=== PATIENT | male | born 1955 | race Caucasian/White ===

== ENCOUNTER → 2018-06-26 14:18 | Outpatient (CLI) | payer SELFPAY ==
--- NOTE | 2018-06-26 14:21 | CT_ITS ---
CT soft tissue neck wo con INDICATION: ITS.REASON: LT SUBMANDIBULAR MASS ORDERING PHYSICIAN: Lindsey Stevenson PATIENT AGE: 62 years COMPARISON: None TECHNIQUE: Axial images are obtained without contrast. Sagittal and coronal reformatted images are reviewed as well. A BB is placed over the palpable abnormality All CT scans at the facility use one or more dose reduction, viz: automated exposure control, ma/kV adjustment per patient size (including targeted exams where dose is matched to indication, i.e. head), or iterative reconstruction technique. FINDINGS: There is a 3.2 x 2.8 x 3.6 cm soft tissue mass left submandibular region. This is along the posterior and superior aspect of the submandibular gland between the submandibular gland and sternocleidomastoid muscle and lateral to the jugular and carotid vessels consistent with an enlarged lymph node. No calcification or necrosis apparent. This is a level 2 lymph node. Other scattered smaller nodes are present in the neck but no other dominant nodes are apparent. No acute finding in the lung apices. There are degenerative changes in the cervical spine and nonspecific nuchal ligament calcification. IMPRESSION: Left neck soft tissue mass as described above consistent with an enlarged lymph node.
== END ==
PROVIDERS: Family Provider Nurse Practitioner; PCP Nurse Practitioner; Visit Provider Nurse Practitioner
DX: R22.1 Localized swelling, mass and lump, neck (principal)
CPT/HCPCS: 70490

== ENCOUNTER → 2019-01-04 12:04 | Outpatient (CLI) | payer OTHER, SELFPAY ==
--- NOTE | 2019-01-04 12:15 | CT_ITS ---
CT soft tissue neck wo con INDICATION: ITS.REASON: LT SIDE OF NECK MASS ORDERING PHYSICIAN: Lindsey Stevenson PATIENT AGE: 63 years COMPARISON: 06/26/2018 TECHNIQUE: Axial images are obtained without contrast. Sagittal and coronal reformatted images are reviewed as well. All CT scans at the facility use one or more dose reduction, viz: automated exposure control, ma/kV adjustment per patient size (including targeted exams where dose is matched to indication, i.e. head), or iterative reconstruction technique. FINDINGS: Study is somewhat limited performed without contrast. There remains a soft tissue mass in the left submandibular area. This is increased in size measuring 4.2 x 3.5 x 3.6 cm previously 3.5 x 2.8 x 3.1 cm consistent with an enlarged lymph node. The submandibular gland has an unremarkable appearance. No other enlarged nodes are evident. There are scattered small lymph nodes present in the neck on both sides. There is mild mucosal thickening of the ethmoid sinuses. The nasopharynx has an unremarkable appearance. The tonsils are somewhat prominent more so on the left compared to the right. Cannot exclude a mass in the left peritonsillar region. The laryngeal region and epiglottis has an unremarkable appearance. IMPRESSION: 1. Enlarged left subarticular lymph node which has increased in size compared to 06/26/2018. Fine-needle aspiration with ultrasound guidance could be performed if clinically desired. 2. Mildly enlarged tonsils. There is increased soft tissue density in the left peritonsillar region. A mass at this area cannot be excluded. Follow-up CT neck with IV contrast suggested for further evaluation.
== END ==
PROVIDERS: PCP Nurse Practitioner; Visit Provider Nurse Practitioner
DX: R22.1 Localized swelling, mass and lump, neck (principal)
CPT/HCPCS: 70490

== ENCOUNTER 2019-01-08 10:17 | Inpatient (IN) ==
--- NOTE | 2019-01-08 10:43 | Emergency Department Note ---
ED Disposition Clinical Impression: Partial bowel obstruction Disposition: Admitted as Observation Condition on Discharge: Good Referrals: Lindsey Stevenson APRN [Primary Care Provider] - Time of Disposition: 13:06 - Critical Care Critical Care Time: No Attestation: On 01/08/19, the high probability of a clinically significant, sudden or life threatening deterioration of the following system(s) required my full and direct attention, intervention and personal management. The time I documented below is in addition to time spent performing reported procedures but includes the following listed in this critical care notation. Medical Decision Making - Medical Records Medical records reviewed: Yes: I reviewed the patient's medical records. - Harvey Inquiry Pt receiving controlled substance: No Harvey was queried for this patient: No Vital Signs: 01/08/19 10:29 01/08/19 10:40 01/08/19 11:09 Temperature 97.9 F 98.1 F Temperature Source Oral Oral Pulse Rate [Right Brachial] 61 53 L 57 L Respiratory Rate 18 17 Blood Pressure [Right Arm] 145/78 H 159/81 H 135/70 Blood Pressure Mean [Right Arm] 100 107 91 Blood Pressure Source [Right Arm] Automatic Cuff Automatic Cuff Automatic Cuff Blood Pressure Position [Right Arm] Sitting Sitting Sitting 02 Sat by Pulse Oximetry 97 100 93 L Oxygen Delivery Method Room Air Room Air Room Air 01/08/19 12:00 Temperature Temperature Source Pulse Rate [Right Brachial] 56 L Respiratory Rate 18 Blood Pressure [Right Arm] 101/58 L Blood Pressure Mean [Right Arm] 72 Blood Pressure Source [Right Arm] Automatic Cuff Blood Pressure Position [Right Arm] Sitting 02 Sat by Pulse Oximetry 95 Oxygen Delivery Method Room Air - Lab Data Lab results reviewed: Yes: I reviewed the patient's lab results. Lab Results 01/08/19 10:43: WBC 14.0 H, RBC 4.21 L, Hgb 13.0 L, Hct 36.5 L, MCV 86.7, MCH 30.8, MCHC 35.5 H, RDW 12.5, Plt Count 296, MPV 7.2 L, Neut % (Auto) 84.6 H, Lymph % (Auto) 11.5, [place] % (Auto) 3.1, Eos % (Auto) 0.7, Baso % (Auto) 0.1, Neut # (Auto) 11.8 H, Lymph # (Auto) 1.6, [place] # (Auto) 0.4, Eos # (Auto) 0.1, Baso # (Auto) 0.0 01/08/19 10:43: Sodium 138, Potassium 4.0, Chloride 102, Carbon Dioxide 24, Anion Gap 16.0 H, BUN 19 H, Creatinine 1.50 H, Estimated Creat Clear 73, Estimated GFR 48 L, Est GFR ( Amer) 58 L, Glucose 133 H, Calcium 9.1, Total Bilirubin 0.5, AST 15, ALT 19, Alkaline Phosphatase 98, Total Protein 8.7 H, Albumin 4.2, Globulin 4.5 H, Albumin/Globulin Ratio 0.9 L 01/08/19 10:43: Lipase 81 01/08/19 11:07: Urine Color Yellow, Urine Appearance Clear, Urine pH 6.0, Ur Specific [place] 1.020, Urine Protein Negative, Urine Glucose (UA) Negative, Urine Ketones Negative, Urine Blood Negative, Urine Nitrate Negative, Urine Bilirubin Negative, Urine Urobilinogen 0.2, Ur Leukocyte Esterase Negative, Urine WBC Occasional, Ur Squamous Epith Cells Occasional, Urine Bacteria Trace Result diagrams: 01/08/19 10:43 01/08/19 10:43 Orders (Tests/Meds): ED MEDICATIONS Discontinued Medications Generic Name Dose Route Start Last Admin Trade Name Freq PRN Reason Stop Dose Admin Ioversol 75 ml 01/08/19 11:42 01/08/19 11:44 Rad-Optiray 350 100ml Vial IV 01/08/19 11:43 75 ml ONCE ONE Administration Protocol Ketorolac Tromethamine 30 mg 01/08/19 10:49 01/08/19 11:04 Toradol 30mg/Ml Vial IV 01/08/19 10:50 30 mg ONCE ONE Administration Ondansetron HCl 4 mg 01/08/19 10:49 01/08/19 11:04 Zofran 4mg/2ml Vial IV 01/08/19 10:50 4 mg ONCE ONE Administration Sodium Chloride 10 ml 01/08/19 11:42 01/08/19 11:44 Rad-Saline Flush 10ml Syringe IV 01/08/19 11:43 10 ml ONCE ONE Administration - Physician Consults Physician Consulted: argenis corea Reason -: Pt condition Comment/Response: admit, inhouse prep, colonoscopy. I then learned that the patient had undergone previous colonoscopy by Dr. Ramirez Additional Consult: md latia Reason -: Pt condition Additional Consult: Dr. Maria Time: 13:06 Reason -: Admission General Adult HPI - General Stated complaint: stomach pain Time Seen by Provider: 01/08/19 10:40 Mode of Arrival: Family Vehicle Source of Information: Patient Limitations: No Limitations Description of Symptoms (Recalled from ER Triage Doc. by RN): c/o severe intermittent abdominal pain since approx 2 am. When it occurs is 10 on scale 1/10. States its starts in RLQ and radiates upward to epigastric/rib area - Related Data Home Medications Medication Instructions Recorded Confirmed Carvedilol [Carvedilol 12.5mg Tab] 12.5 mg PO BID 01/08/19 01/08/19 Gemfibrozil 600 mg PO BID 01/08/19 01/08/19 Lisinopril/Hydrochlorothiazide 1 tab PO DAILY 01/08/19 01/08/19 [Lisinopril-Hctz 20-12.5 mg Tab] Allergies Allergy/AdvReac Type Severity Reaction Status Date / Time No Known Allergies Allergy Verified 01/08/19 10:37 [facility] History - Hepatitis A Screen Drug use history?: No High risk sexual behaviors?: No History of sexually transmitted infection?: No Currently employed?: No Childcare worker?: No Do you have indoor plumbing?: Yes Do you have electricity?: Yes Attestation statement:: This patient has been screened for Hepatitis A risk factors. I have reviewed the patient's past medical history: Yes - Social History Smoking Status: Unknown if ever smoked Tobacco Type: smokeless tobacco # Packs/Day (cigarettes): 0 #Yrs smoked (if former smoker): 0 Alcohol Intake: never Occupational Status: other - Psychiatric History Expresses thoughts of harming self/others: None Suicide Plan Description: No Plan ROS Obtained: Yes All systems reviewed & no additional complaints - Constitutional Constitutional: Denies fever(s) - Cardiovascular Cardiovascular: Denies chest pain - Respiratory Respiratory: No chest congestion, No cough - Gastrointestinal Gastrointestingal: Reports: abdominal pain, nausea - Genitourinary Male Genitourinary: Reports flank pain, Denies hematuria - Musculoskeletal Musculoskeletal: Denies joint stiffness, Denies joint swelling - Integumentary/Breasts Skin/Breast: Denies rash - Neurologic Neurologic: Denies headache(s), Denies weakness Physical Exam - General General appearance: alert, in no apparent distress - Head Head exam: atraumatic, normocephalic, normal inspection - Eye Eye exam: Present: normal appearance, PERRL, EOMI - ENT ENT exam: Present: normal exam, normal oropharynx, mucous membranes moist, TM's normal bilaterally, normal external ear exam - Neck Neck exam: Present: normal inspection, full ROM, trachea midline. Absent: meningismus, lymphadenopathy - Respiratory Respiratory exam: Present: normal lung sounds bilaterally - Cardiovascular Cardiovascular exam: Present: regular rate, normal rhythm - Abdominal Exam Abdominal exam: Present: soft, distention. Absent: tenderness, guarding, mass - Extremities Exam Extremities exam: Present: normal inspection, full ROM, normal capillary refill. Absent: calf tenderness - Back Exam Back exam: Present: normal inspection. Absent: tenderness - Neurological Exam Neurological exam: Present: alert, oriented X3 - Psychiatric Psychiatric exam: Present: normal affect, normal mood - Skin Skin exam: Present: warm, dry, intact, normal color
[2019-01-08 11:00] LABS: Basophils % 0.1 % (0.1-2.0); Eosinophils # 0.1 K/mm3 (0.0-0.4); Eosinophils % 0.7 % (0.1-12.0); Hematocrit 36.5 % (42.0-52.0); Lymphocytes # 1.6 K/mm3 (0.7-4.5); Lymphocytes % 11.5 % (10-50); Mean Corpuscular HGB Conc 35.5 g/dL (31.8-35.4); Mean Corpuscular Hemoglobin 30.8 pg (27.0-31.2); Mean Corpuscular Volume 86.7 fl (80-94); Mean Platelet Volume 7.2 fl (7.4-10.4); Monocytes # 0.4 K/mm3 (0.1-1.0); Monocytes % 3.1 % (1.7-9.3); Neutrophils # 11.8 K/mm3 (1.8-7.8); Neutrophils % 84.6 % (37.0-80.0); Platelet Count 296 K/mm3 (142-424); Red Blood Count 4.21 M/mm3 (4.60-6.20); Red Cell Distribution Width 12.5 % (11.5-17.5)
[2019-01-08 11:09] LABS: Microscopic, Urine URINE MICROSCOPIC (MICROSCOPIC)
[2019-01-08 11:12] LABS: Appearance,Urine CLEAR (Clear); Bilirubin,Urine Negative (Negative); Blood, Urine Negative (Negative); Color,Urine YELLOW (Yellow); Glucose,Urine (UA) Negative (Negative); Ketones,Urine Negative (Negative); Leukocyte Esterase,Urine Negative (Negative); Protein,Urine Negative (Negative); Urobilinogen,Urine 0.2 EU/dl (0.2)
[2019-01-08 11:15] LABS: Albumin Level 4.2 gm/dL (3.4-5.0); Albumin/Globulin Ratio 0.9 (1.1-1.8); Bilirubin,Total 0.5 mg/dL (0.2-1.0); Calcium 9.1 mg/dL (8.5-10.1); Globulin 4.5 gm/dl (1.3-3.2); Total Protein,Serum 8.7 gm/dL (6.4-8.2)
[2019-01-08 11:18] LABS: Bacteria,Urine Trace /lpf; Squamous Epithelial Cell,Urine Occasional #/hpf (0-5); WBC,Urine Occasional #/hpf (0-3)
--- NOTE | 2019-01-08 13:50 | Pharmacy Consult Notes ---
[facility] Pharmacy VTE Monitoring - Patient Demographics Admission date: 01/08/19 Report Date: 01/08/19 Time: 13:50 Allergies/Adverse Reactions: Patient Allergies No Known Allergies Allergy (Verified 01/08/19 10:37) Height: 1.73 m Weight: 100.244 kg Patient Problems: Current Active Problems Partial bowel obstruction (Acute) - VTE Risk Labs: VTE Related Lab Results Hgb 13.0 g/dL (14.1-18.0) L 01/08/19 10:43 Hct 36.5 % (42.0-52.0) L 01/08/19 10:43 Plt Count 296 K/mm3 (142-424) 01/08/19 10:43 BUN 19 mg/dL (7-18) H 01/08/19 10:43 Creatinine 1.50 mg/dL (0.70-1.30) H 01/08/19 10:43 Estimated Creat Clear 73 mL/min (50-200) 01/08/19 10:43 - Prophylaxis VTE Prophylaxis Ordered?: Yes Types of VTE Prophylaxis: TEDS Knee High Location of Applied Device: Bilateral Lower Extremeties - VTE Diagnosis Confirmed Treatment or plan recommended: Continue Current Treatment
--- NOTE | 2019-01-08 16:46 | History & Physical Report ---
*Admission Date: 01/08/19 *Chief complaint: abd pain, bowel obstruction *History of present illness: 63 year old male presents to [facility] ER with acute onset of abdominal pain which began this morning. Located right lower quadrant radiating mid epigastric area. Denies N/V/D. Usually has a daily BM but was noted to be constipated this morning. Has had three very small bowel movements today. Denies fever, chills. PMH significant for appendectomy. Colonoscopy performed by Dr Ramirez September of 2014, additional colonoscopy by Dr Birch. FH includes mother with colon cancer and colon resection. CT abd/pelvis in ER showed stenosis in the colon with suspicious apple core lesion/neoplasm and diverticulosis. Dr Ramirez consulted with this admission, has already examined the patient with plan of gastrograffin enema for further evaluation, potentially needs additional colonoscopy. [facility] History Medical History: Reports:: Hyperlipidemia, Hypertension Denies:: Diabetes Mellitus Type 1, Diabetes Mellitus Type 2 *Have you ever received a pneumonia vaccine?: No *Have you received a flu vaccine this season?: No Other Surgeries: Yes: Appendectomy Comment: partial right foot amputation - *Social History Educational Level: Completed High School Smoking Status: Former smoker Tobacco Type: smokeless tobacco # Packs/Day (cigarettes): 0 #Yrs smoked (if former smoker): 0 Alcohol Intake: never *Occupational Status:: other Housing: house Household Members: family *Travel in the last 8 weeks: None - Psychiatric History Expresses thoughts of harming self/others: None Suicide Plan Description: No Plan Family Hx:: Cancer, Diabetes, Hyperlipidemia, Hypertension, Kidney Disease, Other Review of Systems - Constitutional Denies chills, Denies fever(s), Denies lack of energy, Denies weight loss - *Cardiovascular Denies shortness of breath - *Gastrointestinal Reports abdominal pain, Reports change in stools, Reports constipation, Denies nausea, Denies vomiting - *Neurologic Denies headache(s), Denies weakness Meds Home Medications Medication Instructions Recorded Confirmed Type Carvedilol [Carvedilol 12.5mg Tab] 12.5 mg PO BID 01/08/19 01/08/19 History Gemfibrozil 600 mg PO BID 01/08/19 01/08/19 History Lisinopril/Hydrochlorothiazide 1 tab PO BID 01/08/19 01/08/19 History [Lisinopril-Hctz 20-12.5 mg Tab] Allergies Allergy/AdvReac Type Severity Reaction Status Date / Time No Known Allergies Allergy Verified 01/08/19 10:37 Exam Vital signs and Labs for Last 24 Hours: Temp Pulse Resp BP Pulse Ox 97.7 F 50 L 18 138/68 94 L 01/08/19 14:11 01/08/19 14:11 01/08/19 14:11 01/08/19 14:11 01/08/19 14:11 Laboratory Results - last 24 hr 01/08/19 10:43: WBC 14.0 H, RBC 4.21 L, Hgb 13.0 L, Hct 36.5 L, MCV 86.7, MCH 30.8, MCHC 35.5 H, RDW 12.5, Plt Count 296, MPV 7.2 L, Neut % (Auto) 84.6 H, Lymph % (Auto) 11.5, [place] % (Auto) 3.1, Eos % (Auto) 0.7, Baso % (Auto) 0.1, Neut # (Auto) 11.8 H, Lymph # (Auto) 1.6, [place] # (Auto) 0.4, Eos # (Auto) 0.1, Baso # (Auto) 0.0 01/08/19 10:43: Sodium 138, Potassium 4.0, Chloride 102, Carbon Dioxide 24, Anion Gap 16.0 H, BUN 19 H, Creatinine 1.50 H, Estimated Creat Clear 73, Estimated GFR 48 L, Est GFR ( Amer) 58 L, Glucose 133 H, Calcium 9.1, Total Bilirubin 0.5, AST 15, ALT 19, Alkaline Phosphatase 98, Total Protein 8.7 H, Albumin 4.2, Globulin 4.5 H, Albumin/Globulin Ratio 0.9 L 01/08/19 10:43: Lipase 81 01/08/19 11:07: Urine Color Yellow, Urine Appearance Clear, Urine pH 6.0, Ur Specific [place] 1.020, Urine Protein Negative, Urine Glucose (UA) Negative, Urine Ketones Negative, Urine Blood Negative, Urine Nitrate Negative, Urine Bilirubin Negative, Urine Urobilinogen 0.2, Ur Leukocyte Esterase Negative, Urine WBC Occasional, Ur Squamous Epith Cells Occasional, Urine Bacteria Trace I & O for Last 24 hours: Intake & Output 01/05/19 01/06/19 01/07/19 01/08/19 23:59 23:59 23:59 23:59 Intake Total 234 / 234 Balance 234 / 234 Weight 217 lb 8 oz - Constitutional no acute distress, obese - *Routine HEENT Exam Head: Present: normocephalic ENT: Present: mucous membranes moist, mucous membranes dry - *Routine Respiratory Exam Present: CTA bilaterally. Absent: accessory muscle use - *Routine Cardiovascular Exam Present: RRR, Normal S1, Normal S2 - *Routine Abdominal Exam Present: soft Comments: diastasis recti noted, pain with palpation over right upper and lower quadrants - *Routine Extremities Exam Present: full ROM. Absent: cyanosis, edema - *Routine Skin Exam Present: intact. Absent: cyanosis, pallor - *Routine Neurological Exam Present: alert, oriented X3 - Routine Psychiatric Exam Present: normal affect
--- NOTE | 2019-01-08 16:46 | Consult Report ---
*Admission Date: 01/08/19 *Chief complaint: Abdominal pain, colon lesion *History of present illness: Patient is a 63-year-old white male. He had undergone previous initial screening colonoscopy in [address] Birch. This reportedly revealed only diverticulosis. I had performed his subsequent colonoscopy which was done in September 2014 at which time he had 6 polyps removed and had some sigmoid diverti culosis. I had recommended a 3-year follow-up colonoscopy at that time. He actually underwent a follow-up colonoscopy in September [address] Birch which reportedly revealed diverticulosis and a repeat colonoscopy in 5 or 6 years was recommended. Patient states that over the past couple of months he has had occasional audible bowel sounds but otherwise asymptomatic. He has had normal bowel movements and moves his bowels normally yesterday. However, this morning approximately 2 AM he had developed acute onset of sharp right lower quadrant pain radiating into the right upper quadrant and epigastrium. This was somewhat colicky and intermittent. He had presented to the emergency department where he was seen and evaluated and underwent noncontrast CT scan. This reveals findings of a stenotic area in the proximal to mid transverse colon with dilatation of the proximal colon. Distal colon is rather decompressed with some evidence of diverticulosis and minimal stranding. Of note, the patient's mother had been diagnosed with colon cancer approximately 2 years ago at the age of 78. No other family history of colon cancer. Review of Systems - Review of Systems Review of systems:: pertinent systems reviewed and negative unless documented below - Constitutional Denies anorexia - Eyes Denies change in vision - ENT Denies abnormal hearing - *Cardiovascular Denies chest pain - *Respiratory Denies shortness of breath - *Gastrointestinal Reports abdominal pain, Denies change in bowel habits - *Genitourinary Denies difficulty urinating - *Musculoskeletal Denies abnormal walking - *Neurologic Denies headache(s), Denies weakness [facility] History Medical History: Reports:: Hyperlipidemia, Hypertension Denies:: Diabetes Mellitus Type 1, Diabetes Mellitus Type 2 *Have you ever received a pneumonia vaccine?: No *Have you received a flu vaccine this season?: No Other Surgeries: Yes: Appendectomy - *Social History Educational Level: Completed High School Smoking Status: Former smoker Tobacco Type: smokeless tobacco # Packs/Day (cigarettes): 0 #Yrs smoked (if former smoker): 0 Alcohol Intake: never *Occupational Status:: other Housing: house Household Members: family *Travel in the last 8 weeks: None - Psychiatric History Expresses thoughts of harming self/others: None Suicide Plan Description: No Plan Family Hx:: Cancer, Diabetes, Hyperlipidemia, Hypertension, Kidney Disease, Other Meds Home Medications Medication Instructions Recorded Confirmed Type Carvedilol [Carvedilol 12.5mg Tab] 12.5 mg PO BID 01/08/19 01/08/19 History Gemfibrozil 600 mg PO BID 01/08/19 01/08/19 History Lisinopril/Hydrochlorothiazide 1 tab PO BID 01/08/19 01/08/19 History [Lisinopril-Hctz 20-12.5 mg Tab] Allergies Allergy/AdvReac Type Severity Reaction Status Date / Time No Known Allergies Allergy Verified 01/08/19 10:37 Exam Vital signs and Labs for Last 24 Hours: Temp Pulse Resp BP Pulse Ox 97.7 F 50 L 18 138/68 94 L 01/08/19 14:11 01/08/19 14:11 01/08/19 14:11 01/08/19 14:11 01/08/19 14:11 Laboratory Results - last 24 hr 01/08/19 10:43: WBC 14.0 H, RBC 4.21 L, Hgb 13.0 L, Hct 36.5 L, MCV 86.7, MCH 30.8, MCHC 35.5 H, RDW 12.5, Plt Count 296, MPV 7.2 L, Neut % (Auto) 84.6 H, L ymph % (Auto) 11.5, [place] % (Auto) 3.1, Eos % (Auto) 0.7, Baso % (Auto) 0.1, Neut # (Auto) 11.8 H, Lymph # (Auto) 1.6, [place] # (Auto) 0.4, Eos # (Auto) 0.1, Baso # (Auto) 0.0 01/08/19 10:43: Sodium 138, Potassium 4.0, Chloride 102, Carbon Dioxide 24, Anion Gap 16.0 H, BUN 19 H, Creatinine 1.50 H, Estimated Creat Clear 73, Estimated GFR 48 L, Est GFR ( Amer) 58 L, Glucose 133 H, Calcium 9.1, T otal Bilirubin 0.5, AST 15, ALT 19, Alkaline Phosphatase 98, Total Protein 8.7 H , Albumin 4.2, Globulin 4.5 H, Albumin/Globulin Ratio 0.9 L 01/08/19 10:43: Lipase 81 01/08/19 11:07: Urine Color Yellow, Urine Appearance Clear, Urine pH 6.0, Ur Specific [place] 1.020, Urine Protein Negative, Urine Glucose (UA) Negative, Urine Ketones Negative, Urine Blood Negative, Urine Nitrate Negative, Urine Bili garcia Negative, Urine Urobilinogen 0.2, Ur Leukocyte Esterase Negative, Urine WBC Occasional, Ur Squamous Epith Cells Occasional, Urine Bacteria Trace I & O for Last 24 hours: Intake & Output 01/06/19 01/07/19 01/08/19 01/09/19 11:59 11:59 11:59 11:59 Intake Total 234 / 234 Balance 234 / 234 Weight 221 lb 217 lb 8 oz - *Routine HEENT Exam Head: Present: normocephalic Eye: Present: EOMI, PERRL ENT: Present: mucous membranes moist - *Routine Neck Exam Present: supple. Absent: lymphadenopathy - *Routine Respiratory Exam Present: CTA bilaterally - *Routine Cardiovascular Exam Present: RRR - *Routine Abdominal Exam Present: soft, normoactive bowel sounds, tenderness Comments: He has very minimal tenderness without guarding or rebound in the right lower quadrant. - *Routine Extremities Exam Absent: cyanosis, clubbing, edema - *Routine Skin Exam Present: warm. Absent: rash - *Routine Neurological Exam Present: alert, oriented X3 - Detailed Eye Exam Eyelids: Left normal inspection Results - Labs 01/08/19 10:43 01/08/19 10:43 Laboratory Results - last 24 hr 01/08/19 10:43: WBC 14.0 H, RBC 4.21 L, Hgb 13.0 L, Hct 36.5 L, MCV 86.7, MCH 30.8, MCHC 35.5 H, RDW 12.5, Plt Count 296, MPV 7.2 L, Neut % (Auto) 84.6 H, Lymph % (Auto) 11.5, [place] % (Auto) 3.1, Eos % (Auto) 0.7, Baso % (Auto) 0.1, Neut # (Auto) 11.8 H, Lymph # (Auto) 1.6, [place] # (Auto) 0.4, Eos # (Auto) 0.1, Baso # (Auto) 0.0 01/08/19 10:43: Sodium 138, Potassium 4.0, Chloride 102, Carbon Dioxide 24, Anion Gap 16.0 H, BUN 19 H, Creatinine 1.50 H, Estimated Creat Clear 73, Estimated GFR 48 L, Est GFR ( Amer) 58 L, Glucose 133 H, Calcium 9.1, Total Bilirubin 0.5, AST 15, ALT 19, Alkaline Phosphatase 98, Total Protein 8.7 H, Albumin 4.2, Globulin 4.5 H, Albumin/Globulin Ratio 0.9 L 01/08/19 10:43: Lipase 81 01/08/19 11:07: Urine Color Yellow, Urine Appearance Clear, Urine pH 6.0, Ur Specific [place] 1.020, Urine Protein Negative, Urine Glucose (UA) Negative, Urine Ketones Negative, Urine Blood Negative, Urine Nitrate Negative, Urine Bilirubin Negative, Urine Urobilinogen 0.2, Ur Leukocyte Esterase Negative, Urine WBC Occasional, Ur Squamous Epith Cells Occasional, Urine Bacteria Trace Assessment and Plan - Assessment and plan all Dx Assessment and Plan for all problems:: Patient has evidence of a stenosis with partial large bowel obstruction in the proximal transverse colon. Etiology is unclear. This could be ne oplasm/malignancy versus inflammatory stricture. Plan for bowel rest at this time and water-soluble contrast enema tomorrow for diagnostic and potentially therapeutic purposes. Pending that could require colonoscopy.
[2019-01-09 06:38] LABS: Basophils % 0.3 % (0.1-2.0); Eosinophils # 0.1 K/mm3 (0.0-0.4); Eosinophils % 1.7 % (0.1-12.0); Hematocrit 30.6 % (42.0-52.0); Lymphocytes # 1.6 K/mm3 (0.7-4.5); Lymphocytes % 20.4 % (10-50); Mean Corpuscular HGB Conc 34.6 g/dL (31.8-35.4); Mean Corpuscular Hemoglobin 30.3 pg (27.0-31.2); Mean Corpuscular Volume 87.6 fl (80-94); Mean Platelet Volume 7.3 fl (7.4-10.4); Monocytes # 0.4 K/mm3 (0.1-1.0); Monocytes % 4.6 % (1.7-9.3); Neutrophils # 5.6 K/mm3 (1.8-7.8); Neutrophils % 72.9 % (37.0-80.0); Platelet Count 224 K/mm3 (142-424); Red Blood Count 3.49 M/mm3 (4.60-6.20); Red Cell Distribution Width 12.7 % (11.5-17.5); White Blood Count 7.6 K/mm3 (4.8-10.8)
[2019-01-09 06:45] LABS: Anion Gap 13.4 mEq/L (5-15); Calcium 8.5 mg/dL (8.5-10.1); Potassium 4.4 mmoL/L (3.5-5.1)
--- NOTE | 2019-01-09 06:55 | Progress Note ---
Subjective Narrative: Feels well. Some "soreness" in right lower quadrant. No nausea. No additional colicky pain. Passing some gas. Exam Vital signs and Labs for Last 24 Hours: Temp Pulse Resp BP Pulse Ox 98.2 F 60 15 121/63 96 01/09/19 04:00 01/09/19 04:00 01/09/19 04:00 01/09/19 04:00 01/09/19 04:00 Laboratory Results - last 24 hr 01/08/19 10:43: WBC 14.0 H, RBC 4.21 L, Hgb 13.0 L, Hct 36.5 L, MCV 86.7, MCH 30.8, MCHC 35.5 H, RDW 12.5, Plt Count 296, MPV 7.2 L, Neut % (Auto) 84.6 H, Lymph % (Auto) 11.5, [place] % (Auto) 3.1, Eos % (Auto) 0.7, Baso % (Auto) 0.1, Neut # (Auto) 11.8 H, Lymph # (Auto) 1.6, [place] # (Auto) 0.4, Eos # (Auto) 0.1, Baso # (Auto) 0.0 01/08/19 10:43: Sodium 138, Potassium 4.0, Chloride 102, Carbon Dioxide 24, Anion Gap 16.0 H, BUN 19 H, Creatinine 1.50 H, Estimated Creat Clear 73, Estimated GFR 48 L, Est GFR ( Amer) 58 L, Glucose 133 H, Calcium 9.1, Total Bilirubin 0.5, AST 15, ALT 19, Alkaline Phosphatase 98, Total Protein 8.7 H, Albumin 4.2, Globulin 4.5 H, Albumin/Globulin Ratio 0.9 L 01/08/19 10:43: Lipase 81 01/08/19 11:07: Urine Color Yellow, Urine Appearance Clear, Urine pH 6.0, Ur Specific [place] 1.020, Urine Protein Negative, Urine Glucose (UA) Negative, Urine Ketones Negative, Urine Blood Negative, Urine Nitrate Negative, Urine Bilirubin Negative, Urine Urobilinogen 0.2, Ur Leukocyte Esterase Negative, Urine WBC Occasional, Ur Squamous Epith Cells Occasional, Urine Bacteria Trace 01/09/19 05:53: WBC 7.6 D, RBC 3.49 L, Hct 30.6 L, MCV 87.6, MCH 30.3, MCHC 34. 6, RDW 12.7, Plt Count 224, MPV 7.3 L, Neut % (Auto) 72.9, Lymph % (Auto) 20.4, [place] % (Auto) 4.6, Eos % (Auto) 1.7, Baso % (Auto) 0.3, Neut # (Auto) 5.6, Lymph # (Auto) 1.6, [place] # (Auto) 0.4, Eos # (Auto) 0.1, Baso # (Auto) 0.0 01/09/19 05:53: Sodium 142, Potassium 4.4, Chloride 107, Carbon Dioxide 26, Anion Gap 13.4, BUN 22 H, Creatinine 1.52 H, Estimated Creat Clear 71, Estimated GFR 47 L, Est GFR ( Amer) 57 L, Glucose 104 D, Calcium 8.5 I & O for Last 24 hours: Intake & Output 01/06/19 01/07/19 01/08/19 01/09/19 11:59 11:59 11:59 11:59 Intake Total 1134 / 1134 Balance 1134 / 1134 Weight 221 lb 217 lb 8 oz - *Routine Abdominal Exam Present: soft. Absent: tenderness Progress Note: A&P Assessment and Plan for All Diagnoses:: Contrast enema today.
--- NOTE | 2019-01-09 07:06 | Progress Note ---
Internal Medicine - PN: Subj *Date: 01/09/19 *Time: 07:04 Interval history: Patient has no complaints this morning he does admit to some soreness in the right lower quadrant. He has not had any bowel movements overnight. He tolerated clear liquids yesterday evening. He is scheduled for Gastrografin enema today Exam Vital signs and Labs for Last 24 Hours: Temp Pulse Resp BP Pulse Ox 98.2 F 60 15 121/63 96 01/09/19 04:00 01/09/19 04:00 01/09/19 04:00 01/09/19 04:00 01/09/19 04:00 Laboratory Results - last 24 hr 01/08/19 10:43: WBC 14.0 H, RBC 4.21 L, Hgb 13.0 L, Hct 36.5 L, MCV 86.7, MCH 30.8, MCHC 35.5 H, RDW 12.5, Plt Count 296, MPV 7.2 L, Neut % (Auto) 84.6 H, Lymph % (Auto) 11.5, [place] % (Auto) 3.1, Eos % (Auto) 0.7, Baso % (Auto) 0.1, Neut # (Auto) 11.8 H, Lymph # (Auto) 1.6, [place] # (Auto) 0.4, Eos # (Auto) 0.1, Baso # (Auto) 0.0 01/08/19 10:43: Sodium 138, Potassium 4.0, Chloride 102, Carbon Dioxide 24, Anion Gap 16.0 H, BUN 19 H, Creatinine 1.50 H, Estimated Creat Clear 73, Estimated GFR 48 L, Est GFR ( Amer) 58 L, Glucose 133 H, Calcium 9.1, Total Bilirubin 0.5, AST 15, ALT 19, Alkaline Phosphatase 98, Total Protein 8.7 H, Albumin 4.2, Globulin 4.5 H, Albumin/Globulin Ratio 0.9 L 01/08/19 10:43: Lipase 81 01/08/19 11:07: Urine Color Yellow, Urine Appearance Clear, Urine pH 6.0, Ur Specific [place] 1.020, Urine Protein Negative, Urine Glucose (UA) Negative, Urine Ketones Negative, Urine Blood Negative, Urine Nitrate Negative, Urine Bilirubin Negative, Urine Urobilinogen 0.2, Ur Leukocyte Esterase Negative, Urin e WBC Occasional, Ur Squamous Epith Cells Occasional, Urine Bacteria Trace 01/09/19 05:53: WBC 7.6 D, RBC 3.49 L, Hgb 11.0 L D, Hct 30.6 L, MCV 87.6, MCH 30.3, MCHC 34.6, RDW 12.7, Plt Count 224, MPV 7.3 L, Neut % (Auto) 72.9, Lymph % (Auto) 20.4, [place] % (Auto) 4.6, Eos % (Auto) 1.7, Baso % (Auto) 0.3, Neut # (Auto) 5.6, Lymph # (Auto) 1.6, [place] # (Auto) 0.4, Eos # (Auto) 0.1, Baso # (Auto) 0.0 01/09/19 05:53: Sodium 142, Potassium 4.4, Chloride 107, Carbon Dioxide 26, Anion Gap 13.4, BUN 22 H, Creatinine 1.52 H, Estimated Creat Clear 71, Estimated GFR 47 L, Est GFR ( Amer) 57 L, Glucose 104 D, Calcium 8.5 I & O for Last 24 hours: Intake & Output 01/06/19 01/07/19 01/08/19 01/09/19 11:59 11:59 11:59 11:59 Intake Total 2270 Balance 2270 / 2270 Weight 221 lb 217 lb 8 oz Narrative: Patient is awake and alert. Lungs remain clear. Heart has a regular rate and rhythm. Abdomen is soft with mild right lower quadrant tenderness. Bowel sounds are present Assessment and Plan (1) Partial bowel obstruction Current visit: Yes Status: Acute Category: Medical Code(s): K56.600 - Partial intestinal obstruction, unspecified as to cause (2) Diverticulitis Current visit: Yes Status: Suspected Category: Medical Code(s): K57.92 - Diverticulitis of intestine, part unspecified, without perforation or abscess without bleeding (3) Colonic mass Current visit: Yes Status: Suspected Category: Medical Code(s): K63.9 - Disease of intestine, unspecified - Assessment and plan all Dx Assessment and Plan for all problems:: Gastrografin enema today with further decision making when resulted
--- NOTE | 2019-01-09 09:21 | History & Physical Report ---
*Admission Date: 01/08/19 *Chief complaint: Left neck mass *History of present illness: 63 year old male presents to [facility] ER with acute onset of abdominal pain which began this morning. He is currently being treated for a bowel obstruction. He was scheduled to see me today for a left neck mass as an outpatient but I was asked to evaluation him due to him inpatient status. Reports that since the fall he has had a left sided neck mass. This has not been tender but he reports he does think it has gotten larger. He has a scan in 2017 showing a left sided 3.5 x 2.8 x3.1 cm neck mass in level 2 of the neck. A repeat scan done on 01/04/19 is now concerning for increasing size of 4.2 x 3.5 x 3.6 with concern also for a left tonsil mass. Patient does report some mild left sided tonsil pain intermittently as well as some left sided ear pain intermittently. Denies any signficant weight loss or trismus. [facility] History Medical History: Reports:: Hyperlipidemia, Hypertension Denies:: Diabetes Mellitus Type 1, Diabetes Mellitus Type 2 *Have you ever received a pneumonia vaccine?: No *Have you received a flu vaccine this season?: No Other Surgeries: Yes: Appendectomy - *Social History Educational Level: Completed High School Smoking Status: Former smoker Tobacco Type: smokeless tobacco # Packs/Day (cigarettes): 0 #Yrs smoked (if former smoker): 0 Alcohol Intake: never *Occupational Status:: other Housing: house Household Members: family *Travel in the last 8 weeks: None - Psychiatric History Expresses thoughts of harming self/others: None Suicide Plan Description: No Plan Family Hx:: Cancer, Diabetes, Hyperlipidemia, Hypertension, Kidney Disease, Other Review of Systems - Review of Systems Review of systems:: unable to obtain, other, pertinent systems reviewed and negative unless documented below - ENT Reports neck lump - *Gastrointestinal Reports abdominal pain - *Neurologic Denies abnormal walking, Denies abnormal hearing, Denies headache(s), Denies weakness Meds Home Medications Medication Instructions Recorded Confirmed Type Carvedilol [Carvedilol 12.5mg Tab] 12.5 mg PO BID 01/08/19 01/08/19 History Gemfibrozil 600 mg PO BID 01/08/19 01/08/19 History Lisinopril/Hydrochlorothiazide 1 tab PO BID 01/08/19 01/08/19 History [Lisinopril-Hctz 20-12.5 mg Tab] Allergies Allergy/AdvReac Type Severity Reaction Status Date / Time No Known Allergies Allergy Verified 01/08/19 10:37 Exam Vital signs and Labs for Last 24 Hours: Temp Pulse Resp BP Pulse Ox 98.4 F 51 L 16 127/69 93 L 01/09/19 07:51 01/09/19 07:51 01/09/19 07:51 01/09/19 07:51 01/09/19 07:51 Laboratory Results - last 24 hr 01/08/19 10:43: WBC 14.0 H, RBC 4.21 L, Hgb 13.0 L, Hct 36.5 L, MCV 86.7, MCH 30.8, MCHC 35.5 H, RDW 12.5, Plt Count 296, MPV 7.2 L, Neut % (Auto) 84.6 H, Lymph % (Auto) 11.5, [place] % (Auto) 3.1, Eos % (Auto) 0.7, Baso % (Auto) 0.1, Neut # (Auto) 11.8 H, Lymph # (Auto) 1.6, [place] # (Auto) 0.4, Eos # (Auto) 0.1, Baso # (Auto) 0.0 01/08/19 10:43: Sodium 138, Potassium 4.0, Chloride 102, Carbon Dioxide 24, Anion Gap 16.0 H, BUN 19 H, Creatinine 1.50 H, Estimated Creat Clear 73, Estimated GFR 48 L, Est GFR ( Amer) 58 L, Glucose 133 H, Calcium 9.1, Total Bilirubin 0.5, AST 15, ALT 19, Alkaline Phosphatase 98, Total Protein 8.7 H, Albumin 4.2, Globulin 4.5 H, Albumin/Globulin Ratio 0.9 L 01/08/19 10:43: Lipase 81 01/08/19 11:07: Urine Color Yellow, Urine Appearance Clear, Urine pH 6.0, Ur Specific [place] 1.020, Urine Protein Negative, Urine Glucose (UA) Negative, Urine Ketones Negative, Urine Blood Negative, Urine Nitrate Negative, Urine Bilirubin Negative, Urine Urobilinogen 0.2, Ur Leukocyte Esterase Negative, Urine WBC Occasional, Ur Squamous Epith Cells Occasional, Urine Bacteria Trace 01/09/19 05:53: WBC 7.6 D, RBC 3.49 L, Hgb 11.0 L D, Hct 30.6 L, MCV 87.6, MCH 30.3, MCHC 34.6, RDW 12.7, Plt Count 224, MPV 7.3 L, Neut % (Auto) 72.9, Lymph % (Auto) 20.4, [place] % (Auto) 4.6, Eos % (Auto) 1.7, Baso % (Auto) 0.3, Neut # (Auto) 5.6, Lymph # (Auto) 1.6, [place] # (Auto) 0.4, Eos # (Auto) 0.1, Baso # (Auto) 0.0 01/09/19 05:53: Sodium 142, Potassium 4.4, Chloride 107, Carbon Dioxide 26, Anion Gap 13.4, BUN 22 H, Creatinine 1.52 H, Estimated Creat Clear 71, Estimated GFR 47 L, Est GFR ( Amer) 57 L, Glucose 104 D, Calcium 8.5 I & O for Last 24 hours: Intake & Output 01/06/19 01/07/19 01/08/19 01/09/19 23:59 23:59 23:59 23:59 Intake Total 1134 / 1134 1137 / 1137 Balance 1134 / 1134 1137 / 1137 Weight 217 lb 8 oz 217 lb 8 oz - Constitutional no acute distress - *Routine HEENT Exam Head: Present: normocephalic Eye: Present: EOMI Comments: Concern for left sided tonsils induration, no trismus - *Routine Neck Exam Comments: 4cm left side level 2 neck mass, mobile and non tender H&P: Result - Imaging and Cardiology CT neck reviewed Status: image reviewed by me Assessment and Plan (1) Mass in neck Current visit: Yes Status: Acute Category: Medical Code(s): R22.1 - Localized swelling, mass and lump, neck Will get set up for FNA left neck mass while he is an inpatient. 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 (2) Tonsillar mass Current visit: Yes Status: Acute Category: Medical Code(s): R22.0 - Localized swelling, mass and lump, head Suspect left tonsil is the primary. May need tonsillectomy once bowel problems is sorted out.
--- NOTE | 2019-01-09 10:27 | Progress Note ---
Subjective Patient reports: no new complaints Exam Vital signs and Labs for Last 24 Hours: Temp Pulse Resp BP Pulse Ox 98.4 F 51 L 16 127/69 98 01/09/19 07:51 01/09/19 07:51 01/09/19 07:51 01/09/19 07:51 01/09/19 08:00 Laboratory Results - last 24 hr 01/08/19 10:43: WBC 14.0 H, RBC 4.21 L, Hgb 13.0 L, Hct 36.5 L, MCV 86.7, MCH 30.8, MCHC 35.5 H, RDW 12.5, Plt Count 296, MPV 7.2 L, Neut % (Auto) 84.6 H, Lymph % (Auto) 11.5, [place] % (Auto) 3.1, Eos % (Auto) 0.7, Baso % (Auto) 0.1, Neut # (Auto) 11.8 H, Lymph # (Auto) 1.6, [place] # (Auto) 0.4, Eos # (Auto) 0.1, Baso # (Auto) 0.0 01/08/19 10:43: Sodium 138, Potassium 4.0, Chloride 102, Carbon Dioxide 24, Anion Gap 16.0 H, BUN 19 H, Creatinine 1.50 H, Estimated Creat Clear 73, Estimated GFR 48 L, Est GFR ( Amer) 58 L, Glucose 133 H, Calcium 9.1, Total Bilirubin 0.5, AST 15, ALT 19, Alkaline Phosphatase 98, Total Protein 8.7 H, Albumin 4.2, Globulin 4.5 H, Albumin/Globulin Ratio 0.9 L 01/08/19 10:43: Lipase 81 01/08/19 11:07: Urine Color Yellow, Urine Appearance Clear, Urine pH 6.0, Ur Specific [place] 1.020, Urine Protein Negative, Urine Glucose (UA) Negative, Urine Ketones Negative, Urine Blood Negative, Urine Nitrate Negative, Urine B ilirubin Negative, Urine Urobilinogen 0.2, Ur Leukocyte Esterase Negative, Urine WBC Occasional, Ur Squamous Epith Cells Occasional, Urine Bacteria Trace 01/09/19 05:53: WBC 7.6 D, RBC 3.49 L, Hgb 11.0 L D, Hct 30.6 L, MCV 87.6, MCH 30.3, MCHC 34.6, RDW 12.7, Plt Count 224, MPV 7.3 L, Neut % (Auto) 72.9, Lymph % (Auto) 20.4, [place] % (Auto) 4.6, Eos % (Auto) 1.7, Baso % (Auto) 0.3, Neut # (Auto) 5.6, Lymph # (Auto) 1.6, [place] # (Auto) 0.4, Eos # (Auto) 0.1, Baso # (Auto) 0.0 01/09/19 05:53: Sodium 142, Potassium 4.4, Chloride 107, Carbon Dioxide 26, Anion Gap 13.4, BUN 22 H, Creatinine 1.52 H, Estimated Creat Clear 71, Estimated GFR 47 L, Est GFR ( Amer) 57 L, Glucose 104 D, Calcium 8.5 I & O for Last 24 hours: Intake & Output 01/06/19 01/07/19 01/08/19 01/09/19 11:59 11:59 11:59 11:59 Intake Total 1 / 2271 Balance 2270 / 2271 Weight 221 lb 217 lb 8 oz - *Routine Abdominal Exam Present: soft. Absent: tenderness Progress Note: A&P (1) Mass in neck Status: Acute Current Visit: Yes (2) Tonsillar mass Status: Acute Current Visit: Yes Assessment and Plan for All Diagnoses:: Discussed case with radiologist, Dr. Reno. He feels that there is somewhat of a risk with immediate contrast enema given the mild stranding at sigmoid colon area. Plan will be for clear liquids today with water soluble contrast enema tomorrow morning. Pending these findings may follow up with colonoscopy.
--- NOTE | 2019-01-10 07:04 | Progress Note ---
Internal Medicine - PN: Subj *Date: 01/10/19 *Time: 07:03 Interval history: Patient has no complaints today. Gastrografin enema was postponed yesterday until today. He denies abdominal pain this morning. His neck is sore where he had a fine-needle aspiration of the left neck mass Exam Vital signs and Labs for Last 24 Hours: Temp Pulse Resp BP Pulse Ox 98.3 F 58 L 16 116/58 L 96 01/10/19 04:00 01/10/19 04:00 01/10/19 04:00 01/10/19 04:00 01/10/19 04:00 Laboratory Results - last 24 hr 01/09/19 16:48: Stl Aeromonas (PCR) Not detected, Stl C. cayetanensis PCR Not detected, Stool Rotavirus (PCR) Not detected, Stl Adenov F 40/41 PCR Not detected, Stool Astrovirus (PCR) Not detected, Stool Campylobacter PCR Not detected, Stl C.difficile Tox PCR Not detected, Stool Cryptosporidium PCR Not detected, Stl E.coli Shiga Tox PCR Not detected, Stool E coli O157 PCR Not detected, Stl Enterotoxigenic E PCR Not detected, Stool EPEC (PCR) Not detected, Stool EAEC (PCR) Not detected, Stl E. histolytica PCR Not detected, Stool Giardia Lamblia PCR Not detected, Stool Salmonella PCR Not detected, Stool Sapovirus (PCR) Not detected, Stl P. shigelloides PCR Not detected, Stl Shigella/EIEC PCR Not detected, St Y.enterocolitica PCR Not detected, Stool Vibrio (PCR) Not detected, Stl Vibrio cholerae PCR Not detected, Stl Norovirus GI/GII PCR Not detected I & O for Last 24 hours: Intake & Output 01/07/19 01/08/19 01/09/19 01/10/19 11:59 11:59 11:59 11:59 Intake Total 2521 / 2521 3859 / 3859 Output Total 200 / 200 700 / 700 Balance 2321 / 2321 3159 / 3159 Weight 221 lb 217 lb 8 oz 215 lb 5 oz Narrative: Lungs are clear to auscultation. Heart has a regular rate and rhythm. Abdomen is soft, nontender, nondistended Assessment and Plan (1) Colonic mass Current visit: Yes Status: Suspected Category: Medical Code(s): K63.9 - Disease of intestine, unspecified (2) Mass in neck Current visit: Yes Status: Acute Category: Medical Code(s): R22.1 - Localized swelling, mass and lump, neck (3) Tonsillar mass Current visit: Yes Status: Acute Category: Medical Code(s): R22.0 - Localized swelling, mass and lump, head (4) Partial bowel obstruction Current visit: Yes Status: Acute Category: Medical Code(s): K56.600 - Partial intestinal obstruction, unspecified as to cause (5) Diverticulitis Current visit: Yes Status: Suspected Category: Medical Code(s): K57.92 - Diverticulitis of intestine, part unspecified, without perforation or abscess without bleeding - Assessment and plan all Dx Assessment and Plan for all problems:: Gastrografin enema today with subsequent decision making by Dr. Ramirez
--- NOTE | 2019-01-10 07:10 | Progress Note ---
Subjective Narrative: Main complaint is neck soreness after biopsy. Some diarrhea. Exam Vital signs and Labs for Last 24 Hours: Temp Pulse Resp BP Pulse Ox 98.3 F 58 L 16 116/58 L 96 01/10/19 04:00 01/10/19 04:00 01/10/19 04:00 01/10/19 04:00 01/10/19 04:00 Laboratory Results - last 24 hr 01/09/19 16:48: Stl Aeromonas (PCR) Not detected, Stl C. cayetanensis PCR Not detected, Stool Rotavirus (PCR) Not detected, Stl Adenov F 40/41 PCR Not detected, Stool Astrovirus (PCR) Not detected, Stool Campylobacter PCR Not detected, Stl C.difficile Tox PCR Not detected, Stool Cryptosporidium PCR Not detected, Stl E.coli Shiga Tox PCR Not detected, Stool E coli O157 PCR Not detected, Stl Enterotoxigenic E PCR Not detected, Stool EPEC (PCR) Not detected, Stool EAEC (PCR) Not detected, Stl E. histolytica PCR Not detected, Stool Giardia Lamblia PCR Not detected, Stool Salmonella PCR Not detected, Stool Sapovirus (PCR) Not detected, Stl P. shigelloides PCR Not detected, Stl Shigella/EIEC PCR Not detected, St Y.enterocolitica PCR Not detected, Stool Vibrio (PCR) Not detected, Stl Vibrio cholerae PCR Not detected, Stl Norovirus GI/GII PCR Not detected I & O for Last 24 hours: Intake & Output 01/07/19 01/08/19 01/09/19 01/10/19 11:59 11:59 11:59 11:59 Intake Total 2521 / 2521 3859 / 3859 Output Total 200 / 200 700 / 700 Balance 2321 / 2321 3159 / 3159 Weight 221 lb 217 lb 8 oz 215 lb 5 oz - *Routine Abdominal Exam Present: soft. Absent: tenderness Progress Note: A&P (1) Colonic mass Status: Suspected Current Visit: Yes (2) Mass in neck Status: Acute Current Visit: Yes (3) Tonsillar mass Status: Acute Current Visit: Yes (4) Partial bowel obstruction Status: Acute Current Visit: Yes (5) Diverticulitis Status: Suspected Current Visit: Yes Assessment and Plan for All Diagnoses:: Gastrograffin enema today.
--- NOTE | 2019-01-10 14:09 | Progress Note ---
[facility] Anesthesia Checklist - Patient Identification Patient Identification: Arm Band - Structural Data Admitted From: Inpatient Planned Operative Procedure/s: colonoscopy Consent for Planned Operative Procedure(s) Verified: Yes Verified Documents: Surgical Consent, History and Physical - NPO Status Verified Time NPO: 00:00 - Additional verifications Anesthesia Reactions: No - Airway Assessment C-Spine Mobility Assessed: Yes (mp2) TMJ Mobility Assessed: Yes Dentition: Good Dentition - Neurological Assessment Level of Consciousness: Awake, Alert - Anesthesia Plan Anesthesia Risk discussed: Yes Anesthesia Plan: Verified ASA Class: II Anesthesia Type: MAC [facility] History I have reviewed the patient's past medical history: Yes Medical History: Reports:: Hyperlipidemia, Hypertension Denies:: Diabetes Mellitus Type 1, Diabetes Mellitus Type 2 *Have you ever received a pneumonia vaccine?: No *Have you received a flu vaccine this season?: No Other Surgeries: Yes: Appendectomy - *Social History Educational Level: Completed High School Smoking Status: Former smoker Tobacco Type: smokeless tobacco # Packs/Day (cigarettes): 0 #Yrs smoked (if former smoker): 0 Alcohol Intake: never *Occupational Status:: other Housing: house Household Members: family *Travel in the last 8 weeks: None - Psychiatric History Expresses thoughts of harming self/others: None Suicide Plan Description: No Plan Family Hx:: Cancer, Diabetes, Hyperlipidemia, Hypertension, Kidney Disease, Other
--- NOTE | 2019-01-10 14:22 | Procedure Note ---
- Procedure: Date: 01/10/19 Procedure Performed:: Colonoscopy with biopsies of colon mass and attempted dilatation Indications:: Patient is a 63-year-old white male. He had undergone previous initial screening colonoscopy in [address] Birch. This reportedly revealed only diverticulosis. I had performed his subsequent colonoscopy which was done in September 2014 at which time he had 6 polyps removed and had some sigmoid diverticulosis. I had recommended a 3-year follow-up colonoscopy at that time which would have been 2018. He actually underwent a follow-up colonoscopy in September [address] Birch which reportedly revealed only diverticulosis and a repeat colonoscopy in "5 or 6 years" was recommended. Patient states that over the past couple of months he has had occasional audible bowel sounds but otherwise asymptomatic. He has had normal bowel movements and moves his bowels normally up until admission. However, on 01/08/19 at approximately 2 AM he had developed acute onset of sharp right lower quadrant pain radiating into the right upper quadrant and epigastrium. This was somewhat colicky and intermittent. He had presented to the emergency department where he was seen and evaluated and underwent noncontrast CT scan. This reveals findings of a stenotic area in the proximal to mid transverse colon with dilatation of the proximal colon. Distal colon is rather decompressed with some evidence of diverticulosis and minimal stranding. Of note, the patient's mother had been diagnosed with colon cancer approximately 2 years ago at the age of 78. No other family history of colon cancer. Patient was started on intravenous antibiotics for the stranding in the sigmoid colon. He actually convalesced quite well and had essentially no symptoms for the next couple of days. He had several loose bowel movements. He underwent water-soluble contrast enema in the morning of 01/10/19 revealing findings of high-grade partial obstruction in the proximal transverse colon. Of note, the patient did have a left-sided neck mass and had been scheduled to see ENT as an outpatient. However ENT saw the patient as an inpatient and FNA was performed which reportedly reveals squamous cell carcinoma. Given the findings on the CT scan and water-soluble contrast enema plan was made for colonoscopy with biopsies and possible dilatation for the lesion in the proximal transverse colon. Performing Provider:: Jesus Ramirez MD Referring Provider:: Buck Maria MD Sedation:: Propofol Procedure:: Consent was obtained and patient was taken to the same-day surgery endoscopy procedure room. He was positioned in a lateral decubitus position. Adequate intravenous sedation was achieved with anesthesia titration of propofol. Variable stiffness Olympus colonoscope was inserted via the anus. It was advanced through the left colon and transverse colon without difficulty. Colonic preparation was actually rather good after water-soluble contrast enema. In the proximal to mid transverse colon he was noted to have an essentially obstructing mass which appeared to be consistent with carcinoma of the colon. Prolonged colonoscopic surveillance was carried out in an attempt to identify the lumen. Ultimately what appeared to be the lumen was identified and guidewire was inserted easily through this. This was dilated sequentially to 15 mm, 16.5 mm, and 18 mm. However, at the completion of the dilatation no clearly defined lumen was able to be easily identified and the colonoscope could not be advanced beyond this. Multiple biopsies were obtained. There was a small adenomatous polyp distal to this lesion. The colonoscope was withdrawn as the colon was suctioned and decompressed. He did have a few scattered sigmoid diverticuli. Patient tolerated the procedure well with no immediate complications. Findings:: Essentially obstructing colon mass in the proximal transverse colon which was rather friable and bled easily. Specimens:: Biopsies obtained Recommendations:: I will put a stat jamison status on the biopsies. He likely will need extended right hemicolectomy rather expeditiously. Complications:: None immediately apparent Estimated blood obtained (mL): 5
--- NOTE | 2019-01-11 07:00 | Progress Note ---
Subjective Patient reports: no new complaints Exam Vital signs and Labs for Last 24 Hours: Temp Pulse Resp BP Pulse Ox 98.3 F 67 16 105/78 L 96 01/11/19 04:00 01/11/19 04:00 01/11/19 04:00 01/11/19 04:00 01/11/19 04:00 I & O for Last 24 hours: Intake & Output 01/08/19 01/09/19 01/10/19 01/11/19 11:59 11:59 11:59 11:59 Intake Total 2521 / 2521 4109 / 4109 2509 / 2509 Output Total 200 / 200 700 / 700 800 / 800 Balance 2321 / 2321 3409 / 3409 1709 / 1709 Weight 221 lb 217 lb 8 oz 215 lb 5 oz 216 lb 9 oz - Constitutional no acute distress - *Routine Respiratory Exam Absent: respiratory distress - *Routine Abdominal Exam Present: soft Comments: minimal "soreness" with palpation Progress Note: A&P (1) Colonic mass Status: Suspected Assessment and plan: Await pending pathology results from yesterday's biopsies Likely surgical resection in near future Current Visit: Yes (2) Mass in neck Status: Acute Current Visit: Yes (3) Tonsillar mass Status: Acute Current Visit: Yes (4) Partial bowel obstruction Status: Acute Current Visit: Yes (5) Diverticulitis Status: Suspected Current Visit: Yes
--- NOTE | 2019-01-11 07:22 | Progress Note ---
Internal Medicine - PN: Subj *Date: 01/11/19 *Time: 07:19 Interval history: Patient has no complaints this morning and denies abdominal pain. He underwent colonoscopy yesterday with findings of mass that is seemingly causing colon obstruction. Official pathology report is waiting Exam Vital signs and Labs for Last 24 Hours: Temp Pulse Resp BP Pulse Ox 98.3 F 67 16 105/78 L 96 01/11/19 04:00 01/11/19 04:00 01/11/19 04:00 01/11/19 04:00 01/11/19 04:00 I & O for Last 24 hours: Intake & Output 01/08/19 01/09/19 01/10/19 01/11/19 11:59 11:59 11:59 11:59 Intake Total 2521 / 2521 4109 / 4109 2509 / 2509 Output Total 200 / 200 700 / 700 800 / 800 Balance 2321 / 2321 3409 / 3409 1709 / 1709 Weight 221 lb 217 lb 8 oz 215 lb 5 oz 216 lb 9 oz - Constitutional no acute distress - *Routine Respiratory Exam Present: CTA bilaterally - *Routine Cardiovascular Exam Present: RRR - *Routine Abdominal Exam Present: soft. Absent: tenderness, firm, rigid Assessment and Plan (1) Colonic mass Current visit: Yes Status: Suspected Category: Medical Code(s): K63.9 - Disease of intestine, unspecified (2) Mass in neck Current visit: Yes Status: Acute Category: Medical Code(s): R22.1 - Localized swelling, mass and lump, neck (3) Tonsillar mass Current visit: Yes Status: Acute Category: Medical Code(s): R22.0 - Localized swelling, mass and lump, head (4) Partial bowel obstruction Current visit: Yes Status: Acute Category: Medical Code(s): K56.600 - Partial intestinal obstruction, unspecified as to cause (5) Diverticulitis Current visit: Yes Status: Suspected Category: Medical Code(s): K57.92 - Diverticulitis of intestine, part unspecified, without perforation or abscess without bleeding - Assessment and plan all Dx Assessment and Plan for all problems:: Await official pathology report. Further decision making to occur once pathology is known
--- NOTE | 2019-01-11 08:46 | Progress Note ---
Internal Medicine - PN: Subj *Date: 01/11/19 *Time: 08:46 Exam Vital signs and Labs for Last 24 Hours: Temp Pulse Resp BP Pulse Ox 98.3 F 54 L 18 122/53 L 95 01/11/19 08:00 01/11/19 08:00 01/11/19 08:00 01/11/19 08:00 01/11/19 08:00 I & O for Last 24 hours: Intake & Output 01/08/19 01/09/19 01/10/19 01/11/19 23:59 23:59 23:59 23:59 Intake Total 1284 / 1284 3107 / 3107 3169 / 3169 1939 / 1939 Output Total 300 / 300 600 / 600 800 / 800 Balance 1284 / 1284 2807 / 2807 2569 / 2569 1139 / 1139 Weight 98.656 kg 98.656 kg 97.664 kg 98.231 kg Assessment and Plan (1) Colonic mass Current visit: Yes Status: Suspected Category: Medical Code(s): K63.9 - Disease of intestine, unspecified (2) Mass in neck Current visit: Yes Status: Acute Category: Medical Code(s): R22.1 - Localized swelling, mass and lump, neck (3) Tonsillar mass Current visit: Yes Status: Acute Category: Medical Code(s): R22.0 - Localized swelling, mass and lump, head (4) Partial bowel obstruction Current visit: Yes Status: Acute Category: Medical Code(s): K56.600 - Partial intestinal obstruction, unspecified as to cause (5) Diverticulitis Current visit: Yes Status: Suspected Category: Medical Code(s): K57.92 - Diverticulitis of intestine, part unspecified, without perforation or abscess without bleeding The patient's infection will respond to the chosen ABx?: Yes Is the patient receiving the right drug, dose, and route?: Yes Could a more targeted ABx be ordered?: No
--- NOTE | 2019-01-12 07:06 | Progress Note ---
Internal Medicine - PN: Subj *Date: 01/12/19 *Time: 07:05 Interval history: Patient has no complaints. He denies abdominal pain. He had a small bowel movement overnight. He is scheduled for surgery at noon today. Patient has no questions for me this morning Exam Vital signs and Labs for Last 24 Hours: Temp Pulse Resp BP Pulse Ox 98.2 F 61 16 147/80 H 95 01/12/19 03:40 01/12/19 03:40 01/12/19 03:40 01/12/19 03:40 01/12/19 03:40 I & O for Last 24 hours: Intake & Output 01/09/19 01/10/19 01/11/19 01/12/19 11:59 11:59 11:59 11:59 Intake Total 2521 / 2521 4109 / 4109 3019 / 3019 4624 / 4624 Output Total 200 / 200 700 / 700 800 / 800 Balance 2321 / 2321 3409 / 3409 2219 / 2219 4624 / 4624 Weight 217 lb 8 oz 215 lb 5 oz 216 lb 9 oz 218 lb 9 oz Narrative: He is awake and alert. Lungs remain clear. Heart has a regular rate and rhythm. Abdomen is soft and nontender this morning Assessment and Plan (1) Colonic mass Current visit: Yes Status: Suspected Category: Medical Code(s): K63.9 - Disease of intestine, unspecified (2) Mass in neck Current visit: Yes Status: Acute Category: Medical Code(s): R22.1 - Localized swelling, mass and lump, neck (3) Tonsillar mass Current visit: Yes Status: Acute Category: Medical Code(s): R22.0 - Localized swelling, mass and lump, head (4) Partial bowel obstruction Current visit: Yes Status: Acute Category: Medical Code(s): K56.600 - Partial intestinal obstruction, unspecified as to cause (5) Diverticulitis Current visit: Yes Status: Suspected Category: Medical Code(s): K57.92 - Diverticulitis of intestine, part unspecified, without perforation or abscess without bleeding - Assessment and plan all Dx Assessment and Plan for all problems:: Surgery today
--- NOTE | 2019-01-12 07:34 | Progress Note ---
Subjective Patient reports: no new complaints Exam Vital signs and Labs for Last 24 Hours: Temp Pulse Resp BP Pulse Ox 98.2 F 61 16 147/80 H 95 01/12/19 03:40 01/12/19 03:40 01/12/19 03:40 01/12/19 03:40 01/12/19 03:40 I & O for Last 24 hours: Intake & Output 01/09/19 01/10/19 01/11/19 01/12/19 11:59 11:59 11:59 11:59 Intake Total 2521 / 2521 4109 / 4109 3019 / 3019 4624 / 4624 Output Total 200 / 200 700 / 700 800 / 800 Balance 2321 / 2321 3409 / 3409 2219 / 2219 4624 / 4624 Weight 217 lb 8 oz 215 lb 5 oz 216 lb 9 oz 218 lb 9 oz - *Routine Abdominal Exam Present: soft. Absent: tenderness, distended Progress Note: A&P (1) Colonic mass Status: Suspected Current Visit: Yes (2) Mass in neck Status: Acute Current Visit: Yes (3) Tonsillar mass Status: Acute Current Visit: Yes (4) Partial bowel obstruction Status: Acute Current Visit: Yes (5) Diverticulitis Status: Suspected Current Visit: Yes Assessment and Plan for All Diagnoses:: Pathology on colon lesion revealed adenocarcinoma. 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 Plan for extended right hemicolectomy today.
[2019-01-12 09:51] LABS: Eosinophils # 0.1 K/mm3 (0.0-0.4); Hematocrit 32.2 % (42.0-52.0); Hemoglobin 11.7 g/dL (14.1-18.0); Mean Corpuscular HGB Conc 36.4 g/dL (31.8-35.4); Mean Corpuscular Hemoglobin 30.8 pg (27.0-31.2); Mean Corpuscular Volume 84.6 fl (80-94); Mean Platelet Volume 7.8 fl (7.4-10.4); Monocytes # 0.4 K/mm3 (0.1-1.0); Monocytes % 5.4 % (1.7-9.3); Neutrophils # 5.5 K/mm3 (1.8-7.8); Neutrophils % 78.6 % (37.0-80.0); Platelet Count 246 K/mm3 (142-424); Red Cell Distribution Width 12.5 % (11.5-17.5)
[2019-01-12 09:53] LABS: Anion Gap 14.8 mEq/L (5-15); Calcium 8.3 mg/dL (8.5-10.1); Potassium 3.8 mmoL/L (3.5-5.1)
--- NOTE | 2019-01-12 18:37 | Operative Note ---
Date of procedure: 01/12/19 Pre-op Diagnosis:: Nearly obstructing colon cancer Post-op Diagnosis:: Same Procedure performed:: Extended right hemicolectomy with ileocolic anastomosis Surgeon:: Jesus Ramirez MD Police Surgeon(s):: Roxana Enciso MD TOP LIFT COMPRESSER:: Buck Rodriguezty Anesthesia: GETA Estimated blood loss (mL): 150 Clinical Note:: Patient is a 63-year-old white male. He had presented to the emergency department earlier this week with acute onset of severe colicky right-sided abdominal pain. Workup in the emergency department included CT scan with IV contrast revealed findings consistent with partial obstruction of the colon with lesion consistent with neoplasm. Patient symptoms improved. He underwent Gastrografin enema which revealed evidence of high-grade obstruction at the site in question in the proximal transverse colon. This was followed by colonoscopy with attempt at balloon dilatation of high-grade obstructing lesion grossly consistent with adenocarcinoma. Colonoscopy was performed on 01/10/19. Pathology returned yesterday as moderately differentiated adenocarcinoma. Patient was given oral antibiotic preparation. Plan was made for resection. Operative findings:: He had a palpable mass in the proximal transverse colon near the hepatic flexure. There was no obvious metastases. He had a large amount of visceral fat. Operative note:: Patient was taken to the operating room. He was given preoperative intravenous antibiotics. In the operating room he was placed in a supine position. General anesthesia was induced via endotracheal tube. Miner catheter was placed. Abdomen was prepped and draped in the standard surgical fashion. Midline incision was made and dissection was carried down through subcutaneous tissues and fascia. Peritoneal cavity was entered. He had a very large amount of visceral fat. Exposure was ultimately achieved. He had a relatively large palpable mass near the hepatic flexure in the proximal transverse colon. There was no evidence of any obvious metastatic disease. Right colon was mobilized by incising the peritoneum along the white line of Toldt. Right colon was elevated. The lesser omentum was divided with the Enseal. Ultimately with rather prolonged dissection the entire right and transverse colon was able to be mobilized. The greater omentum down to the mid transverse colon was divided with the Enseal device. Mid transverse colon was divided with the endoscopic DAVID linear cutting stapling device. The terminal ileum was divided just proximal to the ileocecal valve. Mesentery was partially divided with the Enseal device with larger vessels clamped and divided and ligated with ties. Right colic branch was multiply ligated with 0 Surgilon ties and divided. Right and proximal transverse colon were sent off as a specimen. The transverse colon was cleaned free of extraneous fatty tissues. A [id number], functional end-to-end, anastomosis was created with a DAVID linear cutting stapling device. Anastomosis appeared adequate and intact and hemostatic. The enterotomy was closed with a TX 60 B stapling device. Several 3-0 Surgilon sutures were placed at the staple line angle and at the confluence of the staple lines. Mesenteric defect tissue was difficult to discern but ultimately the defect was closed with running 3-0 Vicryl sutures. This was done with a pedicle of omentum as well. The abdomen was irrigated with saline. When the abdomen was filled with saline there appeared to be some air bubbles and this was observed for some time. Nasogastric tube was inflated with air to check for any leak. It was felt that this was a trapped air pocket. The duodenum was also inspected and found to be without any evidence of any trauma. There was good hemostasis. Nasogastric tube was palpated to be in a good position. Midline fascia was closed with running #2 Novafil x2. Subcutaneous tissues were irrigated. Skin was closed with odette. Clean dry sterile dressing was applied. Condition: stable Disposition: PACU Specimens:: Right colon Complications:: None immediately apparent
--- NOTE | 2019-01-12 18:51 | Progress Note ---
[facility] Anesthesia Record Part I Intake, IV Amount: 1,250 Estimated blood loss (mL): 100 Urine output (mL): 200 Blood Products used (#): none Blood Pressure: 153/75 SaO2: 93 Pulse Rate: 67 Respiratory Rate: 18 Temperature: 98.7 F Patient is:: Awake, Drowsy, Nasal O2, Stable Stable to PACU at:: 18:45
--- NOTE | 2019-01-12 18:52 | Progress Note ---
[facility] Anesthesia Record Part II Discharge Time: 19:15 Destination: Medical Surgical Department PACU nurse assessment reviewed?: Yes Patient Condition:: Good Anesthesia Complications:: None Swallowing reflex intact?: Yes Cyanosis?: No
[2019-01-13 06:37] LABS: Mean Platelet Volume 7.1 fl (7.4-10.4)
[2019-01-13 06:42] LABS: Basophils % 0.1 % (0.1-2.0); Eosinophils % 0.1 % (0.1-12.0); Hematocrit 29.9 % (42.0-52.0); Lymphocytes # 0.9 K/mm3 (0.7-4.5); Lymphocytes % 6.6 % (10-50); Mean Corpuscular HGB Conc 35.5 g/dL (31.8-35.4); Mean Corpuscular Hemoglobin 30.6 pg (27.0-31.2); Mean Corpuscular Volume 86.3 fl (80-94); Monocytes # 0.6 K/mm3 (0.1-1.0); Monocytes % 4.5 % (1.7-9.3); Neutrophils # 12.6 K/mm3 (1.8-7.8); Neutrophils % 88.8 % (37.0-80.0); Platelet Count 292 K/mm3 (142-424); Red Blood Count 3.46 M/mm3 (4.60-6.20); Red Cell Distribution Width 13.1 % (11.5-17.5); White Blood Count 14.2 K/mm3 (4.8-10.8)
[2019-01-13 06:44] LABS: Hemoglobin 10.6 g/dL (14.1-18.0)
[2019-01-13 06:50] LABS: Anion Gap 19.6 mEq/L (5-15); Calcium 7.9 mg/dL (8.5-10.1); Potassium 4.6 mmoL/L (3.5-5.1)
[2019-01-13 07:28] LABS: Lymphocytes % 6 % (10-50); Monocytes % 3 % (2-9); Neutrophils % 89 % (42-76); RBC Morphology Normal; Total Cells Counted 100
--- NOTE | 2019-01-13 07:55 | Progress Note ---
Internal Medicine - PN: Subj *Date: 01/13/19 *Time: 07:51 Interval history: Patient complains of abdominal soreness. Nursing staff reports difficulty keeping patient's blood pressure is elevated believed due to frequent use of the POOLING OPERATOR pump. Overnight it was temporarily disconnected as patient's systolic blood pressures dropped into the 70s and 80s. Patient remains on lactated Ringer's at 125 mL's per hour Exam Vital signs and Labs for Last 24 Hours: Temp Pulse Resp BP Pulse Ox 98.0 F 87 16 96/58 L 95 01/13/19 02:15 01/13/19 06:23 01/13/19 02:15 01/13/19 06:23 01/13/19 06:23 Laboratory Results - last 24 hr 01/12/19 08:00: WBC 7.0, RBC 3.80 L, Hgb 11.7 L, Hct 32.2 L, MCV 84.6, MCH 30.8, MCHC 36.4 H, RDW 12.5, Plt Count 246, MPV 7.8, Neut % (Auto) 78.6, Lymph % (Auto) 15.0, [place] % (Auto) 5.4, Eos % (Auto) 1.0, Baso % (Auto) 0.0 L, Neut # (Auto) 5.5, Lymph # (Auto) 1.0, [place] # (Auto) 0.4, Eos # (Auto) 0.1, Baso # (Auto) 0.0 01/12/19 08:00: Sodium 141, Potassium 3.8, Chloride 108 H, Carbon Dioxide 22, Anion Gap 14.8, BUN 12, Creatinine 1.28, Estimated Creat Clear 85, Estimated GFR 57 L, Est GFR ( Amer) 69, Glucose 93, Calcium 8.3 L 01/12/19 08:00: Blood Type A Positive, Antibody Screen Negative 01/12/19 15:40: Urine Color Yellow, Urine Appearance Clear, Urine pH 6.0, Ur Specific [place] 1.025, Urine Protein Negative, Urine Glucose (UA) Negative, Urine Ketones 2+, Urine Blood Negative, Urine Nitrate Negative, Urine Bilirubin Negative, Urine Urobilinogen 0.2, Ur Leukocyte Esterase Negative, Urine WBC Occasional 01/13/19 06:00: WBC 14.2 H D, RBC 3.46 L, Hgb 10.6 L, Hct 29.9 L, MCV 86.3, MCH 30.6, MCHC 35.5 H, RDW 13.1, Plt Count 292, MPV 7.1 L, Neut % (Auto) 88.8 H, Lymph % (Auto) 6.6 L, [place] % (Auto) 4.5, Eos % (Auto) 0.1, Baso % (Auto) 0.1, Neut # (Auto) 12.6 H, Lymph # (Auto) 0.9, [place] # (Auto) 0.6, Eos # (Auto) 0.0, Baso # (Auto) 0.0, Total Counted 100, Neutrophils % (Manual) 89 H, Band Neutrophils % 2.0, Lymphocytes % (Manual) 6 L, Monocytes % (Manual) 3, Platelet Estimate Normal, RBC Morphology Normal 01/13/19 06:00: Sodium 141, Potassium 4.6 D, Chloride 107, Carbon Dioxide 19 L, Anion Gap 19.6 H, BUN 21 H D, Creatinine 2.31 H D, Estimated Creat Clear 47, Estimated GFR 29 L, Est GFR ( Amer) 35 L D, Glucose 106, Calcium 7.9 L I & O for Last 24 hours: Intake & Output 01/10/19 01/11/19 01/12/19 01/13/19 11:59 11:59 11:59 11:59 Intake Total 4109 / 4109 3019 / 3019 4774 / 4774 2761 / 2761 Output Total 700 / 700 800 / 800 55 / 55 Balance 3409 / 3409 2219 / 2219 4774 / 4774 2706 / 2706 Weight 215 lb 5 oz 216 lb 9 oz 218 lb 9 oz 218 lb Narrative: Patient is awake and alert in no distress. Anterior lung rodriguez are clear. Heart has a regular rate and rhythm. Abdomen is soft with mild right-sided tenderness. Bowel sounds are absent. Assessment and Plan (1) Adenocarcinoma of colon Current visit: Yes Status: Acute Category: Medical Code(s): C18.9 - Malignant neoplasm of colon, unspecified I will give the patient 1 L fluid bolus this morning due to his hypotension and postoperative changes in renal function likely due to ATN (2) Mass in neck Current visit: Yes Status: Acute Category: Medical Code(s): R22.1 - Localized swelling, mass and lump, neck (3) Tonsillar mass Current visit: Yes Status: Acute Category: Medical Code(s): R22.0 - Localized swelling, mass and lump, head (4) Partial bowel obstruction Current visit: Yes Status: Acute Category: Medical Code(s): K56.600 - Partial intestinal obstruction, unspecified as to cause (5) Diverticulitis Current visit: Yes Status: Suspected Category: Medical Code(s): K57.92 - Diverticulitis of intestine, part unspecified, without perforation or abscess without bleeding (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
--- NOTE | 2019-01-13 08:59 | Progress Note ---
Subjective Narrative: Patient only complains of some soreness. No nausea. Only scant NG output. Some decrease in BP with morphine use. Exam Vital signs and Labs for Last 24 Hours: Temp Pulse Resp BP Pulse Ox 98.9 F 86 16 111/61 95 01/13/19 08:00 01/13/19 08:21 01/13/19 08:21 01/13/19 08:00 01/13/19 08:21 Laboratory Results - last 24 hr 01/12/19 08:00: WBC 7.0, RBC 3.80 L, Hgb 11.7 L, Hct 32.2 L, MCV 84.6, MCH 30.8, MCHC 36.4 H, RDW 12.5, Plt Count 246, MPV 7.8, Neut % (Auto) 78.6, Lymph % (Auto) 15.0, [place] % (Auto) 5.4, Eos % (Auto) 1.0, Baso % (Auto) 0.0 L, Neut # (Auto) 5.5, Lymph # (Auto) 1.0, [place] # (Auto) 0.4, Eos # (Auto) 0.1, Baso # (Auto) 0.0 01/12/19 08:00: Sodium 141, Potassium 3.8, Chloride 108 H, Carbon Dioxide 22, Anion Gap 14.8, BUN 12, Creatinine 1.28, Estimated Creat Clear 85, Estimated GFR 57 L, Est GFR ( Amer) 69, Glucose 93, Calcium 8.3 L 01/12/19 08:00: Blood Type A Positive, Antibody Screen Negative 01/12/19 15:40: Urine Color Yellow, Urine Appearance Clear, Urine pH 6.0, Ur Specific [place] 1.025, Urine Protein Negative, Urine Glucose (UA) Negative, Urine Ketones 2+, Urine Blood Negative, Urine Nitrate Negative, Urine Bilirubin Negative, Urine Urobilinogen 0.2, Ur Leukocyte Esterase Negative, Urine WBC Occasional 01/13/19 06:00: WBC 14.2 H D, RBC 3.46 L, Hgb 10.6 L, Hct 29.9 L, MCV 86.3, MCH 30.6, MCHC 35.5 H, RDW 13.1, Plt Count 292, MPV 7.1 L, Neut % (Auto) 88.8 H, Lymph % (Auto) 6.6 L, [place] % (Auto) 4.5, Eos % (Auto) 0.1, Baso % (Auto) 0.1, Neut # (Auto) 12.6 H, Lymph # (Auto) 0.9, [place] # (Auto) 0.6, Eos # (Auto) 0.0, Baso # (Auto) 0.0, Total Counted 100, Neutrophils % (Manual) 89 H, Band Neutrophils % 2.0, Lymphocytes % (Manual) 6 L, Monocytes % (Manual) 3, Platelet Estimate Normal, RBC Morphology Normal 01/13/19 06:00: Sodium 141, Potassium 4.6 D, Chloride 107, Carbon Dioxide 19 L, Anion Gap 19.6 H, BUN 21 H D, Creatinine 2.31 H D, Estimated Creat Clear 47, Estimated GFR 29 L, Est GFR ( Amer) 35 L D, Glucose 106, Calcium 7.9 L I & O for Last 24 hours: Intake & Output 01/10/19 01/11/19 01/12/19 01/13/19 11:59 11:59 11:59 11:59 Intake Total 4109 / 4109 3019 / 3019 4774 / 4774 2761 / 2761 Output Total 700 / 700 800 / 800 55 / 55 Balance 3409 / 3409 2219 / 2219 4774 / 4774 2706 / 2706 Weight 215 lb 5 oz 216 lb 9 oz 218 lb 9 oz 218 lb - *Routine Abdominal Exam Present: soft Comments: Dressing in place. Hypoactive bowel sounds. 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 DC morphine DISABILITY COORDINATOR and continue with supplemental morphine. DC antibiotics.
[2019-01-14 06:01] LABS: Eosinophils # 0.1 K/mm3 (0.0-0.4); Lymphocytes # 1.1 K/mm3 (0.7-4.5); Monocytes # 0.5 K/mm3 (0.1-1.0)
--- NOTE | 2019-01-14 06:01 | Progress Note ---
Internal Medicine - PN: Subj *Date: 01/14/19 *Time: 05:58 Interval history: Patient only complains of abdominal soreness this morning. Apparently yesterday his pain got a little out of control and he required several doses of morphine during the day. Overnight he only required 2 doses of morphine and some Toradol. He denies flatus but nursing staff is documented presence of bowel sounds. Exam Vital signs and Labs for Last 24 Hours: Temp Pulse Resp BP Pulse Ox 100 F H 67 10 L 113/64 96 01/14/19 04:00 01/14/19 04:00 01/14/19 04:00 01/14/19 04:00 01/14/19 04:44 Laboratory Results - last 24 hr 01/12/19 08:00: Carcinoembryonic Ag 4.2 01/13/19 06:00: WBC 14.2 H D, RBC 3.46 L, Hgb 10.6 L, Hct 29.9 L, MCV 86.3, MCH 30.6, MCHC 35.5 H, RDW 13.1, Plt Count 292, MPV 7.1 L, Neut % (Auto) 88.8 H, Lymph % (Auto) 6.6 L, [place] % (Auto) 4.5, Eos % (Auto) 0.1, Baso % (Auto) 0.1, Neut # (Auto) 12.6 H, Lymph # (Auto) 0.9, [place] # (Auto) 0.6, Eos # (Auto) 0.0, Baso # (Auto) 0.0, Total Counted 100, Neutrophils % (Manual) 89 H, Band Neutrophils % 2.0, Lymphocytes % (Manual) 6 L, Monocytes % (Manual) 3, Platelet Estimate Normal, RBC Morphology Normal 01/13/19 06:00: Sodium 141, Potassium 4.6 D, Chloride 107, Carbon Dioxide 19 L, Anion Gap 19.6 H, BUN 21 H D, Creatinine 2.31 H D, Estimated Creat Clear 47, Estimated GFR 29 L, Est GFR ( Amer) 35 L D, Glucose 106, Calcium 7.9 L I & O for Last 24 hours: Intake & Output 01/11/19 01/12/19 01/13/19 01/14/19 11:59 11:59 11:59 11:59 Intake Total 3019 / 3019 4774 / 4774 2761 / 2761 3804 / 3804 Output Total 800 / 800 655 / 655 925 / 925 Balance 2219 / 2219 4774 / 4774 2106 / 2106 2879 / 2879 Weight 216 lb 9 oz 218 lb 9 oz 218 lb 217 lb 2 oz Narrative: Vital signs reviewed, blood pressures have improved. NG tube has been removed. Lungs are clear to auscultation. Heart has a regular rate and rhythm. Abdomen is soft with mild right-sided tenderness. Hypoactive bowel sounds are present Assessment and Plan (1) Adenocarcinoma of colon Current visit: Yes Status: Acute Category: Medical Code(s): C18.9 - Malignant neoplasm of colon, unspecified (2) Mass in neck Current visit: Yes Status: Acute Category: Medical Code(s): R22.1 - Localized swelling, mass and lump, neck (3) Tonsillar mass Current visit: Yes Status: Acute Category: Medical Code(s): R22.0 - Localized swelling, mass and lump, head (4) Partial bowel obstruction Current visit: Yes Status: Acute Category: Medical Code(s): K56.600 - Partial intestinal obstruction, unspecified as to cause (5) Diverticulitis Current visit: Yes Status: Suspected Category: Medical Code(s): K57.92 - Diverticulitis of intestine, part unspecified, without perforation or abscess without bleeding (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 Encourage incentive spirometer. Ambulate today. Continue to hold blood pressure medication at this time
[2019-01-14 06:10] LABS: Eosinophils % 0.7 % (0.1-12.0); Lymphocytes % 10.3 % (10-50); Mean Corpuscular HGB Conc 36.4 g/dL (31.8-35.4); Mean Corpuscular Hemoglobin 31.3 pg (27.0-31.2); Mean Platelet Volume 7.1 fl (7.4-10.4); Neutrophils # 8.9 K/mm3 (1.8-7.8); Platelet Count 227 K/mm3 (142-424); Red Blood Count 2.94 M/mm3 (4.60-6.20); Red Cell Distribution Width 13.2 % (11.5-17.5); White Blood Count 10.6 K/mm3 (4.8-10.8)
[2019-01-14 06:16] LABS: Hemoglobin 9.2 g/dL (14.1-18.0)
[2019-01-14 06:17] LABS: Hematocrit 25.3 % (42.0-52.0)
[2019-01-14 06:25] LABS: Albumin Level 2.6 gm/dL (3.4-5.0); Albumin/Globulin Ratio 0.8 (1.1-1.8); Anion Gap 14.8 mEq/L (5-15); Bilirubin,Total 0.3 mg/dL (0.2-1.0); Calcium 8.1 mg/dL (8.5-10.1); Globulin 3.3 gm/dl (1.3-3.2); Potassium 3.8 mmoL/L (3.5-5.1); Total Protein,Serum 5.9 gm/dL (6.4-8.2)
--- NOTE | 2019-01-14 08:03 | Progress Note ---
Subjective Narrative: Patient states that he feels better. 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 This has improved. He has not been passing flatus. No nausea since nasogastric tube discontinued. Exam Vital signs and Labs for Last 24 Hours: Temp Pulse Resp BP Pulse Ox 100 F H 64 13 114/61 96 01/14/19 04:00 01/14/19 05:58 01/14/19 05:58 01/14/19 05:58 01/14/19 05:58 Laboratory Results - last 24 hr 01/12/19 08:00: Carcinoembryonic Ag 4.2 01/14/19 05:45: WBC 10.6 D, RBC 2.94 L, Hgb 9.2 L D, Hct 25.3 L, MCV 86.0, MCH 31.3 H, MCHC 36.4 H, RDW 13.2, Plt Count 227, MPV 7.1 L, Neut % (Auto) 84.0 H, Lymph % (Auto) 10.3, [place] % (Auto) 5.0, Eos % (Auto) 0.7, Baso % (Auto) 0.0 L, Neut # (Auto) 8.9 H, Lymph # (Auto) 1.1, [place] # (Auto) 0.5, Eos # (Auto) 0.1, Baso # (Auto) 0.0 01/14/19 05:45: Sodium 140, Potassium 3.8, Chloride 107, Carbon Dioxide 22, Anion Gap 14.8, BUN 22 H, Creatinine 1.68 H D, Estimated Creat Clear 64, Estimated GFR 42 L, Est GFR ( Amer) 51 L D, Glucose 94, Calcium 8.1 L, Total Bilirubin 0.3, AST 27, ALT 21, Alkaline Phosphatase 56, Total Protein 5.9 L D, Albumin 2.6 L, Globulin 3.3 H, Albumin/Globulin Ratio 0.8 L I & O for Last 24 hours: Intake & Output 01/11/19 01/12/19 01/13/19 01/14/19 11:59 11:59 11:59 11:59 Intake Total 3019 / 3019 4774 / 4774 2761 / 2761 3804 / 3804 Output Total 800 / 800 655 / 655 925 / 925 Balance 221 / 221 4774 / 4774 210 / 2102878 / 287 Weight 216 lb 9 oz 218 lb 9 oz 218 lb 217 lb 1.991 oz - *Routine Abdominal Exam Present: soft, normoactive bowel sounds Progress Note: A&P (1) Adenocarcinoma of colon Status: Acute Current Visit: Yes (2) Mass in neck Status: Acute Current Visit: Yes (3) Tonsillar mass Status: Acute Current Visit: Yes (4) Partial bowel obstruction Status: Acute Current Visit: Yes (5) Diverticulitis Status: Suspected Current Visit: Yes (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 Increase activity. Monitor hemoglobin/hematocrit. Transfer out of step-down.
[2019-01-15 05:23] LABS: Basophils % 0.1 % (0.1-2.0); Eosinophils # 0.1 K/mm3 (0.0-0.4); Eosinophils % 1.3 % (0.1-12.0); Hematocrit 25.8 % (42.0-52.0); Hemoglobin 9.1 g/dL (14.1-18.0); Lymphocytes % 10.2 % (10-50); Mean Corpuscular HGB Conc 35.4 g/dL (31.8-35.4); Mean Corpuscular Hemoglobin 30.4 pg (27.0-31.2); Mean Corpuscular Volume 85.8 fl (80-94); Monocytes # 0.5 K/mm3 (0.1-1.0); Monocytes % 4.6 % (1.7-9.3); Neutrophils # 8.3 K/mm3 (1.8-7.8); Neutrophils % 83.7 % (37.0-80.0); Platelet Count 199 K/mm3 (142-424); Red Blood Count 3.01 M/mm3 (4.60-6.20); Red Cell Distribution Width 13.2 % (11.5-17.5); White Blood Count 9.9 K/mm3 (4.8-10.8)
[2019-01-15 05:30] LABS: Anion Gap 17.8 mEq/L (5-15); Calcium 8.3 mg/dL (8.5-10.1); Potassium 3.8 mmoL/L (3.5-5.1)
--- NOTE | 2019-01-15 07:04 | Progress Note ---
Internal Medicine - PN: Subj *Date: 01/15/19 *Time: 07:02 Interval history: Patient ambulated some in the hallway yesterday with assistance. He was out of bed into the chair for at least 4 hours during the day. He is tolerating ice chips without nausea. He admits to belching but no flatus. He denies any significant abdominal pain at rest or with ambulation. Patient does report mild shortness of breath this morning Exam Vital signs and Labs for Last 24 Hours: Temp Pulse Resp BP Pulse Ox 98.5 F 50 L 18 142/62 H 96 01/15/19 04:00 01/15/19 04:00 01/15/19 04:00 01/15/19 04:00 01/15/19 04:00 Laboratory Results - last 24 hr 01/15/19 05:09: WBC 9.9, RBC 3.01 L, Hgb 9.1 L, Hct 25.8 L, MCV 85.8, MCH 30.4, MCHC 35.4, RDW 13.2, Plt Count 199, MPV 9.0, Neut % (Auto) 83.7 H, Lymph % (Auto) 10.2, [place] % (Auto) 4.6, Eos % (Auto) 1.3, Baso % (Auto) 0.1, Neut # (Auto) 8.3 H, Lymph # (Auto) 1.0, [place] # (Auto) 0.5, Eos # (Auto) 0.1, Baso # (Auto) 0.0 01/15/19 05:09: Sodium 142, Potassium 3.8, Chloride 106, Carbon Dioxide 22, Anion Gap 17.8 H, BUN 22 H, Creatinine 1.51 H, Estimated Creat Clear 72, Estimated GFR 47 L, Est GFR ( Amer) 57 L, Glucose 98, Calcium 8.3 L I & O for Last 24 hours: Intake & Output 01/12/19 01/13/19 01/14/19 01/15/19 11:59 11:59 11:59 11:59 Intake Total 4774 / 4774 2761 / 2761 3804 / 3804 2830 / 2830 Output Total 655 / 655 1075 / 1075 200 / 200 Balance 4774 / 4774 2106 / 2106 2729 / 2729 2630 / 2630 Weight 218 lb 9 oz 218 lb 217 lb 1.991 oz 217 lb 1.991 oz Narrative: Patient appears comfortable and shows no signs of any respiratory distress. Nasal cannula is in place. Heart has a regular rate and rhythm. Lungs overall are clear. Abdomen is soft with bowel sounds present Assessment and Plan (1) Adenocarcinoma of colon Current visit: Yes Status: Acute Category: Medical Code(s): C18.9 - Malignant neoplasm of colon, unspecified (2) Mass in neck Current visit: Yes Status: Acute Category: Medical Code(s): R22.1 - Localized swelling, mass and lump, neck (3) Tonsillar mass Current visit: Yes Status: Acute Category: Medical Code(s): R22.0 - Localized swelling, mass and lump, head (4) Partial bowel obstruction Current visit: Yes Status: Acute Category: Medical Code(s): K56.600 - Partial intestinal obstruction, unspecified as to cause (5) Diverticulitis Current visit: Yes Status: Suspected Category: Medical Code(s): K57.92 - Diverticulitis of intestine, part unspecified, without perforation or abscess without bleeding (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 Patient has been on IV fluids now for a solid week and is likely getting fluid overloaded. Chest x-ray has been ordered and patient will be given a single dose of IV Lasix this morning. 2. Continue to monitor blood pressure. Blood pressures are rising. They may decrease with use of Lasix. Consider restarting home antihypertensives later this afternoon if blood pressures remain elevated
--- NOTE | 2019-01-15 07:18 | Progress Note ---
Subjective Narrative: Patient denies significant abdominal pain. He has been belching. No flatus. He has been ambulating. He complains of some shortness of breath this morning. Exam Vital signs and Labs for Last 24 Hours: Temp Pulse Resp BP Pulse Ox 98.5 F 50 L 18 142/62 H 96 01/15/19 04:00 01/15/19 04:00 01/15/19 04:00 01/15/19 04:00 01/15/19 04:00 Laboratory Results - last 24 hr 01/15/19 05:09: WBC 9.9, RBC 3.01 L, Hgb 9.1 L, Hct 25.8 L, MCV 85.8, MCH 30.4, MCHC 35.4, RDW 13.2, Plt Count 199, MPV 9.0, Neut % (Auto) 83.7 H, Lymph % (Auto) 10.2, [place] % (Auto) 4.6, Eos % (Auto) 1.3, Baso % (Auto) 0.1, Neut # (Auto) 8.3 H, Lymph # (Auto) 1.0, [place] # (Auto) 0.5, Eos # (Auto) 0.1, Baso # (Auto) 0.0 01/15/19 05:09: Sodium 142, Potassium 3.8, Chloride 106, Carbon Dioxide 22, Anion Gap 17.8 H, BUN 22 H, Creatinine 1.51 H, Estimated Creat Clear 72, Estimated GFR 47 L, Est GFR ( Amer) 57 L, Glucose 98, Calcium 8.3 L I & O for Last 24 hours: Intake & Output 01/12/19 01/13/19 01/14/19 01/15/19 11:59 11:59 11:59 11:59 Intake Total 4774 / 4774 2761 / 2761 3804 / 3804 2830 / 2830 Output Total 655 / 655 1075 / 1075 200 / 200 Balance 4774 / 4774 2106 / 2106 2729 / 2729 2630 / 2630 Weight 218 lb 9 oz 218 lb 217 lb 1.991 oz 217 lb 1.991 oz - *Routine Abdominal Exam Present: soft, normoactive bowel sounds Progress Note: A&P (1) Adenocarcinoma of colon Status: Acute Current Visit: Yes (2) Mass in neck Status: Acute Current Visit: Yes (3) Tonsillar mass Status: Acute Current Visit: Yes (4) Partial bowel obstruction Status: Acute Current Visit: Yes (5) Diverticulitis Status: Suspected Current Visit: Yes (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 Awaiting return of bowel function. CXR this morning.
[2019-01-16 06:30] LABS: Basophils % 0.2 % (0.1-2.0); Eosinophils # 0.2 K/mm3 (0.0-0.4); Eosinophils % 2.1 % (0.1-12.0); Hematocrit 25.1 % (42.0-52.0); Hemoglobin 8.9 g/dL (14.1-18.0); Lymphocytes # 1.1 K/mm3 (0.7-4.5); Lymphocytes % 12.8 % (10-50); Mean Corpuscular HGB Conc 35.7 g/dL (31.8-35.4); Mean Corpuscular Hemoglobin 30.7 pg (27.0-31.2); Mean Platelet Volume 7.3 fl (7.4-10.4); Monocytes # 0.4 K/mm3 (0.1-1.0); Monocytes % 4.1 % (1.7-9.3); Neutrophils # 6.8 K/mm3 (1.8-7.8); Neutrophils % 80.8 % (37.0-80.0); Platelet Count 249 K/mm3 (142-424); Red Blood Count 2.91 M/mm3 (4.60-6.20); Red Cell Distribution Width 13.1 % (11.5-17.5); White Blood Count 8.4 K/mm3 (4.8-10.8)
[2019-01-16 06:50] LABS: Anion Gap 17.1 mEq/L (5-15); Calcium 8.5 mg/dL (8.5-10.1); Potassium 3.1 mmoL/L (3.5-5.1)
--- NOTE | 2019-01-16 06:56 | Progress Note ---
Subjective Narrative: Patient's breathing much better. Passing flatus and had two liquid bowel movements. Exam Vital signs and Labs for Last 24 Hours: Temp Pulse Resp BP Pulse Ox 98.2 F 51 L 18 153/54 H 96 01/16/19 04:00 01/16/19 04:00 01/16/19 04:00 01/16/19 04:00 01/16/19 04:00 Laboratory Results - last 24 hr 01/16/19 05:40: WBC 8.4, RBC 2.91 L, Hgb 8.9 L, Hct 25.1 L, MCV 86.0, MCH 30.7, MCHC 35.7 H, RDW 13.1, Plt Count 249 D, MPV 7.3 L, Neut % (Auto) 80.8 H, Lymph % (Auto) 12.8, [place] % (Auto) 4.1, Eos % (Auto) 2.1, Baso % (Auto) 0.2, Neut # (Auto) 6.8, Lymph # (Auto) 1.1, [place] # (Auto) 0.4, Eos # (Auto) 0.2, Baso # (Auto) 0.0 01/16/19 05:40: Sodium 143, Potassium 3.1 L, Chloride 105, Carbon Dioxide 24, Anion Gap 17.1 H, BUN 21 H, Creatinine 1.47 H, Estimated Creat Clear 74, Estimated GFR 49 L, Est GFR ( Amer) 59, Glucose 110 H, Calcium 8.5 I & O for Last 24 hours: Intake & Output 01/13/19 01/14/19 01/15/19 01/16/19 11:59 11:59 11:59 11:59 Intake Total 2761 / 2761 3804 / 3804 2830 / 2830 0 / 0 Output Total 655 / 655 1075 / 1075 2150 / 2150 500 / 500 Balance 2106 / 2106 2729 / 2729 680 / 680 -500 / -500 Weight 218 lb 217 lb 1.991 oz 217 lb 1.991 oz 217 lb 4 oz - *Routine Abdominal Exam Present: soft, normoactive bowel sounds Progress Note: A&P (1) Adenocarcinoma of colon Status: Acute Current Visit: Yes (2) Mass in neck Status: Acute Current Visit: Yes (3) Tonsillar mass Status: Acute Current Visit: Yes (4) Partial bowel obstruction Status: Acute Current Visit: Yes (5) Diverticulitis Status: Suspected Current Visit: Yes (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
--- NOTE | 2019-01-16 07:01 | Progress Note ---
Internal Medicine - PN: Subj *Date: 01/16/19 *Time: 06:59 Interval history: Patient without complaints this morning. He reports some improvement in shortness of breath but symptoms still persist mildly. He has been ambulating frequently. He has had 2 small bowel movements. He denies nausea or abdominal pain Exam Vital signs and Labs for Last 24 Hours: Temp Pulse Resp BP Pulse Ox 98.2 F 51 L 18 153/54 H 96 01/16/19 04:00 01/16/19 04:00 01/16/19 04:00 01/16/19 04:00 01/16/19 04:00 Laboratory Results - last 24 hr 01/16/19 05:40: WBC 8.4, RBC 2.91 L, Hgb 8.9 L, Hct 25.1 L, MCV 86.0, MCH 30.7, MCHC 35.7 H, RDW 13.1, Plt Count 249 D, MPV 7.3 L, Neut % (Auto) 80.8 H, Lymph % (Auto) 12.8, [place] % (Auto) 4.1, Eos % (Auto) 2.1, Baso % (Auto) 0.2, Neut # (Auto) 6.8, Lymph # (Auto) 1.1, [place] # (Auto) 0.4, Eos # (Auto) 0.2, Baso # (Auto) 0.0 01/16/19 05:40: Sodium 143, Potassium 3.1 L, Chloride 105, Carbon Dioxide 24, Anion Gap 17.1 H, BUN 21 H, Creatinine 1.47 H, Estimated Creat Clear 74, Estimated GFR 49 L, Est GFR ( Amer) 59, Glucose 110 H, Calcium 8.5 I & O for Last 24 hours: Intake & Output 01/13/19 01/14/19 01/15/19 01/16/19 11:59 11:59 11:59 11:59 Intake Total 2761 / 2761 3804 / 3804 2830 / 2830 0 / 0 Output Total 655 / 655 1075 / 1075 2150 / 2150 500 / 500 Balance 2106 / 2106 2729 / 2729 680 / 680 -500 / -500 Weight 218 lb 217 lb 1.991 oz 217 lb 1.991 oz 217 lb 4 oz Narrative: He is in no distress. Ambulates in the room with walker. Lungs are diminished at the right base but otherwise clear. Heart has a regular rate and rhythm. Abdomen is soft with active bowel sounds Assessment and Plan (1) Adenocarcinoma of colon Current visit: Yes Status: Acute Category: Medical Code(s): C18.9 - Malignant neoplasm of colon, unspecified (2) Mass in neck Current visit: Yes Status: Acute Category: Medical Code(s): R22.1 - Localized swelling, mass and lump, neck (3) Tonsillar mass Current visit: Yes Status: Acute Category: Medical Code(s): R22.0 - Localized swelling, mass and lump, head (4) Partial bowel obstruction Current visit: Yes Status: Acute Category: Medical Code(s): K56.600 - Partial intestinal obstruction, unspecified as to cause (5) Diverticulitis Current visit: Yes Status: Suspected Category: Medical Code(s): K57.92 - Diverticulitis of intestine, part unspecified, without perforation or abscess without bleeding (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 I have spoke with Dr. Ramirez who plans to advance diet 2. Patient will be given additional Lasix today for pleural effusions identified on chest x-ray 3. Patient will be started on HCTZ 25 mg daily for his rising blood pressure. May consider restarting lisinopril as well later today 4. Continue frequent ambulation and use of incentive spirometer
[2019-01-17 05:56] LABS: Basophils % 0.2 % (0.1-2.0); Eosinophils # 0.2 K/mm3 (0.0-0.4); Eosinophils % 1.8 % (0.1-12.0); Hematocrit 27.6 % (42.0-52.0); Lymphocytes # 1.5 K/mm3 (0.7-4.5); Lymphocytes % 16.8 % (10-50); Mean Corpuscular HGB Conc 35.6 g/dL (31.8-35.4); Mean Corpuscular Volume 84.4 fl (80-94); Mean Platelet Volume 7.5 fl (7.4-10.4); Monocytes # 0.4 K/mm3 (0.1-1.0); Monocytes % 5.1 % (1.7-9.3); Neutrophils # 6.5 K/mm3 (1.8-7.8); Neutrophils % 76.1 % (37.0-80.0); Platelet Count 294 K/mm3 (142-424); Red Blood Count 3.27 M/mm3 (4.60-6.20); Red Cell Distribution Width 12.7 % (11.5-17.5); White Blood Count 8.6 K/mm3 (4.8-10.8)
[2019-01-17 06:01] LABS: Anion Gap 9.9 mEq/L (5-15); Calcium 8.5 mg/dL (8.5-10.1)
[2019-01-17 06:03] LABS: Hemoglobin 9.8 g/dL (14.1-18.0)
[2019-01-17 06:04] LABS: Potassium 2.9 mmoL/L (3.5-5.1)
--- NOTE | 2019-01-17 06:44 | Progress Note ---
Subjective Patient reports: no new complaints Narrative: Passing gas and some bowel movement. Tolerating some clear liquids. Exam Vital signs and Labs for Last 24 Hours: Temp Pulse Resp BP Pulse Ox 99.2 F 55 L 16 170/73 H 94 L 01/16/19 20:00 01/16/19 20:00 01/16/19 20:00 01/16/19 20:00 01/16/19 20:00 Laboratory Results - last 24 hr 01/16/19 05:40: Sodium 143, Potassium 3.1 L, Chloride 105, Carbon Dioxide 24, Anion Gap 17.1 H, BUN 21 H, Creatinine 1.47 H, Estimated Creat Clear 74, Estimated GFR 49 L, Est GFR ( Amer) 59, Glucose 110 H, Calcium 8.5 01/17/19 05:36: WBC 8.6, RBC 3.27 L, Hgb 9.8 L D, Hct 27.6 L, MCV 84.4, MCH 30.0, MCHC 35.6 H, RDW 12.7, Plt Count 294, MPV 7.5, Neut % (Auto) 76.1, Lymph % (Auto) 16.8, [place] % (Auto) 5.1, Eos % (Auto) 1.8, Baso % (Auto) 0.2, Neut # (Auto) 6.5, Lymph # (Auto) 1.5, [place] # (Auto) 0.4, Eos # (Auto) 0.2, Baso # (Auto) 0.0 01/17/19 05:36: Sodium 141, Potassium 2.9 L*, Chloride 103, Carbon Dioxide 31 D , Anion Gap 9.9, BUN 16, Creatinine 1.37 H, Estimated Creat Clear 79, Estimated GFR 53 L, Est GFR ( Amer) 64, Glucose 119 H, Calcium 8.5 I & O for Last 24 hours: Intake & Output 01/14/19 01/15/19 01/16/19 01/17/19 11:59 11:59 11:59 11:59 Intake Total 3804 / 3804 2830 / 2830 170 / 170 1080 / 1080 Output Total 1075 / 1075 2150 / 2150 500 / 500 Balance 2729 / 2729 680 / 680 -330 / -330 1080 / 1080 Weight 217 lb 1.991 oz 217 lb 1.991 oz 217 lb 4 oz - *Routine Abdominal Exam Present: soft, normoactive bowel sounds Progress Note: A&P (1) Adenocarcinoma of colon Status: Acute Current Visit: Yes (2) Mass in neck Status: Acute Current Visit: Yes (3) Tonsillar mass Status: Acute Current Visit: Yes (4) Partial bowel obstruction Status: Acute Current Visit: Yes (5) Diverticulitis Status: Suspected Current Visit: Yes (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 May need potassium replacement.
--- NOTE | 2019-01-17 07:17 | Progress Note ---
Internal Medicine - PN: Subj *Date: 01/17/19 *Time: 07:15 Interval history: Patient has no complaints this morning. Shortness of breath is improved after 2 days of diuretics. He has tolerated clear liquids without nausea or increase in abdominal pain. He had a small bowel movement yesterday Exam Vital signs and Labs for Last 24 Hours: Temp Pulse Resp BP Pulse Ox 98.7 F 54 L 18 169/79 H 98 01/17/19 04:00 01/17/19 04:00 01/17/19 04:00 01/17/19 04:00 01/17/19 04:00 Laboratory Results - last 24 hr 01/17/19 05:36: WBC 8.6, RBC 3.27 L, Hgb 9.8 L D, Hct 27.6 L, MCV 84.4, MCH 30.0, MCHC 35.6 H, RDW 12.7, Plt Count 294, MPV 7.5, Neut % (Auto) 76.1, Lymph % (Auto) 16.8, [place] % (Auto) 5.1, Eos % (Auto) 1.8, Baso % (Auto) 0.2, Neut # (Auto) 6.5, Lymph # (Auto) 1.5, [place] # (Auto) 0.4, Eos # (Auto) 0.2, Baso # (Auto) 0.0 01/17/19 05:36: Sodium 141, Potassium 2.9 L*, Chloride 103, Carbon Dioxide 31 D , Anion Gap 9.9, BUN 16, Creatinine 1.37 H, Estimated Creat Clear 79, Estimated GFR 53 L, Est GFR ( Amer) 64, Glucose 119 H, Calcium 8.5 I & O for Last 24 hours: Intake & Output 01/14/19 01/15/19 01/16/19 01/17/19 11:59 11:59 11:59 11:59 Intake Total 3804 / 3804 2830 / 2830 170 / 170 1230 / 1230 Output Total 1075 / 1075 2150 / 2150 500 / 500 Balance 2729 / 2729 680 / 680 -330 / -330 1230 / 1230 Weight 217 lb 1.991 oz 217 lb 1.991 oz 217 lb 4 oz 217 lb 4 oz Narrative: He is in no distress. Lungs are overall clear but slightly diminished at the right base. Heart has a regular rate and rhythm. Abdomen is soft with active bowel sounds Assessment and Plan (1) Adenocarcinoma of colon Current visit: Yes Status: Acute Category: Medical Code(s): C18.9 - Malignant neoplasm of colon, unspecified (2) Mass in neck Current visit: Yes Status: Acute Category: Medical Code(s): R22.1 - Lo calized swelling, mass and lump, neck (3) Tonsillar mass Current visit: Yes Status: Acute Category: Medical Code(s): R22.0 - Localized swelling, mass and lump, head (4) Partial bowel obstruction Current visit: Yes Status: Acute Category: Medical Code(s): K56.600 - Partial intestinal obstruction, unspecified as to cause (5) Diverticulitis Current visit: Yes Status: Suspected Category: Medical Code(s): K57.92 - Diverticulitis of intestine, part unspecified, without perforation or abscess without bleeding (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 Replace potassium today as 2 days of diuretics have left him mildly hypokalemic 2. Restart his lisinopril and HCTZ at his regular dose. Continue to hold carvedilol
--- NOTE | 2019-01-18 06:48 | Progress Note ---
Subjective Patient reports: feels better, flatus, bowel movement Exam Vital signs and Labs for Last 24 Hours: Temp Pulse Resp BP Pulse Ox 98.3 F 60 16 123/55 L 95 01/18/19 04:00 01/18/19 04:00 01/18/19 04:00 01/18/19 04:00 01/18/19 04:00 I & O for Last 24 hours: Intake & Output 01/15/19 01/16/19 01/17/19 01/18/19 11:59 11:59 11:59 11:59 Intake Total 2830 / 2830 170 / 170 2049 Output Total 2150 / 2150 500 / 500 0 / 0 Balance 680 / 680 -330 / -330 2049 Weight 217 lb 1.991 oz 217 lb 4 oz 217 lb 4 oz 218 lb 1 oz - Constitutional no acute distress - *Routine Respiratory Exam Absent: respiratory distress - *Routine Abdominal Exam Present: soft Comments: Incision clean, dry, and intact. No erythema. Progress Note: A&P (1) Adenocarcinoma of colon Status: Acute Assessment and plan: Overall, doing well status post surgical resection. Postoperative ileus resolved. Follow-up a.m. 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
[2019-01-18 07:03] LABS: Basophils % 0.2 % (0.1-2.0); Eosinophils # 0.1 K/mm3 (0.0-0.4); Eosinophils % 1.7 % (0.1-12.0); Hematocrit 27.1 % (42.0-52.0); Hemoglobin 9.4 g/dL (14.1-18.0); Lymphocytes # 1.2 K/mm3 (0.7-4.5); Lymphocytes % 15.2 % (10-50); Mean Corpuscular HGB Conc 34.6 g/dL (31.8-35.4); Mean Corpuscular Hemoglobin 29.9 pg (27.0-31.2); Mean Corpuscular Volume 86.4 fl (80-94); Mean Platelet Volume 7.3 fl (7.4-10.4); Monocytes # 0.4 K/mm3 (0.1-1.0); Monocytes % 5.7 % (1.7-9.3); Neutrophils % 77.2 % (37.0-80.0); Platelet Count 289 K/mm3 (142-424); Red Blood Count 3.14 M/mm3 (4.60-6.20); Red Cell Distribution Width 12.7 % (11.5-17.5); White Blood Count 7.7 K/mm3 (4.8-10.8)
--- NOTE | 2019-01-18 07:13 | Discharge Summary ---
General - General Admission date:: 01/08/19 Discharge date: 01/18/19 HPI HPI: 63-year-old male presented to the emergency department with onset of abdominal pain. Patient work-up discovered some haziness around the sigmoid colon consistent with early diverticulitis and what appeared to be a mass in the right colon. Patient was admitted and started on IV antibiotics with a surgical consultation. Hospital Course Hospital Course: Patient was admitted. Dr. Ramirez was consulted as he had history with the patient. He recommended Gastrografin enema. Gastrografin enema was obtained on the which confirmed the presence of a mass. Follow-up colonoscopy performed the same day revealed an obstructive lesion in the right colon. Biopsies were obtained in the mass was diagnosed as adenocarcinoma of the colon. On the the patient underwent extended right hemicolectomy with ileocolic anastomosis. Postoperative course was uneventful except for complaint of shortness of breath and patient was discovered to have pleural effusions which responded to diuresis with intravenous Lasix.. Once his postoperative ileus resolved diet was advanced to clear liquids and then full liquids. Patient tolerated well. On January 18 patient was discharged home and will follow up with Dr. Ramirez on Tuesday, January 22. Patient also had a previously identified left neck mass for which she had been referred to Dr. Vega. She was consulted while the patient was in-house. A fine-needle aspiration was performed of the lesion and pathology returned a squamous cell carcinoma which is believed to be tonsillar in origin. Patient is aware of results of testing and has been told by Dr. Vega he will be contacted as an outpatient by her office for follow-up. Patient developed hypokalemia from use of diuretics and his potassium was replaced with both IV and oral potassium. Patient had hypertension. Due to bradycardia his carvedilol was held during hospitalization. Postoperatively antihypertensives were held due to some mild hypotension. As his postoperative course progressed his blood pressure returned to normal and was even slightly elevated. He was restarted on his home medicine of lisinopril with HCTZ. Objective Vital signs: Temp Pulse Resp BP Pulse Ox 98.3 F 60 16 123/55 L 95 01/18/19 04:00 01/18/19 04:00 01/18/19 04:00 01/18/19 04:00 01/18/19 04:00 Results Labs on day of discharge: Labs from last 24 hours 01/18/19 06:23 WBC 7.7 RBC 3.14 L Hgb 9.4 L Hct 27.1 L MCV 86.4 MCH 29.9 MCHC 34.6 RDW 12.7 Plt Count 289 MPV 7.3 L Neut % (Auto) 77.2 Lymph % (Auto) 15.2 [place] % (Auto) 5.7 Eos % (Auto) 1.7 Baso % (Auto) 0.2 Neut # (Auto) 6.0 Lymph # (Auto) 1.2 [place] # (Auto) 0.4 Eos # (Auto) 0.1 Baso # (Auto) 0.0 DS: Diagnosis - Discharge Diagnosis (1) Adenocarcinoma of colon Status: Acute (2) Mass in neck Status: Acute (3) Tonsillar mass Status: Acute (4) Partial bowel obstruction Status: Acute (5) Diverticulitis Status: Suspected (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 Status: Acute (7) Shortness of breath Status: Acute (8) Pleural effusion Status: Acute (9) Hypokalemia Status: Acute Discharge Plan - Patient Discharge Instructions ACTIVITY: Continue current activity DIET: continue same diet Patient Instructions: How to Use an Incentive Spirometer, [place] Diet, DI for Small Bowel Obstruction, DI for Acute Abdomen, DI for Surgical Site Infection - Follow up Plan Follow up with: Jesus Ramirez MD [Staff Physician] - 01/22/19 Buck Maria MD [Staff Physician] - 01/25/19 2:00 pm Disposition: Home, Self-Custodial Medications: Home Medications Medication Instructions Recorded Confirmed Type Carvedilol [Carvedilol 12.5mg Tab] 12.5 mg PO BID 01/08/19 01/08/19 History Gemfibrozil 600 mg PO BID 01/08/19 01/08/19 History Lisinopril/Hydrochlorothiazide 1 tab PO BID 01/08/19 01/08/19 History [Lisinopril-Hctz 20-12.5 mg Tab] Prescriptions/Medication Reconciliation: Continued Gemfibrozil 600 mg PO BID Lisinopril/Hydrochlorothiazide [Lisinopril-Hctz 20-12.5 mg Tab] 1 tab PO BID Discontinued Carvedilol [Carvedilol 12.5mg Tab] 12.5 mg PO BID
[2019-01-18 07:15] LABS: Anion Gap 12.6 mEq/L (5-15); Calcium 8.6 mg/dL (8.5-10.1); Potassium 3.6 mmoL/L (3.5-5.1)
== END 2019-01-18 09:28 | disposition home or self-care (01) | DRG 330 ==
LOC: UTC 10:17 → 2ND 13:20
PROVIDERS: ADMIT Family Medicine; ATTEND Family Medicine
CPT/HCPCS: 10005; 21550; 36415; 71020; 71046; 74021; 74022; 74177; 74270; 76536; 80048; 80053; 81001; 82378; 83690; 85007; 85025; 86850; 87506; 88305; 94761; 96374; 96375; 99284; C1726; J1956; J2405; J2710; Q9967

== ENCOUNTER → 2019-03-19 14:29 | Outpatient (CLI) | payer OTHER, SELFPAY ==
--- NOTE | 2019-03-19 14:33 | US_ITS ---
US Kidney ORDERING PHYSICIAN : Stacy Daly MD PATIENT AGE: 63 years GENDER: Male HISTORY:ITS.REASON: ELEVATED CREATINE ,H/O HEAD NECK AND COLON CA COMPARISON: TECHNIQUE: FINDINGS: Right kidney is 10.8 x 4.7 x 6.3 cm. Left kidney is 11.0 x 5.0 x 5.2 cm. Cortical areas bilaterally appear normal. There is no shadowing echogenic foci or hydronephrosis. IMPRESSION: Normal ultrasound of both kidneys.
== END ==
PROVIDERS: PCP Family Medicine; Visit Provider Internal Medicine
DX: R94.4 Abnormal results of kidney function studies (principal); C18.9 Malignant neoplasm of colon, unspecified; C09.9 Malignant neoplasm of tonsil, unspecified
CPT/HCPCS: 76770

== ENCOUNTER → 2020-05-19 07:55 | Outpatient (CLI) | payer MEDICARE, SELFPAY ==
[2020-05-19 10:42] LABS: Coronavirus 19 IgG Antibody Negative (Negative); Coronavirus 19 IgM Antibody Negative (Negative)
== END ==
PROVIDERS: Visit Provider Surgery
DX: Z01.818 Encounter for other preprocedural examination (principal); Z12.11 Encounter for screening for malignant neoplasm of colon
CPT/HCPCS: 36415; 86328

== ENCOUNTER 2020-05-20 07:17 | Day surgery (SDC) | payer MEDICARE, SELFPAY ==
[2020-05-16 14:14] VITALS: BMI 27.9
[2020-05-20] VITALS (7 sets, daily range): BP systolic 92–129; BP diastolic 54–73; PULSE 53–59; RESP 12–18; TEMP 36.2–36.3; O2SAT 95–97
--- NOTE | 2020-05-20 08:15 | HMH.GSHP ---
HPI HPI: Patient presents for follow-up colonoscopy. He is a 64-year-old male who underwent right hemicolectomy on 01/12/2019 as an inpatient. He had a 4 cm invasive moderately differentiated adenocarcinoma. He had 0 out of 19 lymph nodes positive. This was a T3N0 stage. He also had a large left neck mass in the ENT became involved. 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 He underwent chemotherapy and radiation for the head and neck carcinoma and had a PEG tube placed. I had performed a follow-up colonoscopy on him in September of this year. Surprisingly this revealed four tubular adenomas. Plan was for follow-up colonoscopy in 6 months given the early development of polyps. [facility] History I have reviewed the patient's past medical history: Yes Medical History: Reports:: Cancer (colon, skin ca), Hyperlipidemia, Hypertension, Seizures Denies:: Diabetes Mellitus Type 1, Diabetes Mellitus Type 2, Internal Pacemaker, MRSA *Have you ever received a pneumonia vaccine?: No *Have you received a flu vaccine this season?: No Other Surgeries: Yes: Appendectomy, Cancer Surgery, Colonoscopy, Colon Resection, EGD, Other. No: Pacemaker Amputation: Yes (right foot amputation) Fractures: No - *Social History Last grade of school completed: High school graduate Smoking Status: Never smoker Tobacco Type: smokeless tobacco # Packs/Day (cigarettes): 0 #Yrs smoked (if former smoker): 0 Alcohol Intake: never Substance Use Type: denies use *Occupational Status:: unemployed Housing: house Household Members: family *Travel in the last 8 weeks: None Family Hx:: Cancer, Diabetes, Hyperlipidemia, Hypertension, Kidney Disease, Other Review of Systems - Review of Systems Review of systems:: pertinent systems reviewed and negative unless documented below Meds Home Medications Medication Instructions Recorded Confirmed Type gemfibroziL [Gemfibrozil] 600 mg PO BID 01/08/19 05/20/20 History Amlodipine Besylate [Amlodipine 10 mg PO DAILY 05/16/20 05/20/20 History 10mg Tab] Sodium, Potassium,Mag Sulfates See Rx Instructions PO .COMPLEX 05/16/20 05/20/20 History [Suprep Bowel Prep Kit] Allergies Allergy/AdvReac Type Severity Reaction Status Date / Time No Known Allergies Allergy Verified 05/20/20 07:33 Exam Vital signs and Labs for Last 24 Hours: Temp Pulse Resp BP Pulse Ox 97.4 F L 55 L 18 129/73 97 05/20/20 07:34 05/20/20 07:34 05/20/20 07:34 05/20/20 07:34 05/20/20 07:34 I & O for Last 24 hours: Intake & Output 05/17/20 05/18/20 05/19/20 05/20/20 11:59 11:59 11:59 11:59 Weight 184 lb - *Routine Respiratory Exam Present: CTA bilaterally - *Routine Cardiovascular Exam Present: RRR - *Routine Abdominal Exam Present: soft Assessment and Plan - Assessment and plan all Dx Assessment and Plan for all problems:: Colonoscopy
--- NOTE | 2020-05-20 08:28 | HMH.ANESCL ---
[facility] Anesthesia Checklist - Patient Identification Patient Identification: Arm Band, Verbal (Name & ) - Structural Data Admitted From: Home Planned Operative Procedure/s: Colonoscopy Consent for Planned Operative Procedure(s) Verified: Yes Verified Documents: Surgical Consent, History and Physical - NPO Status Verified Time NPO: 00:00 - Chart Verification Results Verified: None - Additional verifications Anesthesia Reactions: No - Airway Assessment C-Spine Mobility Assessed: Yes TMJ Mobility Assessed: Yes Dentition: Poor Dentition (Missing teeth) - Neurological Assessment Level of Consciousness: Awake, Alert, Appropriate, Follows Commands Hx Seizures: No Numbness or tingling in extremities: No - Anesthesia Plan Anesthesia Risk discussed: Yes Anesthesia Plan: Verified ASA Class: III Anesthesia Type: MAC [facility] History I have reviewed the patient's past medical history: Yes Medical History: Reports:: Cancer (Metastatic head/neck CA), Hyperlipidemia, Hypertension Denies:: Diabetes Mellitus Type 1, Diabetes Mellitus Type 2, Internal Pacemaker, MRSA *Have you ever received a pneumonia vaccine?: No *Have you received a flu vaccine this season?: No Anesthesia experience/problems:: None Other Surgeries: Yes: Appendectomy, Cancer Surgery, Colonoscopy, Colon Resection, EGD, Other. No: Pacemaker Amputation: Yes (right foot amputation) Fractures: No - *Social History Last grade of school completed: High school graduate Smoking Status: Never smoker Tobacco Type: smokeless tobacco # Packs/Day (cigarettes): 0 #Yrs smoked (if former smoker): 0 Alcohol Intake: never Substance Use Type: denies use *Occupational Status:: unemployed Housing: house Household Members: family *Travel in the last 8 weeks: None Family Hx:: Cancer, Diabetes, Hyperlipidemia, Hypertension, Kidney Disease, Other
--- NOTE | 2020-05-20 09:03 | P.PCN_ITS ---
- Procedure: Date: 05/20/20 Procedure Performed:: Full colonoscopy to ileocolic anastomosis with biopsies Indications:: Patient presents for follow-up colonoscopy. He is a 64-year-old male who underwent right hemicolectomy on 01/12/2019 as an inpatient. He had a 4 cm invasive moderately differentiated adenocarcinoma. He had 0 out of 19 lymph nodes positive. This was a T3N0 stage. He also had a large left neck mass in the ENT became involved. 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 He underwent chemotherapy and radiation for the head and neck carcinoma and had a PEG tube placed. I had performed a follow-up colonoscopy on him in September of this year. Surprisingly this revealed four tubular adenomas. Plan was for follow-up colonoscopy in 6 months given the early development of polyps. Performing Provider:: Jesus Ramirez MD Referring Provider:: Lindsey Licea Sedation:: Propofol Procedure:: Consent was obtained patient was taken to endoscopy procedure room. He was positioned in a lateral decubitus position. Adequate intravenous sedation was achieved with anesthesia titration of propofol. Digital examination was performed which revealed normal sphincter tone and normal prostate. Variable stiffness Olympus colonoscope was inserted via the anus. Was advanced to the ileocolic anastomosis without difficulty. Colonic preparation was excellent. A couple biopsies were obtained of the anastomosis. Colonoscope was withdrawn through the colon with careful surveillance. In the transverse colon there was a minor mucosal irregularity which was biopsied with cold biopsy forceps. He had appreciable left-sided diverticulosis. Retroflexion within the rectum revealed no evidence of any pathologic internal hemorrhoids. Colonoscope was withdrawn. Findings:: No obvious polyps Diverticulosis Recommendations:: Likely repeat colonoscopy 1 year given the previous history of interval development of colon cancer and early development of adenomatous polyps Complications:: None immediately apparent Estimated blood obtained (mL): 1
--- NOTE | 2020-05-20 09:18 | PC.NURSE ---
Oral airway present upon arrival to postop
--- NOTE | 2020-05-20 09:25 | PC.NURSE ---
oral airway removed at 0919, pt tolerated well. Airway remains patent
== END 2020-05-20 09:47 | disposition home or self-care (01) ==
PROVIDERS: PCP Nurse Practitioner; Visit Provider Surgery
PROC: 0DJD8ZZ Inspection of Lower Intestinal Tract, Via Natural or Artificial Opening Endoscopic (ICD-10-PCS; CPT 45380; principal; 2020-05-20 08:30)
DX: Z12.11 Encounter for screening for malignant neoplasm of colon (principal); K57.30 Diverticulosis of large intestine without perforation or abscess without bleeding; Z85.038 Personal history of other malignant neoplasm of large intestine; Z90.49 Acquired absence of other specified parts of digestive tract; E78.5 Hyperlipidemia, unspecified; I10 Essential (primary) hypertension; Z89.431 Acquired absence of right foot; Z80.9 Family history of malignant neoplasm, unspecified; Z83.3 Family history of diabetes mellitus; Z83.438 Family history of other disorder of lipoprotein metabolism and other lipidemia; Z82.49 Family history of ischemic heart disease and other diseases of the circulatory system; Z84.1 Family history of disorders of kidney and ureter; Z84.89 Family history of other specified conditions
CPT/HCPCS: 45380; 88305

== ENCOUNTER → 2020-08-22 14:01 | Outpatient (POV) | payer MEDICARE, SELFPAY | PROVIDERS: Visit Provider Internal Medicine Nephrology | DX: Z00.00 Encounter for general adult medical examination without abnormal findings (principal) ==

== ENCOUNTER → 2020-12-08 10:32 | Outpatient (CLI) | payer MEDICARE, SELFPAY ==
[2020-12-08 11:39] LABS: Coronavirus 19 IgG Antibody Negative (Negative); Coronavirus 19 IgM Antibody Negative (Negative)
== END ==
PROVIDERS: Visit Provider Surgery
DX: Z01.818 Encounter for other preprocedural examination (principal); Z11.52 Encounter for screening for COVID-19; Z12.11 Encounter for screening for malignant neoplasm of colon; Z85.038 Personal history of other malignant neoplasm of large intestine
CPT/HCPCS: 36415; 86328

== ENCOUNTER 2020-12-10 09:41 | Day surgery (SDC) | payer MEDICARE, SELFPAY ==
[2020-12-08 15:10] VITALS: BMI 27.0
[2020-12-10 10:12] VITALS: BP 145/96; PULSE 67; RESP 18; TEMP 36.3; O2SAT 98
[2020-12-10 11:00] VITALS: O2SAT 97
--- NOTE | 2020-12-10 11:13 | HMH.ANESCL ---
[facility] Anesthesia Checklist - Structural Data Admitted From: Home Planned Operative Procedure/s: colonoscopy Consent for Planned Operative Procedure(s) Verified: Yes - Additional verifications Anesthesia Reactions: No - Airway Assessment C-Spine Mobility Assessed: Yes TMJ Mobility Assessed: Yes Dentition: Poor Dentition - Neurological Assessment Level of Consciousness: Awake, Alert, Appropriate - Anesthesia Plan Anesthesia Risk discussed: Yes Anesthesia Plan: Verified ASA Class: III Anesthesia Type: MAC [facility] History I have reviewed the patient's past medical history: Yes Medical History: Reports:: Cancer (colon, throat), Hyperlipidemia, Hypertension Denies:: Diabetes Mellitus Type 1, Diabetes Mellitus Type 2, Internal Pacemaker, MRSA, Seizures *Have you ever received a pneumonia vaccine?: No *Have you received a flu vaccine this season?: No Anesthesia experience/problems:: none Other Surgeries: Yes: Appendectomy, Cancer Surgery, Colonoscopy, Colon Resection, EGD, Other. No: Pacemaker Amputation: Yes (right foot amputation) Fractures: No - *Social History Smoking Status: Never smoker Tobacco Type: smokeless tobacco # Packs/Day (cigarettes): 0 #Yrs smoked (if former smoker): 0 Alcohol Intake: never Substance Use Type: denies use *Occupational Status:: retired Housing: house Household Members: family *Travel in the last 8 weeks: None Family Hx:: Cancer, Diabetes, Hyperlipidemia, Hypertension, Kidney Disease, Other
--- NOTE | 2020-12-10 11:42 | HMH.SCOPE ---
- Procedure: Date: 12/10/20 Patient Date of :: 1955 Procedure Performed:: Total colonoscopy to ileal colonic anastomosis with polypectomy using snare and biopsy forceps Indications:: Patient presents for follow-up colonoscopy. He is a 65-year-old male who underwent right hemicolectomy on 01/12/2019 as an inpatient. He had a 4 cm invasive moderately differentiated adenocarcinoma. He had 0 out of 19 lymph nodes positive. This was a T3N0 stage. He also had a large left neck mass in the ENT became involved. 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 He underwent chemotherapy and radiation for the head and neck carcinoma and had a PEG tube placed which has subsequently been removed. He had a colonoscopy in September 2019 and had 4 tubular adenomas removed. He underwent colonoscopy on 05/20/2020 which was relatively unremarkable appearing however, there was a very subtle mucosal irregularity which was in the transverse colon and removed with cold biopsy forceps and this revealed tubular adenoma. Given the subtle tubular adenoma, prior history of early development of adenomatous polyps and history of interval development of colon cancer I advocated a follow up colonoscopy in December of this year. He is currently having issues with the prior radiation to his jaw and is unable to open his mouth. He has lost weight. He is scheduled for extensive bone grafting surgery on 01/15/2021 at . Performing Provider:: Jesus Ramirez MD Referring Provider:: Gosia Licea Sedation:: MAC sedation Procedure:: Patient was taken to endoscopy procedure room. He was positioned in lateral decubitus position. Adequate intravenous sedation was achieved. Variable stiffness Olympus colonoscope was inserted via the anus and advanced to the ileocolonic anastomosis. This appeared to be widely patent and intact with no evidence of any local recurrence. A couple of biopsies were obtained of the apparent prominent staple line region. In the transverse colon there was a small polyp removed with cold biopsy forceps. Also additionally in the transverse colon there was a small diminutive polyp removed with cold cutting snare. In the descending colon there was a subtle irregularity which was removed with cold cutting snare and sent as possible polyp in the descending colon. He had significant sigmoid diverticulosis. Retroflexion within the rectum revealed no evidence of any pathologic internal hemorrhoids. Colonoscope was withdrawn. Findings:: Polyps Diverticulosis Recommendations:: Given his interval development of colon cancer and early recurrent polyps likely repeat colonoscopy in about a year pending the pathology. Complications:: None immediately apparent Estimated blood obtained (mL): 2
[2020-12-10 11:45] VITALS: BP 116/70; PULSE 62; RESP 18; O2SAT 94
[2020-12-10 11:55] VITALS: BP 109/61; PULSE 57; RESP 18; O2SAT 98
[2020-12-10 11:57] VITALS: BP 106/54; PULSE 64; RESP 18; TEMP 36.3; O2SAT 93
[2020-12-10 12:05] VITALS: BP 115/70; PULSE 57; RESP 18; O2SAT 98
== END 2020-12-10 12:05 | disposition home or self-care (01) ==
LOC: OUTP 09:43
PROVIDERS: PCP Nurse Practitioner; Visit Provider Surgery
PROC: 0DJD8ZZ Inspection of Lower Intestinal Tract, Via Natural or Artificial Opening Endoscopic (ICD-10-PCS; CPT 45380; principal; 2020-12-10 11:00)
DX: Z12.11 Encounter for screening for malignant neoplasm of colon (principal); Z85.038 Personal history of other malignant neoplasm of large intestine; Z86.010 Personal history of colon polyps; K63.5 Polyp of colon; K57.30 Diverticulosis of large intestine without perforation or abscess without bleeding; Z85.819 Personal history of malignant neoplasm of unspecified site of lip, oral cavity, and pharynx; I10 Essential (primary) hypertension; Z90.49 Acquired absence of other specified parts of digestive tract; Z72.0 Tobacco use; Z80.9 Family history of malignant neoplasm, unspecified; Z83.3 Family history of diabetes mellitus; Z84.1 Family history of disorders of kidney and ureter; Z82.49 Family history of ischemic heart disease and other diseases of the circulatory system
CPT/HCPCS: 45380; 45385; 88305

== ENCOUNTER → 2021-01-19 12:18 | Outpatient (CLI) | payer MEDICARE, SELFPAY ==
--- NOTE | 2021-01-19 12:51 | FL_ITS ---
PROCEDURE: FL BARIUM SWALLOW MODIFIED CLINICAL INDICATION: DYSPHAGIA COMPARISON: No exams were available for comparison TECHNIQUE: Patient administered varying consistencies of barium contrast, while viewed in lateral position under real-time fluoroscopy with cine recording. FLUOROSCOPY TIME:2 minutes and 37 seconds The study was performed in conjunction with speech pathologist. Please see that report & recommendations. FINDINGS: Patient was given varying consistencies of barium. Numerous surgical clips are present in the neck with a bone plate over the mandible. There is a nasogastric tube present. There is moderate residual in the vallecula. No obvious aspiration or penetration. There was difficulty with bolus formation with mechanical soft IMPRESSION: No aspiration or penetration. Moderate residual with all consistencies. Delayed bolus formation Please see speech pathologist report and recommendations. Dictated by: Jamey Reno MD 01/20/2021 09:02 Jamey Reno MD in [place] 01/20/2021 09:02
--- NOTE | 2021-01-19 13:47 | HMH.SLMBS2 ---
Speech & Language Evaluation Speech/Language Mod Barium Swallow Start: 01/19/21 13:34 Freq: once Status: Complete Protocol: Document 01/19/21 13:34 LORNA (Rec: 01/19/21 13:46 LORNA [id number]) General Information General Current Food Consistancy NPO Dentition Good Dentition Oxygen Status Room Air Facial Symmetry Asymmetrical Patient Orientation Person,Place,Time Ability to Follow Directions Excellent Communication Ability Mild Impairment MBS Recommendations Diet Dietary Recommendations Pureed,Thin Liquids Treatment/Strategies Strategy/Precaution Recommend Sitting Upright (90 deg),Chin Tuck,No Straw,Small Bites and Sips,Alternate Liquids/Solids Mod Barium Swallow Impressions Summary and Impressions Oral Phase Impression No Impairment (WFL) Oral Phase Summary Mr. Sunshine was given the following consistencies: honey via open cup, nectar via open cup, thins via open cup, pudding, pureed, and mechanical soft. No impairments noted in the oral phase of swallowing. Pharyngeal Phase Impression Mild Impairment Pharyngeal Phase Summary Mr. Sunshine experienced multiple swallows per bolus with all consistencies. He reported food is stuck with pudding, pureed (with pudding barium) and mechanical soft due to vallecular residue. When given thin wash, residue was cleared. At this time, it is recommended he be placed on pureed diet with thin liquids . Speech therapy is warranted for dysphagia. Speech/Language MBS Assessment/Goals/Plan Assessment Date of Evaluation: 01/19/21 Evaluation Type Initial Certification Assessment/Problems Dysphagia- Determine Least Restrictive Diet Does Patient Qualify for Service Yes Qualify/Failure Comment Based on these results, it is recommended that Mr. Sunshine be seen by speech therapy either in outpatient setting or home health. Recommendations PHYSICIAN CERTIFICATION: The specified therapy services are required, authorized, and reviewed every 30 days. SL Swallow Guidelines Alt bite w/
== END ==
PROVIDERS: PCP Nurse Practitioner; Visit Provider Otolaryngology
DX: C09.1 Malignant neoplasm of tonsillar pillar (anterior) (posterior) (principal)
CPT/HCPCS: 70371; 92611

== ENCOUNTER → 2021-02-09 11:29 | Outpatient (CLI) | payer MEDICARE, SELFPAY ==
[2021-02-09 11:34] LABS: Microscopic, Urine URINE MICROSCOPIC (MICROSCOPIC)
[2021-02-09 12:17] LABS: Appearance,Urine CLEAR (Clear); Bilirubin,Urine Negative (Negative); Blood, Urine Negative (Negative); Color,Urine YELLOW (Yellow); Glucose,Urine (UA) Negative (Negative); Ketones,Urine Negative (Negative); Leukocyte Esterase,Urine Negative (Negative); Nitrate,Urine Negative (Negative); Protein,Urine Negative (Negative); Specific Gravity, Urine 1.025 (1.005-1.030); Urobilinogen,Urine 0.2 EU/dl (0.2)
[2021-02-09 12:48] LABS: Chloride 102 mmol/L (98-107); Potassium 4.2 mmoL/L (3.5-5.1); Sodium 140 mmol/L (136-145)
[2021-02-09 12:50] LABS: Blood Urea Nitrogen 19 mg/dl (9-20); Estimated Glomerular Filt Rate 114 ml/min (>60); GFR (African American) 138 ML/MIN (>60)
[2021-02-09 12:51] LABS: Anion Gap 17.2 mEq/L (5-15); Calcium 9.9 mg/dl (8.4-10.2); Carbon Dioxide 25 mmol/L (22.0-30.0); Glucose 115 mg/dl (74-100); Phosphorous 4.2 mg/dl (2.5-4.5)
[2021-02-09 12:51] LABS: Chol/HDL Ratio 4.4 (1-3.5); Cholesterol 176 mg/dl (140-200); HDL Cholesterol 40 mg/dl (40-60); Triglycerides 111 mg/dl (30-150); VLDL Cholesterol 22 mg/dL (0-40)
[2021-02-09 13:01] LABS: Direct LDL Cholesterol 96.61 mg/dL (100-129)
[2021-02-09 13:09] LABS: 25-OH Vitamin D, Total 35.4 ng/mL (30-100)
[2021-02-13 13:41] LABS: Miscellaneous Test SEE COMMENTS
== END ==
PROVIDERS: Visit Provider Internal Medicine Nephrology
DX: N17.9 Acute kidney failure, unspecified (principal); N18.2 Chronic kidney disease, stage 2 (mild); I10 Essential (primary) hypertension; E55.9 Vitamin D deficiency, unspecified
CPT/HCPCS: 36415; 80061; 80069; 81001; 82306

== ENCOUNTER → 2021-02-20 13:49 | Outpatient (POV) | payer MEDICARE, SELFPAY | PROVIDERS: Visit Provider Internal Medicine Nephrology | DX: Z00.00 Encounter for general adult medical examination without abnormal findings (principal) ==

== ENCOUNTER → 2021-04-06 11:57 | Outpatient (CLI) | payer MEDICARE, SELFPAY ==
--- NOTE | 2021-04-06 11:59 | FL_ITS ---
PROCEDURE: FL BARIUM SWALLOW MODIFIED CLINICAL INDICATION: DYSPHAGIA,UNSPECIFIED TYPE COMPARISON: No exams were available for comparison TECHNIQUE: Patient administered varying consistencies of barium contrast, while viewed in lateral position under real-time fluoroscopy with cine recording. FLUOROSCOPY TIME:1 minutes and 14 seconds The study was performed in conjunction with speech pathologist. Please see that report & recommendations. FINDINGS: Patient was given varying consistencies of barium. There are postsurgical changes of the mandible with a bone plate present. Numerous clips are present overlying the mandible, pharynx and hypo pharyngeal and laryngeal region.. There is no evidence of a stiff the penetration or tracheal aspiration. There was some mild residual which cleared with liquids and dry swallow. IMPRESSION: Mild residual. No aspiration or penetration. Please see speech pathologist report and recommendations. Dictated by: Jamey Reno MD 04/08/2021 13:49 Jamey Reno MD in [place] 04/08/2021 13:49
--- NOTE | 2021-04-06 13:35 | HMH.SLMBS2 ---
Speech & Language Evaluation Speech/Language Mod Barium Swallow Start: 04/06/21 13:21 Freq: once Status: Complete Protocol: Document 04/06/21 13:21 LORNA (Rec: 04/06/21 13:35 LORNA [id number]) General Information General Current Food Consistancy Regular,Thin Liquids Dentition Good Dentition Comment: missing back teeth Oxygen Status Room Air Facial Symmetry Asymmetrical Patient Orientation Person,Place,Time,Situation Ability to Follow Directions Excellent Communication Ability No Impairment MBS Recommendations Diet Dietary Recommendations Regular,Thin Liquids Treatment/Strategies Treatment Recommendation Oral Motor Exercises Strategy/Precaution Recommend Sitting Upright (90 deg),Small Bites and Sips,Alternate Liquids/Solids Mod Barium Swallow Impressions Summary and Impressions Oral Phase Impression No Impairment (WFL) Oral Phase Summary Mr. Sunshine was given the following consistencies: thins via open cup and straw, pudding, regular, mixed, and pill with thin wash. No oral phase impairments noted. Pharyngeal Phase Impression Mild Impairment Pharyngeal Phase Summary Mild pharyngeal residue noted in the valleculae with all consistencies but cleared with a dry swallow. Mr. Sunshine was advised to utilize dry swallow after each bolus to clear valleculae. Speech/Language MBS Assessment/Goals/Plan Assessment Date of Evaluation: 04/06/21 Evaluation Type Initial Certification Assessment/Problems Dysphagia Does Patient Qualify for Service No Qualify/Failure Comment Mr. Sunshine is already in speech therapy for dysphagia Plan Pt/Guardian verbally ack understanding Yes of dx/prognosis/goals G -code Required No Mod Barium Swallow Setup Exam Setup Radiologist Jamey Reno Level of Consciousness Awake,Alert,Appropriate, Follows Commands Position (degrees) 90 Mod Barium Swallow-Lat View Textures Lateral View Food Presentation Thin Liquid via Cup,Thin Liquid via Straw,Barium Tablet ,Regular Food,Pudding,Mixed Oral Phase Labial Closure No Impairment (WFL) Bolus Formation Pooling L/R No Impairment (WFL) Bolus Formation under Tongue No Impairment (WFL)
== END ==
PROVIDERS: PCP Nurse Practitioner; Visit Provider Otolaryngology
DX: R13.10 Dysphagia, unspecified (principal)
CPT/HCPCS: 70371; 92611

== ENCOUNTER 2021-04-09 13:00 | Outpatient (RCR) | payer MEDICARE, SELFPAY ==
--- NOTE | 2021-02-03 09:59 | HMH.SLDYSPHA ---
Speech & Language Evaluation Speech/Language Dysphagia Evaluation Start: 02/03/21 09:48 Freq: ONCE Status: Active Protocol: Document 02/03/21 09:48 LORNA (Rec: 02/03/21 09:59 LORNA [id number]) Dysphagia Assess/Goals/Plan Assessment Date of Evaluation: 02/03/21 Evaluation Type Initial Certification Assessment/Problems Dysphagia Does Patient Qualify for Service Yes Qualify/Failure Comment Mr. Sunshine does qualify for speech therapy to address overall weakness. Recommendations PHYSICIAN CERTIFICATION: The specified therapy services are required, authorized, and reviewed every 30 days. Pt will be seen # times/week 2 for # weeks 4 Diet Recommendations Mechanical Soft Liquid Type Recommendations Normal/Thin SL Swallow Guidelines Standard Aspiration Prec. Dysphagia Swallow Precautions/Strategies Sitting Upright (90 deg),Chin Tuck,Small Bites and Sips, Alternate Liquids/Solids Plan Anticipate reaching STG in # weeks 2 Anticipate reaching LTG in # weeks 4 Pt/Guardian verbally ack understanding Yes of dx/prognosis/goals G -code Required No STG-Other Comment/Non-Specific -Patient will complete a variety of lingual exercises to increase range of motion in tongue 10 times. -Patient will complete jaw exercises to increase range of motion in jaw 10 times -Patient will complete labial exercises to increase range of motion in lips 10 times. -Patient will improve swallowing by completing various exercises 10 times. Insights Manager Goals Diet Regular with Liquids Thin Liquids Education Pt/Caregiver able to recall information Able to recall/restate Reinforcement needed No Speech & Language HPI History Present Illness Description of Patient Problem History of head and neck cancer. Pt/Caregiver Concerns Difficulty swallowing General Information General Current Food Consistancy Dysphagia Mechanical Soft,Thin Liquids Dentition Good Dentition Oxygen Status Room Air Facial Symmetry Asymmetrical Patient Orientation Person,Place,Time,Situation Ability to Follow Directions Excellent Communication Ability No Impairment Dysphagia:Food Presentation E
== END 2021-04-09 13:05 | disposition home or self-care (01) ==
LOC: ST 13:00
PROVIDERS: PCP Nurse Practitioner; Visit Provider Otolaryngology
DX: R13.10 Dysphagia, unspecified (principal); R47.89 Other speech disturbances; R22.1 Localized swelling, mass and lump, neck
CPT/HCPCS: 92507; 92526; 92610

== ENCOUNTER 2021-05-01 10:00 | Outpatient (RCR) | payer MEDICARE, SELFPAY | END 2021-05-01 11:00 | disposition home or self-care (01) | LOC: PT 10:00 | PROVIDERS: PCP Nurse Practitioner; Visit Provider Otolaryngology | DX: R22.1 Localized swelling, mass and lump, neck (principal); I89.0 Lymphedema, not elsewhere classified | CPT/HCPCS: 97110; 97140; 97162; 97164; 97760 ==

== ENCOUNTER → 2021-11-25 11:11 | Outpatient (CLI) | payer MEDICARE, SELFPAY | PROVIDERS: Visit Provider Surgery | DX: Z01.812 Encounter for preprocedural laboratory examination (principal); Z11.52 Encounter for screening for COVID-19; Z12.11 Encounter for screening for malignant neoplasm of colon; Z86.010 Personal history of colon polyps | CPT/HCPCS: C9803; U0003; U0005 ==

== ENCOUNTER 2021-11-27 07:47 | Day surgery (SDC) | payer MEDICARE, SELFPAY ==
[2021-11-25 10:59] VITALS: BMI 27.6
--- NOTE | 2021-11-27 07:21 | HMH.GSHP ---
HPI HPI: Patient is a 66-year-old male who underwent right hemicolectomy on 01/12/2019 as an inpatient. He had a 4 cm invasive moderately differentiated adenocarcinoma. He had 0 out of 19 lymph nodes positive. This was a T3N0 stage. He also had a large left neck mass which was proven to have metastatic head neck carcinoma. He underwent chemotherapy and radiation for the head and neck carcinoma and had a PEG tube placed which has subsequently been removed. He had bone grafting surgery to his jaw. He had a colonoscopy in September 2019 and had 4 tubular adenomas removed. He underwent colonoscopy on 05/20/2020 which revealed a tubular adenoma and a subtle irregularity which was biopsied. Colonoscopy on 12/10/2020 revealed 3 tubular adenomas. He is doing well. He has been followed up with [facility] History I have reviewed the patient's past medical history: Yes Medical History: Reports:: Cancer (colon, throat), Hyperlipidemia, Hypertension Denies:: Diabetes Mellitus Type 1, Diabetes Mellitus Type 2, Internal Pacemaker, MRSA, Seizures *Have you ever received a pneumonia vaccine?: No *Have you received a flu vaccine this season?: No Other Surgeries: Yes: Appendectomy, Cancer Surgery, Colonoscopy, Colon Resection, EGD, Other. No: Pacemaker Amputation: Yes (right foot amputation) Fractures: No - *Social History Last grade of school completed: High school graduate Smoking Status: Never smoker Tobacco Type: smokeless tobacco # Packs/Day (cigarettes): 0 #Yrs smoked (if former smoker): 0 Alcohol Intake: never Substance Use Type: denies use *Occupational Status:: retired Housing: house Household Members: family *Travel in the last 8 weeks: None Family Hx:: Cancer, Diabetes Review of Systems - Review of Systems Review of systems:: pertinent systems reviewed and negative unless documented below Meds Home Medications Medication Instructions Recorded Confirmed Type gemfibroziL [Gemfibrozil] 600 mg PO BID 01/08/19 08/03/21 History Amlodipine Besylate [Amlodipine 10 mg PO DAILY 05/16/20 08/03/21 History 10mg Tab] aspirin 81 mg tablet,delayed 81 mg PO DAILY tab 12/05/20 08/03/21 History release sodium,potassium,mag sulfates 17.5 See Rx Instructions PO .COMPLEX 11/18/21 Rx gram-3.13 gram-1.6 gram oral soln #354 ml Vitamin E 200 unit PO DAILY 11/25/21 11/25/21 History Allergies Allergy/AdvReac Type Severity Reaction Status Date / Time No Known Allergies Allergy Verified 08/03/21 09:04 Exam I & O for Last 24 hours: Intake & Output 11/24/21 11/25/21 11/26/21 11/27/21 11:59 11:59 11:59 11:59 Weight 182 lb - Constitutional no acute distress - *Routine HEENT Exam Head: Present: normocephalic Eye: Present: EOMI, PERRL ENT: Present: mucous membranes moist - *Routine Respiratory Exam Present: CTA bilaterally - *Routine Cardiovascular Exam Present: RRR - *Routine Abdominal Exam Present: soft, normoactive bowel sounds. Absent: tenderness - *Routine Rectal Exam Rectal:: deferred - *Routine Genitalia Exam Genitalia:: deferred - *Routine Extremities Exam Absent: cyanosis, clubbing, edema - *Routine Skin Exam Present: warm. Absent: rash - *Routine Neurological Exam Present: alert, oriented X3 Assessment and Plan - Assessment and plan all Dx Assessment and Plan for all problems:: Plan for colonoscopy due to his history of interval development of colon cancer and early development of adenomatous polyps
[2021-11-27 08:06] VITALS: BP 121/75; PULSE 77; RESP 18; TEMP 36.8; O2SAT 98
--- NOTE | 2021-11-27 08:43 | HMH.ANESCL ---
[facility] Anesthesia Checklist - Patient Identification Patient Identification: Arm Band, Verbal (Name & ) - Structural Data Admitted From: Home Planned Operative Procedure/s: cOLONOSCOPY Consent for Planned Operative Procedure(s) Verified: Yes Verified Documents: Surgical Consent - NPO Status Verified Time NPO: 03:30 - Additional verifications Anesthesia Reactions: No - Airway Assessment C-Spine Mobility Assessed: Yes TMJ Mobility Assessed: Yes Dentition: Poor Dentition - Neurological Assessment Level of Consciousness: Awake, Alert, Appropriate - Anesthesia Plan Anesthesia Risk discussed: Yes ASA Class: III Anesthesia Type: MAC [facility] History I have reviewed the patient's past medical history: Yes Medical History: Reports:: Cancer (colon, throat), Hyperlipidemia, Hypertension Denies:: Diabetes Mellitus Type 1, Diabetes Mellitus Type 2, Internal Pacemaker, MRSA, Seizures *Have you ever received a pneumonia vaccine?: No *Have you received a flu vaccine this season?: No Anesthesia experience/problems:: NONE Other Surgeries: Yes: Appendectomy, Cancer Surgery, Colonoscopy, Colon Resection, EGD, Other. No: Pacemaker Amputation: Yes (right foot amputation) Fractures: No - *Social History Last grade of school completed: High school graduate Smoking Status: Never smoker Tobacco Type: smokeless tobacco # Packs/Day (cigarettes): 0 #Yrs smoked (if former smoker): 0 Alcohol Intake: never Substance Use Type: denies use *Occupational Status:: retired Housing: house Household Members: family *Travel in the last 8 weeks: None Family Hx:: Cancer, Diabetes
[2021-11-27 09:11] VITALS: O2SAT 98
--- NOTE | 2021-11-27 09:40 | P.PCN_ITS ---
- Procedure: Date: 11/27/21 Patient Date of :: 1955 Procedure Performed:: Total colonoscopy to ileocolic anastomosis with polypectomy using biopsy forceps Indications:: Patient is a 66-year-old male who underwent right hemicolectomy on 01/12/2019 as an inpatient. He had a 4 cm invasive moderately differentiated adenocarcinoma. He had 0 out of 19 lymph nodes positive. This was a T3N0 stage. He also had a large left neck mass which was proven to have metastatic head neck carcinoma. He underwent chemotherapy and radiation for the head and neck carcinoma and had a PEG tube placed which has subsequently been removed. He had bone grafting surgery to his jaw. He had a colonoscopy in September 2019 and had 4 tubular adenomas removed. He underwent colonoscopy on 05/20/2020 which revealed a tubular adenoma and a subtle irregularity which was biopsied. Colonoscopy on 12/10/2020 revealed 3 tubular adenomas. He is doing well. He has been followed up with [facility] Performing Provider:: Jesus Ramirez MD Referring Provider:: Gosia Marrero Sedation:: MAC sedation Procedure:: Patient was taken to endoscopy procedure room. He was positioned in lateral decubitus position. Adequate intravenous sedation was achieved with anesthesia titration of propofol. Digital examination was performed which revealed uniformly enlarged prostate. Variable stiffness Olympus colonoscope was inserted via the anus. It was advanced to the ileocolic anastomosis without difficulty. Colonic preparation was good and visualization was good. [place] noscope was slowly withdrawn through the colon with careful surveillance. In the descending colon there was a tiny diminutive polyp removed with cold biopsy forceps. At the proximal sigmoid colon there were several small diminutive polyps removed with cold biopsy forceps. He had significant sigmoid diverticulosis. Retroflexion within the rectum revealed no evidence of any pathologic internal hemorrhoids. Colonoscope was withdrawn. Findings:: Significant sigmoid diverticulosis Nonpathologic internal hemorrhoids Diminutive polyp x4 in the descending and proximal sigmoid colon Recommendations:: Pending the pathology, if adenomatous, repeat colonoscopy 1 year given his history of interval development of colon cancer and early development of polyps Complications:: None immediately apparent Estimated blood obtained (mL): 2
[2021-11-27 09:42] VITALS: BP 88/55; PULSE 76; RESP 16; TEMP 36.3; O2SAT 93
[2021-11-27 09:52] VITALS: BP 100/63; PULSE 70; RESP 16; TEMP 36.4; O2SAT 94
[2021-11-27 10:02] VITALS: BP 115/69; PULSE 71; RESP 16; TEMP 36.3; O2SAT 97
[2021-11-27 10:12] VITALS: BP 123/72; PULSE 63; RESP 16; TEMP 36.3; O2SAT 97
== END 2021-11-27 10:26 | disposition home or self-care (01) ==
LOC: OUTP 07:48
PROVIDERS: PCP Nurse Practitioner; Visit Provider Surgery
PROC: 0DJD8ZZ Inspection of Lower Intestinal Tract, Via Natural or Artificial Opening Endoscopic (ICD-10-PCS; principal; 2021-11-27 09:00)
DX: Z12.11 Encounter for screening for malignant neoplasm of colon (principal); K57.32 Diverticulitis of large intestine without perforation or abscess without bleeding; K64.9 Unspecified hemorrhoids; K63.5 Polyp of colon; Z85.030 Personal history of malignant carcinoid tumor of large intestine; Z90.49 Acquired absence of other specified parts of digestive tract; Z85.29 Personal history of malignant neoplasm of other respiratory and intrathoracic organs; Z80.9 Family history of malignant neoplasm, unspecified; Z83.3 Family history of diabetes mellitus
CPT/HCPCS: 45380; 88305

== ENCOUNTER 2022-08-31 07:14 | Emergency (ER) | payer MEDICARE, SELFPAY ==
[2022-08-31 07:25] VITALS: BP 119/66; PULSE 83; RESP 20; TEMP 37.1; O2SAT 96; BMI 25.8
--- NOTE | 2022-08-31 07:28 | XR_ITS ---
FINAL REPORT CLINICAL HISTORY: pain. no accident/injury FINDINGS: CERVICAL SPINE 3 views were obtained. There is no acute fracture. There is no malalignment. There are moderate degenerative changes with multilevel osteophytes. There are posterior soft tissue calcifications. There are postoperative changes in the neck bilaterally. IMPRESSION: Moderate degenerative changes with multilevel osteophyte formation. No acute bony abnormality. Reviewed, Interpreted and Dictated by Jesus Villegas III, MD Transcribed by Vandana Tran Authenticated and [facility]
[2022-08-31 08:00] VITALS: BP 134/60; PULSE 89; RESP 20; O2SAT 97
--- NOTE | 2022-08-31 08:08 | PC.NURSE ---
pt to rad
--- NOTE | 2022-08-31 08:13 | PC.NURSE ---
pt back from rad
[2022-08-31 08:31] VITALS: BP 125/52; PULSE 85; RESP 20; O2SAT 95
--- NOTE | 2022-08-31 08:57 | HMH.EDNECK ---
Discharge Plan Disposition Patient Disposition: Home, Self-Care Condition: Good Prescriptions Prescriptions: New ketorolac 10 mg tablet 10 mg PO Q8H PRN (Reason: pain) Qty: 10 0RF lidocaine 5 % adhesive patch,medicated 1 patch topical DAILY Qty: 15 0RF Rx Instructions: leave on most painful area for up to 12 hrs No Action aspirin 81 mg tablet,delayed release (DR/EC) 81 mg PO DAILY Label Comments: TAKE 1 TABLET BY MOUTH EVERY DAY amlodipine 10 MG tablet 10 mg PO DAILY gemfibrozil 600 tablet 600 mg PO BID vitamin E 200 UNIT capsule 200 unit PO DAILY levothyroxine 25 MCG tablet 25 mcg PO DAILY Referrals Follow up/Referrals: Jeny Marrero APRN [Primary Care Provider] - See instructions Activity Restrictions/Add. Instructions Additional Instructions/Restrictions: Please follow up with your primary care physician in 2-3 days for further management. If symtoms persist you may require further imaging including possible CT or MRI vs physical therapy. Please discuss with your primary care team. If numbness, weakness in arms or legs or worsening pain please return to ED. use the pain meds as prescribed. Clinical Impressions Clinical Impression: Neck pain Instructions Patient Instructions: DI for Neck Pain Print Language Print Language: Georgian Discharge ED Provider: Cinthia Martin Neck Pain/Injury HPI General Chief Complaint: Neck Pain/Injury Stated Complaint: pain in neck Time Seen by Provider: 08/31/22 08:00 Source of Information: Patient Limitations: No Limitations Description of Symptoms (Recalled from ER Triage Doc. by RN): pt to ed c/o neck pain that radiates into his jaw. pt reports the pain came on gradual on tuesday and has increasingly gotten worse. pt denies any accident or injury. History of Present Illness HPI Narrative: Mr. 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 Patient reports neck pain that radiates into his jaw symptom onset Tuesday, which has progressively worsened. He denies any inciting trauma. No fevers, cough or other infectious symptoms. Denies any numbness, weakness, headache or any other concerns. MD complaint: neck pain Onset (ago): day(s) Place: home Radiation: right lateral Severity: moderate Duration: constant Relieving factors: immobilization Exacerbating factors: none Associated symptoms: none Related Data Home Medications Medication Instructions Recorded Confirmed gemfibrozil 600 mg tablet 600 mg PO BID Cholesterol 01/08/19 08/31/22 amlodipine 10 mg tablet 10 mg PO DAILY High blood pressure 05/16/20 08/31/22 aspirin 81 mg tablet,delayed 81 mg PO DAILY heart 12/05/20 08/31/22 release vitamin E 200 unit capsule 200 unit PO DAILY Supplement 11/25/21 08/31/22 levothyroxine 25 mcg tablet 25 mcg PO DAILY hypothyroid 11/27/21 08/31/22 Previous Rx's Medication Instructions Recorded ketorolac 10 mg tablet 10 mg PO Q8H PRN pain #10 tabs 08/31/22 lidocaine 5 % topical patch 1 patch topical DAILY #15 ea 08/31/22 Allergies Allergy/AdvReac Type Severity Reaction Status Date / Time No Known Allergies Allergy Verified 08/31/22 07:32 [facility] Disclaimer: The information contained in this section may have been updated after the patient was seen, as this information can be updated by other users. Medical History (Updated 08/31/22 @ 09:41 by Cinthia Martin MD) Colonic mass Hyperlipemia Hypertension Hypothyroid Mass in neck Partial bowel obstruction Squamous cell carcinoma of left tonsil Tonsillar mass Surgical History History of colonoscopy Social History Smoking Status: Never smoker alcohol intake: never substance use type: denies use current occupational s
--- NOTE | 2022-08-31 09:32 | PC.NURSE ---
radiology sending down preliminary forms
[2022-08-31 10:16] VITALS: BP 121/62; PULSE 82; RESP 20; TEMP 37; O2SAT 97
== END 2022-08-31 10:18 | disposition home or self-care (01) ==
PROVIDERS: Emergency Provider Student in an Organized Health Care Education/Training Program; PCP Nurse Practitioner Family
DX: M54.2 Cervicalgia (principal); R68.84 Jaw pain; I10 Essential (primary) hypertension; E78.5 Hyperlipidemia, unspecified; E03.9 Hypothyroidism, unspecified; Z79.82 Long term (current) use of aspirin; Z79.899 Other long term (current) drug therapy; Z85.818 Personal history of malignant neoplasm of other sites of lip, oral cavity, and pharynx
CPT/HCPCS: 72040; 99283

== ENCOUNTER 2022-09-04 11:54 | Emergency (ER) | payer MEDICARE, SELFPAY ==
[2022-09-04] VITALS (8 sets, daily range): BP systolic 110–136; BP diastolic 49–75; PULSE 66–82; RESP 12–18; TEMP 36.9; O2SAT 94–98; BMI 26.6
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
[2022-09-04 12:41] LABS: Coronavirus 19, PCR Not Detected (NotDetected); Influenza B, PCR Not Detected (NotDetected)
[2022-09-04 12:44] LABS: Chloride 95 mmol/L (98-107); Potassium 3.4 mmoL/L (3.5-5.1); Sodium 130 mmol/L (136-145)
[2022-09-04 12:46] LABS: Basophils % 0.2 % (0.1-2.0); Eosinophils % 0.1 % (0.1-12.0); Hematocrit 33.3 % (42.0-52.0); Hemoglobin 11.3 g/dL (14.1-18.0); Lymphocytes # 0.8 K/mm3 (0.7-4.5); Lymphocytes % 2.9 % (10-50); Mean Corpuscular HGB Conc 33.9 g/dL (31.8-35.4); Mean Corpuscular Volume 88.5 fl (80-94); Mean Platelet Volume 8.6 fl (7.4-10.4); Monocytes # 1.1 K/mm3 (0.1-1.0); Monocytes % 4.1 % (1.7-9.3); Neutrophils # 23.7 K/mm3 (1.8-7.8); Neutrophils % 92.7 % (37.0-80.0); Platelet Count 201 K/mm3 (142-424); Red Blood Count 3.76 M/mm3 (4.60-6.20); Red Cell Distribution Width 12.3 % (11.5-17.5); White Blood Count 25.6 K/mm3 (4.8-10.8)
[2022-09-04 12:47] LABS: Alanine Aminotransferase 86 U/L (12-78); Albumin Level 3.8 g/dl (3.5-5.0); Albumin/Globulin Ratio 1.2 (1.1-1.8); Alkaline Phosphatase 122 U/L (38-126); Anion Gap 12.4 mEq/L (5-15); Aspartate Amino Transferase 99 U/L (17-59); Bilirubin,Total 0.8 mg/dl (0.2-1.3); Blood Urea Nitrogen 27 mg/dl (9-20); Carbon Dioxide 26 mmol/L (22.0-30.0); Creatinine Clearance Estimated 69 mL/min (50-200); Estimated Glomerular Filt Rate 61 ml/min (>60); GFR (African American) 74 ML/MIN (>60); Globulin 3.3 g/dL (1.3-3.2); Total Protein,Serum 7.1 g/dl (6.3-8.2)
[2022-09-04 12:48] LABS: Calcium 9.2 mg/dl (8.4-10.2); Glucose 134 mg/dl (74-100)
[2022-09-04 12:51] LABS: MANUAL DIFFERENTIAL MANUAL DIFFERENTIAL (MANUAL DIFF)
--- NOTE | 2022-09-04 12:52 | CT_ITS ---
PROCEDURE INFORMATION: Exam: CT Cervical Spine With Contrast Exam date and time: 09/04/2022 1:11 PM Age: 67 years old Clinical indication: Neck pain; Additional info: Neck pain, elev wbc TECHNIQUE: Imaging protocol: Computed tomography of the cervical spine with contrast. Radiation optimization: All CT scans at this facility use at least one of these dose optimization techniques: automated exposure control; mA and/or kV adjustment per patient size (includes targeted exams where dose is matched to clinical indication); or iterative reconstruction. Contrast material: ISOVUE; Contrast volume: 70 ml; Contrast route: IV; COMPARISON: CR XR CERVICAL SPINE 2V 08/31/2022 7:57 AM FINDINGS: Bones/joints: There is preservation of vertebral alignment and vertebral body heights. Odontoid process is intact. Atlantoaxial interval is maintained. No evidence of endplate destructive changes to suggest discitis osteomyelitis. No acute fracture. Uncovertebral and facet arthropathy produce varying degrees of neural foramina narrowing at multiple levels. Spinal epidural space: Prominent of the anterior epidural space at C2-C3 level. Lungs: Lung apices are normal. Lymph nodes: There are extensive postsurgical changes presumably related to lymph node dissection and related to ORIF left mandibular fracture. Soft tissues: There is suggestion of ill-defined collection centered in the longus colli muscles at C2-C4 levels. IMPRESSION: 1. Possible phlegmon/ill-defined collection centered in the longus coli muscles at C2-C4 levels. Further evaluation with cervical spine MRI is recommended. 2. Prominence of the anterior epidural space at C2-C3 level which may represent pannus versus epidural collection. 3. No endplate destructive changes to suggest discitis osteomyelitis.
[2022-09-04 13:02] LABS: Lymphocytes % 3 % (10-50); Monocytes % 1 % (2-9); Neutrophils % 95 % (42-76); Platelet Estimate Normal; RBC Morphology Normal; Total Cells Counted 100
--- NOTE | 2022-09-04 13:07 | CT_ITS ---
PROCEDURE INFORMATION: Exam: CT Thoracic Spine With Contrast Exam date and time: 09/04/2022 1:18 PM Age: 67 years old Clinical indication: Pain in thoracic spine; Without myelpathy or radiculopathy; Additional info: Possible spinal epidural abscess TECHNIQUE: Imaging protocol: Computed tomography of the thoracic spine with contrast. Radiation optimization: All CT scans at this facility use at least one of these dose optimization techniques: automated exposure control; mA and/or kV adjustment per patient size (includes targeted exams where dose is matched to clinical indication); or iterative reconstruction. Contrast material: ISOVUE; Contrast volume: 60 ml; Contrast route: IV; COMPARISON: CT CERVICAL SPINE W CON 09/04/2022 1:11 PM FINDINGS: Bones/joints: There is preservation of vertebral alignment and vertebral body heights. Facet joints are aligned. No acute fracture. There is no significant osseous encroachment of the spinal canal or neural foraminal narrowing at any level. No endplate destructive changes or widening of the intervertebral space to suggest discitis osteomyelitis. Spinal epidural space: No definitive epidural abscess within the limits of the technique. Soft tissues: Unremarkable. Lymph nodes: There are calcified mediastinal and hilar lymph nodes likely sequela of prior granulomatous process. Lungs: Right upper lobe granuloma noted. IMPRESSION: 1. No endplate destructive changes or widening of the intervertebral space to suggest discitis osteomyelitis. 2. No definitive epidural abscess within the limits of the technique.
[2022-09-04 13:08] LABS: C-Reactive Protein 286.3 mg/L (0-4)
--- NOTE | 2022-09-04 13:08 | CT_ITS ---
PROCEDURE INFORMATION: Exam: CT Lumbar Spine With Contrast Exam date and time: 09/04/2022 1:18 PM Age: 67 years old Clinical indication: Low back pain; Additional info: Possible spinal epidural abscess TECHNIQUE: Imaging protocol: Computed tomography of the lumbar spine with contrast. Radiation optimization: All CT scans at this facility use at least one of these dose optimization techniques: automated exposure control; mA and/or kV adjustment per patient size (includes targeted exams where dose is matched to clinical indication); or iterative reconstruction. Contrast material: ISOVUE; Contrast volume: 60 ml; Contrast route: IV; COMPARISON: [id number] CT abdomen pelvis w con 01/08/2019 11:34 AM FINDINGS: Bones/joints: For findings in the thoracic spine, please refer to the separately dictated thoracic spine CT report under a separate accession number. There is preservation of vertebral alignment and vertebral body heights. No acute fracture. There is mild to moderate bilateral neural foramina narrowing at L4-L5 and L5-S1 level attributed to a combination of disc bulge and facet arthropathy. No osseous destructive changes along the endplates or intervertebral disc space widening to suggest discitis osteomyelitis. Spinal epidural space: No evidence of epidural collection within the limits of the technique. Lungs: Lung bases are unremarkable. Soft tissues: Unremarkable. Psoas muscles are unremarkable without discrete abscess IMPRESSION: 1. No osseous destructive changes along the endplates or intervertebral disc space widening to suggest discitis osteomyelitis. 2. No definitive epidural collection within the limits of the technique.
[2022-09-04 13:17] LABS: Influenza A, PCR Detected (NotDetected)
[2022-09-04 13:20] LABS: Erythrocyte Sedimentation Rate 109 mm/hr (0-20)
--- NOTE | 2022-09-04 14:37 | PC.NURSE ---
Dr Ortega speaking with ad
--- NOTE | 2022-09-04 14:45 | EXP.PHA.CONS ---
Pharmacy Consult Date: 09/04/22 Time: 14:45 Referring provider: DR. WALKER Reason for Consult:: VANCOMYCIN DOSING Allergies Allergy/AdvReac Type Severity Reaction Status Date / Time No Known Allergies Allergy Verified 08/31/22 07:32 Home Medications Medication Instructions Recorded Confirmed Type gemfibrozil 600 mg tablet 600 mg PO BID Cholesterol 01/08/19 08/31/22 History amlodipine 10 mg tablet 10 mg PO DAILY High blood pressure 05/16/20 08/31/22 History aspirin 81 mg tablet,delayed 81 mg PO DAILY heart 12/05/20 08/31/22 History release vitamin E 200 unit capsule 200 unit PO DAILY Supplement 11/25/21 08/31/22 History levothyroxine 25 mcg tablet 25 mcg PO DAILY hypothyroid 11/27/21 08/31/22 History ketorolac 10 mg tablet 10 mg PO Q8H PRN pain #10 tabs 08/31/22 Rx lidocaine 5 % topical patch 1 patch topical DAILY #15 ea 08/31/22 Rx New Prescriptions to Start Prescriptions: Height: 1.73 m Weight: 79.379 kg Laboratory Results:: Laboratory Results - last 24 hr 09/04/22 12:20: WBC 25.6 H*, RBC 3.76 L, Hgb 11.3 L, Hct 33.3 L, MCV 88.5, MCH 30.0, MCHC 33.9, RDW 12.3, Plt Count 201, MPV 8.6, Neut % (Auto) 92.7 H, Lymph % (Auto) 2.9 L, [place] % (Auto) 4.1, Eos % (Auto) 0.1, Baso % (Auto) 0.2, Neut # (Auto) 23.7 H, Lymph # (Auto) 0.8, [place] # (Auto) 1.1 H, Eos # (Auto) 0.0, Baso # (Auto) 0.0, Total Counted 100, Neutrophils % (Manual) 95 H, Band Neutrophils % 1.0, Lymphocytes % (Manual) 3 L, Monocytes % (Manual) 1 L, Platelet Estimate Normal, RBC Morphology Normal 09/04/22 12:20: Sodium 130 L, Potassium 3.4 L, Chloride 95 L, Carbon Dioxide 26, Anion Gap 12.4, BUN 27 H, Creatinine 1.20, Estimated Creat Clear 69, Estimated GFR 61, Est GFR ( Amer) 74, Glucose 134 H, Calcium 9.2, Total Bilirubin 0.8, AST 99 H, ALT 86 H, Alkaline Phosphatase 122, Total Protein 7.1, Albumin 3.8, Globulin 3.3 H, Albumin/Globulin Ratio 1.2 09/04/22 12:20: Lactate 1.0 09/04/22 12:20: SARS-CoV-2 (PCR) Not detected, Influenza A Untype (PCR) Detected A, Influenza Type B (PCR) Not detected 09/04/22 12:20: ESR 109 H 09/04/22 12:20: C-Reactive Protein 286.3 H Medical History: Medical History (Updated 08/31/22 @ 09:41 by Cinthia Martin MD) Colonic mass Hyperlipemia Hypertension Hypothyroid Mass in neck Partial bowel obstruction Squamous cell carcinoma of left tonsil Tonsillar mass Assessment and Plan Assessment and plan all Dx Assessment and Plan for all problems:: Pharmacokinetic dosing service Age: 67 yo Serum creatinine: 1.2 mg/dL Height: 68.1 Inches Weight (kg): 80 Assessment: IBW (kg): 68.63 Dosing wt(kg): 80 Estimated Creatinine clearance (ml/min): 59.6 CRCL method: Cockcroft and Gault using ibw(default). Drug selected: Vancomycin Loading dose (mg): 0 Vd (liters): 64.0 (factor used: 0.8 L/kg) Juanito (hr-1): 0.054 Half life (hrs): 12.84 Recommended dose: 1500 mg Interval: 18 hrs Infusion time (hrs): 2.0 Predicted peak (mcg/mL): 35.7 Predicted trough (mcg/mL): 15.05 Total body weight is being used for vancomycin dosing. Recommendations: Give Vancomycin 1500 mg q 18 hrs with an expected Cpeak of 35.7 mcg/ml and an expected Ctrough of 15.05 mcg/ml ----Vanco only - ignore for aminoglycosides----- CLvanco= 3.46 L/hr AUC 0-24 /MADELINE Data: MADELINE 0.5 mcg/mL: AUC/MADELINE: 1156.1 MADELINE 1.0 mcg/mL: AUC/MADELINE: 578.0 --------- MADELINE 1.5 mcg/mL: AUC/MADELINE: 385.4 MADELINE 2.0 mcg/mL: AUC/MADELINE: 289.0
--- NOTE | 2022-09-04 14:45 | PC.NURSE ---
placed call to [facility], they requesting images sent before they decide due to their limited capacity at this time
--- NOTE | 2022-09-04 15:12 | PC.NURSE ---
Pt asking for pain medicine, aware
--- NOTE | 2022-09-04 15:19 | PC.NURSE ---
Dr Ortega speaking with [facility]
--- NOTE | 2022-09-04 15:29 | PC.NURSE ---
pt accepted to [facility]
--- NOTE | 2022-09-04 15:41 | PC.NURSE ---
report called to Ingrid FOLEY at [facility]
== END 2022-09-04 16:08 | disposition short-term general hospital (02) ==
PROVIDERS: Emergency Provider Emergency Medicine; PCP Family Medicine
DX: M54.2 Cervicalgia (principal)
CPT/HCPCS: 72126; 72129; 72132; 80053; 83605; 85007; 85025; 85651; 86140; 87040; 87077; 87186; 96365; 96366; 96367; 96375; 96376; 99285; C9803; J2405; Q9967; U0003; U0005

== ENCOUNTER 2022-09-21 09:44 | Outpatient (CLI) | payer MEDICARE, SELFPAY ==
[2022-09-21 09:50] VITALS: BMI 27.8
[2022-09-21 10:07] LABS: Basophils % 0.1 % (0.1-2.0); Eosinophils # 0.1 K/mm3 (0.0-0.4); Eosinophils % 0.9 % (0.1-12.0); Hematocrit 30.2 % (42.0-52.0); Lymphocytes # 0.8 K/mm3 (0.7-4.5); Lymphocytes % 6.9 % (10-50); Mean Corpuscular HGB Conc 33.3 g/dL (31.8-35.4); Mean Corpuscular Hemoglobin 29.6 pg (27.0-31.2); Mean Corpuscular Volume 88.8 fl (80-94); Mean Platelet Volume 8.4 fl (7.4-10.4); Monocytes # 0.3 K/mm3 (0.1-1.0); Monocytes % 2.9 % (1.7-9.3); Neutrophils # 9.8 K/mm3 (1.8-7.8); Neutrophils % 89.2 % (37.0-80.0); Platelet Count 470 K/mm3 (142-424); Red Cell Distribution Width 13.5 % (11.5-17.5)
[2022-09-21 10:10] LABS: MANUAL DIFFERENTIAL MANUAL DIFFERENTIAL (MANUAL DIFF)
[2022-09-21 10:13] LABS: Alanine Aminotransferase 42 U/L (12-78); Alkaline Phosphatase 87 U/L (38-126); Aspartate Amino Transferase 29 U/L (17-59); Bilirubin,Direct 0.3 mg/dl (0.0-0.4); Bilirubin,Indirect 0.1 mg/dL (0.0-0.9); Bilirubin,Total 0.4 mg/dl (0.2-1.3); Bilirubin,Unconjugated 0.1 mg/dL (0.0-1.1); Blood Urea Nitrogen 20 mg/dl (9-20); Creatinine Clearance Estimated 84 mL/min (50-200); Estimated Glomerular Filt Rate 75 ml/min (>60); GFR (African American) 91 ML/MIN (>60); Total Protein,Serum 7.9 g/dl (6.3-8.2)
[2022-09-21 10:19] LABS: C-Reactive Protein 32.2 mg/L (0-4)
[2022-09-21 10:27] LABS: Lymphocytes % 11 % (10-50); Monocytes % 1 % (2-9); Neutrophils % 88 % (42-76); Platelet Estimate Slight Increase; RBC Morphology Normal; Total Cells Counted 100
== END 2022-09-21 10:20 | disposition home or self-care (01) ==
LOC: INF 09:45
PROVIDERS: PCP Nurse Practitioner Family; Visit Provider Plastic Surgery
DX: G06.2 Extradural and subdural abscess, unspecified (principal)
CPT/HCPCS: 36592; 80076; 82565; 84520; 85007; 85025; 86140

== ENCOUNTER 2022-09-28 09:45 | Outpatient (CLI) | payer MEDICARE, SELFPAY ==
[2022-09-28 09:45] VITALS: BMI 25.3
[2022-09-28 10:00] VITALS: BP 128/74; PULSE 68; RESP 20; TEMP 36.4; O2SAT 95
[2022-09-28 10:10] LABS: Basophils % 0.1 % (0.1-2.0); Eosinophils # 0.2 K/mm3 (0.0-0.4); Eosinophils % 1.3 % (0.1-12.0); Hematocrit 30.8 % (42.0-52.0); Hemoglobin 10.4 g/dL (14.1-18.0); Lymphocytes # 0.7 K/mm3 (0.7-4.5); Lymphocytes % 5.6 % (10-50); Mean Corpuscular HGB Conc 33.7 g/dL (31.8-35.4); Mean Corpuscular Hemoglobin 29.8 pg (27.0-31.2); Mean Corpuscular Volume 88.6 fl (80-94); Mean Platelet Volume 8.9 fl (7.4-10.4); Monocytes # 0.3 K/mm3 (0.1-1.0); Monocytes % 2.2 % (1.7-9.3); Neutrophils % 90.7 % (37.0-80.0); Platelet Count 358 K/mm3 (142-424); Red Blood Count 3.48 M/mm3 (4.60-6.20); Red Cell Distribution Width 14.4 % (11.5-17.5); White Blood Count 12.2 K/mm3 (4.8-10.8)
[2022-09-28 10:14] LABS: MANUAL DIFFERENTIAL MANUAL DIFFERENTIAL (MANUAL DIFF)
[2022-09-28 10:19] LABS: C-Reactive Protein 20.5 mg/L (0-4)
[2022-09-28 10:40] LABS: Lymphocytes % 13 % (10-50); Monocytes % 7 % (2-9); Neutrophils % 80 % (42-76); Total Cells Counted 100
[2022-09-28 10:41] LABS: Platelet Estimate Normal; RBC Morphology Normal
[2022-09-28 10:56] LABS: Alanine Aminotransferase 33 U/L (12-78); Albumin Level 4.1 g/dl (3.5-5.0); Alkaline Phosphatase 89 U/L (38-126); Aspartate Amino Transferase 27 U/L (17-59); Bilirubin,Direct 0.3 mg/dl (0.0-0.4); Bilirubin,Indirect 0.1 mg/dL (0.0-0.9); Bilirubin,Total 0.4 mg/dl (0.2-1.3); Bilirubin,Unconjugated 0.1 mg/dL (0.0-1.1); Blood Urea Nitrogen 22 mg/dl (9-20); Creatinine Clearance Estimated 77 mL/min (50-200); Estimated Glomerular Filt Rate 85 ml/min (>60); GFR (African American) 102 ML/MIN (>60); Total Protein,Serum 7.6 g/dl (6.3-8.2)
== END 2022-09-28 10:30 | disposition home or self-care (01) ==
LOC: INF 09:46
PROVIDERS: PCP Family Medicine; Visit Provider Internal Medicine
DX: G06.2 Extradural and subdural abscess, unspecified (principal); K63.9 Disease of intestine, unspecified; Z45.2 Encounter for adjustment and management of vascular access device
CPT/HCPCS: 36592; 80076; 82565; 84520; 85007; 85025; 86140

== ENCOUNTER 2022-10-05 09:39 | Outpatient (CLI) | payer MEDICARE, SELFPAY ==
[2022-10-05 09:43] VITALS: BMI 25.3
[2022-10-05 10:02] LABS: Basophils % 0.2 % (0.1-2.0); Eosinophils # 0.2 K/mm3 (0.0-0.4); Eosinophils % 1.2 % (0.1-12.0); Hematocrit 35.8 % (42.0-52.0); Hemoglobin 11.6 g/dL (14.1-18.0); Lymphocytes # 1.1 K/mm3 (0.7-4.5); Lymphocytes % 8.6 % (10-50); Mean Corpuscular HGB Conc 32.2 g/dL (31.8-35.4); Mean Corpuscular Hemoglobin 29.3 pg (27.0-31.2); Mean Corpuscular Volume 90.9 fl (80-94); Mean Platelet Volume 8.4 fl (7.4-10.4); Monocytes # 0.3 K/mm3 (0.1-1.0); Monocytes % 2.2 % (1.7-9.3); Neutrophils % 87.9 % (37.0-80.0); Platelet Count 422 K/mm3 (142-424); Red Blood Count 3.94 M/mm3 (4.60-6.20); Red Cell Distribution Width 14.5 % (11.5-17.5); White Blood Count 12.6 K/mm3 (4.8-10.8)
[2022-10-05 10:10] LABS: MANUAL DIFFERENTIAL MANUAL DIFFERENTIAL (MANUAL DIFF)
[2022-10-05 10:16] LABS: Bilirubin,Unconjugated 0.2 mg/dL (0.0-1.1); Blood Urea Nitrogen 21 mg/dl (9-20); Creatinine Clearance Estimated 77 mL/min (50-200); Estimated Glomerular Filt Rate 85 ml/min (>60); GFR (African American) 102 ML/MIN (>60)
[2022-10-05 10:17] LABS: Alanine Aminotransferase 28 U/L (12-78); Albumin Level 4.6 g/dl (3.5-5.0); Alkaline Phosphatase 102 U/L (38-126); Aspartate Amino Transferase 28 U/L (17-59); Bilirubin,Direct 0.3 mg/dl (0.0-0.4); Bilirubin,Indirect 0.2 mg/dL (0.0-0.9); Bilirubin,Total 0.5 mg/dl (0.2-1.3); Total Protein,Serum 8.7 g/dl (6.3-8.2)
[2022-10-05 10:23] LABS: C-Reactive Protein 13.8 mg/L (0-4)
[2022-10-05 10:42] LABS: Eosinophils % 1 % (0-3); Lymphocytes % 9 % (10-50); Monocytes % 1 % (2-9); Neutrophils % 89 % (42-76); Platelet Estimate Slight Increase; RBC Morphology Normal; Total Cells Counted 100
== END 2022-10-05 10:08 | disposition home or self-care (01) ==
LOC: INF 09:40
PROVIDERS: PCP Family Medicine; Visit Provider Internal Medicine
DX: G06.2 Extradural and subdural abscess, unspecified (principal); Z45.2 Encounter for adjustment and management of vascular access device; Z51.81 Encounter for therapeutic drug level monitoring
CPT/HCPCS: 36592; 80076; 82565; 84520; 85007; 85025; 86140

== ENCOUNTER 2022-10-12 09:31 | Outpatient (CLI) | payer MEDICARE, SELFPAY ==
[2022-10-12 09:43] VITALS: BMI 25.3
[2022-10-12 10:06] LABS: Alanine Aminotransferase 21 U/L (12-78); Albumin Level 4.4 g/dl (3.5-5.0); Alkaline Phosphatase 113 U/L (38-126); Aspartate Amino Transferase 25 U/L (17-59); Bilirubin,Direct 0.3 mg/dl (0.0-0.4); Bilirubin,Indirect 0.1 mg/dL (0.0-0.9); Bilirubin,Total 0.4 mg/dl (0.2-1.3); Bilirubin,Unconjugated 0.1 mg/dL (0.0-1.1); Blood Urea Nitrogen 19 mg/dl (9-20); Creatinine Clearance Estimated 77 mL/min (50-200); Estimated Glomerular Filt Rate 85 ml/min (>60); GFR (African American) 102 ML/MIN (>60); Total Protein,Serum 8.2 g/dl (6.3-8.2)
[2022-10-12 10:11] LABS: Basophils % 0.1 % (0.1-2.0); Eosinophils # 0.1 K/mm3 (0.0-0.4); Eosinophils % 1.3 % (0.1-12.0); Hematocrit 34.2 % (42.0-52.0); Hemoglobin 11.1 g/dL (14.1-18.0); Lymphocytes # 0.9 K/mm3 (0.7-4.5); Lymphocytes % 9.5 % (10-50); Mean Corpuscular HGB Conc 32.5 g/dL (31.8-35.4); Mean Corpuscular Hemoglobin 29.5 pg (27.0-31.2); Mean Corpuscular Volume 90.8 fl (80-94); Mean Platelet Volume 8.8 fl (7.4-10.4); Monocytes # 0.3 K/mm3 (0.1-1.0); Monocytes % 3.4 % (1.7-9.3); Neutrophils # 7.9 K/mm3 (1.8-7.8); Neutrophils % 85.8 % (37.0-80.0); Platelet Count 414 K/mm3 (142-424); Red Blood Count 3.77 M/mm3 (4.60-6.20); Red Cell Distribution Width 14.3 % (11.5-17.5); White Blood Count 9.2 K/mm3 (4.8-10.8)
[2022-10-12 10:12] LABS: C-Reactive Protein 10.4 mg/L (0-4)
[2022-10-12 10:28] LABS: MANUAL DIFFERENTIAL MANUAL DIFFERENTIAL (MANUAL DIFF)
[2022-10-12 11:02] LABS: Eosinophils % 1 % (0-3); Lymphocytes % 11 % (10-50); Monocytes % 3 % (2-9); Neutrophils % 85 % (42-76); Platelet Estimate Normal; RBC Morphology Normal; Total Cells Counted 100
== END 2022-10-12 10:00 | disposition home or self-care (01) ==
LOC: INF 09:32
PROVIDERS: PCP Family Medicine; Visit Provider Internal Medicine Infectious Disease
DX: G06.2 Extradural and subdural abscess, unspecified (principal); Z51.81 Encounter for therapeutic drug level monitoring; Z45.2 Encounter for adjustment and management of vascular access device
CPT/HCPCS: 36592; 80076; 82565; 84520; 85007; 85025; 86140

== ENCOUNTER 2022-10-26 09:40 | Outpatient (CLI) | payer MEDICARE, SELFPAY ==
[2022-10-26 09:44] VITALS: BMI 25.3
[2022-10-26 10:13] LABS: Basophils % 0.3 % (0.1-2.0); Eosinophils # 0.2 K/mm3 (0.0-0.4); Eosinophils % 2.2 % (0.1-12.0); Hemoglobin 12.1 g/dL (14.1-18.0); Lymphocytes # 1.1 K/mm3 (0.7-4.5); Mean Corpuscular HGB Conc 31.9 g/dL (31.8-35.4); Mean Corpuscular Hemoglobin 28.4 pg (27.0-31.2); Mean Corpuscular Volume 89.2 fl (80-94); Mean Platelet Volume 8.6 fl (7.4-10.4); Monocytes # 0.3 K/mm3 (0.1-1.0); Monocytes % 2.7 % (1.7-9.3); Neutrophils # 7.7 K/mm3 (1.8-7.8); Neutrophils % 82.9 % (37.0-80.0); Platelet Count 356 K/mm3 (142-424); Red Blood Count 4.27 M/mm3 (4.60-6.20); Red Cell Distribution Width 14.3 % (11.5-17.5); White Blood Count 9.3 K/mm3 (4.8-10.8)
[2022-10-26 10:27] LABS: Alanine Aminotransferase 19 U/L (12-78); Albumin Level 4.7 g/dl (3.5-5.0); Alkaline Phosphatase 110 U/L (38-126); Aspartate Amino Transferase 31 U/L (17-59); Bilirubin,Direct 0.2 mg/dl (0.0-0.4); Bilirubin,Indirect 0.1 mg/dL (0.0-0.9); Bilirubin,Total 0.3 mg/dl (0.2-1.3); Bilirubin,Unconjugated 0.1 mg/dL (0.0-1.1); Blood Urea Nitrogen 25 mg/dl (9-20); Total Protein,Serum 8.3 g/dl (6.3-8.2)
[2022-10-26 12:47] LABS: Creatinine Clearance Estimated 77 mL/min (50-200); Estimated Glomerular Filt Rate 97 ml/min (>60); GFR (African American) 117 ML/MIN (>60)
[2022-10-26 12:52] LABS: C-Reactive Protein 3.4 mg/L (0-4)
== END 2022-10-26 10:00 | disposition home or self-care (01) ==
LOC: INF 09:41
PROVIDERS: PCP Family Medicine; Visit Provider Nurse Practitioner
DX: G06.1 Intraspinal abscess and granuloma (principal)
CPT/HCPCS: 36592; 80076; 82565; 84520; 85025; 86140

== ENCOUNTER 2022-11-02 09:31 | Outpatient (CLI) | payer MEDICARE, SELFPAY ==
[2022-11-02 09:36] VITALS: BMI 25.3
[2022-11-02 09:52] LABS: Basophils % 0.2 % (0.1-2.0); Eosinophils # 0.2 K/mm3 (0.0-0.4); Eosinophils % 2.4 % (0.1-12.0); Hematocrit 37.5 % (42.0-52.0); Hemoglobin 12.3 g/dL (14.1-18.0); Lymphocytes % 11.2 % (10-50); Mean Corpuscular HGB Conc 32.7 g/dL (31.8-35.4); Mean Corpuscular Hemoglobin 29.6 pg (27.0-31.2); Mean Corpuscular Volume 90.4 fl (80-94); Mean Platelet Volume 9.2 fl (7.4-10.4); Monocytes # 0.2 K/mm3 (0.1-1.0); Monocytes % 2.6 % (1.7-9.3); Neutrophils # 7.5 K/mm3 (1.8-7.8); Neutrophils % 83.5 % (37.0-80.0); Platelet Count 302 K/mm3 (142-424); Red Blood Count 4.15 M/mm3 (4.60-6.20); Red Cell Distribution Width 14.3 % (11.5-17.5)
[2022-11-02 10:08] LABS: Alanine Aminotransferase 25 U/L (12-78); Alkaline Phosphatase 98 U/L (38-126); Aspartate Amino Transferase 36 U/L (17-59); Bilirubin,Direct 0.4 mg/dl (0.0-0.4); Bilirubin,Total 0.4 mg/dl (0.2-1.3); Blood Urea Nitrogen 28 mg/dl (9-20); Creatinine Clearance Estimated 77 mL/min (50-200); Estimated Glomerular Filt Rate 85 ml/min (>60); GFR (African American) 102 ML/MIN (>60)
[2022-11-02 10:09] LABS: Albumin Level 4.7 g/dl (3.5-5.0); Total Protein,Serum 8.3 g/dl (6.3-8.2)
[2022-11-02 10:13] LABS: C-Reactive Protein 2.4 mg/L (0-4)
== END 2022-11-02 09:54 | disposition home or self-care (01) ==
LOC: INF 09:32
PROVIDERS: PCP Family Medicine
DX: G06.2 Extradural and subdural abscess, unspecified (principal); Z45.2 Encounter for adjustment and management of vascular access device; Z51.81 Encounter for therapeutic drug level monitoring
CPT/HCPCS: 36592; 80076; 82565; 84520; 85025; 86140; G0463

== ENCOUNTER 2023-01-14 07:13 | Day surgery (SDC) | payer MEDICARE, SELFPAY ==
[2023-01-11 11:06] VITALS: BMI 27.6
[2023-01-14 07:33] VITALS: BP 134/82; PULSE 75; RESP 18; TEMP 36.3; O2SAT 94
[2023-01-14 08:10] VITALS: O2SAT 94
[2023-01-14 08:40] VITALS: BP 85/48; PULSE 75; RESP 14; TEMP 36.3; O2SAT 95
--- NOTE | 2023-01-14 08:40 | HMH.SCOPE ---
Procedure: Date: 01/14/23 Patient Date of :: 1955 Procedure Performed:: Total colonoscopy to ileocecal anastomosis with polypectomy using snare Indications:: Patient is a 67-year-old male who underwent right hemicolectomy on 01/12/2019 as an inpatient.? He had a 4 cm invasive moderately differentiated adenocarcinoma.? He had 0 out of 19 lymph nodes positive.? This was a T3N0 stage.? He also had a large left neck mass which was proven to have metastatic head neck carcinoma. He underwent chemotherapy and radiation for the head and neck carcinoma and had a PEG tube placed which has subsequently been removed. ? He had bone grafting surgery to his jaw.? He had a colonoscopy in September 2019 and had 4 tubular adenomas removed.? He underwent colonoscopy on 05/20/2020 which revealed a tubular adenoma and a subtle irregularity which was biopsied.? Colonoscopy on 12/10/2020 revealed 3 tubular adenomas.? Colonoscopy done 11/27/2021 revealed 3 tubular adenomas Performing Provider:: Jesus Ramirez MD Referring Provider:: Sade Roque MD Sedation:: MAC sedation Procedure:: Patient history was obtained and appropriate physical examination was performed. Patient's medications and allergies were reviewed. Informed consent was obtained after explaining the benefits, alternatives, and risks of the procedure including, but not limited to, bleeding, perforation, missed lesions, and adverse reaction to anesthesia medications. Patient was transported to endoscopy procedure room. Patient was connected to monitoring devices. Throughout the procedure the patient's blood pressure, pulse, and oxygen saturations were monitored continuously. Patient identification and planned procedure were verified by the staff. Patient was positioned in lateral decubitus position. Digital anorectal exam was performed. Variable stiffness Olympus colonoscope was inserted and advanced under direct visualization to the cecum. Adequacy of the colonic preparation was noted. The colonoscope was advanced to the ileocolic anastomosis. The colonoscope was then slowly withdrawn while carefully examining the color, texture, anatomy, and integrity of the mucosoa circumferentially. Within the rectum retroflexion was performed. Colonoscope was then withdrawn. There were several stool balls present in the colon. There was a small polyp just distal to the anastomosis in the proximal transverse colon removed with cold cutting snare. There was a small polyp in the descending colon overlying a submucosal vein which was removed with hot snare. There were appreciable sigmoid diverticuli. Findings:: Small polyp in transverse colon distal to ileocolic anastomosis removed with cold snare Small polyp in descending colon removed with hot snare Significant sigmoid diverticulosis Recommendations:: Given history and early development of polyps with interval development of a colon cancer likely repeat colonoscopy 1 year Complications:: None immediately apparent Estimated blood obtained (mL): 2
[2023-01-14 08:50] VITALS: BP 99/50; PULSE 70; RESP 15; TEMP 36.4; O2SAT 94
[2023-01-14 09:00] VITALS: BP 99/64; PULSE 71; RESP 15; TEMP 36.4; O2SAT 99
[2023-01-14 09:10] VITALS: BP 109/65; PULSE 78; RESP 17; TEMP 36.9; O2SAT 99
--- NOTE | 2023-01-14 09:24 | P.PN_ITS ---
[facility] Disclaimer: The information contained in this section may have been updated after the patient was seen, as this information can be updated by other users. Medical History Colon cancer Colonic mass Hyperlipemia Hypertension Hypothyroid Mass in neck Partial bowel obstruction Squamous cell carcinoma of left tonsil Tonsillar mass Surgical History History of appendectomy History of colonoscopy Hx of foot surgery Hx of neck surgery Family History Daughter Hx of breast lump removal Mother Breast cancer Lung cancer Social History Smoking Status: Never smoker alcohol intake: never substance use type: denies use current occupational status: retired Travel in the last 8 weeks: None household members: family housing: house current occupational exposures/hazards: No caffeine: Yes [facility] Anesthesia Checklist Patient Identification Patient Identification: Arm Band Structural Data Admitted From: Home Planned Operative Procedure/s: colonoscopy Consent for Planned Operative Procedure(s) Verified: Yes Verified Documents: Surgical Consent and History and Physical NPO Status Verified Time NPO: 00:00 Additional verifications Anesthesia Reactions: No Airway Assessment C-Spine Mobility Assessed: Yes TMJ Mobility Assessed: Yes Neurological Assessment Level of Consciousness: Awake and Alert Anesthesia Plan Anesthesia Risk discussed: Yes Anesthesia Plan: Verified ASA Class: III Anesthesia Type: MAC
== END 2023-01-14 09:10 | disposition home or self-care (01) ==
PROVIDERS: PCP Family Medicine; Visit Provider Surgery
PROC: 0DJD8ZZ Inspection of Lower Intestinal Tract, Via Natural or Artificial Opening Endoscopic (ICD-10-PCS; principal; 2023-01-14 08:30)
DX: Z12.11 Encounter for screening for malignant neoplasm of colon (principal); D12.3 Benign neoplasm of transverse colon; D12.4 Benign neoplasm of descending colon; K57.30 Diverticulosis of large intestine without perforation or abscess without bleeding
CPT/HCPCS: 45385; 88305

== ENCOUNTER → 2023-01-25 10:48 | Outpatient (CLI) | payer MEDICARE, SELFPAY ==
[2023-01-25 11:40] LABS: Blood Urea Nitrogen 15 mg/dl (9-20); Estimated Glomerular Filt Rate 85 ml/min (>60); GFR (African American) 102 ML/MIN (>60)
== END ==
PROVIDERS: PCP Family Medicine; Visit Provider Surgery
DX: Z01.812 Encounter for preprocedural laboratory examination (principal)
CPT/HCPCS: 36415; 82565; 84520

== ENCOUNTER → 2023-02-03 08:19 | Outpatient (CLI) | payer MEDICARE, SELFPAY ==
--- NOTE | 2023-02-03 08:23 | CT_ITS ---
FINAL REPORT TECHNIQUE: Oral and IV contrast enhanced exam CLINICAL HISTORY: abdominal pain hx of colon ca FINDINGS: Abdomen: No acute density is seen within the lung bases. The gallbladder is demonstrates gallstones in the gallbladder. A PEG tube is present. Solid abdominal organs are unremarkable. The patient is status post right hemicolectomy. No bowel obstruction is present. There is no free air. No fluid collection is seen. There is no adenopathy. Pelvis: The appendix is surgically absent. There is moderate diverticulosis of the left and sigmoid colon. There is no free fluid. No pelvic mass is seen. The prostate is mildly enlarged. IMPRESSION: No findings to account for the patient's symptoms. Incidental cholelithiasis. Reviewed, Interpreted and Dictated by Diana Piña MD Transcribed by Elena Magallanes Authenticated and [facility]
== END ==
PROVIDERS: PCP Family Medicine; Visit Provider Surgery
DX: R10.9 Unspecified abdominal pain (principal)
CPT/HCPCS: 74177; Q9967

== ENCOUNTER 2024-01-20 06:14 | Day surgery (SDC) | payer MEDICARE, SELFPAY ==
[2024-01-20 06:32] VITALS: BP 134/71; PULSE 63; RESP 18; TEMP 36.4; O2SAT 97; BMI 28.5
--- NOTE | 2024-01-20 06:50 | P.PCN_ITS ---
Procedure: Date: 01/20/24 Patient Date of :: 1955 Procedure Performed:: Total colonoscopy Indications:: . Patient is a 68-year-old male. He has a history of colon cancer and underwent right hemicolectomy on 01/12/2019 as an inpatient. Prior to that he had 3 colonoscopies the last 1 being in 2016 which reportedly only revealed diverticulosis. He also has a history of tonsillar carcinoma and has had s urgery. He previously had PEG tube. Subsequent colonoscopies have revealed early frequent development of precancerous adenomatous polyps. * Colonoscopy in September 2019 revealed 4 tubular adenomas.? * Colonoscopy on 05/20/2020 revealed a tubular adenoma and a subtle irregularity which was biopsied.? Colonoscopy on 12/10/2020 revealed 3 tubular adenomas.? * Colonoscopy done 11/27/2021 revealed 3 tubular adenomas. * Colonoscopy on 01/14/2023 revealed 2 tubular adenomas. . Performing Provider:: Jesus Ramirez MD Referring Provider:: Sade Roque MD Sedation:: MAC sedation Procedure:: . Patient history was obtained and appropriate physical examination was performed. Patient's medications and allergies were reviewed. Informed consent was obtained after explaining the benefits, alternatives, and risks of the procedure including, but not limited to, bleeding, perforation, missed lesions, and adverse reaction to anesthesia medications. Patient was transported to endoscopy procedure room. Patient was connected to monitoring devices. Throughout the procedure the patient's blood pressure, pulse, and oxygen saturations were monitored continuously. Patient identification and planned procedure were verified by the staff. Patient was positioned in lateral decubitus position. Digital anorectal exam was performed. Variable stiffness Olympus colonoscope was inserted and advanced under direct visualization to the anastomosis. Adequacy of the colonic preparation was noted. The colonoscope was advanced a short distance into the terminal ileum. The colonoscope was then slowly withdrawn while carefully examining the color, texture, anatomy, and integrity of the mucosoa circumferentially. Within the rectum retroflexion was performed. Colonoscope was then withdrawn. . Impression: Colonoscope was advanced to the ileocolonic anastomosis. Preparation was fair. High-volume irrigation and suctioning was performed. Colonoscope was slowly withdrawn through the colon. There was significant left- sided diverticulosis. No notable polyps or masses. . Findings:: Fair prep Sigmoid diverticulosis Recommendations:: Given prior history of interval development of colon cancer and early frequent development of precancerous polyps with fair prep recommend repeat colonoscopy 1 year Complications:: None immediately apparent Estimated blood obtained (mL): 0 Colonoscopy Component Colonoscopy Component Was a colonoscopy performed during today's procedure?: Yes Recommended follow up colonoscopy of at least 10 years?: No If no, follow up colonoscopy recommended in ___ years?: 1 Reason for not recommending >/= 10 yr follow-up interval?: See above
--- NOTE | 2024-01-20 07:16 | P.PNANES_ITS ---
[facility] Disclaimer: The information contained in this section may have been updated after the patient was seen, as this information can be updated by other users. Medical History Colon cancer Colonic mass Hyperlipemia Hypertension Hypothyroid Mass in neck Partial bowel obstruction Squamous cell carcinoma of left tonsil Tonsillar mass Surgical History History of appendectomy History of colonoscopy Hx of foot surgery RIGHT FOOT - TOES AMPUTATED Hx of neck surgery Family History Daughter Hx of breast lump removal Mother Breast cancer Lung cancer Social History (Updated 01/20/24 @ 06:30 by Srinivas Conklin RN) Smoking Status: Never smoker alcohol intake: never substance use type: denies use current occupational status: retired Travel in the last 8 weeks: None household members: family housing: house current occupational exposures/hazards: No caffeine: Yes [facility] Anesthesia Checklist Patient Identification Patient Identification: Arm Band and Verbal (Name & ) Structural Data Admitted From: Home Planned Operative Procedure/s: Colonoscopy Consent for Planned Operative Procedure(s) Verified: Yes Verified Documents: Surgical Consent and History and Physical NPO Status Verified Time NPO: 00:00 Chart Verification Results Verified: CBC Additional verifications Patient : No Anesthesia Reactions: No Cardiovascular Assessment Heart Sounds: S1 & S2 Pulse Rhythm: Irregular Airway Assessment Mallampati Score:: Class I C-Spine Mobility Assessed: Yes (Limited extension) TMJ Mobility Assessed: Yes Dentition: Poor Dentition (Nothing loose per pt.) Neurological Assessment Level of Consciousness: Awake, Alert, Appropriate and Follows Commands Hx Seizures: No Numbness or tingling in extremities: No Anesthesia Plan Anesthesia Risk discussed: Yes Anesthesia Plan: Verified ASA Class: III Anesthesia Type: MAC
[2024-01-20 07:17] VITALS: O2SAT 97
--- NOTE | 2024-01-20 07:54 | EXP.ANES.I ---
[facility] Anesthesia Record Part I Anesthesia Record I Intake, IV Amount: 600 Hydration: Adequate Estimated blood loss (mL): 0 Urine output (mL): 0 Blood Products used (#): none Blood Pressure: 126/71 SaO2: 97 Pulse Rate: 86 Airway Patency: Patent Respiratory Rate: 16 Temperature: 97.7 F Patient is:: Awake (Talking) and Stable Stable to PACU at:: 07:57
[2024-01-20 07:55] VITALS: BP 126/71; PULSE 86; RESP 16; TEMP 36.5; O2SAT 97
[2024-01-20 07:59] VITALS: BP 126/71; PULSE 82; RESP 18; O2SAT 97
[2024-01-20 08:01] VITALS: BP 113/64; PULSE 88; RESP 18; O2SAT 95
[2024-01-20 08:11] VITALS: BP 112/60; PULSE 86; RESP 18; O2SAT 96
== END 2024-01-20 08:11 | disposition home or self-care (01) ==
PROVIDERS: PCP Family Medicine; Visit Provider Surgery
PROC: 0DJD8ZZ Inspection of Lower Intestinal Tract, Via Natural or Artificial Opening Endoscopic (ICD-10-PCS; CPT G0105; principal; 2024-01-20 07:30)
DX: Z12.11 Encounter for screening for malignant neoplasm of colon (principal); K57.90 Diverticulosis of intestine, part unspecified, without perforation or abscess without bleeding
CPT/HCPCS: G0105

== ENCOUNTER 2024-02-17 08:15 | Emergency (ER) | payer MEDICARE, SELFPAY ==
[2024-02-17] VITALS (7 sets, daily range): BP systolic 97–703; BP diastolic 52–67; PULSE 63–88; RESP 13; TEMP 36.5–36.7; O2SAT 95; BMI 28.1
--- NOTE | 2024-02-17 08:32 | CT_ITS ---
FINAL REPORT TECHNIQUE: Thin section axial CT images with coronal and sagittal reformats were performed after the administration of IV contrast. This study was performed with techniques to keep radiation doses as low as reasonably achievable (ALARA). Individualized dose reduction techniques using automated exposure control or adjustment of mA and/or kV according to the patient's size were employed. CLINICAL HISTORY: history of spinal infection, new neck pain COMPARISON: 09/04/2022 FINDINGS: CT NECK SOFT TISSUE WITH CONTRAST: There is extensive soft tissue thickening involving the frontal, ethmoid, and right maxillary sinuses consistent with chronic sinusitis. Postoperative changes are present in the left mandible as noted on prior exams, with a sideplate and screws and multiple surgical clips in the submandibular region. The patient appears to have undergone a prior left radical neck dissection. No prevertebral fluid collections or significant soft tissue thickening is identified. No significant cervical adenopathy is identified. There are densely calcified right paratracheal nodes noted in the upper thorax. IMPRESSION: Extensive soft tissue thickening in the frontal, ethmoid, and right maxillary sinuses consistent with chronic sinusitis. Postoperative changes of internal fixation of a left mandibular fracture and a left radical neck dissection remain present. No evidence of a focal fluid collection or significant soft tissue thickening is identified in the prevertebral soft tissues. Reviewed, Interpreted and Dictated by Herb Rivas MD Transcribed by Karine Palmer Authenticated and [facility]
--- NOTE | 2024-02-17 08:32 | CT_ITS ---
FINAL REPORT TECHNIQUE: Axial images were obtained of the cervical spine by computed tomography after the administration of intravenous contrast. Coronal and sagittal reconstruction process performed. This study was performed with techniques to keep radiation doses as low as reasonably achievable (ALARA). Individualized dose reduction techniques using automated exposure control or adjustment of mA and/or kV according to the patient's size were employed. CLINICAL HISTORY: history of spinal infection, new neck pain COMPARISON: 09/04/2022 FINDINGS: CT CERVICAL SPINE WITH CONTRAST: There is marked irregularity and joint space narrowing of the articulation between C1 and the skull base, and C1 and C2, best seen on coronal reconstructed images 26 through 32. These findings are more prominent on the right side than the left. These findings were not present on the prior CT of August 2022. In a patient with a clinical history of previous prevertebral infection, these changes are worrisome for potential chronic osteomyelitis. There are advanced degenerative narrowing of the C4-5 and C5-6 disc space levels. There are postoperative changes of the left mandible, with a sideplate and multiple surgical screws, and multiple surgical clips that extend into the submandibular region on the left side. The patient appears to have undergone a prior left radical neck dissection. Axial images through the cervical spine were obtained. The bony contour of the odontoid on axial images is also irregular, when compared to the prior exam. There is also an area of lucency and irregularity at the C1-2 articulation on the right side best seen on axial image #30. At the C4-5 level, there is prominent endplate hypertrophy, and moderate to severe bilateral neural foraminal narrowing. At the C5-6 level, there are prominent midline and left paracentral osteophytes, with moderate canal stenosis best seen on images #56 through 58, and moderate bilateral neural foraminal narrowing. IMPRESSION: Marked irregularity of the articulation between C1 and the skull base and the C1-2 articulation, more prominent on the right side than the left, new since the prior CT of August 2022. In a patient with a clinical history of previous prevertebral infection, these changes are worrisome for potential chronic osteomyelitis. Correlation with MRI with and without contrast is suggested. Degenerative change of the cervical spine most prominent at the C4-5 and C5-6 levels as described above. These are not significantly changed since the prior exam of 2021. Postoperative changes in the left mandible, and multiple surgical clips in the submandibular region indicating a probable left-sided radical neck dissection. Reviewed, Interpreted and Dictated by Herb Rivas MD Transcribed by Karine Palmer Authenticated and [facility]
[2024-02-17] MEDS: METHOCARBAMOL 500MG TABLET 1500 MG PO (08:47)
[2024-02-17] MEDS: ACETAMINOPHEN 500MG TAB 1000 MG PO (08:50)
[2024-02-17] MEDS: KETOROLAC 30MG/ML VIAL 15 MG IV ×2 (08:50→13:47)
[2024-02-17 08:52] LABS: Basophils % 0.2 % (0.1-2.0); Eosinophils % 0.2 % (0.1-12.0); Hemoglobin 13.1 g/dL (14.1-18.0); Lymphocytes # 0.5 K/mm3 (0.7-4.5); Lymphocytes % 3.4 % (10-50); Mean Corpuscular HGB Conc 35.3 g/dL (31.8-35.4); Mean Corpuscular Hemoglobin 31.7 pg (27.0-31.2); Mean Corpuscular Volume 89.7 fl (80-94); Mean Platelet Volume 9.2 fl (7.4-10.4); Monocytes # 0.6 K/mm3 (0.1-1.0); Monocytes % 3.7 % (1.7-9.3); Neutrophils # 15.2 K/mm3 (1.8-7.8); Neutrophils % 92.6 % (37.0-80.0); Platelet Count 182 K/mm3 (142-424); Red Blood Count 4.12 M/mm3 (4.60-6.20); Red Cell Distribution Width 12.7 % (11.5-17.5); White Blood Count 16.4 K/mm3 (4.8-10.8)
[2024-02-17 09:03] LABS: Alanine Aminotransferase 44 U/L (12-78); Albumin Level 4.1 g/dl (3.5-5.0); Albumin/Globulin Ratio 1.2 (1.1-1.8); Alkaline Phosphatase 105 U/L (38-126); Anion Gap 15.8 mEq/L (5-15); Aspartate Amino Transferase 54 U/L (17-59); Bilirubin,Total 1.2 mg/dl (0.2-1.3); Blood Urea Nitrogen 16 mg/dl (9-20); Calcium 8.8 mg/dl (8.4-10.2); Carbon Dioxide 22 mmol/L (22.0-30.0); Chloride 100 mmol/L (98-107); Creatinine Clearance Estimated 84 mL/min (50-200); Estimated Glomerular Filt Rate 75 ml/min (>60); GFR (African American) 90 ML/MIN (>60); Globulin 3.3 g/dL (1.3-3.2); Glucose 131 mg/dl (74-100); Potassium 3.8 mmoL/L (3.5-5.1); Sodium 134 mmol/L (136-145); Total Protein,Serum 7.4 g/dl (6.3-8.2)
--- NOTE | 2024-02-17 09:04 | ED_ITS ---
Discharge Plan Disposition Patient Disposition: Xfer Short-Term Hosp Chief Complaint: PAIN Prescriptions Prescriptions: No Action aspirin 81 mg tablet,delayed release (DR/EC) 81 mg PO DAILY Patient Comments: TAKE 1 TABLET BY MOUTH EVERY DAY amlodipine 10 MG tablet 10 mg PO DAILY gemfibrozil 600 tablet 600 mg PO BID vitamin E 200 UNIT capsule 200 unit PO DAILY levothyroxine 25 MCG tablet 25 mcg PO DAILY Referrals Follow up/Referrals: Diamond Roque MD [Primary Care Provider] - See instructions Clinical Impressions Clinical Impression: Acute osteomyelitis of cervical spine Discharge ED Provider: Jose Webber General Adult HPI General Chief complaint: PAIN Stated complaint: severe neck and head pain Time Seen by Provider: 02/17/24 08:23 Mode of Arrival: Ambulatory Source of Information: Patient Limitations: No Limitations Description of Symptoms (Recalled from ER Triage Doc. by RN): pt presents to ED with c/o pain in back of head, radiating down into left shoulder to collerbone. pt states that he had similar episodes back in 2019. symptoms have progressed over the past 3 days. pt reports no known injury. History of Present Illness HPI narrative: Please note that above description of symptoms, in this electronic medical record under categorization of recalled from ER triage doctor by RN are reflective of an initial nursing assessment, however, is not reflective of my full history and physical exam that was personally taken and clarified. Consequentially, this preceding description of symptoms, which may include the patient's categorized chief complaint in the EMR, do not reflect my personal clinical impression, and the ultimate description of history of present illness and patient stated complaints should be deferred to this section of the note. Unless stated otherwise or congruent with this section of the note, additional signs, symptoms, or incongruence should be interpreted as inaccurate with my clinical impression. Related Data Home Medications Medication Instructions Recorded Confirmed gemfibrozil 600 mg tablet 600 mg PO BID Cholesterol 01/08/19 07/26/23 amlodipine 10 mg tablet 10 mg PO DAILY High blood pressure 05/16/20 07/26/23 aspirin 81 mg tablet,delayed 81 mg PO DAILY heart 12/05/20 07/26/23 release vitamin E 200 unit capsule 200 unit PO DAILY Supplement 11/25/21 07/26/23 levothyroxine 25 mcg tablet 25 mcg PO DAILY hypothyroid 11/27/21 07/26/23 Allergies Allergy/AdvReac Type Severity Reaction Status Date / Time No Known Allergies Allergy Verified 07/26/23 10:20 [facility] Disclaimer: The information contained in this section may have been updated after the patient was seen, as this information can be updated by other users. Medical History Colon cancer Colonic mass Hyperlipemia Hypertension Hypothyroid Mass in neck Partial bowel obstruction Squamous cell carcinoma of left tonsil Tonsillar mass Surgical History History of appendectomy History of colonoscopy Hx of foot surgery RIGHT FOOT - TOES AMPUTATED Hx of neck surgery Family History Daughter Hx of breast lump removal Mother Breast cancer Lung cancer Social History (Updated 01/20/24 @ 06:30 by Srinivas Conklin RN) Smoking Status: Never smoker alcohol intake: never substance use type: denies use current occupational status: retired Travel in the last 8 weeks: None household members: family housing: house current occupational exposures/hazards: No caffeine: Yes ROS Obtained: Yes All systems reviewed & no additional complaints except as documented Physical Exam General General appearance: alert and in no apparent distress Head Head exam: atraumatic and other (Postsurgical changes about head and neck) Eye Eye exam: Present normal appearance, PERRL and EOMI ENT ENT exam: Present mucous membranes dry Neck Neck exam: Present trachea midline and tenderness (Tenderness with decreased range of motion throughout entire neck including left and right sides laterally, paraspinal muscles and centrally along cervical spine); Absent normal inspection or full ROM Respiratory Respiratory exam: Absent respiratory distress, wheezes, stridor, accessory muscle use or prolonged expiratory phase Cardiovascular Cardiovascular exam: Present normal rhythm Abdominal Exam Abdominal exam: Present soft; Absent distention, tenderness, guarding, rebound or rigidity Extremities Exam Extremities exam: Absent edema Neurological Exam Neurological exam: Present alert, oriented X3, CN II-XII intact and normal gait; Absent motor sensory deficit Skin Skin exam: Present warm and dry; Absent diaphoresis or erythema Medical Decision Making Medical Records Medical records reviewed: Yes I reviewed the patient's medical records. Harvey Inquiry Pt receiving controlled substance: No Harvey was queried for this patient: No Vital Signs: 02/17/24 08:16 02/17/24 08:36 02/17/24 09:00 Temperature 97.7 F Temperature Source Oral Pulse Rate 84 79 Pulse Rate [Left Radial] 88 Respiratory Rate 13 Blood Pressure Blood Pressure [Right Arm] 103/67 L Blood Pressure Mean [Right Arm] 79 02 Sat by Pulse Oximetry 95 95 95 Oxygen Delivery Method Room Air 02/17/24 09:34 02/17/24 10:00 02/17/24 11:00 Temperature Temperature Source Pulse Rate 69 68 63 Pulse Rate [Left Radial] Respiratory Rate Blood Pressure 703/67 H Blood Pressure [Right Arm] Blood Pressure Mean [Right Arm] 02 Sat by Pulse Oximetry 95 95 95 Oxygen Delivery Method Lab Data Lab Results 02/17/24 08:44: WBC 16.4 H, RBC 4.12 L, Hgb 13.1 L, Hct 37.0 L, MCV 89.7, MCH 31.7 H, MCHC 35.3, RDW 12.7, Plt Count 182, MPV 9.2, Neut % (Auto) 92.6 H, Lymph % (Auto) 3.4 L, Dewitt % (Auto) 3.7, Eos % (Auto) 0.2, Baso % (Auto) 0.2, Neut # (Auto) 15.2 H, Lymph # (Auto) 0.5 L, Dewitt # (Auto) 0.6, Eos # (Auto) 0.0, Baso # (Auto) 0.0, Total Counted 100, Neutrophils % (Manual) 93 H, Lymphocytes % (Manual) 6 L, Monocytes % (Manual) 1 L, Platelet Estimate Normal, RBC Morphology Normal, ESR 74 H, Sodium 134 L, Potassium 3.8, Chloride 100, Carbon Dioxide 22, Anion Gap 15.8 H, BUN 16, Creatinine 1.00, Estimated Creat Clear 84, Estimated GFR 75, Est GFR ( Amer) 90, Glucose 131 H, Lactate 1.0, Calcium 8.8, Total Bilirubin 1.2, AST 54, ALT 44, Alkaline Phosphatase 105, C-Reactive Protein 207.7 H, Total Protein 7.4, Albumin 4.1, Globulin 3.3 H, Albumin/Globulin Ratio 1.2 02/17/24 08:44 02/17/24 08:44 Orders (Tests/Meds): ED MEDICATIONS Generic Name Dose Route Start Last Admin Trade Name Freq PRN Reason Stop Dose Admin Vancomycin/PEG/NADA/Lysine/Water 1.5 gm in 300 mls @ 150 mls/hr 02/17/24 13:45 Vancomycin 1.5gm/300ml (Peg) Premix IV 02/17/24 15:44 ONCE ONE Miscellaneous 1 each 02/17/24 13:45 02/17/24 13:40 Vancomycin Consult Request NOTAPPLIC 03/18/24 13:44 1 each CONSULT PHARMACY LOS Administration Discontinued Medications Generic Name Dose Route Start Last Admin Trade Name Jorden PRN Reason Stop Dose Admin Acetaminophen 1,000 mg 02/17/24 08:32 02/17/24 08:50 Acetaminophen 500mg Tab PO 02/17/24 08:33 1,000 mg ONCE ONE Administration Gadoteridol 16 ml 02/17/24 12:55 02/17/24 12:57 Gadoteridol Inj 20ml Syringe IV 02/17/24 12:56 16 ml ONCE ONE Administration Iopamidol 75 ml 02/17/24 09:28 02/17/24 09:29 Iopamidol-370 (76%);100ml Bottle IV 02/17/24 09:29 75 ml ONCE ONE Administration Ketorolac Tromethamine 15 mg 02/17/24 08:32 02/17/24 08:50 Ketorolac 30mg/Ml Vial IV 02/17/24 08:33 15 mg ONCE ONE Administration Ketorolac Tromethamine 15 mg 02/17/24 13:32 02/17/24 13:47 Ketorolac 30mg/Ml Vial IV 02/17/24 13:33 15 mg ONCE ONE Administration Methocarbamol 1,500 mg 02/17/24 08:32 02/17/24 08:47 Methocarbamol 500mg Tablet PO 02/17/24 08:33 1,500 mg ONCE ONE Administration Sodium Chloride 10 ml 02/17/24 09:28 02/17/24 09:29 Sodium Chloride 0.9% 10ml Syr (Rad Only) IV 02/17/24 09:29 10 ml ONCE ONE Administration ORDERS Category Date Time Status CT cervical spine w con Stat Cat Scan 02/17/24 08:[address] soft tissue neck w con Stat Cat Scan 02/17/24 08:32 Completed CBC w/Auto Diff [Complete Blood Count Auto Diff] Stat Lab 02/17/24 08:44 Completed CMP [Comprehensive Metabolic Panel] Stat Lab 02/17/24 08:44 Completed CRP [C-Reactive Protein] Stat Lab 02/17/24 08:44 Completed ESR [Erythrocyte Sedimentation Rate] Stat Lab 02/17/24 08:44 Completed Lactic Acid Stat Lab 02/17/24 08:44 Completed Blood Culture Stat Micro 02/17/24 08:46 Received Medical Decision Narrative: 68-year-old male history of head neck squamous cell carcinoma status post radical dissection, chemo, radiation, reconstruction of jaw, cervical epidural abscess, presenting with neck pain. Patient states has been getting worse over the past 3 to 4 days. No fevers or chills, nausea or vomiting, but patient does have decreased range of motion of neck. He states it feels exactly like his spine infection at the end of 2021. No voice changes, difficulty breathing or swallowing, extremity weakness, bowel or bladder dysfunction, ambulatory difficulties, saddle anesthesia, or any other concerns. History was obtained via conversation with patient and family. On arrival, patient hemodynamically stable, alert, oriented x4, appropriate, GCS 15, moving all extremities spontaneously, pupils equal and reactive to light. Full physical exam performed and significant for well-appearing male who is in no acute distress. Well- healed postsurgical changes about the head and neck leading to range of motion limitations of jaw, but patient is nontender without trismus from baseline. Also states she is having tenderness throughout the whole neck, bilateral musculature laterally, paraspinal laterally, midline cervical spinal tenderness. He is neurologically intact with no weakness or deficits. Rectal tone was deferred at this time. Differential includes disc herniation, abscess, epidural hematoma, myofascial strain, among others. Patient was given Toradol, acetaminophen, Robaxin for symptomatic management and correction of underlying abnormalities. Workup independently interpreted and significant for leukocytosis of 16,000 with neutrophilia. Patient's ESR elevated at 74, CRP elevated at 207, sodium 134. CT of the cervical spine with contrast concerning for bony erosions and changes throughout the cervical spine concerning for osteomyelitis. CT soft tissue neck without acute soft tissue abnormalities. See radiology read for full review of final results. MRI with and without contrast of the cervical, thoracic, lumbar spines were ordered patient has acute inflammatory change about dens with moth-eaten appearance on T2 weighted imaging without acute cord compression at that level concerning for osteomyelitis. No obvious spinal epidural abscess, but he does have moderate spinal cord stenosis at C5-C6 without loss of signal. Final reads pending at time of transfer. Patient remains neurologically intact. Neurosurgery at [facility] was contacted and case was discussed at length, Dr. Martinez stated no acute neurosurgical intervention given no compressive mass and recommended further follow-up with infectious disease and medicine admission. Infectious disease was contacted at [facility] and case was discussed at length with provider on-call, they recommended holding vancomycin at this time unless spinal cord pathology presents on imaging, or patient becomes cardiovascularly or neurologically unstable. This is not the case, vancomycin was ordered and started, but will be paused and held at this time. Ultimately, patient to be transferred and admitted to [facility] under Dr. Alba for further definitive management and consultation with infectious disease. Piling Setter disclaimer Much of this encounter note is an electronic ict business development manager spoken language to printed text. Electronic ict business development manager of the spoken language may permit errors. Although I have reviewed the note, some errors may still exist. Critical Care Critical Care Time Critical Care Time: Yes (ID) Attestation: On 02/17/24, the high probability of a clinically significant, sudden or life threatening deterioration of the following system(s) required my full and direct attention, intervention and personal management. The time I documented below is in addition to time spent performing reported procedures but includes the following listed in this critical care notation. Total Time Total Critical Care Time: 65
[2024-02-17 09:08] LABS: C-Reactive Protein 207.7 mg/L (0-4)
[2024-02-17 09:22] LABS: MANUAL DIFFERENTIAL MANUAL DIFFERENTIAL (MANUAL DIFF)
[2024-02-17] MEDS: IOPAMIDOL-370 (76%);100ML BOTTLE 75 ML IV (09:29)
[2024-02-17] MEDS: SODIUM CHLORIDE 0.9% 10ML SYR (RAD ONLY) 10 ML IV (09:29)
[2024-02-17 09:40] LABS: Erythrocyte Sedimentation Rate 74 mm/hr (0-20)
--- NOTE | 2024-02-17 09:42 | MR_ITS ---
FINAL REPORT CLINICAL HISTORY: history of epidural abscess, new cervical symptoms FINDINGS: Multiplanar MR imaging of the lumbar spine was performed without and with contrast. On the sagittal T2-weighted images, abnormal decreased signal is seen at L1-2, L3-4 and L4-5. The vertebral alignment is normal. There is no evidence of fracture. The conus is seen at approximately the L1 level and has an unremarkable appearance. L1-2: No significant canal stenosis or neuroforaminal narrowing is seen. L2-3: No significant canal stenosis or neuroforaminal narrowing is seen. L3-4: Mild diffuse disc bulge with mild bilateral neuroforaminal narrowing. L4-5: Mild diffuse disc bulge with mild bilateral neuroforaminal narrowing. L5-S1: No significant canal stenosis or neuroforaminal narrowing is seen. No abnormal contrast enhancement is identified. IMPRESSION: Multilevel mild degenerative disc disease and spondylosis with areas of neural foraminal narrowing as described. No abnormal contrast-enhancement. Reviewed, Interpreted and Dictated by Herb Rivas MD Transcribed by Kiesha Kerr Authenticated and [facility]
--- NOTE | 2024-02-17 09:42 | MR_ITS ---
FINAL REPORT TECHNIQUE: MRI images of the cervical spine were performed in multiple MR sequences after the intravenous administration of contrast. CLINICAL HISTORY: history of epidural abscess, new cervical symptoms COMPARISON: CT performed same day. FINDINGS: Limited images of the posterior fossa are unremarkable. Intervertebral disk signal is decreased throughout. There is loss of lordosis. There is no subluxation or evidence of fracture. There is abnormal soft tissue posterior to the odontoid with heterogeneous decreased signal on T1 imaging and apparent enhancement on postcontrast imaging. This is best seen on image 11 of series 7. There is questionable mild enhancement also seen at the anterior aspect of the right lateral mass of C1 on image 6 of series 7. C4-5: Moderate diffuse disc bulge with significant posterior osteophyte formation. High-grade bilateral neuroforaminal narrowing. C5-6: Focal midline disc protrusion with mild disc bulge and endplate hypertrophy. There is high-grade bilateral neuroforaminal narrowing. IMPRESSION: Abnormal enhancement posterior to the odontoid and anterior to the right lateral mass of C1. Findings could be infectious or inflammatory. Correlate with suspicion for osteomyelitis. Findings could also represent rheumatoid arthritis or gout. Reviewed, Interpreted and Dictated by Herb Rivas MD Transcribed by Kiesha Kerr Authenticated and [facility]
--- NOTE | 2024-02-17 09:42 | MR_ITS ---
FINAL REPORT TECHNIQUE: Multiplanar MR imaging of the thoracic spine was performed without and with contrast. CLINICAL HISTORY: history of epidural abscess, new cervical symptoms FINDINGS: On the sagittal T2-weighted images, disc degeneration is seen throughout. There is no evidence of fracture. The vertebral alignment is normal. No bony mass is identified. The thoracic spinal cord has an unremarkable appearance without evidence of mass, edema or syrinx. There is no evidence of significant canal stenosis. On the axial images, minimal midline disc protrusions are seen at T6-7 and T7-8. Multiple vertebral osteophytes are present. There is no evidence of disc protrusion. No significant canal stenosis is identified. On the postcontrast images, no abnormal contrast enhancement is identified. IMPRESSION: Multilevel degenerative disc disease as described. No abnormal contrast enhancement identified. Reviewed, Interpreted and Dictated by Herb Rivas MD Transcribed by Kiesha Kerr Authenticated and . [facility]
--- NOTE | 2024-02-17 09:42 | PC.NURSE ---
Dr. Webber would like pt to have a MRI, called MRI & care management to see if they can pre-auth this and work him into their schedule.
--- NOTE | 2024-02-17 09:43 | PC.NURSE ---
Called [facility] and had images shared to them on this pt
--- NOTE | 2024-02-17 09:45 | PC.NURSE ---
care management states it is okay to have MRI performed for pt.
--- NOTE | 2024-02-17 09:46 | PC.NURSE ---
Dr. Webber at bedside
[2024-02-17 10:06] LABS: Lymphocytes % 6 % (10-50); Monocytes % 1 % (2-9); Neutrophils % 93 % (42-76); Platelet Estimate Normal; RBC Morphology Normal; Total Cells Counted 100
--- NOTE | 2024-02-17 10:09 | PC.NURSE ---
patient in room, no needs voiced at this time.
--- NOTE | 2024-02-17 10:25 | PC.NURSE ---
pt going to MRI at 1200, aware
--- NOTE | 2024-02-17 11:16 | PC.NURSE ---
pt taken to MRI via wheelchair with MRI diagnostic radiologist
--- NOTE | 2024-02-17 11:28 | PC.NURSE ---
Called [facility] for Dr Webber about transferring this pt advised that they would call back
--- NOTE | 2024-02-17 11:36 | PC.NURSE ---
called back and is speaking with Dr Webber now
--- NOTE | 2024-02-17 12:19 | PC.NURSE ---
called back and Dr Webber is speaking with Dr Moises Martinez
[2024-02-17] MEDS: GADOTERIDOL INJ 20ML SYRINGE 16 ML IV (12:57)
[2024-02-17] MEDS: VANCOMYCIN CONSULT REQUEST 1 EACH NOTAPPLIC (13:40)
--- NOTE | 2024-02-17 13:44 | PC.NURSE ---
Called [facility] for Dr Webber to speak with about this pt. [facility] has us on hold while they contact ID
--- NOTE | 2024-02-17 13:46 | PC.NURSE ---
[facility] ying and Dr Webber is speaking with Dr Morgan
--- NOTE | 2024-02-17 14:03 | PC.NURSE ---
call made to [facility] to inform them of transfer to
--- NOTE | 2024-02-19 08:56 | PC.NURSE ---
faxed blood culture prelim to where pt was transferred [phone]
== END 2024-02-17 14:33 | disposition short-term general hospital (02) ==
PROVIDERS: Emergency Provider Emergency Medicine; PCP Family Medicine
DX: M46.22 Osteomyelitis of vertebra, cervical region (principal); M54.2 Cervicalgia; D72.829 Elevated white blood cell count, unspecified; D72.828 Other elevated white blood cell count; E03.9 Hypothyroidism, unspecified; I10 Essential (primary) hypertension; E78.5 Hyperlipidemia, unspecified; Z85.038 Personal history of other malignant neoplasm of large intestine; Z85.828 Personal history of other malignant neoplasm of skin
CPT/HCPCS: 70491; 72126; 72156; 72157; 72158; 80053; 83605; 85007; 85025; 85651; 86140; 87040; 87077; 87186; 96365; 96375; 96376; 99291; A9576; Q9967

== ENCOUNTER 2024-03-02 12:11 | Outpatient (CLI) | payer MEDICARE, SELFPAY ==
[2024-03-02 12:19] VITALS: BMI 28.5
[2024-03-02 12:39] LABS: Basophils % 0.2 % (0.1-2.0); Eosinophils # 0.1 K/mm3 (0.0-0.4); Eosinophils % 0.8 % (0.1-12.0); Hematocrit 38.2 % (42.0-52.0); Hemoglobin 12.3 g/dL (14.1-18.0); Lymphocytes # 1.1 K/mm3 (0.7-4.5); Lymphocytes % 9.6 % (10-50); Mean Corpuscular HGB Conc 32.1 g/dL (31.8-35.4); Mean Corpuscular Hemoglobin 30.5 pg (27.0-31.2); Mean Corpuscular Volume 95.1 fl (80-94); Monocytes # 0.4 K/mm3 (0.1-1.0); Monocytes % 3.5 % (1.7-9.3); Neutrophils # 9.5 K/mm3 (1.8-7.8); Neutrophils % 85.8 % (37.0-80.0); Platelet Count 276 K/mm3 (142-424); Red Blood Count 4.02 M/mm3 (4.60-6.20); Red Cell Distribution Width 13.5 % (11.5-17.5); White Blood Count 11.1 K/mm3 (4.8-10.8)
[2024-03-02 12:43] LABS: MANUAL DIFFERENTIAL MANUAL DIFFERENTIAL (MANUAL DIFF)
[2024-03-02 12:46] LABS: Alanine Aminotransferase 94 U/L (12-78); Aspartate Amino Transferase 94 U/L (17-59); Bilirubin,Unconjugated 0.4 mg/dL (0.0-1.1); Blood Urea Nitrogen 21 mg/dl (9-20); Creatinine Clearance Estimated 85 mL/min (50-200); Estimated Glomerular Filt Rate 84 ml/min (>60); GFR (African American) 102 ML/MIN (>60)
[2024-03-02 12:47] LABS: Albumin Level 3.9 g/dl (3.5-5.0); Alkaline Phosphatase 127 U/L (38-126); Bilirubin,Indirect 0.4 mg/dL (0.0-0.9); Bilirubin,Total 0.4 mg/dl (0.2-1.3); Total Protein,Serum 8.3 g/dl (6.3-8.2)
[2024-03-02 12:53] LABS: C-Reactive Protein 14.6 mg/L (0-4)
[2024-03-02 13:14] LABS: Eosinophils % 1 % (0-3); Lymphocytes % 8 % (10-50); Monocytes % 1 % (2-9); Neutrophils % 90 % (42-76); Platelet Estimate Normal; RBC Morphology Normal; Total Cells Counted 100
== END 2024-03-02 12:40 | disposition home or self-care (01) ==
LOC: INF 12:12
PROVIDERS: PCP Family Medicine; Visit Provider Psychiatry & Neurology Neurology with Special Qualifications in Child Neurology
DX: G06.2 Extradural and subdural abscess, unspecified (principal); M00-M99 Diseases of the musculoskeletal system and connective tissue; M86.08 Acute hematogenous osteomyelitis, other sites; R78.81 Bacteremia; B95.5 Unspecified streptococcus as the cause of diseases classified elsewhere
CPT/HCPCS: 36592; 80076; 82565; 84520; 85007; 85025; 85027; 86140

== ENCOUNTER 2024-03-09 12:26 | Outpatient (CLI) | payer MEDICARE, SELFPAY ==
[2024-03-09 12:33] VITALS: BMI 26.3
[2024-03-09 12:51] LABS: Basophils % 0.5 % (0.1-2.0); Eosinophils # 0.1 K/mm3 (0.0-0.4); Eosinophils % 1.3 % (0.1-12.0); Hematocrit 36.9 % (42.0-52.0); Hemoglobin 12.1 g/dL (14.1-18.0); Lymphocytes # 0.9 K/mm3 (0.7-4.5); Mean Corpuscular HGB Conc 32.8 g/dL (31.8-35.4); Mean Corpuscular Hemoglobin 30.8 pg (27.0-31.2); Mean Corpuscular Volume 93.8 fl (80-94); Mean Platelet Volume 8.5 fl (7.4-10.4); Monocytes # 0.4 K/mm3 (0.1-1.0); Monocytes % 4.9 % (1.7-9.3); Neutrophils # 5.7 K/mm3 (1.8-7.8); Neutrophils % 80.3 % (37.0-80.0); Platelet Count 265 K/mm3 (142-424); Red Blood Count 3.94 M/mm3 (4.60-6.20); Red Cell Distribution Width 13.9 % (11.5-17.5); White Blood Count 7.1 K/mm3 (4.8-10.8)
[2024-03-09 13:02] LABS: Blood Urea Nitrogen 28 mg/dl (9-20); Creatinine Clearance Estimated 78 mL/min (50-200); Estimated Glomerular Filt Rate 84 ml/min (>60); GFR (African American) 102 ML/MIN (>60)
[2024-03-09 13:03] LABS: Alanine Aminotransferase 67 U/L (12-78); Alkaline Phosphatase 104 U/L (38-126); Aspartate Amino Transferase 61 U/L (17-59); Bilirubin,Direct 0.1 mg/dl (0.0-0.4); Bilirubin,Indirect 0.3 mg/dL (0.0-0.9); Bilirubin,Total 0.4 mg/dl (0.2-1.3); Bilirubin,Unconjugated 0.3 mg/dL (0.0-1.1); Total Protein,Serum 7.9 g/dl (6.3-8.2)
[2024-03-09 13:09] LABS: C-Reactive Protein 4.6 mg/L (0-4)
== END 2024-03-09 13:01 | disposition home or self-care (01) ==
LOC: INF 12:27
PROVIDERS: PCP Family Medicine
DX: G06.2 Extradural and subdural abscess, unspecified (principal); M00-M99 Diseases of the musculoskeletal system and connective tissue; M86.08 Acute hematogenous osteomyelitis, other sites; R78.81 Bacteremia; B95.5 Unspecified streptococcus as the cause of diseases classified elsewhere
CPT/HCPCS: 36592; 80076; 82565; 84520; 85025; 86140

== ENCOUNTER 2024-03-16 11:57 | Outpatient (CLI) | payer MEDICARE, SELFPAY ==
[2024-03-16 12:04] VITALS: BMI 26.3
[2024-03-16 12:19] LABS: Basophils % 0.3 % (0.1-2.0); Eosinophils # 0.1 K/mm3 (0.0-0.4); Hematocrit 36.3 % (42.0-52.0); Lymphocytes # 1.1 K/mm3 (0.7-4.5); Lymphocytes % 15.9 % (10-50); Mean Corpuscular Hemoglobin 30.7 pg (27.0-31.2); Monocytes # 0.3 K/mm3 (0.1-1.0); Monocytes % 4.6 % (1.7-9.3); Neutrophils # 5.4 K/mm3 (1.8-7.8); Neutrophils % 77.2 % (37.0-80.0); Platelet Count 219 K/mm3 (142-424); Red Blood Count 3.91 M/mm3 (4.60-6.20); Red Cell Distribution Width 14.1 % (11.5-17.5); White Blood Count 6.9 K/mm3 (4.8-10.8)
[2024-03-16 12:27] LABS: Alanine Aminotransferase 54 U/L (12-78); Alkaline Phosphatase 103 U/L (38-126); Aspartate Amino Transferase 56 U/L (17-59); Bilirubin,Indirect 0.3 mg/dL (0.0-0.9); Bilirubin,Total 0.3 mg/dl (0.2-1.3); Bilirubin,Unconjugated 0.4 mg/dL (0.0-1.1); Blood Urea Nitrogen 22 mg/dl (9-20); Creatinine Clearance Estimated 78 mL/min (50-200); Estimated Glomerular Filt Rate 75 ml/min (>60); GFR (African American) 90 ML/MIN (>60); Total Protein,Serum 7.9 g/dl (6.3-8.2)
[2024-03-16 12:33] LABS: C-Reactive Protein 2.7 mg/L (0-4)
== END 2024-03-16 12:25 | disposition home or self-care (01) ==
LOC: INF 11:58
PROVIDERS: PCP Family Medicine
DX: G06.2 Extradural and subdural abscess, unspecified (principal); M00-M99 Diseases of the musculoskeletal system and connective tissue; M86.08 Acute hematogenous osteomyelitis, other sites; R78.81 Bacteremia; B95.5 Unspecified streptococcus as the cause of diseases classified elsewhere
CPT/HCPCS: 36592; 80076; 82565; 84520; 85025; 86140; 96523

== ENCOUNTER 2024-03-23 12:11 | Outpatient (CLI) | payer MEDICARE, SELFPAY ==
[2024-03-23 12:16] VITALS: BMI 26.3
[2024-03-23 12:45] LABS: Basophils % 0.1 % (0.1-2.0); Eosinophils # 0.1 K/mm3 (0.0-0.4); Eosinophils % 1.7 % (0.1-12.0); Hematocrit 36.8 % (42.0-52.0); Hemoglobin 12.6 g/dL (14.1-18.0); Lymphocytes # 1.4 K/mm3 (0.7-4.5); Lymphocytes % 16.1 % (10-50); Mean Corpuscular HGB Conc 34.2 g/dL (31.8-35.4); Mean Corpuscular Hemoglobin 31.5 pg (27.0-31.2); Mean Corpuscular Volume 92.2 fl (80-94); Mean Platelet Volume 7.9 fl (7.4-10.4); Monocytes # 0.3 K/mm3 (0.1-1.0); Monocytes % 3.8 % (1.7-9.3); Neutrophils # 6.7 K/mm3 (1.8-7.8); Neutrophils % 78.3 % (37.0-80.0); Platelet Count 186 K/mm3 (142-424); Red Blood Count 3.99 M/mm3 (4.60-6.20); Red Cell Distribution Width 13.8 % (11.5-17.5); White Blood Count 8.6 K/mm3 (4.8-10.8)
[2024-03-23 12:46] LABS: Alanine Aminotransferase 52 U/L (12-78); Albumin Level 4.2 g/dl (3.5-5.0); Alkaline Phosphatase 99 U/L (38-126); Aspartate Amino Transferase 59 U/L (17-59); Bilirubin,Indirect 0.5 mg/dL (0.0-0.9); Bilirubin,Total 0.5 mg/dl (0.2-1.3); Bilirubin,Unconjugated 0.4 mg/dL (0.0-1.1); Blood Urea Nitrogen 22 mg/dl (9-20); Creatinine Clearance Estimated 78 mL/min (50-200); Estimated Glomerular Filt Rate 84 ml/min (>60); GFR (African American) 102 ML/MIN (>60); Total Protein,Serum 8.1 g/dl (6.3-8.2)
[2024-03-23 12:51] LABS: C-Reactive Protein 1.6 mg/L (0-4)
== END 2024-03-23 12:25 | disposition home or self-care (01) ==
LOC: INF 12:11
PROVIDERS: PCP Family Medicine
DX: G06.2 Extradural and subdural abscess, unspecified (principal); M00-M99 Diseases of the musculoskeletal system and connective tissue; M86.08 Acute hematogenous osteomyelitis, other sites; R78.81 Bacteremia; B95.5 Unspecified streptococcus as the cause of diseases classified elsewhere
CPT/HCPCS: 36592; 80076; 82565; 84520; 85025; 86140

== ENCOUNTER 2024-03-28 13:35 | Outpatient (CLI) | payer MEDICARE, SELFPAY ==
[2024-03-28 13:43] VITALS: BMI 26.3
[2024-03-28 14:22] LABS: Alanine Aminotransferase 53 U/L (12-78); Albumin Level 4.3 g/dl (3.5-5.0); Alkaline Phosphatase 99 U/L (38-126); Aspartate Amino Transferase 58 U/L (17-59); Basophils % 0.1 % (0.1-2.0); Bilirubin,Indirect 0.4 mg/dL (0.0-0.9); Bilirubin,Total 0.4 mg/dl (0.2-1.3); Bilirubin,Unconjugated 0.4 mg/dL (0.0-1.1); Blood Urea Nitrogen 23 mg/dl (9-20); Creatinine Clearance Estimated 78 mL/min (50-200); Eosinophils # 0.2 K/mm3 (0.0-0.4); Eosinophils % 2.1 % (0.1-12.0); Estimated Glomerular Filt Rate 84 ml/min (>60); GFR (African American) 102 ML/MIN (>60); Hematocrit 36.6 % (42.0-52.0); Hemoglobin 12.2 g/dL (14.1-18.0); Lymphocytes # 1.1 K/mm3 (0.7-4.5); Lymphocytes % 15.6 % (10-50); Mean Corpuscular HGB Conc 33.3 g/dL (31.8-35.4); Mean Corpuscular Hemoglobin 31.4 pg (27.0-31.2); Mean Platelet Volume 9.4 fl (7.4-10.4); Monocytes # 0.3 K/mm3 (0.1-1.0); Monocytes % 3.9 % (1.7-9.3); Neutrophils # 5.4 K/mm3 (1.8-7.8); Neutrophils % 78.2 % (37.0-80.0); Platelet Count 200 K/mm3 (142-424); Red Cell Distribution Width 14.2 % (11.5-17.5); Total Protein,Serum 7.9 g/dl (6.3-8.2); White Blood Count 6.9 K/mm3 (4.8-10.8)
[2024-03-28 14:28] LABS: C-Reactive Protein 1.4 mg/L (0-4)
== END 2024-03-28 14:05 | disposition home or self-care (01) ==
LOC: INF 13:36
PROVIDERS: PCP Family Medicine
DX: G06.2 Extradural and subdural abscess, unspecified (principal); M00-M99 Diseases of the musculoskeletal system and connective tissue; M86.08 Acute hematogenous osteomyelitis, other sites; R78.81 Bacteremia; B95.5 Unspecified streptococcus as the cause of diseases classified elsewhere
CPT/HCPCS: 36592; 80076; 82565; 84520; 85025; 86140; 96523

== ENCOUNTER 2024-11-09 06:07 | Day surgery (SDC) | payer MEDICARE, SELFPAY ==
[2024-11-06 13:02] VITALS: BMI 29.2
[2024-11-09] MEDS: LACTATED RINGERS 1000ML 1,000 ML 50 ML IV (06:35)
[2024-11-09 06:49] VITALS: BP 126/73; PULSE 73; RESP 18; TEMP 36.4; O2SAT 98
--- NOTE | 2024-11-09 06:55 | P.PCN_ITS ---
Procedure: Date: 11/09/24 Patient Date of :: 1955 Procedure Performed:: Colonoscopy with biopsies Indications:: Patient presents for colonoscopy. Patient is a 69-year-old male. He was seen in the office on 11/06/24, earlier than scheduled. He has a history of colon cancer and underwent right hemicolectomy on 01/12/2019 as an inpatient. Prior to that he had 3 colonoscopies the last 1 being in 2016 which reportedly only revealed diverticulosis. He also has a history of tonsillar carcinoma and has had surgery. He previously had PEG tube. Subsequent colonoscopies have revealed early frequent development of precancerous adenomatous polyps. * Colonoscopy in September 2019 revealed 4 tubular adenomas.? * Colonoscopy on 05/20/2020 revealed a tubular adenoma and a subtle irregularity which was biopsied.? * Colonoscopy on 12/10/2020 revealed 3 tubular adenomas.? * Colonoscopy on 11/27/2021 revealed 3 tubular adenomas. * Colonoscopy on 01/14/2023 revealed 2 tubular adenomas. * Colonoscopy on 01/20/2024 revealed sigmoid diverticulosis with a fair prep but no polyps. Conservative recommendation after his last colonoscopy was for 1 year follow-up. However, the patient presented to the office due to concerns about rectal bleeding. He states that a few days ago after he had had a bowel movement he had noticed some relatively fresh blood in the toilet and on the toilet paper described as resembling tomato juice. He then had some dark stool with some blood in it when wiping. He denies rectal pain. Denies abdominal pain. Patient also states that he has a knot in the left groin area which is intermittent. He wonders if this is a contributing factor. Plan was to make ar rangements for expeditious outpatient colonoscopy. Patient was noted on physical examination to have a small, likely indirect, left inguinal hernia. Plan was merely for observation of this at this time. . Performing Provider:: Jesus Ramirez MD . Referring Provider:: Elaina Roque MD . Sedation:: MAC sedation Procedure:: Patient history was obtained and appropriate physical examination was performed. Patient's medications and allergies were reviewed. Informed consent was obtained after explaining the benefits, alternatives, and risks of the procedure including, but not limited to, bleeding, perforation, missed lesions, and adverse reaction to anesthesia medications. Patient was transported to endoscopy procedure room. Patient was connected to monitoring devices. Throughout the procedure the patient's blood pressure, pulse, and oxygen saturations were monitored continuously. Patient identification and planned procedure were verified by the staff. Patient was positioned in lateral decubitus position. Digital anorectal exam was performed. Variable stiffness Olympus colonoscope was inserted and advanced under direct visualization to the ileocolic anastomosis. Adequacy of the colonic preparation was noted. The colonoscope was advanced a short distance into the terminal ileum. The colonoscope was then slowly withdrawn while carefully examining the color, texture, anatomy, and integrity of the mucosoa circumferentially. Within the rectum retroflexion was performed. Colonoscope was then withdrawn. Impression: Colonic preparation was fair as there was some particulate opaque stool. However good visualization was achieved with irrigation and suctioning. The colonoscope was advanced to the ileocolic anastomosis. There appeared to be a couple of ulcerated lesions linearly along the anastomotic staple lines. However, at this time the colonic suction became occluded with stool. Repeated attempts at flushing and cleaning with endoscopic brush were unsuccessful. Therefore the colonoscope was withdrawn and second colonoscope was inserted and advanced to the ileocolic anastomosis. These appeared to be exudative ulcerated lesions. Exact character was difficult to determine. Possibly inflammatory, ischemic, or even neoplastic. Multiple cold biopsies were obtained of the ulcerated lesion near the ileocolic anastomosis and sent as specimen labeled pro ximal anastomotic lesion. The distal ulcerated lesion was biopsied with multiple cold biopsies and sent as specimen labeled distal anastomotic ulcer. Colonoscope was slowly withdrawn with additional irrigation and suctioning as needed. There was significant sigmoid diverticulosis. There was thought to be a possible tiny early diminutive 1 mm polyp. However this became unapparent with repeated observation and therefore was not removed. Retroflexion was performed and he had minimal internal hemorrhoids. . Findings:: Linear ulcerations along anastomotic staple lines of uncertain character. Multiple biopsies obtained of proximal and distal ulcerated lesion. Significant sigmoid diverticulosis Minimal internal hemorrhoids . Recommendations:: Additional management in future and colonoscopy pending pathology Complications:: None immediately apparent Estimated blood obtained (mL): 2 Colonoscopy Component Colonoscopy Component Was a colonoscopy performed during today's procedure?: Yes Recommended follow up colonoscopy of at least 10 years?: No If no, follow up colonoscopy recommended in ___ years?: See above Reason for not recommending >/= 10 yr follow-up interval?: See above
[2024-11-09 07:18] VITALS: O2SAT 98
--- NOTE | 2024-11-09 07:34 | P.PNANES_ITS ---
[facility] Disclaimer: The information contained in this section may have been updated after the patient was seen, as this information can be updated by other users. Medical History Colon cancer Hypothyroid Hyperlipemia Hypertension Squamous cell carcinoma of left tonsil Tonsillar mass Mass in neck Colonic mass Partial bowel obstruction Surgical History Hx of neck surgery Hx of foot surgery RIGHT FOOT - TOES AMPUTATED History of appendectomy History of colonoscopy Family History Daughter Hx of breast lump removal Mother Breast cancer Lung cancer Social History Smoking Status: Never smoker alcohol intake: never substance use type: denies use current occupational status: retired Travel in the last 8 weeks: None household members: family housing: house current occupational exposures/hazards: No caffeine: Yes Have you lived/traveled outside US in past 30 days?: No Contact w/someone who lives/traveled outside US past 30 days?: No Exposure to someone with infectious disease in past 14 days?: No Do you have a fever (greater than 100.4 F or 38 C)?: No Have you tested positive for COVID-19: No Exposed to someone with COVID-19 in past 14 days?: No Do you have a sore throat?: No Do you have a cough?: No Do you have any weakness?: No Do you have any diarrhea?: No Are you experiencing any unusual bleeding?: No Do you have any muscle aches/pain?: No Do you have any abdominal pain?: No Are you experiencing loss of taste or smell?: No [facility] Anesthesia Checklist Patient Identification Patient Identification: Arm Band Structural Data Admitted From: Home Planned Operative Procedure/s: Colonoscopy Consent for Planned Operative Procedure(s) Verified: Yes Verified Documents: Surgical Consent and History and Physical NPO Status Verified Time NPO: 00:00 Additional verifications Anesthesia Reactions: No Airway Assessment Mallampati Score:: Class II C-Spine Mobility Assessed: Yes TMJ Mobility Assessed: Yes Dentition: Good Dentition Neurological Assessment Level of Consciousness: Awake, Alert and Appropriate Anesthesia Plan Anesthesia Risk discussed: Yes Anesthesia Plan: Verified ASA Class: II Anesthesia Type: MAC
[2024-11-09 08:13] VITALS: BP 90/48; PULSE 71; RESP 16; TEMP 36.1; O2SAT 93
[2024-11-09 08:23] VITALS: BP 93/57; PULSE 64; RESP 18; O2SAT 100
[2024-11-09 08:33] VITALS: BP 98/57; PULSE 66; RESP 18; O2SAT 100
[2024-11-09 08:43] VITALS: BP 105/61; PULSE 65; RESP 18; O2SAT 99
== END 2024-11-09 08:43 | disposition home or self-care (01) ==
PROVIDERS: PCP Family Medicine; Visit Provider Surgery
PROC: 0DJD8ZZ Inspection of Lower Intestinal Tract, Via Natural or Artificial Opening Endoscopic (ICD-10-PCS; CPT 45380; principal; 2024-11-09 07:30)
DX: K62.5 Hemorrhage of anus and rectum (principal); K63.3 Ulcer of intestine; K57.30 Diverticulosis of large intestine without perforation or abscess without bleeding; K64.8 Other hemorrhoids; Z85.038 Personal history of other malignant neoplasm of large intestine; Z86.0100 Personal history of colon polyps, unspecified
CPT/HCPCS: 45380; J2704; J7120

== ENCOUNTER 2025-06-20 11:25 | Outpatient (CLI) | payer MEDICARE, SELFPAY ==
--- OUTSIDE RECORDS SUMMARY | 2025-05-14 13:15 | XMS_ITS | Encounter Summary ---
Author Organization Healthcare Address [address] [place] [address] Care Team Providers Care Transaction Manager Name Role Phone Alex Roque MD Primary Care Provider [phone] Reason for Referral * Consultation (Urgent) - Closed Specialty Diagnoses / Procedures Referred By Neftali thayer Referred To Contact Otolaryngology Diagnoses Dizziness Squamous cell carcinoma of left tonsil Jose Carson DMD, MD [address] [facility] [address] [place] [address] Phone: tel: fax: Eric Espinoza MD [address] [facility] [address] [place] [address] Phone: tel: fax: Referral ID Status Reason Start Date Expiration Date V isits Requested Visits Authorized [id number] Closed Specialty Services Required 05/14/2025 11/13/2026 1 1 * Imaging (Routine) - Closed Specialty Diagnoses / Procedures Referred By Neftali thayer Referred To Contact Cardiology Diagnoses Dizziness Squamous cell carcinoma of left tonsil Procedures VAS US Carotid Duplex Bilateral Jose Carson DMD, MD [address] [facility] [address] [place] [address] Phone: tel: fax:[phone] Referral ID Status Reason Start Date Expiration Date V isits Requested Visits Authorized [id number] Closed Perform Procedure 05/14/2025 11/13/2026 1 1 Reason for Visit * Reason Comments Follow-up Encounter Details Date Type Department Care Team ([facility] Contact Info) Description 05/14/2025 1:15 PM EDT Office Visit [facility] [address] [place] [address] Jose Carson DMD, MD [address] [facility] [address] [place] [address] Dizziness (Primary Dx); Squamous cell carcinoma of left tonsil Social History Tobacco Use Types Packs/Day Years Used Date Smoking Tobacco: Never Passive Smoke Exposure: Past Smokeless Tobacco: Former Chew Quit: 2019 Alcohol Use Standard Drinks/Week Comments Not Currently 0 (1 standard drink = 0.6 oz pure alcohol) quit drinking in 2019 prior to that was drinking 6-8 beers daily PHQ-2 Answer Date Recorded Patient Health Questionnaire-2 Score 0 11/06/2024 PHQ-9 Answer Date Recorded Patient Health Questionnaire-9 Score 0 10/08/2024 AUDIT-C Answer Date Recorded Q1: How often do you have a drink containing alcohol? Never 05/14/2025 Q2: How many drinks containi ng alcohol do you have on a typical day when you are drinking? Patient does not drink Q3: How often do you have si x or more drinks on one occasion? Never 05/14/2025 CAGE ASSESSMENT Answer Date Recorded Cage unable to access Not on file 02/18/2024 Cage max number of drinks Not on file 2023 Cage Beverages a week Not on file 02/18/2024 Have you ever felt you should CUT down on your d rinking? 0 02/18/2024 Have you been ANNOYED by people criticizing your drinking? 0 02/18/2024 Have you felt GUILTY about your drinking? 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 0 02/18/2024 CAGE Questionnaire Score 0 024 PHQ-2A Answer Date Recorded Patient Health Questionnaire-2 Score 0 10/18/2022 Sex and Gender Information Value Date Recorded Sex Assigned at Male 02/25/2024 6:07 AM EDT Legal Sex Male 8:49 PM EDT Gender Identity Male 02/25/2024 6:07 AM EDT Sexual Orientation Not on file documented as of this encounter Last Filed Vital Signs Vital Sign Reading Time Taken Comments Blood Pressure 164/79 05/14/2025 12:11 PM EDT Pulse 73 05/14/2025 12:05 PM EDT Temperature 36.4 C (97.6 F) 05/14/2025 12:05 PM EDT Respiratory Rate 16 05/14/2025 12:05 PM EDT Oxygen Saturation 97% 05/14/2025 12:05 PM EDT Inhaled Oxygen Concentration - - Weight 85.7 kg (188 lb 15 oz) 05/14/2025 12:05 P M EDT Height 172 cm (5' 7.72 ) 05/14/2025 12:05 PM EDT Body Mass Index 28.97 05/14/2025 12:05 PM EDT documented in this encounter Functional Status * AUDIT-C Score Answer Date of Assessment Author 0 05/14/2025 12:03 PM EDT Starla Hernandez Question Answer Date of Assessment Author Q1: How often do you have a drink containing alcohol? Never 05/14/2025 12:03 PM EDT Starla Hernandez Q2: How many drinks containing alcohol do you have on a typical day when you are drinking? Patient does not drink 05/14/2025 12:03 PM EDT Starla Hernandez Q3: How often do you have six or more drinks on one occasion? Never 05/14/2025 12:03 PM EDT Starla Hernandez Calculated C-SSRS Risk Score (Lifetime/Recent) Answer Date of Assessment Author No Risk Indicated 05/14/2025 12:03 PM EDT Starla King Question Answer Date of Assessment Author 1. Wish to be (Past 1 Month) No 025 12:03 PM EDT Starla Hernandez 2. Non-Specific Active Suici leidy Thoughts (Past 1 Month) No 05/14/2025 12:03 PM EDT Toño Hernandez 6. Suicidal Behavior (Lifetime) No 12:03 PM EDT Starla Hernandez documented as of this encounter Miscellaneous Notes * Progress Notes - Thomas Moura MD - 05/14/2025 1:15 PM EDT Follow Up Note: Operation: L hemimandibulectomy and fibula flap reconstruction Operation Date: November 2020 Diagnosis: ORN s/p chemo/radiation for L tonsillar SCCa SUBJECTIVE: Riccardo Earl is a 69 y.o. male presenting 4 years years s/p left hamimandibulectomy w/ fibulaflap to treat ORN secondary to L tonsillar T2N2M0 SCCa. He presents for surveillance today. He reports he has had some dizzy spells when ambulating that resolve with rest. He has been normotensive with no changes to his BP medications and has been hydrating appropriately. Denies any vision changes. He reports that his musculoskeletal pain has been unchanged with the Flexeril and Meloxicam. His weight has been stable. He remains active and feels well overall without symptoms of fatigue. ROS performed and negative except where noted in HPI OBJECTIVE: PHYSICAL EXAM Gen: NAD Head/Face: Surgical and post-radiation changes Mallampati: III Oral: JOSEPH 40mm. No dehiscence intraorally. No fluctuance or purulent drainage noted. Buccal mucosa,hard and soft palate, FOM, labial mucosa, all surfaces of tongue free of lesions or masses. Tongue FROM, FOM soft and non-elevated, no uvular deviation. Neck: Neck incisions well healed. Mild TTP of bilateral SCM areas from the mastoid region extendingdown to the clavicle; Mild TTP in the trapezius muscle extending upwards to the occipitalis muscle.Remaining neck with previous radiation changes without abnormal LAD, trachea midline Resp: Non-labored brearthing and equal chest rise on room air Card: No cyanosis, clubbing, or pitting edema noted MSK: FROM x 4, no abnormaility noted Skin: No rashes, excoriations, discoloration, or sloughing noted Neuro: CN II-XII grossly intact bilaterally Psych: Pleasant, agreeable to care, good insight to condition, reliable historian CT Scans: Personally reviewed by Dr. Carson, obtained 04/11/25. No evidence of recurrence or metastasis. ASSESSMENT/PLAN Riccardo Earl is a 69 y.o. male who is currently 4 years s/p left hemimandibulectomy w/ fibulaflap to treat ORN secondary to L tonsillar T2N2M0 SCCa who presents today for surveillance scans, which revealed no evidence of malignancy or metastasis .Our plan is as follows: -refer to Dr. Espinoza for vertigo evaluation with U/S of bilateral carotid to aid in diagnosis -maintain adequate hydration and take Rx medications as prescribed -f/u s/p Dr. Espinoza evaluation Martell/Alli Cosigned by Jose Carson DMD, MD at 05/19/2025 7:29 AM EDT Associated attestation - Jose Carson DMD, MD - 05/19/2025 7:29 AM EDT I saw and evaluated the patient in conjunction with the resident and performed sams portions of the history and exam. The residents note reflects the services I personally performed and the decisions made by me. documented in this encounter Plan of Treatment Upcoming Encounters Date Type Department Care Team (Late st Contact Info) Description 09/10/2025 8:30 AM EST Office Visit [facility] [address], [address] [place] [address] Gus Mon MD [address] [place] [address] 10/07/2025 9:15 AM EST Clinical Support [facility] [address] [place] [address] 10/07/2025 10:20 AM EST Appointment [facility] [address] [place] [address] 10/10/2025 9:30 AM EST Office Visit [facility] [address] [place] [address] Vitor Honeycutt, MOTION PICTURE COMMENTATOR [address] [place] [address] Scheduled Referrals Name Type Priority Associated Diagnoses Order Schedule Ambulatory referral to ENT Outpatient Referral Routine Dizziness Squamous cell carcinoma of left tonsil Expected: 05/14/2025 (Approximate), Expires: 11/15/2026 documented as of this encounter Results * VAS US Carotid Duplex Bilateral (05/20/2025 11:15 AM EDT) Anatomical Region Laterality Modality Head, Neck, Vascular Ultrasound Impressions 05/20/2025 12:44 PM EDT Right: Mild, smooth, homogenous plaque is demonstrated in the carotid bifurcation. Flow is present in the CCA, ICA, and ECA. ICA velocities do not demonstrate evidence of a hemodynamically significant stenosis (less than 50%). Left: Mild, smooth, homogenous plaque is demonstrated in the carotid bifurcation and ECA. Flow is present in the CCA, ICA, and ECA. ICA velocities do not demonstrate evidence of a hemodynamically significant stenosis (less than 50%). Right vertebral artery flow is antegrade. Left vertebral artery flow is antegrade, with highly resistant and diminished waveforms noted. Subclavian artery flow is multiphasic, bilaterally. COMMUNICATION: Per this written report. Preliminary report signed by LONNIE Shoemaker on 05/20/2025 11:26 AM By electronically signing this report, I, the attending physician, attest that I have personally reviewed the images/data for the above examination(s) and I agree with the final edited report. Drafted by LONNIE Shoemaker on 05/20/2025 11:23 AM Final report signed by Moises Shetty on 05/20/2025 12:44 PM Narrative 05/20/2025 12:44 PM EDT CLINICAL INDICATION: Dizziness TECHNIQUE: Non-invasive, real time duplex exam of the extracranial carotid circulation with Doppler ultrasonic waveform and spectral analysis was performed. COMPARISON: None. FINDINGS: Right: CCA: 48 cm/s ECA: 89 cm/s ICA: 52/13 cm/s; ICA/CCA ratio: 1.1 Vertebral A: 52 cm/s Subclavian A: 140 cm/s Left: CCA: 59 cm/s ECA: 180 cm/s ICA: 69/22 cm/s; ICA/CCA ratio: 1.2 Vertebral A: 8 cm/s Subclavian A: 198 cm/s Procedure Note Moises Shetty MD - 05/20/2025 CLINICAL INDICATION: Dizziness TECHNIQUE: Non-invasive, real time duplex exam of the extracranial carotidcirculation with Doppler ultrasonic waveform and spectral analysis wasperformed. COMPARISON: None. FINDINGS: Right: CCA: 48 cm/s ECA: 89 cm/s ICA: 52/13 cm/s; ICA/CCA ratio: 1.1 Vertebral A: 52 cm/s Subclavian A: 140 cm/s Left: CCA: 59 cm/s ECA: 180 cm/s ICA: 69/22 cm/s; ICA/CCA ratio: 1.2 Vertebral A: 8 cm/s Subclavian A: 198 cm/s IMPRESSION: Right: Mild, smooth, homogenous plaque is demonstrated in the carotidbifurcation. Flow is present in the CCA, ICA, and ECA. ICA velocities donot demonstrate evidence of a hemodynamically significant stenosis (lessthan 50%). Left: Mild, smooth, homogenous plaque is demonstrated in the carotidbifurcation and ECA. Flow is present in the CCA, ICA, and ECA. ICAvelocities do not demonstrate evidence of a hemodynamically significantstenosis (less than 50%). Right vertebral artery flow is antegrade. Left vertebral artery flow is antegrade, with highly resistant anddiminished waveforms noted. Subclavian artery flow is multiphasic, bilaterally. COMMUNICATION: Per this written report. Preliminary report signed by LONNIE Shoemaker on 05/20/2025 11:26 AM By electronically signing this report, I, the attending physician, attestthat I have personally reviewed the images/data for the aboveexamination(s) and I agree with the final edited report. Drafted by LONNIE Shoemaker on 05/20/2025 11:23 AM Final report signed by Moises Shetty on 05/20/2025 12:44 PM [facility] Reid Mann Alli OCAMPO MD CV VASCULAR PROCEDURES Fi nal Result documented in this encounter Visit Diagnoses Diagnosis Dizziness- Primary Dizziness and giddiness Squamous cell carcinoma of left tonsil Dizziness Dizziness and giddiness Squamous cell carcinoma of left tonsil documented in this encounter Additional Health Concerns Assessment Noted Time PHQ-9 Depression Total Score: 0 10/08/19 7:43 AM EST A fall risk assessment has been complete d for the patient 05/14/2025 12:04 PM EDT A Body Mass Index follow-up plan has been documented for the patient 05/19/2025 7:30 AM EDT documented as of this encounter Care Teams Transaction Manager Relationship Specialty Start Date End Date Alex Roque MD [address] [place] [address] #1 #1 AUDRA Rasheed [id number] PCP - General 12/18/21 documented as of this encounter
--- OUTSIDE RECORDS SUMMARY | 2025-05-20 10:41 | XMS_ITS | Encounter Summary ---
Author Organization Healthcare Address [address] [place] [address] Care Team Providers Care Customer Account Administrator Name Role Phone Alex Roque MD Primary Care Provider [phone] Reason for Referral * Imaging (Routine) - Closed Specialty Diagnoses / Procedures Referred By Neftali thayer Referred To Contact Cardiology Diagnoses Dizziness Squamous cell carcinoma of left tonsil Procedures VAS US Carotid Duplex Bilateral Jose Carson DMD, MD [facility] [address] [address] Phone: tel: fax: Referral ID Status Reason Start Date Expiration Date V isits Requested Visits Authorized [id number] Closed Perform Procedure 05/14/2025 11/13/2026 1 1 Reason for Visit * Imaging (Routine) - Closed Specialty Diagnoses / Procedures Referred By Neftali thayer Referred To Contact Cardiology Diagnoses Dizziness Squamous cell carcinoma of left tonsil Procedures VAS US Carotid Duplex Bilateral Jose Carson DMD, MD [facility] [address] [address] Phone: tel: fax: Referral ID Status Reason Start Date Expiration Date V isits Requested Visits Authorized [id number] Closed Perform Procedure 05/14/2025 11/13/2026 1 1 Encounter Details Date Type Department Care Team (Latest Contact Info) Description 05/20/2025 10:41 AM EDT - 05/20/2025 11:59 PM EDT Hospital Encounter [facility] [address] [place] [address] Dizziness; Squamous cell carcinoma of left tonsil Discharge Disposition: Home or Self Care Social History Tobacco Use Types Packs/Day Years [...] drink first t alberto in the 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 aspirin 81 MG EC tablet Take 1 tablet (81 mg) by mouth 1 (one) time each day. cyclobenzaprine (Flexeril) 10 MG tabletIndications :Neck pain Take 1 tablet by mouth 2 times a day as needed for muscle spasms. 60 tablet 2 05/10/2025 2025 gemfibrozil (Lopid) 600 MG tablet Take 1 tablet (600 mg) by mouth 2 (two) times a day. levothyroxine (Synthroid, Levoxyl) 25 MCG tabletIndications :Hypothyroidism, unspecified type Take 1 tablet by mouth daily. 90 tablet 3 04/10/2025 meloxicam (Mobic) 15 MG tabletIndications :Neck pain Take 1 tablet by mouth daily. 30 tablet 2 05/10/2025 VITAMIN E PO Take 1 capsule by mouth 1 (one) time each day. documented as of this encounter Plan of Treatment Upcoming Encounters Date Type Department Care Team (Late st Contact Info) Description 09/10/2025 8:30 AM EST Office Visit [facility] [address], [address] [place] [address] Gus Mon MD [address] [facility] [address] [place] [address] 10/07/2025 9:15 AM EST Clinical Support [facility] [address] [facility]nd [place] [address] 10/07/2025 10:20 AM EST Appointment [facility] [address] [place] [address] 10/10/2025 9:30 AM EST Office Visit [facility] Res[facility] [address] [facility]nd [place] [address] Vitor Honeycutt, VOUCHER EXAMINER [address] [facility] [address] [facility] [address] [place] [address] [phone] (work) documented as of this encounter Procedures Procedure Name Priority Date/Time Associated Diagnosis Comments VAS US CAROTID DUPLEX BILATERAL Routine 05/20/2025 11:15 AM EDT Dizziness Squamous cell carcinoma of left tonsil documented in this encounter Results * VAS US Carotid [...] by Moises Shetty on 05/20/2025 12:44 PM Sin Min M Alli OCAMPO MD CV VASCULAR PROCEDURES Fi nal Result documented in this encounter Visit Diagnoses Diagnosis Dizziness Dizziness and giddiness Squamous cell carcinoma of left tonsil documented in this encounter Additional Health Concerns Assessment Noted Time PHQ-9 Depression Total Score: 0 01/13/20 25 7:43 AM EST A fall risk assessment has been complete d for the patient 05/14/2025 12:04 PM EDT A Body Mass Index follow-up plan has been documented for the patient 05/19/2025 7:30 AM EDT documented as of this encounter Care Teams Customer Account Administrator Relationship Specialty Start Date End Date Alex Roque MD [address] [place] [address] #1 #1 AUDRA Rasheed [id number] PCP - General 12/18/21 documented as of this encounter
--- OUTSIDE RECORDS SUMMARY | 2025-06-05 09:00 | XMS_ITS | Encounter Summary ---
Author Organization Healthcare Address [address] [place] [address] Care Team Providers Care Human Development Professor Name Role Phone Alex Roque MD Primary Care Provider [phone] Reason for Visit * Reason Comments Hearing Loss * Consultation (Urgent) - Closed Specialty Diagnoses / Procedures Referred By Neftali thayer Referred To Contact Otolaryngology Diagnoses Dizziness Squamous cell carcinoma of left tonsil Jose Carson DMD, MD [address] [facility] [address] [place] [address] Phone: tel: fax: Eric Espinoza MD [address] [facility] [address] [place] [address] Phone: tel: fax: Referral ID Status Reason Start Date Expiration Date V isits Requested Visits Authorized [id number] Closed Specialty Services Required 05/14/2025 11/13/2026 1 1 Encounter Details Date Type Department Care Team (Late st Contact Info) Description 06/05/2025 9:00 AM EDT Office Visit [facility] Audiology [address], 3rd [place] [address] Jenn Aguilar, AuD [address] [facility] [address] [place] [address] Sensorineural hearing loss (SNHL) of both ears (Primary Dx) Social History Tobacco Use Types Packs/Day Years [...] drink first t alberto in the morning (EYE-POLICE STENOGRAPHER) to steady your nerves or to get [...] on file documented as of this encounter Miscellaneous Notes * Progress Notes - Jenn Aguilar, AuD - 06/05/2025 9:00 AM EDT Images from the original note were not included. AUDIOLOGIC EVALUATION Referring Provider: Jose Carson DMD, MD HISTORY: Riccardo Earl is a 69 y.o. male seen today for an audiologic evaluation. Today he reported lightheadedness upon standing over the past couple months. He stated that the lightheadedness last a few seconds. He denied true vertigo. He did note that he has blood pressure concerns, as his blood pressure fluctuates. Today he also reported gradual decrease in hearing bilaterally over the past couple years. He does have history of chemoradiation (carboplatin) which was completed in April 2019, and history of occupational noise exposure without use of hearing protection. He also reported intermittent bilateral pulsatile tinnitus when he moves his head a certain way. No other audiologic concerns were reported at this time. RESULTS: Otoscopy: Occluding cerumen/debris removed by ENT prior to testing Audiogram: Method: Conventional Audiometry Transducer: inserts Results: Today's comprehensive audiological evaluation demonstrated normal sloping to profound sensorineural hearing loss bilaterally. Note asymmetry (right worse than left) 3-4 kHz. Word Recognition: RIGHT: 64%; Fair LEFT: 80%; Good SRT/Audiogram Agreement: Good Reliability: Good RECOMMENDATIONS: - Hearing aids with medical clearance Patient following up with ENT Francesco Pichardo, [facility] Clinical Drop Hammer Operator Helper documented in this encounter Plan of Treatment Upcoming Encounters Date Type Department Care Team (Late st Contact Info) Description 09/10/2025 8:30 AM EST [facility] [place] [facility] [address], 3rd [place] [address] Gus Mon MD [address] [place] [address] 10/07/2025 9:15 AM EST Clinical Support [facility] [address], [address]nd [place] [address] 10/07/2025 10:20 AM EST Appointment [facility] Radiology [address] [place] [address] 10/10/2025 9:30 AM EST Office Visit [facility] [address] [facility], [address]nd [place] [address] Vitor Honeycutt, MATHEMATICS TECHNICIAN [address] [facility] [address] [place] [address] Scheduled Orders Name Type Priority Associated Diagnoses Orde r Schedule Hearing Aid Evaluation Audiology Routine Sensorineural hearing loss (SNHL) of both ears Expected: 06/05/2025 (Approximate), Expires: 12/07/2026 documented as of this encounter Visit Diagnoses Diagnosis Sensorineural hearing loss (SNHL) of both ears- Primary documented in this encounter Additional Health Concerns Assessment Noted Time PHQ-9 Depression Total Score: 0 10/08/19 7:43 AM EST A fall risk assessment has been complete d for the patient 05/14/2025 12:04 PM EDT A Body Mass Index follow-up plan has been documented for the patient 06/05/2025 11:47 AM EDT documented as of this encounter Care Teams Human Development Professor Relationship Specialty Start Date End Date Alex Roque MD [address] [place] [address] #1 #1 [place] Rasheed [id number] PCP - General 12/18/21 documented as of this encounter
--- OUTSIDE RECORDS SUMMARY | 2025-06-05 11:30 | XMS_ITS | Encounter Summary ---
Author Organization [facility] Address [address] [place] [id number] Care Team Providers Care Netsuite Consultant Name Role Phone Alex Roque MD Primary Care Provider Reason for Referral * Consultation (Routine) - Closed Specialty Diagnoses / Procedures Referred By Neftali thayer Referred To Contact Otolaryngology Diagnoses Rhinorrhea Norma Juan, WOLF HUNTER [address] [address] Phone: tel: fax: [facility] Otolaryngology [address], [address] [place] [address] Phone: tel: fax: Referral ID Status Reason Start Date Expiration Date V isits Requested Visits Authorized [id number] Closed Specialty Services Required 06/05/2025 12/05/2026 1 1 * Consultation (Routine) - Closed Specialty Diagnoses / Procedures Referred By Neftali thayer Referred To Contact Otolaryngology Diagnoses Productive cough History of head and neck cancer Norma Juan, WOLF HUNTER [address] [address] Phone: tel: fax: [facility] Otolaryngology [address], [address] [place] [address] Phone: tel: fax: Referral ID Status Reason Start Date Expiration Date V isits Requested Visits Authorized [id number] Closed Specialty Services Required 06/05/2025 12/05/2026 1 1 Reason for Visit * Reason Comments Dizziness Encounter Details Date Type Department Care Team (Late st Contact Info) Description 06/05/2025 11:[address] [facility] Otolaryngology [address], [address] [place] [address] Norma Juan APRN [address] [place] [address] Lightheadedness (Primary Dx); Productive cough; History of head and neck cancer; Rhinorrhea; Sensorineural hearing loss, bilateral; Asymmetrical sensorineural hearing loss; Bilateral impacted cerumen Social History Tobacco Use Types Packs/Day Years Used Date Smoking Tobacco: Never Passive Smoke Exposure: Past Smokeless Tobacco: Former Chew Quit: 2019 Tobacco Cessation:Counseling Given: Not Answered Alcohol Use Standard Drinks/Week Comments Not Currently [...] drink first t alberto in the morning (EYE-NAVAL SPECIAL WARFARE MEDIC) to steady your nerves or to get [...] Sign Reading Time Taken Comments Blood Pressure 155/77 06/05/2025 11:22 AM EDT Pulse 69 06/05/2025 11:22 AM EDT Temperature - - Respiratory Rate - - Oxygen Saturation - - Inhaled Oxygen Concentration - - Weight 83.9 kg (185 lb) 06/05/2025 11:22 AM EDT Height 172.7 cm (5' 8 ) 06/05/2025 11:22 AM EDT Body Mass Index 28.13 06/05/2025 11:22 AM EDT documented in this encounter Miscellaneous Notes * Progress Notes - Norma Juan, BRAN - 06/05/2025 11:30 AM EDT Images from the original note were not included. [facility]tology [facility] -- [place] [id number] Consultation Visit HPI: Riccardo Earl is a 69 y.o. male, seen in consultation by request of Dr. Jose Carson MD regarding dizziness. I reviewed the note from 05/14/2025, when the patient presented to the [facility]illofacial surgery Clinic. At that time, he was reporting dizziness. He was referred to ENT for further evaluation. The history is taken from the patient; he reports a primary concern of lightheadedness that occurs after he stands up and starts walking. He states that when he feels the symptoms, he closes his eyes briefly and they pass and he continues on. He denies any spinning vertiginous symptoms whatsoever. He denies any fluctuating otologic symptoms. He does report a history of lability in his blood pressure with very high and very low readings. He does report some subjective hearing loss in the left ear. Denies tinnitus. Denies otalgia or otorrhea. Denies ear fullness or pressure. Denies ear itching or sound sensitivity. Denies any disequilibrium. He does report some chronic sinus congestion. He denies history of frequent ear infections. Denies prior otologic surgery. Does report history ofnoise exposure and chemotherapy. Denies family history of premature hearing loss. Medical history includes reviewed. Surgical history includes reviewed. Family history includes reviewed. Social history includes he is retired and lives with his brother. He reports former tobacco use. Denies alcohol use. Reports former drug use, quitting in 1982. Current medications include reviewed. Allergies include no known drug allergies. A 14-point review of systems was conducted and is non-contributory except for elements noted in HPI. Audiogram 06/05/2025--WRS 64% right, 80% left Tympanogram not performed Imaging No pertinent imaging on file. Physical Exam General Appearance: well developed, well nourished, well groomed, of appropriate weight Orientation: responds to situation appropriately Mood and affect: Normal Communication: verbal with good voice quality assurance monitor body and Face: normocephalic, no scars, lesions, masses Facial strength: normal bilaterally Nose: external nose of normal appearance, no gross external deformities Ocular Motility: normal with normal primary gaze alignment, no nystagmus Examination of neck: normal appearance, trachea midline, no masses, no lymphadenopathy External ears: pinnae normal Neuro: alert, cranial nerves grossly intact unless otherwise noted above Cardiovascular: no peripheral cyanosis Pulmonary: breathing quietly, no stridor or stertor Otoscopy: binocular otomicroscopy was performed in lieu of handheld otoscopy Binocular otomicroscopy procedure was performed. The indication was hearing loss. The patient was positioned supine and an ear speculum was inserted. The microscope was used to inspect the right ear,then the same procedure was performed on the left. The patient tolerated the procedure well. Findings: RIGHT ear canal is impacted with cerumen and the tympanic membrane intact with no retraction, infection, or effusion LEFT ear canal is impacted with cerumen and the tympanic membrane is intact with no retraction, infection, or effusion Procedure: Cerumenectomy Preprocedure dx: bilateral cerumen impaction Postprocedure dx: same as above Indication: cerumen impaction Description: The patient was positioned as supine as possible. Using a binocular microscope and with the assistance of microinstruments, obstructing cerumen was removed from the affected ear canal(s). Findings: cerumen impaction was completely removed Assessment & Plan: 1. Lightheadedness 2. Productive cough 3. History of head and neck cancer 4. Rhinorrhea 5. Sensorineural hearing loss, bilateral 6. Asymmetrical sensorineural hearing loss 7. Bilateral impacted cerumen Riccardo Earl is a 69 y.o. male with concern for dizziness which he describes his lightheadedness. His symptoms sound more consistent with orthostatic lightheadedness and potentially orthostatic hypotension. He has not seen his PCP and nearly 6 years so I encouraged him to re-establish for blood pressure management. I do not think he needs further otologic workup at this time in regards to that. He does have bilateral sensorineural hearing loss with a slight component of asymmetry at 3000 hertz and 4000 hertz along with a mildly asymmetric word understanding. I discussed the implications of this with the patient and we discussed consideration of MRI IAC to rule out retrocochlear pathology of this. The patient would like to hold off on MRI imaging for now. We also discussed the utility ofhearing aids for him. I think he would benefit from hearing aids and medical clearance has been provided today. He would like to think about hearing aids prior to pursuing them. He did have bilateral cerumen impactions which were removed under the microscope as noted above. The patient tolerated the procedure well. He requested referral to both rhinology and laryngology. He requested rhinology referral due to chronic rhinorrhea and postnasal drip. I encouraged him to utilize Flonase nasal spray. He also would like to have a scope of his nose and of his throat due to his history of head and neck cancer and productive cough so I will refer him to laryngology as well. I will see him back in 1 year with an audiogram or sooner if necessary. Norma Juan APRN documented in this encounter Plan of Treatment Upcoming Encounters Date Type Department Care Team (Late st Contact Info) Description 09/10/2025 8:30 AM EST Office Visit [place] [facility] [address], [address] [place] [address] Gus Mon MD [address] [facility] [address] [place] [address] 10/07/2025 9:15 AM EST Clinical Support [facility] [address]nd [place] [address] 10/07/2025 10:20 AM EST Appointment [facility] [address] [place] [address] 10/10/2025 9:30 AM EST Office Visit [facility] [address] [place] [address] Vitor Honeycutt APRN [address] [facility] [address] [place] [address] Scheduled Orders Name Type Priority Associated Diagnoses Orde r Schedule Comprehensive hearing test Audiology Routine Sensorineural hearing loss, bilateral Asymmetrical sensorineural hearing loss Expected: 06/05/2026, Expires: 12/03/2026 Scheduled Referrals Name Type Priority Associated Diagnoses Order Schedule Ambulatory referral to ENT Outpatient Referral Routine Productive cough History of head and neck cancer Expected: 06/05/2025 (Approximate), Expires: 12/07/2026 Ambulatory referral to ENT Outpatient Referral Routine Rhinorrhea Expected: 06/05/2025 (Approximate), Expires: 12/07/2026 documented as of this encounter Visit Diagnoses Diagnosis Lightheadedness- Primary Dizziness and giddiness Productive cough Cough History of head and neck cancer Rhinorrhea Other diseases of nasal cavity and sinuses Sensorineural hearing loss, bilateral Asymmetrical sensorineural hearing loss Sensorineural hearing loss, asymmetrical Bilateral impacted cerumen Impacted cerumen documented in this encounter Additional Health Concerns Assessment Noted Time PHQ-9 Depression Total Score: 0 10/08/19 25 7:43 AM EST A fall risk assessment has been complete d for the patient 05/14/2025 12:04 PM EDT A Body Mass Index follow-up plan has been documented for the patient 06/05/2025 11:47 AM EDT documented as of this encounter Care Teams Netsuite Consultant Relationship Specialty Start Date End Date Alex Roque MD [address] [place] [address] #1 #1 AUDR[place] Rasheed [id number] PCP - General 12/18/21 documented as of this encounter
--- OUTSIDE RECORDS SUMMARY | 2025-06-11 08:30 | XMS_ITS | Encounter Summary ---
Author Organization Healthcare Address [address] [place] [address] Care Team Providers Care [employer] Advisor Name Role Phone Alex Roque MD Primary Care Provider [phone] Reason for Visit * Reason Comments Sinus Problem Patient states he is here because he has been having sinus issues for two months. * Consultation (Routine) - Closed Specialty Diagnoses / Procedures Referred By Neftali thayer Referred To Contact Otolaryngology Diagnoses Rhinorrhea Norma Juan, WELDING MACHINE OPERATOR RESISTANCE [address] [facility] [address] [place] [address] Phone: tel: fax: [facility] Otolaryngology [address], 3rd [place] [address] Phone: tel: fax: Referral ID Status Reason Start Date Expiration Date V isits Requested Visits Authorized [id number] Closed Specialty Services Required 06/05/2025 12/05/2026 1 1 Encounter Details Date Type Department Care Team (Late st Contact Info) Description 06/11/2025 8:30 AM EDT Office Visit [facility] [address], 3rd [place] [address] Gus Mon MD [address] [facility] [address] [place] [address] Subacute sinusitis, unspecified location (Primary Dx); Deviated [...] drink first t alberto in the morning (EYE-PHYSICAL SCIENCE TECHNICIAN) to steady your nerves or to get [...] - 06/11/2025 8:30 AM EDT Dear Norma Juan APRN I had the pleasure of evaluating your [...] Description 09/10/2025 8:30 AM EST Office Visit [facility] [address], [address]rd [place] [address] Gus Mon MD [address] [facility] [address] [place] [address] 10/07/2025 9:15 AM EST Clinical Support [facility] [address] [facility], [address] [place] [address] 10/07/2025 10:20 AM EST Appointment [facility] [address] [place] [address] 10/10/2025 9:30 AM EST Office Visit [facility] [address] [facility], 2nd [place] [address] Vitor Honeycutt, WELDING MACHINE OPERATOR RESISTANCE [address] [facility] [address] [place] [address] documented as of this encounter Visit Diagnoses Diagnosis Subacute sinusitis, unspecified location- Primary Deviated nasal septum documented in this encounter Additional Health Concerns Assessment Noted Time PHQ-9 Depression Total Score: 0 10/08/19 25 7:43 AM EST A fall risk assessment has been complete d for the patient 05/14/2025 12:04 PM EDT A Body Mass Index follow-up plan has been documented for the patient 06/11/2025 8:28 AM EDT documented as of this encounter Care Teams [employer] Advisor Relationship Specialty Start Date End Date Alex Roque MD [address] [place] [address] [address] [place] [address] PCP - General 12/18/21 documented as of this encounter
--- OUTSIDE RECORDS SUMMARY | 2025-06-11 09:10 | XMS_ITS | Encounter Summary ---
Author Organization Healthcare Address [address] [place] [address] Care Team Providers Care Drag Out Worker Name Role Phone Alex Roque MD Primary Care Provider [phone] Reason for Visit * Consultation (Routine) - Closed Specialty Diagnoses / Procedures Referred By Neftali thayer Referred To Contact Otolaryngology Diagnoses Productive cough History of head and neck cancer Norma Juan, GUIDE RAIL CLEANER [address] [facility] [address] [place] [address] Phone: tel: fax: [facility] Otolaryngology [address], [address] [place] [address] Phone: tel: fax: Referral ID Status Reason Start Date Expiration Date V isits Requested Visits Authorized [id number] Closed Specialty Services Required 06/05/2025 12/05/2026 1 1 Encounter Details Date Type Department Care Team (Late st Contact Info) Description 06/11/2025 9:10 AM EDT Office Visit [facility] Otolaryngology [address] [facility] [address] [place] [address] Eric Espinoza MD [address] [facility] [address] [place] [address] Social History Tobacco Use Types Packs/Day Years [...] drink first t alberto in the 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) to steady your nerves or to get [...] 8:49 AM EDT documented in this encounter Plan of Treatment Upcoming Encounters Date Type Department Care Team (Late st Contact Info) Description 09/10/2025 8:30 AM EST Office Visit [place] [facility] [address], [address] [place] [address] Gus Mon MD [address] [facility] [address] [place] [address] 10/07/2025 9:15 AM EST Clinical Support [facility] [address] [facility], 2nd [place] [address] 10/07/2025 10:20 AM EST Appointment [facility] Radiology [address] [place] [id number] 10/10/2025 9:30 AM EST Office Visit [facility] [address] [facility], [address]nd [place] [address] Vitor Honeycutt, GUIDE RAIL CLEANER [address] [place] [id number] documented as of this encounter Visit Diagnoses Not on filedocumented in this encounter Additional Health Concerns Assessment Noted Time PHQ-9 Depression Total Score: 0 10/08/19 25 7:43 AM EST A fall risk assessment has been complete d for the patient 05/14/2025 12:04 PM EDT A Body Mass Index follow-up plan has been documented for the patient 06/11/2025 8:28 AM EDT documented as of this encounter Care Teams Drag Out Worker Relationship Specialty Start Date End Date Alex Roque MD [address] [place] [address] #1 #1 AUDRA Rasheed [id number] PCP - General 12/18/21 documented as of this encounter
--- NOTE | 2025-06-20 | CT_ITS ---
FINAL REPORT TECHNIQUE: Thin section axial images were obtained from the aortic arch to the skull base after intravenous contrast injection per CTA protocol. Multiplanar reconstruction images were obtained. Exam was performed using dose reduction techniques and the ALARA principle. CLINICAL HISTORY: DIZZINESS COMPARISON: None FINDINGS: CTA NECK: Aortic arch: There is a normal three-vessel configuration to the aortic arch. There is no significant stenosis of the great vessels at their origins. Right carotid artery: The right common carotid artery is patent without stenosis. Calcifications in the proximal right internal carotid artery with no significant stenosis. Remainder of the right internal carotid artery is patent to the skull base. Left carotid artery: The left common carotid artery is patent without plaque. Left internal carotid artery patent to the skull base. 0% stenosis per NASCET criteria. Vertebral arteries: Right vertebral artery patent without stenosis. Left vertebral artery is small and patent to the level of C3-4 where it is occluded or severely stenotic. Multiple collaterals reconstitute the left vertebral artery along the left C1-2 articulation suggesting that the finding in the left vertebral artery is chronic. 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 Multiple surgical clips are seen in the floor of the mouth. IMPRESSION: Segment of distal left vertebral artery not visualized suggestive either significant stenosis or occlusion at the level of C2-3 and C3-4 with reconstitution at the level of C1-2. This may be chronic given there are collaterals. No carotid stenosis. Patent right vertebral artery. Reviewed, Interpreted and Dictated by Rita Horne MD Transcribed by Nyasia Meyer Authenticated and . [facility]
--- NOTE | 2025-06-20 | CT_ITS ---
FINAL REPORT TECHNIQUE: Thin section axial images were obtained from skull base to vertex without contrast. Coronal reconstruction images were obtained from the axial data. Exam was performed using dose reduction techniques such as automated exposure control, adjustment of the mA and kV according to patient size, and use of iterative reconstruction technique. CLINICAL HISTORY: .dizziness COMPARISON: None FINDINGS: CT HEAD/BRAIN W/O CONTRAST Thin section axial images were obtained from skull base to vertex without contrast. Coronal reconstruction images were obtained from the axial data. Exam was performed using dose reduction techniques such as automated exposure control, adjustment of the mA and kV according to patient size, and use of iterative reconstruction technique. There is no mass effect or midline shift. There is no hydrocephalus. There is no intracranial hemorrhage. There are bilateral areas of periventricular hypodensity favored to represent chronic small vessel ischemia. The posterior fossa is without acute abnormality. The basilar cisterns are preserved. There is air-fluid level in the right maxillary sinus. Mucoperiosteal thickening is noted of the bilateral maxillary sinuses, bilateral ethmoid, and right frontal sinus. No acute osseous abnormality is identified. IMPRESSION: No intracranial hemorrhage or evidence of acute large cortical infarct. Acute on chronic sinusitis. CTA HEAD/BRAIN Thin section axial images are obtained through the brain after intravenous contrast injection. Multiplanar reconstructions were obtained from the axial data. Exam was performed using dose reduction techniques such as automated exposure control, adjustment of the mA and kV according to patient size, and use of iterative reconstruction technique. The intracerebral portions of the carotid arteries are patent. The anterior and middle cerebral arteries are patent. The posterior cerebral arteries arise from the basilar artery. They are patent. [place] of [place] is intact. The basilar artery is patent. The vertebral arteries are patent. There is no significant stenosis, aneurysm, or AVM. IMPRESSION: Unremarkable CT angiogram of the intracerebral vasculature. Reviewed, Interpreted and Dictated by Rita Horne MD Transcribed by Nyaisa Meyer Authenticated and [facility]
--- OUTSIDE RECORDS SUMMARY | 2025-06-20 11:27 | XMS_ITS | Encounter Summary ---
Author Organization Healthcare Address 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) to steady your nerves or to get [...] on file documented as of this encounter Plan of Treatment Upcoming Encounters Date Type Department Care Team (Late st Contact Info) Description 09/10/2025 8:30 AM EST Office Visit [place] [facility] [address], [address]rd [place] [address] Gus Mon MD [address] [facility] [address] [place] [address] 10/07/2025 9:15 AM EST Clinical Support [facility] [address] [facility], 2nd [place] [address] 10/07/2025 10:20 AM EST Appointment [facility] Radiology [address] [place] [address] 10/10/2025 9:30 AM EST Office Visit [facility] [address] [facility], 2nd [place] [address] Vitor Honeycutt, CONCRETE PLACEMENT EQUIPMENT OPERATOR [address] [facility] [address] [place] [address] documented as of this encounter Visit Diagnoses Diagnosis Neck pain Cervicalgia documented in this encounter Additional Health Concerns Assessment Noted Time PHQ-9 Depression Total Score: 0 10/08/19 7:43 AM EST A fall risk assessment has been complete d for the patient 04/11/2025 12:41 PM EDT A Body Mass Index follow-up plan has been documented for the patient 12/18/2024 8:28 AM EDT documented as of this encounter Care Teams Geomatics Professor Relationship Specialty Start Date End Date Alex Roque MD [address] [place] [address] #1 #1 AUDRA Rasheed [id number] PCP - General 12/18/21 documented as of this encounter
--- OUTSIDE RECORDS SUMMARY | 2025-06-20 11:27 | XMS_ITS | Encounter Summary ---
Author Organization Healthcare Address [address] 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 Refill sent, pt notified. Pt also stated that he was having a concern with dizzy spell and wanted Dr. Carson to scope him. Rn added to schedule for 05/14/25 @1:15. documented in this encounter Plan of Treatment Upcoming Encounters Date Type Department Care Team (Late st Contact Info) Description 09/10/2025 8:30 AM EST Office Visit [place] [facility] [address], [address]rd [place] [address] Gus Mon MD [address] [facility] [address] [place] [address] 10/07/2025 9:15 AM EST Clinical Support [facility] [address] [facility], 2nd [place] [address] 10/07/2025 10:20 AM EST Appointment [facility] Radiology [address] [place] [address] 10/10/2025 9:30 AM EST Office Visit [facility] [address] [facility], 2nd [place] [address] Vitor Honeycutt, DONOR SERVICES SPECIALIST [address] [facility] [address] [place] [address] documented as of this encounter Visit Diagnoses [...] documented as of this encounter Care Teams Lead Investigator Relationship Specialty Start Date End Date Alex Roque MD [address] [place] [address] #1 #1 AUDRA Rasheed [id number] PCP - General 12/18/21 documented as of this encounter
--- OUTSIDE RECORDS SUMMARY | 2025-06-20 11:27 | XMS_ITS | Encounter Summary ---
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 Wish to be (Past 1 Month) No 025 12:03 PM EDT Starla Hernandez 2. Non-Specific Active Suici leidy Thoughts (Past 1 Month) No 05/14/2025 12:03 PM EDT Toño Hernandez 6. Suicidal Behavior (Lifetime) No 12:03 PM OZIELT Starla Hernandez documented as of this encounter Plan of Treatment Upcoming Encounters Date Type Department Care Team (Late st Contact Info) Description 09/10/2025 8:30 AM EST Office Visit [place] [facility] [address], [address]rd [place] [address] Gus Mon MD [address] [facility] [address] [place] [address] 10/07/2025 9:15 AM EST Clinical Support [facility] [address] 2nd [place] [address] 10/07/2025 10:20 AM EST Appointment [facility] Radiology [address] [place] [address] 10/10/2025 9:30 AM EST Office Visit [facility] [address] 2nd [place] [address] Vitor Honeycutt, HOBBING MACHINE OPERATOR [address] [place] [address] documented as of this encounter Visit Diagnoses [...] documented as of this encounter Care Teams Hardboard Grinder Relationship Specialty Start Date End Date Alex Roque MD [address] [place] [address] #1 #1 [place] [address] PCP - General 12/18/21 documented as of this encounter
--- OUTSIDE RECORDS SUMMARY | 2025-06-20 11:28 | XMS_ITS | Encounter Summary ---
Author Organization Healthcare Address [address] [place] [address] Care Team Providers Care Gold Blower Name Role Phone Alex Roque MD Primary Care Provider [phone] Reason for Visit * Reason Comments Med Refill Encounter Details Date Type Department Care Team (Late Contact Info) Description 02/21/2022 Refill [facility] Res[facility] [address] [facility] 2nd [place] [address] Dilia Garcia MD [address] [id number] Social History Tobacco Use Types Packs/Day Years Used Date Smoking Tobacco: Never Cigars Smokeless Tobacco: Former Chew PHQ-2 Answer Date Recorded Patient Health Questionnaire-2 Score 0 07/20/2021 Sex and Gender Information Value Date Recorded Sex Assigned at Male 02/25/2024 6:07 AM EDT Legal Sex Male 8:49 PM EDT Gender Identity Male 02/25/2024 6:07 AM EDT Sexual Orientation Not on file COVID-19 Exposure Response Date Recorded In the last 10 days, have yo u been in contact with someone who was confirmed or suspected to have Coronavirus/COVID-19? No / Unsure 02/11/2022 8:29 AM EDT documented as of this encounter Plan of Treatment Upcoming Encounters Date Type Department Care Team (Late Contact Info) Description 09/10/2025 8:30 AM EST Office Visit [place] [facility] Ot[facility] [address], [address]rd [place] [address] Gus Mon MD [address] [facility] [address] [place] [address] 10/07/2025 9:15 AM EST Clinical Support [facility] Res[facility] [address]nd [place] [address] 10/07/2025 10:20 AM EST Appointment [facility] Radiology [address] [place] [address] 10/10/2025 9:30 AM EST Office Visit [facility] [address]nd [place] [address] Vitor Honeycutt, CORRECTION WARDEN [address] [place] [address] documented as of this encounter Visit Diagnoses Not on filedocumented in this encounter Additional Health Concerns Infection Onset Date Last Indicated Resolved Time RSV 09/02/2022 09/02/2022 09/13/2022 4:41 PM EST Streptococcus Group A Comment:Patient with antibiotics > 24 hours. No longer requires droplet precautions. 02/17/2024 02/17/2024 02/24/2024 11:47 AM EDT Respiratory Rule-Out 02/18/2024 02/18/2024 024 11:15 AM EDT Assessment Noted Time A fall risk assessment has been complete d for the patient 01/21/2022 1:23 PM EDT documented as of this encounter Care Teams Gold Blower Relationship Specialty Start Date End Date Alex Roque MD [address] [place] [address] PCP - General 12/18/21 documented as of this encounter
--- OUTSIDE RECORDS SUMMARY | 2025-06-20 11:28 | XMS_ITS | Clinical Summary ---
Author Organization [facility] Address [address] [place] [address] Care Team Providers Care Tax Examining Technician Name Role Phone Alex Roque MD Primary Care Provider [phone] Allergies No known active allergies Medications gemfibrozil (Lopid) 600 MG tablet Take 1 tablet (600 mg) by mouth 2 (two) times a day. Active VITAMIN E PO Take 1 capsule by mouth 1 (one) time each day. Active amLODIPine (Norvasc) 10 MG tablet Take 1 tablet (10 mg) by mouth 1 (one) time each day. Active aspirin 81 MG EC tablet Take 1 tablet (81 mg) by mouth 1 (one) time each day. Active levothyroxine (Synthroid, Levoxyl) 25 MCG tabletIndication s:Hypothyroidism , unspecified type Take 1 tablet by mouth daily. 90 tablet 3 5 Active meloxicam (Mobic) 15 MG tabletIndication s:Neck pain Take 1 tablet by mouth daily. 30 tablet 2 5 Active cyclobenzaprine (Flexeril) 10 MG tabletIndication s:Neck pain Take 1 tablet by mouth 2 times a day as needed for muscle spasms. 60 tablet 2 5 08/08/20 25 Active amoxicillin-clav ulanate (Augmentin) 875-125 MG tabletIndication s:Subacute sinusitis, unspecified location Take 1 tablet by mouth 2 times a day for 7 days. 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 06/27 Adenocarcinoma of colon 07/19/2024 Hypokalemia 07/19/2024 Partial bowel obstruction 07/19/2024 Pleural effusion 07/19/2024 Shortness of breath 07/19/2024 Tonsillar mass 07/19/2024 Squamous cell carcinoma of left tonsil Mass in neck 07/19/2024 Osteomyelitis 02/18/2024 Epidural abscess 09/05/2022 Hyperlipidemia 09/05/2022 Hypertension 09/05/2022 Hypothyroid 09/05/2022 Personal history of other ma lignant neoplasm of large intestine 09/05/2022 Overview (09/05/2022): History of malignant neoplasm of colon Neck pain 09/05/2022 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 (01/30/2021): Other secondary osteonecrosis, unspecified bone Dysphagia 04/13/2019 Overview (01/30/2021): Dysphagia, unspecified Colon cancer 03/01/2019 Cancer Staging:Clinical stage from 01/08/2019:Stage IIA(cT3, cN0, cM0) - Signed by Stacy Daly MD on 02/20/2021 Overview (01/30/2021): Malignant neoplasm of colon, unspecified 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, face, 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 Overview (01/30/2021): Secondary and unspecified malignant neoplasm of lymph nodes of head, face and neck Tonsillar cancer 02/09/2019 Cancer Staging:Clinical stage from 01/19/2019:Stage II(cT2, cN2, cM0, p16+) - Signed by Stacy Daly MD on 02/20/2021 Osteonecrosis of jaw Resolved Problems Problem Noted Date Diagnosed Date Resolved Date Streptococcal bacteremia 02/19/2024 Trismus 10/05/2020 06/16/2025 Dysphonia 06/06/2019 06/16/2025 Encounters Date Type Department Care Team Description 06/11/2025 9:10 AM EDT Office Visit [facility] Otolaryngology [address] [phone] Eric Espinoza MD 06/11/2025 8:30 AM EDT Office Visit [facility] Otolaryngology [address] [place] [phone] Gus Mon MD Subacute sinusitis, unspecified location (Primary Dx); Deviated nasal septum 06/11/2025 Travel 06/05/2025 11:30 AM EDT Consult [facility] Otolaryngology [address], [address] [place] [phone] Norma Juan B, BRAN Lightheadedness (Primary Dx); Productive cough; History of head and neck cancer; Rhinorrhea; Sensorineural hearing loss, bilateral; Asymmetrical sensorineural hearing loss; Bilateral impacted cerumen 06/05/2025 9:00 AM EDT Office Visit [facility] Audiology [address] [phone] Jenn Aguilar AuD Sensorineural hearing loss (SNHL) of both ears (Primary Dx) 06/05/2025 Orders Only [facility] [address] [place] [phone] Sintia Sosa, RN Tonsillar cancer ([facility]) (Primary Dx); Squamous cell carcinoma of left tonsil; Hypothyroidism, unspecified type 06/05/2025 Travel 05/20/2025 10:41 AM EDT - 05/20/2025 11:59 PM EDT Hospital Encounter [facility] [address] [place] [address] Dizziness; Squamous cell carcinoma of left tonsil Discharge Disposition: Home or Self Care 05/20/2025 Travel 05/14/2025 1:15 PM EDT Office Visit [facility] [address] [facility], 2nd [place] [address] Jose Carson DMD, MD Dizziness (Primary Dx); Squamous cell carcinoma of left tonsil 05/14/2025 Travel 05/10/2025 Telephone [facility] digital associate media director Faculty [facility] [address] [place] [address] ZaneMarilou RN 05/10/2025 Telephone [facility] fleet administrative assistant Clinic [address] [phone] Richard Lema MD 04/11/2025 2:00 PM EDT Office Visit [facility] [address] [facility], [address]nd [place] [address] Vitor Honeycutt APRN Tonsillar cancer (CMS/HCC) (Primary Dx); Ground glass opacity present on imaging of lung; Hypothyroidism, unspecified type 04/11/2025 Travel 04/10/2025 Refill [facility] [address] [facility], [address]nd [place] [address] Stacy Daly MD Hypothyroidism, unspecified type 04/08/2025 1:00 PM EDT Clinical Support [facility] [address] [facility], [address]nd [place] [address] 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, face, or neck (CMS/HCC); Tonsillar cancer (CMS/HCC); Epidural abscess; Personal history of other malignant neoplasm of large intestine; 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 04/08/2025 12:38 PM EDT - 04/08/2025 11:59 PM EDT Hospital Encounter [facility] [address] [place] [address] 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 0 02/18/2024 CAGE Questionnaire Score 0 024 PHQ-2A Answer Date Recorded Patient Health Questionnaire-2 Score 0 10/18/2022 Sex and Gender Information Value Date Recorded Sex Assigned at Male 02/25/2024 6:07 AM EDT Legal Sex Male 8:49 PM EDT Gender Identity Male 02/25/2024 6:07 AM EDT Sexual Orientation Not on file Last Filed Vital Signs Vital Sign Reading Time Taken Comments Blood Pressure 169/83 06/11/2025 7:50 AM EDT Pulse 76 06/11/2025 7:50 AM EDT Temperature 36.4 C (97.6 F) 05/14/2025 12:05 PM EDT Respiratory Rate 16 05/14/2025 12:05 PM EDT Oxygen Saturation 97% 05/14/2025 12:05 PM EDT Inhaled Oxygen Concentration - - Weight 86.2 kg (190 lb) 06/11/2025 8:49 AM EDT Height 171.5 cm (5' 7.5 ) 06/11/2025 8:49 AM EDT Body Mass Index 29.32 06/11/2025 8:49 AM EDT Plan of Treatment Upcoming Encounters Date Type Department Care Team (Late st Contact Info) Description 09/10/2025 8:30 AM EST Office [facility] [address] [place] [phone] Gus Mon MD [address] [place] [address] 10/07/2025 9:15 AM EST Clinical Support [facility] [address] [place] [phone] 10/07/2025 10:20 AM EST Appointment [facility] [address] [place] [phone] 10/10/2025 9:30 AM EST Office Visit [facility] [address], [address] [place] [phone] Vitor Honeycutt, CLIENT SUCCESS MANAGER [address] [place] [address] Health Maintenance Due Date Last Done Comments Dental Oral Exam 1957 Dental Prophylaxis 1957 Dental X-Ray: Bitewings 1957 Dental X-Ray: Full Mouth 1957 [facility]-Medicare Annual Wellness (AWV) 1957 [facility]-Infant/Child/Adol SDOH Screenings 1957 [id number] Vaccine (#1) 1962 [facility]- SDOH Screenings 1975 [facility]-Adult SDOH Screenings 1975 [facility]-DTaP,Tdap,and Td Vaccines (1 - Tdap) 1976 [facility]-Pneumococcal Vaccine: 50+ Years (1 of 2 - PCV) 1976 [facility]-Zoster Vaccines (1 of 2) 1976 [facility]-RSV Vaccine: 60+ Years or (1 - Risk 60-74 years 1-dose series) 2017 [facility]-Influenza Vaccine (#1) 2025 [facility]-Depression Screening 11/06/2025 11/06/2024, 09/26 [facility]-Hepatitis C Screening Completed 2023, 02/17/2024, 09/06/2022 [facility]-Obesity Intervention Completed 025, 06/05/2025, 06/05/2025, Additional history exists HPV Vaccines Aged Out No longer eligi ble based on patient's age to complete this topic [facility]-HIB Vaccines Aged Out No longer e ligible based on patient's age to complete this topic [facility]-Hepatitis A Vaccines Aged Out No longer eligible based on patient's age to complete this topic [facility]-IPV Vaccines Aged Out No longer e ligible based on patient's age to complete this topic [facility]-Rotavirus Vaccines Aged Out No lo nger eligible based on patient's age to complete this topic Procedures Procedure Name Priority Date/Time Associated Diagnosis Comments VAS US CAROTID DUPLEX BILATERAL Routine 05/20/2025 11:15 AM EDT Dizziness Squamous cell carcinoma of left tonsil CT CHEST W IV CONTRAST Routine 2:23 PM EDT 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, face, or neck (CMS/HCC) Tonsillar cancer (CMS/HCC) Epidural abscess Personal history of other malignant neoplasm of large intestine CT SOFT TISSUE NECK W IV CONTRAST Routine 04/08/2025 2:23 PM EDT 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, face, or neck (CMS/HCC) Tonsillar cancer (CMS/HCC) Epidural abscess Personal history of other malignant neoplasm of large intestine TSH Routine 04/08/2025 10:49 AM EDT 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, face, or neck (CMS/HCC) Tonsillar cancer (CMS/HCC) Epidural abscess Personal history of other malignant neoplasm of large intestine 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 CBC WITH AUTO DIFFERENTIAL Routine 04/08/2025 10:49 AM EDT 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, face, or neck (CMS/HCC) Tonsillar cancer (CMS/HCC) Epidural abscess Personal history of other malignant neoplasm of large intestine COMPREHENSIVE METABOLIC PANEL, PLASMA Routine 04/08/2025 10:49 AM EDT 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, face, or neck (CMS/HCC) Tonsillar cancer (CMS/HCC) Epidural abscess Personal history of other malignant neoplasm of large intestine ACUTE HEPATITIS PANEL Routine 02/23/2024 5:21 AM EDT from Last 3 Months or Most Recently Relevant to Health Maintenance Results * VAS US Carotid Duplex Bilateral [...] by Moises Shetty on 05/20/2025 12:44 PM us Sin Min M Alli OCAMPO MD CV VASCULAR PROCEDURES Fi nal Result * CT Chest w IV Contrast (04/08/2025 2:23 PM EDT) Anatomical Region Laterality Modality Chest Computed Tomogra phy Impressions 04/08/2025 2:38 PM EDT Small groundglass focus within the right apex, could be postinfectious/postinflammatory. CT chest follow-up in 3 months would be appropriate. No acute airspace disease in the remaining lungs. CRITICAL RESULT: No. COMMUNICATION: Per this written report. Drafted by Krystin Kennedy MD on 04/08/2025 2:33 PM Final report signed by Krystin Kennedy MD on 04/08/2025 2:38 PM Narrative 04/08/2025 2:38 PM EDT CLINICAL INDICATION: Aspiration TECHNIQUE: Multiple CT helical images were obtained from thoracic inlet through upper abdomen with administration of IV contrast. 100 mL of Omnipaque-300 were administered intravenously. The imaging protocol used in this examination was optimized to achieve diagnostic quality with the lowest possible radiation dose in accordance with the principles of ALARA (As Low As Reasonably Achievable). COMPARISON: April 09, 2024 FINDINGS: Mediastinum and Pleura: No mediastinal or hilar adenopathy. No pleural or pericardial effusion. Severe three-vessel coronary artery calcifications. Lungs: Scarring within right middle lobe, present before. Calcified granuloma within right upper lobe, present before. There is a small focus of groundglass opacification within the right apex, image 39 of series 3, measuring up to 1.3 cm, new since prior. No suspicious lesions within the remaining lungs. Upper Abdomen: Gallbladder calculi. Right renal cortical cysts. Musculoskeletal: No enlarged axillary or supraclavicular lymph nodes. No aggressive osseous lesions or acute fractures. Procedure Note Krystin Kennedy MD - 04/08/2025 CLINICAL INDICATION: Aspiration TECHNIQUE: Multiple CT helical images were obtained from thoracic inlet through upperabdomen with administration of IV contrast. 100 mL of Omnipaque-300 wereadministered intravenously. The imaging protocol used in this examination was optimized to achievediagnostic quality with the lowest possible radiation dose in accordancewith the principles of ALARA (As Low As Reasonably Achievable). COMPARISON: April 09, 2024 FINDINGS: Mediastinum and Pleura: No mediastinal or hilar adenopathy. No pleural orpericardial effusion. Severe three-vessel coronary arterycalcifications. Lungs: Scarring within right middle lobe, present before. Calcifiedgranuloma within right upper lobe, present before. There is a small focusof groundglass opacification within the right apex, image 39 of series 3,measuring up to 1.3 cm, new since prior. No suspicious lesions within theremaining lungs. Upper Abdomen: Gallbladder calculi. Right renal cortical cysts. Musculoskeletal: No enlarged axillary or supraclavicular lymph nodes. Noaggressive osseous lesions or acute fractures. IMPRESSION: Small groundglass focus within the right apex, could bepostinfectious/postinflammatory. CT chest follow-up in 3 months would beappropriate. No acute airspace disease in the remaining lungs. CRITICAL RESULT: No. COMMUNICATION: Per this written report. Drafted by Krystin Kennedy MD on 04/08/2025 2:33 PM Final report signed by Krystin Kennedy MD on 04/08/2025 2:38 PM Stacy Daly MD IMG CT PROCEDURES Final Resu lt * CT Soft Tissue Neck w IV Contrast (04/08/2025 2:23 PM EDT) Anatomical Region Laterality Modality Neck Computed Tomogra phy Impressions 04/09/2025 11:20 AM EDT Stable exam with no evidence of recurrent disease. CRITICAL RESULT: No. COMMUNICATION: Per this written report. Drafted by Simone Mckinnon MD on 04/09/2025 10:33 AM Final report signed by Simone Mckinnon MD on 04/09/2025 11:20 AM Narrative 04/09/2025 11:20 AM EDT CLINICAL INDICATION: Head/neck cancer, assess treatment response * Stage stage II (cT2, cN2, cM0 p16+) tonsillar squamous cell carcinoma. 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 Coronal and sagittal reformatted images were created. 100 mL of Omnipaque 300 were administered intravenously. Total DLP (Dose-Length Product): 1303.63 mGy.cm. Please note: The reported value represents the total of one or more individual components during the CT acquisition on this date and at this time, and as such, the same value may appear in more than one CT report depending on the interpreting/reporting physicians. COMPARISON: Neck CT 04/09/2024 FINDINGS: Diagnostic Quality: Adequate. Soft Tissues: No masses are present within the soft tissues of the neck. Effacement of fat in the left neck spaces, post radiation changes. Lymph Nodes: Postsurgical changes of bilateral neck dissection. Left level IV lymph nodes are grossly unchanged in size measuring 14 x 10 (series 2, image 53) and 12 x 11 mm (series 2, image 51). No new cervical adenopathy is present. Pharynx/Larynx: Submucosal edema in the supraglottic larynx, postradiation changes. No definite pharyngeal or laryngeal masses are present. Oral Cavity: Postsurgical changes of (negative colectomy and fibular flap reconstruction. No hardware loosening or failure. No large masses are present within the oral cavity within the limitations of the study. Parapharyngeal Space: No lesions are present within the parapharyngeal space. Salivary Glands: The parotid are normal in size without definite focal lesions. The submandibular glands are surgically absent. Thyroid: No focal thyroid lesions are present, within the limitations of the study. Orbits/Paranasal Sinuses/Skull Base/Posterior Fossa: No orbital masses are present within the visualized portions of the orbits. Mucosal thickening/fluid in the maxillary sinuses and ethmoid air cells. Within the skull base, there is no focal lesion or destructive process. No abnormality is identified within the posterior fossa. Bones/Spine: Multilevel degenerative changes of the spine most pronounced at C5- C6 with severe spinal canal stenosis. Degenerative changes at the atlantoaxial joint with some erosive changes along the articular surfaces. No bony destructive lesion is present. Thoracic Inlet and Lung Apices: Please see the separate report for the chest CT scan for further discussion of intrathoracic findings. Other Findings: None. Procedure Note Simone Mckinnon MD - 04/09/2025 CLINICAL INDICATION: Head/neck cancer, assess treatment response *Stage stage II (cT2, cN2, cM0 p16+) tonsillar squamous cell carcinoma. 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 Coronal and sagittal reformatted images were created. 100 mLof Omnipaque 300 were administered intravenously. Total DLP (Dose-Length Product): 1303.63 mGy.cm. Please note: The reportedvalue represents the total of one or more individual components during theCT acquisition on this date and at this time, and as such, the same valuemay appear in more than one CT report depending on theinterpreting/reporting physicians. COMPARISON: Neck CT 04/09/2024 FINDINGS: Diagnostic Quality: Adequate. Soft Tissues: No masses are present within the soft tissues of the neck.Effacement of fat in the left neck spaces, post radiation changes. Lymph Nodes: Postsurgical changes of bilateral neck dissection. Left levelIV lymph nodes are grossly unchanged in size measuring 14 x 10 (series 2,image 53) and 12 x 11 mm (series 2, image 51). No new cervical adenopathyis present. Pharynx/Larynx: Submucosal edema in the supraglottic larynx, postradiationchanges. No definite pharyngeal or laryngeal masses are present. Oral Cavity: Postsurgical changes of (negative colectomy and fibular flapreconstruction. No hardware loosening or failure. No large masses arepresent within the oral cavity within the limitations of the study. Parapharyngeal Space: No lesions are present within the parapharyngealspace. Salivary Glands: The parotid are normal in size without definite focallesions. The submandibular glands are surgically absent. Thyroid: No focal thyroid lesions are present, within the limitations ofthe study. Orbits/Paranasal Sinuses/Skull Base/Posterior Fossa: No orbital masses arepresent within the visualized portions of the orbits. Mucosalthickening/fluid in the maxillary sinuses and ethmoid air cells. Withinthe skull base, there is no focal lesion or destructive process. Noabnormality is identified within the posterior fossa. Bones/Spine: Multilevel degenerative changes of the spine most pronouncedat C5- C6 with severe spinal canal stenosis. Degenerative changes at theatlantoaxial joint with some erosive changes along the articular surfaces.No bony destructive lesion is present. Thoracic Inlet and Lung Apices: Please see the separate report for thechest CT scan for further discussion of intrathoracic findings. Other Findings: None. IMPRESSION: Stable exam with no evidence of recurrent disease. CRITICAL RESULT: No. COMMUNICATION: Per this written report. Drafted by Simone Mckinnon MD on 04/09/2025 10:33 AM Final report signed by Simone Mckinnon MD on 04/09/2025 11:20 AM Stacy Daly MD IMG CT PROCEDURES Final Resu lt * (ABNORMAL) CBC and Differential (04/08/2025 10:49 AM EDT) WBC Count 9.79 3.70 - 10.30 10*3/uL LAB HEMATOLOGY METHOD 04/08/2025 11:11 AM EDT [facility] RBC Count 3.94(L) 4.60 - 6.10 10*6/uL LAB HEMATOLOGY METHOD 04/08/2025 11:11 AM EDT [facility] HGB 9.8(L) 13.7 - 17.5 g/dL LAB HEMATOLOGY METHOD 04/08/2025 11:11 AM EDT [facility] HCT 32.0(L) 40.0 - 51.0 % LAB HEMATOLOGY METHOD 04/08/2025 11:11 AM EDT [facility] Platelet Count 198 155 - 369 10*3/uL LAB HEMATOLOGY METHOD 04/08/2025 11:11 AM EDT [facility] MCV 81 79 - 98 fL LAB HEMATOLOGY METHOD 04/08/2025 11:11 AM EDT [facility] MCH 24.9(L) 26.0 - 32.0 pg LAB HEMATOLOGY METHOD 04/08/2025 11:11 AM EDT [facility] MCHC 30.6(L) 30.7 - 35.5 g/dL LAB HEMATOLOGY METHOD 04/08/2025 11:11 AM EDT [facility] RDW 15.0(H) 11.5 - 14.5 % LAB HEMATOLOGY METHOD 04/08/2025 11:11 AM EDT [facility] MPV 9.3 8.8 - 12.5 fL LAB HEMATOLOGY METHOD 04/08/2025 11:11 AM EDT [facility] nRBC 0.0 <=0.0 per 100 WBCs LAB HEMATOLOGY METHOD 04/08/2025 11:11 AM EDT [facility] Differential Type Automated LAB HEMATOLOGY METHOD 04/08/2025 11:11 AM EDT [facility] Neutrophils % 82 % LAB HEMATOLOGY METHOD 04/08/2025 11:11 AM EDT [facility] Lymphocytes % 11 % LAB HEMATOLOGY METHOD 04/08/2025 11:11 AM EDT [facility] Monocytes % 5 % LAB HEMATOLOGY METHOD 04/08/2025 11:11 AM EDT [facility] Eosinophils % 2 % LAB HEMATOLOGY METHOD 04/08/2025 11:11 AM EDT [facility] Basophils % 0 % LAB HEMATOLOGY METHOD 04/08/2025 11:11 AM EDT [facility] Immature Granulocytes % 0 % LAB HEMATOLOGY METHOD 04/08/2025 11:11 AM EDT [facility] Neutrophils Absolute 8.02(H) 1.60 - 6.10 10*3/uL LAB HEMATOLOGY METHOD 04/08/2025 11:11 AM EDT [facility] Lymphocytes Absolute 1.07(L) 1.20 - 3.90 10*3/uL LAB HEMATOLOGY METHOD 04/08/2025 11:11 AM EDT [facility] Monocytes Absolute 0.50 0.30 - 0.90 10*3/uL LAB HEMATOLOGY METHOD 04/08/2025 11:11 AM EDT [facility] Eosinophils Absolute 0.15 0.00 - 0.50 10*3/uL LAB HEMATOLOGY METHOD 04/08/2025 11:11 AM EDT [facility] Basophils Absolute 0.01 0.00 - 0.10 10*3/uL LAB HEMATOLOGY METHOD 04/08/2025 11:11 AM EDT [facility] Immature Granulocytes Absolute 0.04 0.00 - 0.06 10*3/uL LAB HEMATOLOGY METHOD 04/08/2025 11:11 AM EDT [facility] Blood Venous blood specimen / Unknown Venipuncture / Unknown 04/08/2025 10:49 AM EDT 04/08/2025 11:01 AM EDT Narrative [facility] - 04/08/2025 11:11 AM EDT Therapeutic decision making should be based on absolute values, rather than percentages. Stacy Daly MD LAB BLOOD ORDERABLES Final R esult Performing Organization Address City/[facility]/ZIP Co de Phone Number [facility] [address] [place] [address] * Thyroid Stimulating Hormone, Plasma (04/08/2025 10:49 AM EDT) Thyroid Stimulating Hormone, Plasma 3.49 0.40 - 4.20 uIU/mL 04/08/2025 11:35 AM EDT [facility] Blood Venous blood specimen / Unknown Venipuncture / Unknown 04/08/2025 10:49 AM EDT 04/08/2025 10:59 AM EDT us Stacy Daly MD LAB BLOOD ORDERABLES Final R esult Performing Organization Address City/[facility]/ZIP Co de Phone Number [facility] [address] [place] [address] * (ABNORMAL) Comprehensive Metabolic Panel, Plasma (04/08/2025 10:49 AM EDT) Glucose, Plasma 96 74 - 99 mg/dL 04/08/2025 11:35 AM EDT [facility] BUN, Plasma 27(H) 8 - 23 mg/dL 04/08/2025 11:35 AM EDT [facility] Creatinine, Plasma 1.09 0.70 - 1.20 mg/dL 04/08/2025 11:35 AM EDT [facility] BUN/Creatinine Ratio 25 04/08/2025 11:35 AM EDT [facility] Sodium, Plasma 139 136 - 145 mmol/L 04/08/2025 11:35 AM EDT [facility] Potassium, Plasma 5.4(H) 3.6 - 4.9 mmol/L 04/08/2025 11:35 AM EDT [facility] Chloride, Plasma 107 97 - 107 mmol/L 04/08/2025 11:35 AM EDT [facility] CO2, Plasma 22 22 - 29 mmol/L 04/08/2025 11:35 AM EDT [facility] Anion Gap 10 6 - 16 mmol/L 04/08/2025 11:35 AM EDT [facility] Total Calcium, Plasma 9.6 8.9 - 10.2 mg/dL 04/08/2025 11:35 AM EDT [facility] Total Protein 7.2 6.3 - 7.9 g/dL 04/08/2025 11:35 AM EDT [facility] Albumin, Plasma 4.3 3.5 - 5.2 g/dL 04/08/2025 11:35 AM EDT [facility] AST, Plasma 20 10 - 50 U/L 04/08/2025 11:35 AM EDT [facility] ALT, Plasma 15 10 - 50 U/L 04/08/2025 11:35 AM EDT [facility] Alkaline Phosphatase, Plasma 127(H) 40 - 115 U/L 04/08/2025 11:35 AM EDT [facility] Total Bilirubin, Plasma 0.3 0.2 - 1.1 mg/dL 04/08/2025 11:35 AM EDT [facility] eGFRcr 74.4 mL/min/1.7 3m*2 04/08/2025 11:35 AM EDT [facility] Comment:Reported eGFRcr in m L/min/1.73m2 is based the CKD-EPI 2020 equation that does not use a race coefficient. Blood Venous blood specimen / Unknown Venipuncture / Unknown 04/08/2025 10:49 AM EDT 04/08/2025 10:59 AM EDT us Stacy Daly MD LAB BLOOD ORDERABLES Final R esult [facility] [address] [place] [address] * Hepatitis panel, acute (02/23/2024 5:21 AM EDT) Hepatitis B Surf Antigen Negative Negative 02/23/2024 7:18 AM EDT [facility] Hepatitis C Antibody Negative Negative 02/23/2024 7:18 AM EDT [facility] Hepatitis A Antibody IgM Negative Negative 02/23/2024 7:18 AM EDT [facility] Hepatitis B Core Antibody IgM Negative Negative 02/23/2024 7:18 AM EDT [facility] Blood Venous blood specimen / Unknown Venipuncture / Unknown 02/23/2024 5:21 AM EDT 02/23/2024 6:14 AM EDT us Raheem Dean MD LAB BLOOD ORDERABLES Final Res ult Performing Organization Address City/[facility] Co de Phone Number [facility] [address] [place] [address] from Last 3 Months or Most Recently Relevant to Health Maintenance Insurance [facility] [employer] Advance Directives * Full Code (Latest Code Status on File) Date Activated Date Inactivated Comments 02/18/2024 7:59 AM 02/29/2024 5:32 PM Question Answer Comments Patient has decision-making capacity? Yes * Full Code Date Activated Date Inactivated Comments 09/05/2022 12:35 AM 09/16/2022 7:02 PM Question Answer Comments Patient has decision-making capacity? Yes Care Teams Tax Examining Technician Relationship Specialty Start Date End Date Alex Roque MD [address] [place] [address] [address] AUDR[place] Rasheed [id number] PCP - General 12/18/21
--- OUTSIDE RECORDS SUMMARY | 2025-06-20 11:28 | XMS_ITS | Encounter Summary ---
Author Organization Healthcare Address [address] [place] [address] Care Team Providers Care Entry Level Name Role Phone Alex Roque MD Primary Care Provider [phone] Encounter Details Date Type Department Care Team (Latest Contact Info) Description 06/11/2025 Travel Social History Tobacco Use Types Packs/Day [...] drink first t alberto in the morning (EYE-BAGGAGE AGENT SUPERVISOR) to steady your nerves or to get [...] Description 09/10/2025 8:30 AM EST Office Visit [place] [facility] [address], [address] [place] [address] Gus Mon MD [address] [facility] [address] [place] [address] 10/07/2025 9:15 AM EST Clinical Support [facility] [address] [facility], 2nd [place] [phone] 10/07/2025 10:20 AM EST Appointment [facility] Radiology [address] [place] [phone] 10/10/2025 9:30 AM EST Office Visit [facility] [address] [facility], 2nd [place] [address] Vitor Honeycutt, PEOPLESOFT CONSULTANT [address] [facility] [address] [place] [address] documented as of this encounter Visit Diagnoses [...] documented as of this encounter Care Teams Entry Level Relationship Specialty Start Date End Date Alex Roque MD [address] [place] [address] [address]1 [address]1 AU[place] Rasheed [id number] PCP - General 12/18/21 documented as of this encounter
--- OUTSIDE RECORDS SUMMARY | 2025-06-20 11:28 | XMS_ITS | Encounter Summary ---
Author Organization Healthcare Address [address] [place] [address] Care Team Providers Care Recruiting Operations Consultant Name Role Phone Alex Roque MD Primary Care Provider [phone] Encounter Details Date Type Department Care Team (Latest Contact Info) Description 05/20/2025 Travel Social History Tobacco Use Types Packs/Day [...] drink first t alberto in the morning (EYE-SSN/SSBN ASSISTANT NAVIGATOR) to steady your nerves or to get [...] Description 09/10/2025 8:30 AM EST Office Visit [place] [facility] [address], [address] [place] [address] Gus Mon MD [address] [facility] [address] [place] [address] 10/07/2025 9:15 AM EST Clinical Support [facility] [address] [facility], [address]nd [place] [phone] 10/07/2025 10:20 AM EST Appointment [facility] Rad[facility] [address] [place] [address] 10/10/2025 9:30 AM EST Office Visit [facility] [address] [facility], [address]nd [place] [address] Vitor Honeycutt, [employer] [address] [facility] [address] [place] [address] documented as of this encounter Visit Diagnoses [...] documented as of this encounter Care Teams Recruiting Operations Consultant Relationship Specialty Start Date End Date Alex Roque MD [address] [place] [address] #1 [address]1 [place] Rasheed [id number] PCP - General 12/18/21 documented as of this encounter
--- OUTSIDE RECORDS SUMMARY | 2025-06-20 11:28 | XMS_ITS | Encounter Summary ---
Author Organization Healthcare Address [address] [place] [address] Care Team Providers Care Technology Integration Specialist Name Role Phone Alex Roque MD Primary Care Provider [phone] Encounter Details Date Type Department Care Team (Late st Contact Info) Description 06/05/2025 Orders Only [facility] [address] , [address] [place] [address] Sintia Sosa, RN Tonsillar cancer (CMS/HCC) (Primary Dx); Squamous cell carcinoma of left tonsil; Hypothyroidism, unspecified type Social History Tobacco Use Types Packs/Day Years [...] drink first t alberto in the morning (EYE-CERTIFIED ART THERAPIST) to steady your nerves or to get [...] Office Visit [place] [facility] [address], [address] [place] [address] Gus Mon MD [address] [facility] [address] [place] [address] 10/07/2025 9:15 AM EST Clinical Support [facility] [address] [facility], [address]nd [place] [address] 10/07/2025 10:20 AM EST Appointment [facility] Radiology [address] [place] [address] 10/10/2025 9:30 AM EST Office Visit [facility] [address] , [address] [place] [phone] Vitor Honeycutt, TRANSIT PLANNER [address] [facility] [address] [place] [address] Scheduled Orders Name Type Priority Associated Diagnoses Orde r Schedule Comprehensive Metabolic Panel, Plasma Lab Routine Tonsillar cancer (CMS/HCC) Squamous cell carcinoma of left tonsil Expected: 10/07/2025, Expires: 12/07/2026 CBC and Differential Lab Routine Tonsillar cancer (CMS/HCC) Squamous cell carcinoma of left tonsil Expected: 10/07/2025, Expires: 12/07/2026 TSH Reflex FT4 Lab Routine Tonsillar cancer (CMS/HCC) Squamous cell carcinoma of left tonsil Hypothyroidism, unspecified type Expected: 10/07/2025, Expires: 12/07/2026 documented as of this encounter Visit Diagnoses Diagnosis Tonsillar cancer- Primary Malignant neoplasm of tonsil Squamous cell carcinoma of left tonsil Hypothyroidism, unspecified type documented in this encounter Additional Health Concerns Assessment Noted Time PHQ-9 Depression Total Score: 0 10/08/19 7:43 AM EST A fall risk assessment has been complete d for the patient 05/14/2025 12:04 PM EDT A Body Mass Index follow-up plan has been documented for the patient 06/05/2025 11:47 AM EDT documented as of this encounter Care Teams Technology Integration Specialist Relationship Specialty Start Date End Date Alex Roque MD [address] [place] [address] #1 #1 AUDR[place] Rasheed [id number] PCP - General 12/18/21 documented as of this encounter
--- OUTSIDE RECORDS SUMMARY | 2025-06-20 11:28 | XMS_ITS ---
Author Organization [facility] Address [address] [place] [address] Care Team Providers Care Barrel And Receiver Aligner Name Role Phone Alex Roque MD Primary Care Provider [phone] Active Problems Problem Noted Date Diagnosed Date [...] Daly MD on 02/20/2021 Osteonecrosis of jaw Current Treatment and Therapy Plans No current plan information found. Past Treatment and Therapy Plans No past plan information found. Lifetime Dose Tracking * Chemical Lifetime Dose Automatic Entry Manual Entr y Fluoro Time 3.3 minutes 3.3 minutes 0 minutes Air Kerma 7.6 mGy 7.6 mGy 0 mGy Resolved Problems Problem Noted Date Diagnosed Date Resolved Date Streptococcal bacteremia 02/19/2024 Trismus 10/05/2020 06/16/2025 Dysphonia 06/06/2019 06/16/2025
--- OUTSIDE RECORDS SUMMARY | 2025-06-20 11:28 | XMS_ITS | Encounter Summary ---
Author Organization Healthcare Address [address] [place] [address] Care Team Providers Care Supervisor [place] Name Role Phone Gosia Stevenson APRN Primary Care Provider [phone] Alex Roque MD Primary Care Provider [phone] Encounter Details Date Type Department Care Team (Late st Contact Info) Description 02/27/2019 Abstract DSB [facility] [address] [place] [address] Dental, Provider, DDS [address] [place] [address] Social History Tobacco Use Types Packs/Day Years Used Date Smoking Tobacco: Never Assessed Sex and Gender Information Value Date Recorded Sex Assigned at Male 02/25/2024 6:07 AM EDT Legal Sex Male 8:49 PM EDT Gender Identity Male 02/25/2024 6:07 AM EDT Sexual Orientation Not on file documented as of this encounter Plan of Treatment Upcoming Encounters Date Type Department Care Team (Late st Contact Info) Description 09/10/2025 8:30 AM EST Office Visit [place] [facility] [address], [address] [place] [address] Gus Mon MD [address] [place] [address] 10/07/2025 9:15 AM EST Clinical Support [facility] [address] [facility], 2nd [place] [address] 10/07/2025 10:20 AM EST Appointment [facility] Radiology [address] [place] [address] 10/10/2025 9:30 AM EST Office Visit [facility] [address] [facility], [address]nd [place] [phone] Vitor Honeycutt, FABRIC COATING SUPERVISOR [address] [place] [address] documented as of this encounter Visit Diagnoses Not on filedocumented in this encounter Additional Health Concerns Infection Onset Date Last Indicated Resolved Time RSV 09/02/2022 09/02/2022 09/13/2022 4:41 PM EST Streptococcus Group A Comment:Patient with antibiotics > 24 hours. No longer requires droplet precautions. 02/17/2024 02/17/2024 02/24/2024 11:47 AM EDT Respiratory Rule-Out 02/18/2024 02/18/2024 024 11:15 AM EDT documented as of this encounter Care Teams Supervisor Wash House Relationship Specialty Start Date End Date Gosia Stevenson, FABRIC COATING SUPERVISOR [address] [place] [address] PCP - General 02/06/21 12/17/21 Alex Roque MD [address] [place] [address] #1 [address]1 [place] [address] PCP - General 12/18/21 documented as of this encounter
--- OUTSIDE RECORDS SUMMARY | 2025-06-20 11:28 | XMS_ITS | Encounter Summary ---
Author Organization Healthcare Address [address] [place] [address] Care Team Providers Care Distance Learning Program Coordinator Name Role Phone Alex Roque MD Primary Care Provider [phone] Encounter Details Date Type Department Care Team (Latest Contact Info) Description 06/05/2025 Travel Social History Tobacco Use Types Packs/Day [...] drink first t alberto in the morning (EYE-TANK TESTER) to steady your nerves or to get [...] Description 09/10/2025 8:30 AM EST Office Visit [place] [facility] [address], [address] [place] [address] Gus Mon MD [address] [facility] [address] [place] [address] 10/07/2025 9:15 AM EST Clinical Support [facility] [address] [facility], [address]nd [place] [address] 10/07/2025 10:20 AM EST Appointment [facility] Radiology [address] [place] [address] 10/10/2025 9:30 AM EST Office Visit [facility] [address] [facility], [address]nd [place] [address] Vitor Honeycutt, BACK SHOE CUTTER [address] [facility] [address] [place] [address] documented as of this encounter Visit Diagnoses [...] documented as of this encounter Care Teams Distance Learning Program Coordinator Relationship Specialty Start Date End Date Alex Roque MD [address] [place] [address] #1 #1 AUDR[place] Rasheed [id number] PCP - General 12/18/21 documented as of this encounter
[2025-06-20 12:09] LABS: Blood Urea Nitrogen 21 mg/dl (9-20); Creatinine,Serum 1.00 mg/dl (0.66-1.25); Estimated Glomerular Filt Rate 75 ml/min (>60); GFR (African American) 90 ML/MIN (>60)
[2025-06-20] MEDS: 0.9 % SODIUM CHLORIDE 50 ML VIAL IV (12:32)
[2025-06-20] MEDS: SODIUM CHLORIDE 0.9% 10ML SYR (RAD ONLY) 10 ML IV (12:32)
[2025-06-20] MEDS: IOPAMIDOL-370 (76%);100ML BOTTLE 100 ML IV (12:32)
== END 2025-06-20 23:59 | disposition home or self-care (01) ==
LOC: RAD 11:26
PROVIDERS: PCP Nurse Practitioner; Visit Provider Nurse Practitioner
DX: R93.89 Abnormal findings on diagnostic imaging of other specified body structures (principal); R42 Dizziness and giddiness
CPT/HCPCS: 36415; 70496; 70498; 82565; 84520; Q9967

== ENCOUNTER 2025-07-15 08:21 | Outpatient (CLI) | payer MEDICARE, SELFPAY ==
--- OUTSIDE RECORDS SUMMARY | 2025-05-20 10:41 | XMS_ITS | Encounter Summary ---
Author Organization Healthcare Address [address] [place] [address] Care Team Providers Care Spray Foam Installer Name Role Phone Alex Roque MD Primary Care Provider [phone] Reason for Referral * Imaging (Routine) - Closed Specialty Diagnoses / Procedures Referred By Neftali thayer Referred To Contact Cardiology Diagnoses Dizziness Squamous cell carcinoma of left tonsil Procedures VAS US Carotid Duplex Bilateral Jose Carson DMD, MD [address] [address] Phone: tel: fax: Referral ID Status Reason Start Date Expiration Date V isits Requested Visits Authorized [id number] Closed Perform Procedure 05/14/2025 11/13/2026 1 1 Reason for Visit * Imaging (Routine) - Closed Specialty Diagnoses / Procedures Referred By Neftali thayer Referred To Contact Cardiology Diagnoses Dizziness Squamous cell carcinoma of left tonsil Procedures VAS US Carotid Duplex Bilateral Jose Carson DMD, MD [address] [address] Phone: tel: fax: Referral ID Status Reason Start Date Expiration Date V isits Requested Visits Authorized [id number] Closed Perform Procedure 05/14/2025 11/13/2026 1 1 Encounter Details Date Type Department Care Team (Latest Contact Info) Description 05/20/2025 10:41 AM EDT - 05/20/2025 11:59 PM EDT Hospital Encounter [facility] [address] [place] [address] Dizziness; Squamous cell carcinoma of left tonsil [...] drink first t alberto in the morning (EYE-TROLLEY CAR MECHANIC) to steady your nerves or to get [...] Care Team (Late st Contact Info) Description 07/31/2025 10:30 AM EST Office Visit [facility] [address] [place] [address] Jarod Paula MD [address] [place] [address] 08/20/2025 9:00 AM EST Office Visit [facility] [address], [address] [place] [address] Andre Lion APRN [address] [place] [address] 09/10/2025 8:30 AM EST Office Visit [facility] Otolaryngology [address], [address] [place] [address] Gus Mon MD [address] [place] [address] 10/07/2025 9:15 AM EST Clinical Support [facility] [address], [address] [place] [address] 10/07/2025 10:20 AM EST Appointment [facility] [address] [place] [address] 10/10/2025 9:30 AM EST Office Visit [facility] [address], [address] [place] [address] Vitor Honeycutt, FILLING WINDER [address] [place] [address] documented as of this encounter Procedures Procedure [...] by Moises Shetty on 05/20/2025 12:44 PM [facility] Reid Carson DMD, MD CV VASCULAR PROCEDURES Fi nal Result [...] documented as of this encounter Care Teams Spray Foam Installer Relationship Specialty Start Date End Date Alex Roque MD [address] [place] [address] #1 #1 AUDRA Rasheed [id number] PCP - General 12/18/21 documented as of this encounter
--- OUTSIDE RECORDS SUMMARY | 2025-06-05 09:00 | XMS_ITS | Encounter Summary ---
Author Organization Healthcare Address [address] [place] [address] Care Team Providers Care Engineering Production Liaison Name Role Phone Alex Roque MD Primary Care Provider [phone] Reason for Visit * Reason Comments Hearing Loss * Consultation (Urgent) - Closed Specialty Diagnoses / Procedures Referred By Contac t Referred To Contact Otolaryngology Diagnoses Dizziness Squamous cell carcinoma of left tonsil Jose Carson DMD, MD [address] [facility] [address] [place] [address] Phone: tel: fax: Eric Espinoza MD [address] [facility] [address] [place] [address] Phone: tel: fax: Referral ID Status Reason Start Date Expiration Date V isits Requested Visits Authorized [id number] Closed Specialty Services Required 05/14/2025 11/13/2026 1 1 Encounter Details Date Type Department Care Team (Late st Contact Info) Description 06/05/2025 9:00 AM EDT Office Visit [facility] Audiology [address], [address] [place] [address] Jenn Aguilar, Francesco [address] [facility] [address] [place] [address] Sensorineural hearing loss (SNHL) of [...] drink first t alberto in the morning (EYE-MANAGER AREA) to steady your nerves or to get [...] Patient following up with ENT Francesco Pichardo, [facility] Clinical Under Cutter documented in this encounter Plan of Treatment Upcoming Encounters Date Type Department Care Team (Late st Contact Info) Description 07/31/2025 10:30 AM EST Office Visit [facility] [address], [address]st [place] [address] Jarod Paula MD [address] [facility] [address] [place] [address] 08/20/2025 9:00 AM EST Office Visit [facility] [address], 1[address] [place] [address] Andre Lion APRN [address] [facility] [address] [place] [address] 09/10/2025 8:30 AM EST Office Visit [place] [facility] [address], 3[address] [place] [address] Gus Mon MD [address] [place] [address] 10/07/2025 9:15 AM EST Clinical Support [facility] [address]nd [place] [address] 10/07/2025 10:20 AM EST Appointment [facility] [address] [place] [address] 10/10/2025 9:30 AM EST Office Visit [facility] [address]nd [place] [address] Vitor Honeycutt, EMERGENCY TECHNICIAN [address] [place] [address] Scheduled Orders Name Type Priority Associated Diagnoses Orde r Schedule Hearing Aid Evaluation Audiology Routine Sensorineural hearing loss (SNHL) of both ears Expected: 06/05/2025 (Approximate), Expires: 12/07/2026 documented as of this encounter Visit Diagnoses Diagnosis Sensorineural hearing loss (SNHL) of both ears- Primary documented in this encounter Additional Health Concerns Assessment Noted Time PHQ-9 Depression Total Score: 0 10/08/19 25 7:43 AM EST A fall risk assessment has been complete d for the patient 05/14/2025 12:04 PM EDT A Body Mass Index follow-up plan has been documented for the patient 06/05/2025 11:47 AM EDT documented as of this encounter Care Teams Engineering Production Liaison Relationship Specialty Start Date End Date Alex Roque MD [address] [place] [address] #1 #1 [place] Rasheed [id number] PCP - General 12/18/21 documented as of this encounter
--- OUTSIDE RECORDS SUMMARY | 2025-06-05 11:30 | XMS_ITS | Encounter Summary ---
Author Organization Healthcare Address [address] [place] [address] Care Team Providers Care Meter Tester Primary Name Role Phone Alex Roque MD Primary Care Provider [phone] Reason for Referral * Consultation (Routine) - Closed Specialty Diagnoses / Procedures Referred By Neftali thayer Referred To Contact Otolaryngology Diagnoses Rhinorrhea Norma Juan APRN [address] [address] Phone: tel: fax: [facility] Otolaryngology [address] [place] [address] Phone: tel: fax: Referral ID Status Reason Start Date Expiration Date V isits Requested Visits Authorized [id number] Closed Specialty Services Required 06/05/2025 12/05/2026 1 1 * Consultation (Routine) - Closed Specialty Diagnoses / Procedures Referred By Neftali thayer Referred To Contact Otolaryngology Diagnoses Productive cough History of head and neck cancer Norma Juan APRN [address] [address] Phone: tel: fax: [facility] Otolaryngology [address] [place] [address] [place] [address] Phone: tel: fax: Referral ID Status Reason Start Date Expiration Date V isits Requested Visits Authorized [id number] Closed Specialty Services Required 06/05/2025 12/05/2026 1 1 Reason for Visit * Reason Comments Dizziness Encounter Details Date Type Department Care Team (Late st Contact Info) Description 06/05/2025 11:30 AM EDT Consult [facility] [address], [address] [place] [address] Norma Juan APRN [address] [place] [address] Lightheadedness (Primary Dx); Productive cough; [...] drink first t alberto in the morning (EYE-NEUROPSYCHOLOGY DIVISION CHIEF) to steady your nerves or to get [...] Miscellaneous Notes * Progress Notes - Norma Juan APRN - 06/05/2025 11:30 AM EDT Images from the original note were not included. [facility]ology [facility]tology [facility] -- [place] [id number] Consultation Visit HPI: Riccardo Earl is a [...] Normal Communication: verbal with good voice quality head and Face: normocephalic, no scars, lesions, masses [...] Description 07/31/2025 10:30 AM EST Office Visit [facility] [address], [address] [place] [address] Jarod Paula MD [address] [facility] [address] [place] [address] 08/20/2025 9:00 AM EST Office Visit [facility] [address], [address] [place] [address] Andre Lion APRN [address] [facility] [address] [place] [address] 09/10/2025 8:30 AM EST Office Visit [facility] Otolaryngology [address], [address] [place] [address] Gus Mon MD [address] [facility] [address] [place] [address] 10/07/2025 9:15 AM EST Clinical Support [facility] [address] [facility], [address] [place] [address] 10/07/2025 10:20 AM EST Appointment [facility] [address] [place] [address] 10/10/2025 9:30 AM EST Office Visit [facility] [address] [place] [address] Vitor Honeycutt, MANAGER HEALTH [address] [place] [address] Scheduled Orders Name Type Priority Associated Diagnoses [...] documented as of this encounter Care Teams Meter Tester Primary Relationship Specialty Start Date End Date Alex Roque MD [address] [place] [address] #1 #1 [place] [id number] PCP - General 12/18/21 documented as of this encounter
--- OUTSIDE RECORDS SUMMARY | 2025-06-11 08:30 | XMS_ITS | Encounter Summary ---
Author Organization Healthcare Address [address] [place] [address] Care Team Providers Care Construction Controller Name Role Phone Alex Roque MD Primary Care Provider [phone] Reason for Visit * Reason Comments Sinus Problem Patient states he is here because he has been having sinus issues for two months. * Consultation (Routine) - Closed Specialty Diagnoses / Procedures Referred By Neftali thayer Referred To Contact Otolaryngology Diagnoses Rhinorrhea Norma Juan, BRANCH RENTAL MANAGER [address] [place] [address] Phone: tel: fax: [facility] Otolaryngology [address], 3rd [place] [address] Phone: tel: fax: Referral ID Status Reason Start Date Expiration Date V isits Requested Visits Authorized [id number] Closed Specialty Services Required 06/05/2025 12/05/2026 1 1 Encounter Details Date Type Department Care Team (Late st Contact Info) Description 06/11/2025 8:30 AM EDT Office Visit [facility] Otolaryngology [address] [facility] 3rd [place] [address] Gus Mon MD [address] [facility] [address] [place] [address] Subacute sinusitis, unspecified location (Primary [...] drink first t alberto in the morning (EYE-COLLECTIONS REP) to steady your nerves or to get [...] Description 07/31/2025 10:30 AM EST Office Visit [facility] [address], 1st [place] [address] Jarod Paula MD [address] [place] [address] 08/20/2025 9:00 AM EST Office Visit [facility] [address], 1st [place] [address] Andre Lion APRN [address] [place] [address] 09/10/2025 8:30 AM EST Office Visit [facility] Otolaryngology [address], 3rd [place] [address] Gus Mon MD [address] [place] [address] 10/07/2025 9:15 AM EST Clinical Support [facility] [address] [facility], 2nd [place] [address] 10/07/2025 10:20 AM EST Appointment [facility] [address] [place] [address] 10/10/2025 9:30 AM EST Office Visit [facility] [address] [facility], 2nd [place] [address] Vitor Honeycutt, BRANCH RENTAL MANAGER [address] [facility] [address] [place] [address] documented as of this encounter Visit Diagnoses [...] documented as of this encounter Care Teams Construction Controller Relationship Specialty Start Date End Date Alex Roque MD [address] [place] [address] [address] [place] [address] PCP - General 12/18/21 documented as of this encounter
--- OUTSIDE RECORDS SUMMARY | 2025-06-11 09:10 | XMS_ITS | Encounter Summary ---
Author Organization [facility] Address [address] [place] [address] Care Team Providers Care Retail Store Assistant Name Role Phone Alex Roque MD Primary Care Provider [phone] Reason for Visit * Consultation (Routine) - Closed Specialty Diagnoses / Procedures Referred By Contac t Referred To Contact Otolaryngology Diagnoses Productive cough History of head and neck cancer Norma Juan, GUITAR REPAIR TECHNICIAN [address] [address] Phone: tel: fax: [facility] Otolaryngology [address] [facility] [address] [place] [address] Phone: tel: fax: Referral ID Status Reason Start Date Expiration Date V isits Requested Visits Authorized [id number] Closed Specialty Services Required 06/05/2025 12/05/2026 1 1 Encounter Details Date Type Department Care Team (Late st Contact Info) Description 06/11/2025 9:10 AM EDT Office Visit [facility] Otolaryngology [address] [address] Eric Espinoza MD [address] [address] History of head and neck cancer [...] drink first t alberto in the morning (EYE-WARP DYEING TENDER) to steady your nerves or to get [...] Risk Indicated 06/21/2025 3:40 PM EDT Katie Villalta RN * Question Answer Date of Assessment Author 1. Wish to be (Past 1 Month) No 025 3:40 PM EDT Katie Villalta RN 2. Non-Specific Active Suici leidy Thoughts [...] Ambulatory Problems Diagnosis Date Noted Tonsillar cancer ([facility]/HCC) 02/09/2019 Dysphagia 04/13/2019 Osteoradionecrosis (CMS/HCC) 05/27/2020 Colon [...] to contact me. Sincerely, Eric Espinoza M.D. [employer] Customer Service [facility] Department of Otolaryngology - Head and Neck Surgery [1] No Known Allergies [2] [3] [4] documented in this encounter Plan of Treatment Upcoming Encounters Date Type Department Care Team (Late st Contact Info) Description 07/31/2025 10:30 AM EST Office Visit [facility] [address], [address] [place] [address] Jarod Paula MD [address] [place] [address] 08/20/2025 9:00 AM EST Office Visit [facility] [address], [address] [place] [address] Andre Lion, GUITAR REPAIR TECHNICIAN [address] [facility] [address] [place] [address] 09/10/2025 8:30 AM EST Office Visit [facility] [address], [address] [place] [address] Gus Mon MD [address] [facility] [address] [place] [address] 10/07/2025 9:15 AM EST Clinical Support [facility] [address] [facility], 2nd [place] [address] 10/07/2025 10:20 AM EST Appointment [facility] [address] [place] [address] 10/10/2025 9:30 AM EST Office Visit [facility] [address] [facility], 2nd [place] [address] Vitor Honeycutt, GUITAR REPAIR TECHNICIAN [address] [facility] [address] [place] [address] documented as of this encounter [...] documented as of this encounter Care Teams Retail Store Assistant Relationship Specialty Start Date End Date Alex Roque MD [address] [place] [address] [address] [place] [id number] PCP - General 12/18/21 documented as of this encounter
--- OUTSIDE RECORDS SUMMARY | 2025-06-21 15:20 | XMS_ITS | Encounter Summary ---
Author Organization Healthcare Address [address] [id number] Care Team Providers Care Financial Planning Adviser Name Role Phone Alex Roque MD Primary Care Provider [phone] Reason for Referral * Consultation (Routine) - Authorized Specialty Diagnoses / Procedures Referred By Contac t Referred To Contact Neurosurgery Diagnoses Occlusion of left vertebral artery Jarod Paula MD [address] [place] [phone] Phone: tel: fax: [facility] [address] [facility], 1st [place] [address] Phone: tel: fax: Referral ID Status Reason Start Date Expiration Date Visits Requested Visits Authorized [id number] Authorized Specialty Services Required 06/22/2025 12/22/2026 1 1 Scheduling Instructions Please schedule with Dr. Paula * Consultation (Routine) - Authorized Specialty Diagnoses / Procedures Referred By Contac t Referred To Contact Neurosurgery Diagnoses Embolic occlusion of left vertebral artery Zachary Gutierres MD [address] [place] [phone] Phone: tel: fax: Referral ID Status Reason Start Date Expiration Date Visits Requested Visits Authorized [id number] Authorized Specialty Services Required 06/22/2025 12/22/2026 1 1 * Consultation (Routine) - Authorized Specialty Diagnoses / Procedures Referred By Neftali thayer Referred To Contact Neurology Diagnoses Embolic occlusion of left vertebral artery Zachary Gutierres MD [address] [address] Phone: tel: fax: Referral ID Status Reason Start Date Expiration Date Visits Requested Visits Authorized [id number] Authorized Specialty Services Required 06/22/2025 12/22/2026 1 1 Scheduling Instructions Stroke clinic in 8-12 weeks Reason for Visit * Reason Comments Dizziness * Auth/Cert (Routine) Specialty Diagnoses / Procedures Referred By Neftali thayer Referred To Contact Diagnoses Dizziness Lightheadedness Embolic occlusion of left vertebral artery Zachary Gutierres MD [address] [phone] Phone: tel: fax: [facility] [address] [place] [address] Phone: tel: Referral ID Status Reason Start Date Expiration Date Visits Re quested Visits Authorized [id number] 1 1 Encounter Details Date Type Department Care Team (Late st Contact Info) Description 06/21/2025 3:20 PM EDT - 06/22/2025 3:54 PM EDT Hospital Encounter [facility] [address] [place] [phone] Long Arenas MD [address] [place] [address] Zachary Gutierres MD [address] [address] Occlusion of left vertebral artery [...] first t alberto in the morning (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 Wish to be (Past 1 Month) No 025 8:00 AM EDT Amrita Funk, RN 2. Non-Specific Active Suici leidy Thoughts (Past 1 Month) No 06/22/2025 8:00 AM EDT Bronson Funk RN 6. Suicidal Behavior (Lifetime) No 8:00 AM EDT Amrita Funk RN documented as of this encounter Medications [...] of this encounter Miscellaneous Notes * Amrita Rivas RN - 06/22/2025 3:04 PM EDT Images from the original note were not included. [id number] Caring for Yourself After Stroke You have [...] hospital! Last Reviewed Date: 2015 00:00:00 * Joesebastian Luh - Amrita Funk RN - 06/22/2025 3:03 PM EDT Images from the original note were not included. [id number] Understanding High Blood Pressure High blood pressure [...] increases blood volume and blood pressure. The [place] [employer] says the ideal limit is [...] regularly. Last Reviewed Date: 2024 00:00:00 ?? [id number] The [employer]. All rights reserved. This information is not intended as a substitute for professional medical care. Always follow your healthcare professional's instructions. * Jackie OnIR - Amrita Funk RN - 06/22/2025 3:03 PM EDT Images from the original note were not included. [id number] Discharge instructions for high blood pressure (hypertension) [...] medicines that contain heart stimulants. This includes gzrk-jci-zbkyvvh medicines. Check for warnings about high blood [...] fainting Last Reviewed Date: 2024 00:00:00 ?? [id number] The [employer]. All rights reserved. This information is not intended as a substitute for professional medical care. Always follow your healthcare professional's instructions. * Jackie FunkAmrita RN - 06/22/2025 3:03 PM EDT Images from the original note were not included. [id number] Nifedipine WHY is this medicine prescribed? Nifedipine [...] or herbal products may interact with nifedipine: Bellerose's wort; cimetidine (Tagamet). Be sure to let [...] if you have had a myocardial infarction (CO) within the last 2 weeks. ? tell [...] of all of the prescription and nonprescription (houv-obn-ebkfner) medicines, vitamins, minerals, and dietary supplements you [...] or pharmacist about specific clinical use. The [place] [employer] represents that the information provided hereunder was formulated with a reasonable standard of care, and in conformity with professional standards in the field. The [place] [employer] makes no representations or warranties, express or implied, including, but not limited to, any implied warranty of merchantability and/or fitness for a particular purpose, with respect to such information and specifically disclaims all such warranties. Users are advised that decisions regarding drug therapy are complex medical decisions requiring the independent, informed decision of an appropriate health spiritual care coordinator, and the information is provided for informational purposes only. The entire monograph for a drug should be reviewed for a thorough understanding of the drug's actions, uses and side effects. The [place] [employer] does not endorse or recommend the use of any drug.The information is not a substitute for medical care. AHFS?? Patient Medication Information?. ?? Copyright, 2023. The [place]??, [address], [address], [place], [place]. All Rights Reserved. Duplication for commercial use must be authorized by [facility]. Selected Revisions: July 10, 2017. AHFS?? Patient Medication Information?. ?? Copyright, 2024 * Joesebastian Luh - Amrita Funk RN - 06/22/2025 3:03 PM EDT Images from the original note were not included. [id number] Amlodipine WHY is this medicine prescribed? Amlodipine [...] and out of their sight and reach. https://www.upandWeatherista.org Dispose of unneeded medications in a way [...] of all of the prescription and nonprescription (imjg-aaj-fzubvbk) medicines, vitamins, minerals, and dietary supplements you [...] or pharmacist about specific clinical use. The [place] [employer] represents that the information provided hereunder was formulated with a reasonable standard of care, and in conformity with professional standards in the field. The [place] [employer] makes no representations or warranties, express or implied, including, but not limited to, any implied warranty of merchantability and/or fitness for a particular purpose, with respect to such information and specifically disclaims all such warranties. Users are advised that decisions regarding drug therapy are complex medical decisions requiring the independent, informed decision of an appropriate health spiritual care coordinator, and the information is provided for informational purposes only. The entire monograph for a drug should be reviewed for a thorough understanding of the drug's actions, uses and side effects. The [place] [employer] does not endorse or recommend the use of any drug.The information is not a substitute for medical care. AHFS?? Patient Medication Information?. ?? Copyright, 2023. The [place]??, [address], [address], [place], [place]. All Rights Reserved. Duplication for commercial use must be authorized by [facility]. Selected Revisions: May 15, 2024. AHFS?? Patient Medication Information?. ?? Copyright, 2024 * Armita Rivas RN - 06/22/2025 3:03 PM EDT Images from the original note were not included. Norvasc - Video Learn how Norvasc helps your heart, the possible side effects to look for, and how to use and storethis medication safely. To view the video go to this web address: [email or web address] Or, scan this QR code with your smart phone ?? [employer] * Amrita Rivas RN - 06/22/2025 3:03 PM EDT Images from the original note were not included. [id number] Clopidogrel IMPORTANT WARNING: Clopidogrel must be changed [...] doctor or pharmacist will give you the behavioral health specialist's patient information sheet (Medication Guide) when you begin treatment with clopidogrel and each time you refill your prescription. Read the information carefully and ask your doctor or pharmacist if you have any questions. You can also visit the Food and Drug Administration (FDA) website (https://www.fda.gov/Drugs/DrugSafety/qng481714.htm) or the behavioral health specialist's website to obtain the Medication Guide. Talk [...] of all of the prescription and nonprescription (ckdm-hpb-unvirui) medicines, vitamins, minerals, and dietary supplements you [...] or pharmacist about specific clinical use. The [place]. represents that the information provided hereunder was formulated with a reasonable standard of care, and in conformity with professional standards in the field. The [place] [employer] makes no representations or warranties, express or implied, including, but not limited to, any implied warranty of merchantability and/or fitness for a particular purpose, with respect to such information and specifically disclaims all such warranties. Users are advised that decisions regarding drug therapy are complex medical decisions requiring the independent, informed decision of an appropriate health spiritual care coordinator, and the information is provided for informational purposes only. The entire monograph for a drug should be reviewed for a thorough understanding of the drug's actions, uses and side effects. The [place] [employer] does not endorse or recommend the use of any drug.The information is not a substitute for medical care. AHFS?? Patient Medication Information?. ?? Copyright, 2023. The [employer]ists??, [address], [address], [place], [place]. All Rights Reserved. Duplication for commercial use must be authorized by [facility]. Selected Revisions: March 15, 2024. AHFS?? Patient [...] Pain and Promote Comfort Flowsheets (Taken 06/22/2025 134) Pain Management Interventions: rest Intervention: Provide Person-Centered Care Flowsheets (Taken 06/22/2025 134) Trust Relationship/Rapport: care explained * Discharge Summary - Dinora De Paz MD - 06/22/2025 10:36 AM EDT Hospitalization Admit Date/Time: 06/21/2025 3:20 PM Admitting Attending: Zachary Gutierres Discharge Date: 06/22/25 Discharge Attending Physician: Zachary Gutierres MD PCP name and Address: Alex Roque MD [address] [place], [place] [phone] [address] [address] Referring provider name and address: No referring [...] Your Medications These medications were sent to [facility] - [place], [place] - [address] [facility] [id number] clopidogrel 75 MG tablet Discharge Diagnosis Medical [...] 9:15 AM JAKE Hardin 10/07/2025 10:[address] [facility] 10/10/2025 9:30 AM Vitor [...] and pinprick/temperature throughout Coordination: no ataxia with vnlhpr-te-gwhz and skuv-dk-xxbj testing Cortical: no extinction of visual or tactile sensation with double simultaneous stimulation Gait/Station: Deferred Discharge Disposition/Condition Disposition: Home Condition: Stable (s/sx potential problems absent or manageable) I spent >30 minutes of patient care and instruction time in preparation for this discharge. Dinora De Paz MD Psychiatry PGY-1 [facility] Cosigned by Zachary Gutierres MD at 06/22/2025 2:34 PM EDT Associated attestation - Zachary Gutierres MD - 06/22/2025 2:34 PM EDT I saw and evaluated the patient with the resident/fellow. I discussed the case with the resident/fellow and agree with the findings and plan as documented. 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 Gutierres. Thank you for the opportunity to participate in thecare of this patient. Please page the neurology service pager with quesitons. Kadie Arredondo MD, PGY-3, Neurology Secure Chat/Pager: [phone] :48 AM Dictation software disclaimer: Parts of [...] a past medical history of Colon cancer (CMS/HCC), Hyperlipidemia, Hypertension, Hypothyroid,Osteonecrosis of jaw (CMS/HCC), Personal [...] MD Resident Physician, PGY-2 Department of Neurosurgery [facility] [1] Family History Problem Relation Name [...] comfortably in bed. 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 Acknowledged KADIE ARREDONDO 06/21/252309 Hemoglobin A1c Once Comments: Stroke In [...] Once Specialty: Neurosurgery Provider: (Not yet assigned) Completed JEFFREY DANIELS 06/21/252005 Consult to Neurology Once Specialty: Neurology Provider: (Not yet assigned) Acknowledged JEFFREY DANIELS 06/21/252004 Orthostatic vitals Per unit protocol Acknowledged [...] Tara Lord, acting as scribe for Maikol Martinez MD. Scribe Attestation: This note was dictated to me, Tara Lord, acting as a scribe for Maikol Martinez MD. Attending Attestation: The documentation was recorded by Tara Lord acting as scribe in my presence at the time of the encounter and accurately reflects the service I personally performed. Lidia Alfonso MD Resident 06/21/25 [address] Celestin MD, personally saw the patient, [...] Description 07/31/2025 10:30 AM EST Office Visit [facility] [address], [address]st [place] [address] Jarod Paula MD [address] [place] [address] 08/20/2025 9:00 AM EST Office Visit [place] [facility] [address], [address] [place] [address] Andre Lion, ADJUNCT PSYCHOLOGY FACULTY MEMBER [address] [facility] [address] [place] [address] 09/10/2025 8:30 AM EST Office Visit [place] [facility] [address], [address] [place] [address] Gus Mon MD [address] [facility] [address] [place] [address] 10/07/2025 9:15 AM EST Clinical Support [facility] [address] [place] [phone] 10/07/2025 10:20 AM EST Appointment [facility] [address] [place] [phone] 10/10/2025 9:30 AM EST Office Visit [facility] [address] [facility], 2nd [place] [phone] Vitor Honeycutt, ADJUNCT PSYCHOLOGY FACULTY MEMBER [address] [facility] [address] [place] [phone] Scheduled Referrals Name Type Priority Associated Diagnoses [...] on 06/23/2025 12:13 AM Zachary Gutierres MD IM MRI PROCEDURES Final Res ult * (ABNORMAL) Comprehensive Urine Drug Screening, Qualitative Assay, >= 27 Drug Classes (:37 AM EDT) Acetaminophen Negative Negative 06/24/2025 1:39 PM EDT [facility] Alprazolam Negative Negative 06/24/2025 1:39 PM EDT [facility] Amantadine Negative Negative 06/24/2025 1:39 PM EDT [facility] Amitriptyline Negative Negative 06/24/2025 1:39 PM EDT [facility] Amphetamine Negative Negative 06/24/2025 1:39 PM EDT [facility] Atenolol Negative Negative 06/24/2025 1:39 PM EDT [facility] Benzoylecgonine Negative Negative 1:39 PM EDT [facility] Bisoprolol Negative Negative 06/24/2025 1:39 PM EDT [facility] Bupropion Negative Negative 06/24/2025 1:39 PM EDT [facility] Butalbital Negative Negative 06/24/2025 1:39 PM EDT [facility] Carbamazepine Negative Negative 06/24/2025 1:39 PM EDT [facility] Carisoprodol Negative Negative 06/24/2025 1:39 PM EDT [facility] Chlorpheniramine Negative Negative 06/24/20 1:39 PM EDT [facility] Citalopram Negative Negative 06/24/2025 1:39 PM EDT [facility] Clindamycin Negative Negative 06/24/2025 1:39 PM EDT [facility] Clonidine Negative Negative 06/24/2025 1:39 PM EDT [facility] Clopidogrel / Ticlopidine Negative Negative 06/24/2025 1:39 PM EDT [facility] Cocaethylene Negative Negative 06/24/2025 1:39 PM EDT [facility] Cocaine Negative Negative 06/24/2025 1:39 PM EDT [facility] Codeine Negative Negative 06/24/2025 1:39 PM EDT [facility] Cyclobenzaprine Positive(A) Negative 06/24/20 1:39 PM EDT [facility] Desvenlafaxine Negative Negative 06/24/2025 1:39 PM EDT [facility] Dextromethorphan Negative Negative 06/24/20 1:39 PM EDT [facility] Diazepam Negative Negative 06/24/2025 1:39 PM EDT [facility] Diltiazem Negative Negative 06/24/2025 1:39 PM EDT [facility] Diphenhydramine Negative Negative 1:39 PM EDT [facility] Doxepine Negative Negative 06/24/2025 1:39 PM EDT [facility] Doxylamine Negative Negative 06/24/2025 1:39 PM EDT [facility] EDDP-Methadone metabolite Negative Negative 06/24/2025 1:39 PM EDT [facility] Fentanyl Negative Negative 06/24/2025 1:39 PM EDT [facility] Fluconazole Negative Negative 06/24/2025 1:39 PM EDT [facility] Fluoxetine Negative Negative 06/24/2025 1:39 PM EDT [facility] Guaifenesin Negative Negative 06/24/2025 1:39 PM EDT [facility] Haloperidol Negative Negative 06/24/2025 1:39 PM EDT [facility] Heroin/6-LUCI Negative Negative 06/24/2025 1:39 PM EDT [facility] Hydrocodone Negative Negative 06/24/2025 1:39 PM EDT [facility] Hydroxyzine / Cetirizine metabolite Negative Negative 06/24/2025 1:39 PM EDT [facility] Ibuprofen Negative Negative 06/24/2025 1:39 PM EDT [facility] Imipramine Negative Negative 06/24/2025 1:39 PM EDT [facility] Ketamine Negative Negative 06/24/2025 1:39 PM EDT [facility] Labetolol Negative Negative 06/24/2025 1:39 PM EDT [facility] Lamotrigine Negative Negative 06/24/2025 1:39 PM EDT [facility] Levetiracetam Negative Negative 06/24/2025 1:39 PM EDT [facility] Lidocaine Negative Negative 06/24/2025 1:39 PM EDT [facility] MDA Negative Negative 06/24/2025 1:39 PM EDT [facility] MDMA Negative Negative 06/24/2025 1:39 PM EDT [facility] Memantine Negative Negative 06/24/2025 1:39 PM EDT [facility] Meperidine Negative Negative 06/24/2025 1:39 PM EDT [facility] Meprobamate Negative Negative 06/24/2025 1:39 PM EDT [facility] Metaxalone Negative Negative 06/24/2025 1:39 PM EDT [facility] Methamphetamine Negative Negative 1:39 PM EDT [facility] Methocarbamol Negative Negative 06/24/2025 1:39 PM EDT [facility] Methylecgonine Negative Negative 06/24/2025 1:39 PM EDT [facility] Metoclopramide Negative Negative 06/24/2025 1:39 PM EDT [facility] Metoprolol Negative Negative 06/24/2025 1:39 PM EDT [facility] Metronidazole Negative Negative 06/24/2025 1:39 PM EDT [facility] Midazolam Negative Negative 06/24/2025 1:39 PM EDT [facility] Midazolam Metabolite Negative Negative 06/24/2025 1:39 PM EDT [facility] Mirtazapine Negative Negative 06/24/2025 1:39 PM EDT [facility] Misc Test Result Negative Negative 06/24/20 1:39 PM EDT [facility] Naproxen Negative Negative 06/24/2025 1:39 PM EDT [facility] Nefazodone Negative Negative 06/24/2025 1:39 PM EDT [facility] Norfentanyl Negative Negative 06/24/2025 1:39 PM EDT [facility] Nortriptyline Negative Negative 06/24/2025 1:39 PM EDT [facility] Ordanstron Negative Negative 06/24/2025 1:39 PM EDT [facility] Oxcarbazepine Negative Negative 06/24/2025 1:39 PM EDT [facility] Oxycodone Negative Negative 06/24/2025 1:39 PM EDT [facility] Paroxethine Negative Negative 06/24/2025 1:39 PM EDT [facility] Phenobarbital Negative Negative 06/24/2025 1:39 PM EDT [facility] Phentermine Negative Negative 06/24/2025 1:39 PM EDT [facility] Phenytoin Negative Negative 06/24/2025 1:39 PM EDT [facility] Primidone Negative Negative 06/24/2025 1:39 PM EDT [facility] Promethazine Negative Negative 06/24/2025 1:39 PM EDT [facility] Propofol Negative Negative 06/24/2025 1:39 PM EDT [facility] Propranolol Negative Negative 06/24/2025 1:39 PM EDT [facility] Quetiapine Negative Negative 06/24/2025 1:39 PM EDT [facility] Quinine Negative Negative 06/24/2025 1:39 PM EDT [facility] Rantidine Negative Negative 06/24/2025 1:39 PM EDT [facility] Sertraline Negative Negative 06/24/2025 1:39 PM EDT [facility] Spironolactone Negative Negative 06/24/2025 1:39 PM EDT [facility] Tizanidine Negative Negative 06/24/2025 1:39 PM EDT [facility] Topiramate Negative Negative 06/24/2025 1:39 PM EDT [facility] Tramadol Negative Negative 06/24/2025 1:39 PM EDT [facility] Trazadone/ Trazadone metabolite Negative Negative 06/24/2025 1:39 PM EDT [facility] Trimethoprim Negative Negative 06/24/2025 1:39 PM EDT [facility] Valproic Acid Negative Negative 06/24/2025 1:39 PM EDT [facility] Venlafaxine Negative Negative 06/24/2025 1:39 PM EDT [facility] Verapamil Negative Negative 06/24/2025 1:39 PM EDT [facility] Zolpidem Negative Negative 06/24/2025 1:39 PM EDT [facility] Xylazine Negative Negative 06/24/2025 1:39 PM EDT [facility] Urine Urine specimen obtained by clean catch procedure / Unknown Non-blood Collection / Unknown 06/22/2025 4:37 AM EDT 06/22/2025 4:43 AM EDT Zachary Gutierres MD LAB URINE ORDERABLES Final R esult [facility] [address] [place] [address] * (ABNORMAL) Lipid panel (06/22/2025 4:32 AM EDT) Cholesterol, Plasma 159 <200 mg/dL 06/22/2025 5:13 AM EDT [facility] Comment: Cholesterol Reference Range (age >17 years): Desirable <200 mg/dL Borderline 200 to 239 mg/dL Undesirable >239 mg/dL HDL 35(L) >=40 mg/dL 06/22/2025 5:13 AM EDT [facility] Comment: HDL Cholesterol Reference Ranges (age >17 years): Female, acceptable > or = 50 mg/dL Male, acceptable > or = 40 mg/dL Triglycerides, Plasma 112 <150 mg/dL 06/22/2025 5:13 AM EDT [facility] Comment: Triglyceride Reference Range (age >17 years): Desirable: <150 mg/dL Borderline high: 150 to 199 mg/dL High: 200 to 499 mg/dL Very high: >499 mg/dL Increased risk of pancreatitis: >1000 mg/dL Cholesterol/HDL Ratio 5 06/22/2025 5:13 AM EDT [facility] LDL, Calculated 103(H) <100 mg/dL 5:13 AM EDT [facility] Comment: LDL Cholesterol Reference Range [...] 12 hours? Yes 06/22/2025 5:13 AM EDT [facility] Blood Venous blood specimen / Unknown Venipuncture / Unknown 06/22/2025 4:32 AM EDT 06/22/2025 4:43 AM EDT Zachary Gutierres MD LAB BLOOD ORDERABLES Final R esult Performing Organization Address City/[facility]/ZIP Co de Phone Number [facility] [address] [place] [address] * TSH (06/21/2025 3:18 PM EDT) Thyroid Stimulating Hormone, Plasma 3.77 0.40 - 4.20 uIU/mL 06/21/2025 11:48 PM EDT [facility] Blood Venous blood specimen / Unknown Venipuncture / Unknown 06/21/2025 3:18 PM EDT 06/21/2025 3:22 PM EDT Zachary Gutierres MD LAB BLOOD ORDERABLES Final R esult Performing Organization Address City/[facility]/ZIP Co de Phone Number [facility] [address] [place] [address] * (ABNORMAL) Hemoglobin A1c (06/21/2025 3:18 PM EDT) Hemoglobin A1c 5.9(H) <5.7 % 06/22/2025 9:33 AM EDT [facility] Blood Venous blood specimen / Unknown Venipuncture / Unknown 06/21/2025 3:18 PM EDT 06/21/2025 3:22 PM EDT Narrative [facility] - 06/22/2025 9:33 AM EDT HA1C Interpretive Data: Diagnosis of Diabetes: Diabetic > or = 6.5% Pre-diabetic 5.7 to 6.4% Non-diabetic < or = 5.6% Glycemic Targets for Type I and Type II Diabetics: Non- Adults <7.0% Adults <6.0% Children and Adolescents <7.5% Source: [place] [employer]. Standards of medical care in diabetes,2017. Diabetes Care.2017:40 (suppl 1):S1-S135. Result [facility] Zachary Gutierres MD LAB BLOOD ORDERABLES Final R esult Performing Organization Address City/[facility]/ZIP Co de Phone Number [facility] [address] [place] [address] * ED HIV 1/2 Antibody/Antigen Screen w/Reflex to HIV 1/2 Differentiation (06/21/2025 3:18 PM EDT) Pathologist [facility] HIV 1 & 2 Antibody/Antigen Screen Non Reactive Non Reactive 06/21/2025 4:35 PM EDT [facility] Comment:Screening for HIV 1 & 2 antibodies, and P24 antigen is NONREACTIVE. No confirmatory testing is required. Blood Venous blood specimen / Unknown Venipuncture / Unknown 06/21/2025 3:18 PM EDT 06/21/2025 3:56 PM EDT Maikol Martinez MD LAB BLOOD ORDERABLES Final Res ult Performing Organization Address [facility] Co de Phone Number [facility] [address] [place] [address] * Hepatitis C Antibody - ED (06/21/2025 3:18 PM EDT) Pathologist [facility] Hepatitis C Antibody Negative Negative 06/21/2025 4:35 PM EDT [facility] Blood Venous blood specimen / Unknown Venipuncture / Unknown 06/21/2025 3:18 PM EDT 06/21/2025 3:56 PM EDT Result [facility] Maikol Martinez MD LAB BLOOD ORDERABLES Final Res ult Performing Organization Address City/[facility]/ZIP Co de Phone Number [facility] [address] [place] [address] * (ABNORMAL) CBC w/diff (06/21/2025 3:18 PM EDT) Pathologist [facility] WBC Count 8.59 3.70 - 10.30 10*3/uL LAB HEMATOLOGY METHOD 06/21/2025 3:24 PM EDT [facility] RBC Count 4.05(L) 4.60 - 6.10 10*6/uL LAB HEMATOLOGY METHOD 06/21/2025 3:24 PM EDT [facility] HGB 10.7(L) 13.7 - 17.5 g/dL LAB HEMATOLOGY METHOD 06/21/2025 3:24 PM EDT [facility] HCT 32.5(L) 40.0 - 51.0 % LAB HEMATOLOGY METHOD 06/21/2025 3:24 PM EDT [facility] Platelet Count 195 155 - 369 10*3/uL LAB HEMATOLOGY METHOD 06/21/2025 3:24 PM EDT [facility] MCV 80 79 - 98 fL LAB HEMATOLOGY METHOD 06/21/2025 3:24 PM EDT [facility] MCH 26.4 26.0 - 32.0 pg LAB HEMATOLOGY METHOD 06/21/2025 3:24 PM EDT [facility] MCHC 32.9 30.7 - 35.5 g/dL LAB HEMATOLOGY METHOD 06/21/2025 3:24 PM EDT [facility] RDW 14.6(H) 11.5 - 14.5 % LAB HEMATOLOGY METHOD 06/21/2025 3:24 PM EDT [facility] MPV 8.7(L) 8.8 - 12.5 fL LAB HEMATOLOGY METHOD 06/21/2025 3:24 PM EDT [facility] nRBC 0.0 <=0.0 per 100 WBCs LAB HEMATOLOGY METHOD 06/21/2025 3:24 PM EDT [facility] Differential Type Automated LAB HEMATOLOGY METHOD 06/21/2025 3:24 PM EDT [facility] Neutrophils % 77 % LAB HEMATOLOGY METHOD 06/21/2025 3:24 PM EDT [facility] Lymphocytes % 13 % LAB HEMATOLOGY METHOD 06/21/2025 3:24 PM EDT [facility] Monocytes % 6 % LAB HEMATOLOGY METHOD 06/21/2025 3:24 PM EDT [facility] Eosinophils % 4 % LAB HEMATOLOGY METHOD 06/21/2025 3:24 PM EDT [facility] Basophils % 0 % LAB HEMATOLOGY METHOD 06/21/2025 3:24 PM EDT [facility] Immature Granulocytes % 0 % LAB HEMATOLOGY METHOD 06/21/2025 3:24 PM EDT [facility] Neutrophils Absolute 6.66(H) 1.60 - 6.10 10*3/uL LAB HEMATOLOGY METHOD 06/21/2025 3:24 PM EDT [facility] Lymphocytes Absolute 1.10(L) 1.20 - 3.90 10*3/uL LAB HEMATOLOGY METHOD 06/21/2025 3:24 PM EDT [facility] Monocytes Absolute 0.49 0.30 - 0.90 10*3/uL LAB HEMATOLOGY METHOD 06/21/2025 3:24 PM EDT [facility] Eosinophils Absolute 0.30 0.00 - 0.50 10*3/uL LAB HEMATOLOGY METHOD 06/21/2025 3:24 PM EDT [facility] Basophils Absolute 0.01 0.00 - 0.10 10*3/uL LAB HEMATOLOGY METHOD 06/21/2025 3:24 PM EDT [facility] Immature Granulocytes Absolute 0.03 0.00 - 0.06 10*3/uL LAB HEMATOLOGY METHOD 06/21/2025 3:24 PM EDT [facility] Blood Venous blood specimen / Unknown Venipuncture / Unknown 06/21/2025 3:18 PM EDT 06/21/2025 3:22 PM EDT Narrative [facility] - 06/21/2025 3:24 PM EDT Therapeutic decision making should be based on absolute values, rather than percentages. us Maikol Martinez MD LAB BLOOD ORDERABLES Final Res ult [facility] [address] [place] [address] * (ABNORMAL) BMP (06/21/2025 3:18 PM EDT) Glucose, Plasma 100(H) 74 - 99 mg/dL 06/21/2025 3:44 PM EDT [facility] BUN, Plasma 21 8 - 23 mg/dL 06/21/2025 3:44 PM EDT [facility] Creatinine, Plasma 1.14 0.70 - 1.20 mg/dL 06/21/2025 3:44 PM EDT [facility] BUN/Creatinine Ratio 18 06/21/2025 3:44 PM EDT [facility] Sodium, Plasma 139 136 - 145 mmol/L 06/21/2025 3:44 PM EDT [facility] Potassium, Plasma 4.4 3.6 - 4.9 mmol/L 06/21/2025 3:44 PM EDT [facility] Chloride, Plasma 106 97 - 107 mmol/L 06/21/2025 3:44 PM EDT [facility] CO2, Plasma 24 22 - 29 mmol/L 06/21/2025 3:44 PM EDT [facility] Anion Gap 9 6 - 16 mmol/L 06/21/2025 3:44 PM EDT [facility] Total Calcium, Plasma 9.1 8.9 - 10.2 mg/dL 06/21/2025 3:44 PM EDT [facility] eGFRcr 70.5 mL/min/1.7 3m*2 06/21/2025 3:44 PM EDT [facility] Comment:Reported eGFRcr in m L/min/1.73m2 is based the CKD-EPI 2020 equation that does not use a race coefficient. Blood Venous blood specimen / Unknown Venipuncture / Unknown 06/21/2025 3:18 PM EDT 06/21/2025 3:22 PM EDT us Maikol Martinez MD LAB BLOOD ORDERABLES Final Res ult [facility] [address] [place] [address] * EKG now - STAT (adult) (06/21/2025 2:36 PM EDT) EKG DIAGNOSIS CLASS Abnormal MUSE ECG Ventricular Rate 78 BPM MUSE ECG Atrial Rate 78 BPM MUSE ECG KS Interval 134 ms MUSE ECG QRSD Interval 108 ms MUSE ECG QT Interval 352 ms MUSE ECG QTC Interval 401 ms MUSE ECG P Rifton 78 degrees MUSE ECG R [place] -4 degrees MUSE ECG T Wave [place] 33 degrees MUSE ECG Diagnosis Sinus rhythm with occasional premature ventricular complexes MUSE ECG Diagnosis Poor R-wave progression ; consider anterior infarct, lead placement, or normal variant MUSE ECG Diagnosis Abnormal ECG MUSE ECG Diagnosis MUSE ECG Diagnosis Confirmed by Mariana Perez ([id number]) on 06/21/2025 10:34:48 PM MUSE ECG 06/21/2025 2:36 PM EDT 06/21/2025 10:34 PM EDT us Long Arensa MD ECG ORDERABLES Final Resu lt MUSE [...] dose on 06/22/25 at 1045, Until Discontinued Given 06/22/2025 11:28 [...] documented as of this encounter Care Teams Financial Planning Adviser Relationship Specialty Start Date End Date Alex Roque MD [address] [place] [address] #1 #1 AU[place] Rasheed [id number] PCP - General 12/18/21 documented as of this encounter
--- OUTSIDE RECORDS SUMMARY | 2025-07-15 08:34 | XMS_ITS | Encounter Summary ---
Author Organization Healthcare Address [address] [place] [address] Care Team Providers Care Event Crew Technician Name Role Phone Alex Roque MD Primary Care Provider [phone] Encounter Details Date Type Department Care Team ([facility] st Contact Info) Description 06/20/2025 Orders Only External Location [address] [place] [address] Gosia Stevenson, LANG INTERPRETER [address] [place] [address] Social History Tobacco Use Types Packs/Day Years [...] drink first t alberto in the morning (EYE-ESTIMATOR BINDING) to steady your nerves or to get [...] as of this encounter Functional Status * Calculated C-SSRS Risk Score (Lifetime/Recent) Answer Date of Assessment Author No Risk Indicated 06/22/2025 8:00 AM EDT Amrita Funk, RN * Question Answer Date of Assessment Author 1. Wish to be (Past 1 Month) No 025 8:00 AM EDT Amrita Funk, RN 2. Non-Specific Active Suici leidy Thoughts (Past 1 Month) No 06/22/2025 8:00 AM EDT Monique Funk, RN 6. Suicidal Behavior (Lifetime) No 8:00 AM EDT Amrita Funk, RN documented as of this encounter Plan of Treatment Upcoming Encounters Date Type Department Care Team (Late st Contact Info) Description 07/31/2025 10:30 AM EST Office Visit [facility] [address], [address] [place] [address] Jarod Paula MD [address] [place] [address] 08/20/2025 9:00 AM EST Office Visit [facility] [address], [address] [place] [address] Andre Lion, LANG INTERPRETER [address] [place] [address] 09/10/2025 8:30 AM EST Office Visit [facility] [address], 3rd [place] [address] Gus Mon MD [address] [place] [address] 10/07/2025 9:15 AM EST Clinical Support [facility] [address] , [address]nd [place] [address] 10/07/2025 10:20 AM EST Appointment [facility] [address] [place] [address] 10/10/2025 9:30 AM EST Office Visit [facility] [address] , 2nd [place] [address] Vitor Honeycutt, LANG INTERPRETER [address] [place] [address] documented as of this encounter Procedures Procedure Name Priority Date/Time Associated Diagnosis Comments CT NEURO OUTSIDE IMAGES 06/20/2025 12:22 PM EDT documented in this encounter Results * CT NEURO OUTSIDE IMAGES (06/20/2025 12:22 PM EDT) Anatomical Region Laterality Modality Computed Tomogra phy 06/20/2025 12:2 2 PM EDT Gosia Stevenson APRN IM CT PROCEDURES Edited Result - Final documented in this encounter Visit Diagnoses Not on filedocumented in this encounter Additional Health Concerns Assessment Noted Time PHQ-9 Depression Total Score: 0 10/08/19 7:43 AM EST A fall risk assessment has been complete d for the patient 05/14/2025 12:04 PM EDT A Body Mass Index follow-up plan has been documented for the patient 06/21/2025 10:58 PM EDT documented as of this encounter Care Teams Event Crew Technician Relationship Specialty Start Date End Date Alex Roque MD [address] [place] [address] #1 #1 AUDR[place] Rasheed [id number] PCP - General 12/18/21 documented as of this encounter
--- OUTSIDE RECORDS SUMMARY | 2025-07-15 08:34 | XMS_ITS | Encounter Summary ---
Author Organization Healthcare Address [address] [place] [address] Care Team Providers Care Greige Goods Examiner Name Role Phone Alex Roque MD Primary Care Provider [phone] Encounter Details Date Type Department Care Team ([facility] st Contact Info) Description 06/20/2025 Orders Only External Location [address] [place] [address] Gosia Stevenson, CLIENT PORTFOLIO MANAGER [address] [place] [address] Social History Tobacco Use Types [...] drink first t alberto in the morning (EYE-SPEEDBOAT OPERATOR) to steady your nerves or to [...] Description 07/31/2025 10:30 AM EST Office Visit [facility] [address], [address] [place] [address] Jarod Paula MD [address] [place] [address] 08/20/2025 9:00 AM EST Office Visit [facility] [address], [address] [place] [address] Andre Lion, CLIENT PORTFOLIO MANAGER [address] [place] [address] 09/10/2025 8:30 AM EST Office Visit [facility] [address], 3[address] [place] [address] Gus Mon MD [address] [place] [address] 10/07/2025 9:15 AM EST Clinical Support [facility] [address] , [address] [place] [address] 10/07/2025 10:20 AM EST Appointment [facility] Rad[facility] [address] [place] [address] 10/10/2025 9:30 AM EST Office Visit [facility] [address] , 2[address] [place] [address] Vitor Honeycutt, CLIENT PORTFOLIO MANAGER [address] [place] [address] documented as of this encounter [...] documented as of this encounter Care Teams Greige Goods Examiner Relationship Specialty Start Date End Date Alex Roque MD [address] [place] [address] #1 #1 AUDRA Rasheed [id number] PCP - General 12/18/21 documented as of this encounter
--- OUTSIDE RECORDS SUMMARY | 2025-07-15 08:34 | XMS_ITS | Encounter Summary ---
Author Organization [facility] Address [address] [place] [address] Care Team Providers Care Shirt Operator Name Role Phone Alex Roque MD Primary Care Provider [phone] Encounter Details Date Type Department Care Team (Late st Contact Info) Description 07/02/2025 Telephone [facility] Audiology [address], 3rd [place] [address] [place] [address] Social History Tobacco Use Types Packs/Day Years [...] drink first t alberto in the morning (EYE-TRAFFIC OFFICER) to steady your nerves or to get [...] Upcoming Encounters Date Type Department Care Team ([facility] Contact Info) Description 07/31/2025 10:30 AM EST Office Visit [facility] [address], [address]st [place] [address] Jarod Paula MD [address] [place] [address] 08/20/2025 9:00 AM EST Office Visit [facility] [address], [address]st [place] [address] Andre Lion, BRAN [address] [place] [address] 09/10/2025 8:30 AM EST Office Visit [facility] Otolaryngology [address], 3rd [place] [address] Gus Mon MD [address] [place] [address] 10/07/2025 9:15 AM EST Clinical Support [facility] [address] [facility], 2nd [place] [address] 10/07/2025 10:20 AM EST Appointment [facility] Radiology [address] [place] [address] 10/10/2025 9:30 AM EST Office Visit [facility] [address] [facility], 2nd [place] [address] Vitor Honeycutt, LIGHT BULB REPLACER [address] [facility] [address] [place] [address] documented as of this encounter Visit Diagnoses [...] documented as of this encounter Care Teams Shirt Operator Relationship Specialty Start Date End Date Alex Roque MD [address] [place] [address] #1 #1 AUDRA Rasheed [id number] PCP - General 12/18/21 documented as of this encounter
--- OUTSIDE RECORDS SUMMARY | 2025-07-15 08:34 | XMS_ITS | Encounter Summary ---
Author Organization Healthcare Address [address] [place] [address] Care Team Providers Care Iv Therapy Nurse Name Role Phone Alex Roque MD Primary Care Provider [phone] Encounter Details Date Type Department Care Team (Latest Contact Info) Description 06/21/2025 Travel Social History Tobacco Use Types Packs/Day [...] drink first t alberto in the morning (EYE-REHABILITATION CENTER MANAGER) to steady your nerves or to get [...] Indicated 06/21/2025 3:40 PM EDT Katie Villalta, ALAINA * Question Answer Date of Assessment Author 1. Wish to be (Past 1 Month) No 025 3:40 PM EDT Katie Villalta, RN 2. Non-Specific Active Suici leidy Thoughts (Past 1 Month) No 06/21/2025 3:40 PM EDT Wilner Villalta RN 6. Suicidal Behavior (Lifetime) No 3:40 PM EDT Katie Villalta, ALAINA documented as of this encounter Plan of Treatment Upcoming Encounters Date Type Department Care Team (Late st Contact Info) Description 07/31/2025 10:30 AM EST Office Visit [facility] [address], [address]st [place] [address] Jarod Paula MD [address] [facility] [address] [place] [address] 08/20/2025 9:00 AM EST Office Visit [facility] [address], 1st [place] [address] Andre Lion APRN [address] [place] [address] 09/10/2025 8:30 AM EST Office Visit [facility] [address], 3[address] [place] [address] Gus Mon MD [address] [place] [address] 10/07/2025 9:15 AM EST Clinical Support [facility] [address] [facility], 2nd [place] [address] 10/07/2025 10:20 AM EST Appointment [facility] Radiology [address] [place] [address] 10/10/2025 9:30 AM EST Office Visit [facility] [address] [facility], 2nd [place] [address] Vitor Honeycutt, ARMORED CAR DRIVER [address] [place] [address] documented as of this encounter [...] documented as of this encounter Care Teams Iv Therapy Nurse Relationship Specialty Start Date End Date Alex Roque MD [address] [place] [address] #1 #1 [place] [address] PCP - General 12/18/21 documented as of this encounter
--- OUTSIDE RECORDS SUMMARY | 2025-07-15 08:34 | XMS_ITS | Encounter Summary ---
Author Organization Healthcare Address [address] [place] [address] Care Team Providers Care Trim Installer Name Role Phone Alex Roque MD Primary Care Provider [phone] Encounter Details Date Type Department Care Team (Latest Contact Info) Description 06/22/2025 Travel Social History Tobacco Use Types Packs/Day [...] drink first t alberto in the morning (EYE-MINE CAPTAIN) to steady your nerves or to get [...] Description 07/31/2025 10:30 AM EST Office Visit [facility] [address], 1st [place] [address] Jarod Paula MD [id number] [place] [address] 08/20/2025 9:00 AM EST Office Visit [facility] [address], 1st [place] [address] Andre Lion APRN [id number] [place] [address] 09/10/2025 8:30 AM EST Office Visit [facility] Otolaryngology [address], 3rd [place] [address] Gus Mon MD [address] [facility] [address] [place] [address] 10/07/2025 9:15 AM EST Clinical Support [facility] [address] [facility], 2nd [place] [address] 10/07/2025 10:20 AM EST Appointment [facility] [address] [place] [address] 10/10/2025 9:30 AM EST Office Visit [facility] [address] [facility], 2nd [place] [address] Vitor Honeycutt, QUALITY CHECKER [address] [place] [address] documented as of this encounter [...] documented as of this encounter Care Teams Trim Installer Relationship Specialty Start Date End Date Alex Roque MD [address] [place] [address] #1 [address]1 [place] [address] PCP - General 12/18/21 documented as of this encounter
--- OUTSIDE RECORDS SUMMARY | 2025-07-15 08:34 | XMS_ITS | Encounter Summary ---
Author Organization Healthcare Address [address] [id number] Care Team Providers Care Fisher Trawl Net Name Role Phone Alex Roque MD Primary Care Provider [phone] Reason for Visit * Reason Comments Med Refill Encounter Details Date Type Department Care Team ([facility] Contact Info) Description 02/21/2022 Refill [facility] [address] [facility], 2nd [place] [address] Dilia Garcia MD [address] [place] [address] Social History Tobacco Use Types Packs/Day Years [...] Upcoming Encounters Date Type Department Care Team ([facility] Contact Info) Description 07/31/2025 10:30 AM EST Office Visit [place] [facility] [address] [place] [address], 1st [place] [address] Jarod Patiño MD [address] [place] [address] 08/20/2025 9:00 AM EST Office Visit [place] [facility] [address], [address] [place] [address] Andre Lion, SALES RELATIONSHIP MANAGER [address] [facility] [address] [place] [address] 09/10/2025 8:30 AM EST Office Visit [facility] Otolaryngology [address], 3[address] [place] [address] Gus Mon MD [address] [facility] [address] [place] [address] 10/07/2025 9:15 AM EST Clinical Support [facility] [address] [facility], 2nd [place] [address] 10/07/2025 10:20 AM EST Appointment [facility] [address] [place] [address] 10/10/2025 9:30 AM EST Office Visit [facility] [address] 2nd [place] [address] Vitor Honeycutt, SALES RELATIONSHIP MANAGER [address] [place] [address] documented as of this encounter Visit Diagnoses [...] documented as of this encounter Care Teams Fisher Trawl Net Relationship Specialty Start Date End Date Alex Roque MD [address] [place] [address] #1 #1 AUDRA Rasheed [address] PCP - General 12/18/21 documented as of this encounter
--- OUTSIDE RECORDS SUMMARY | 2025-07-15 08:36 | XMS_ITS | Encounter Summary ---
Author Organization Healthcare Address [address] [place] [address] Care Team Providers Care Manager Study Name Role Phone Gosia Stevenson APRN Primary Care Provider [phone] Alex Roque MD Primary Care Provider [phone] Encounter Details Date Type Department Care Team (Late Contact Info) Description 02/27/2019 Abstract [facility] [address] [place] [address] Dental, Provider, DDS [address] [place], [place] [id number] Social History Tobacco Use Types Packs/Day Years [...] Department Care Team (Late Contact Info) Description 07/31/2025 10:30 AM EST Office Visit [facility] [address], [address]st [place] [address] Jarod Paula MD [address] [place] [address] 08/20/2025 9:00 AM EST Office Visit [facility] [address], 1[address] [place] [address] Andre Lion, CIRCUS RIDER [address] [place] [address] 09/10/2025 8:30 AM EST Office Visit [facility] [address], 3rd [place] [address] Gus Mon MD [address] [place] [address] 10/07/2025 9:15 AM EST Clinical Support [facility] [address] , 2nd [place] [address] 10/07/2025 10:20 AM EST Appointment [facility] [address] [place] [address] 10/10/2025 9:30 AM EST Office Visit [facility] [address] , 2nd [place] [phone] Vitor Honeycutt, CIRCUS RIDER [address] [place] [id number] documented as of this encounter Visit Diagnoses [...] documented as of this encounter Care Teams Manager Study Relationship Specialty Start Date End Date Gosia Stevenson CIRCUS RIDER [address] [place], [place] [id number] PCP - General 02/06/21 12/17/21 Alex Roque MD [address] [place] [address] [address] [place] [id number] PCP - General 12/18/21 documented as of this encounter
--- OUTSIDE RECORDS SUMMARY | 2025-07-15 08:37 | XMS_ITS | Encounter Summary ---
Author Organization Healthcare Address [address] [place] [address] Care Team Providers Care Clearance Rep Name Role Phone Alex Roque MD Primary Care Provider [phone] Encounter Details Date Type Department Care Team [...] drink first t alberto in the morning (EYE-LOAN SUPERVISOR) to steady your nerves or to [...] Description 07/31/2025 10:30 AM EST Office Visit [facility] [address], 1st [place] [address] Jarod Paula MD [address] [facility] [address] [place] [address] 08/20/2025 9:00 AM EST Office Visit [facility] [address], 1st [place] [address] Andre Lion, BRAN [address] [facility] [address] [place] [address] 09/10/2025 8:30 AM EST Office Visit [place] [facility] [address], 3rd [place] [address] Gus Mon MD [address] [place] [address] 10/07/2025 9:15 AM EST Clinical Support [facility] [address] [facility], 2nd [place] [address] 10/07/2025 10:20 AM EST Appointment [facility] [address] [place] [address] 10/10/2025 9:30 AM EST Office Visit [facility] [address] [facility], 2nd [place] [address] Vitor Honeycutt, DICTAPHONE MECHANIC [address] [facility] [address] [place] [address] documented as of this encounter Visit Diagnoses [...] documented as of this encounter Care Teams Clearance Rep Relationship Specialty Start Date End Date Alex Roque MD [address] [place] [address] [address] [place] [address] PCP - General 12/18/21 documented as of this encounter
--- OUTSIDE RECORDS SUMMARY | 2025-07-15 08:37 | XMS_ITS | Encounter Summary ---
Author Organization Healthcare Address [address] [place] [address] Care Team Providers Care Emt Name Role Phone Alex Roque MD Primary Care Provider Encounter Details Date Type Department Care Team [...] drink first t alberto in the morning (EYE-ASSISTANT PROFESSOR OF HISTORY) to steady your nerves or to get [...] Description 07/31/2025 10:30 AM EST Office Visit [facility] [address], 1st [place] [address] Jarod Paula MD [address] [facility] [address] [place] [address] 08/20/2025 9:00 AM EST Office Visit [facility] [address], [address] [place] [address] Andre Lion, BRAN [address] [facility] [address] [place] [address] 09/10/2025 8:30 AM EST Office Visit [place] [facility] [address], 3[address] [place] [address] Gus Mon MD [address] [place] [address] 10/07/2025 9:15 AM EST Clinical Support [facility] [address] [facility], 2nd [place] [address] 10/07/2025 10:20 AM EST Appointment [facility] [address] [place] [address] 10/10/2025 9:30 AM EST Office Visit [facility] [address] [facility], 2nd [place] [address] Vitor Honeycutt, CUSTOMER EXPERIENCE RETAIL CLERK [address] [facility] [address] [place] [address] documented as of this encounter Visit Diagnoses [...] documented as of this encounter Care Teams Emt Relationship Specialty Start Date End Date Alex Roque MD [address] [place] [address] [address] [place] [address] PCP - General 12/18/21 documented as of this encounter
--- OUTSIDE RECORDS SUMMARY | 2025-07-15 08:37 | XMS_ITS | Encounter Summary ---
Author Organization Healthcare Address [address] [place] [address] Care Team Providers Care Monomer Recovery Supervisor Name Role Phone Alex Roque MD Primary Care Provider [phone] Encounter Details Date Type Department Care Team ([facility] st Contact Info) Description 06/05/2025 Orders Only [facility] [address] [facility], 2nd [place] [address] Sintia Sosa, RN Tonsillar cancer (CMS/HCC) (Primary [...] drink first t alberto in the morning (EYE-GIS SPECIALIST) to steady your nerves or to get [...] 07/31/2025 10:30 AM EST Office Visit [facility] [address], [address] [place] [address] Jarod Paula MD [address] [place] [address] 08/20/2025 9:00 AM EST Office Visit [facility] [address], [address] [place] [address] Andre Lion, BRAN [address] [place] [address] 09/10/2025 8:30 AM EST Office Visit [facility] Otolaryngology [address], 3[address] [place] [address] Gus Mon MD [address] [place] [address] 10/07/2025 9:15 AM EST Clinical Support [facility] [address] [facility], 2nd [place] [address] 10/07/2025 10:20 AM EST Appointment [facility] [address] [place] [address] 10/10/2025 9:30 AM EST Office Visit [facility] [address] [facility], 2nd [place] [address] Vitor Honeycutt, ROLLER PNEUMATIC [address] [facility] [address] [place] [address] Scheduled Orders Name Type Priority Associated Diagnoses [...] documented as of this encounter Care Teams Monomer Recovery Supervisor Relationship Specialty Start Date End Date Alex Roque MD [address] [place] [address] [address]1 [place] [id number] PCP - General 12/18/21 documented as of this encounter
--- OUTSIDE RECORDS SUMMARY | 2025-07-15 08:37 | XMS_ITS | Encounter Summary ---
Author Organization Healthcare Address [address] [place] [address] Care Team Providers Care Feeder Tender Name Role Phone Alex Roque MD Primary Care Provider [phone] Encounter Details Date Type Department Care Team [...] drink first t alberto in the morning (EYE-TUG MASTER) to steady your nerves or to get [...] Description 07/31/2025 10:30 AM EST Office Visit [facility] [address], [address]st [place] [address] Jarod Paula MD [address] [facility] [address] [place] [address] 08/20/2025 9:00 AM EST Office Visit [facility] [address], [address]st [place] [address] Andre Lion, BRAN [address] [facility] [address] [place] [address] 09/10/2025 8:30 AM EST Office Visit [facility] [address], [address]rd [place] [address] Gus Mon MD [address] [place] [address] 10/07/2025 9:15 AM EST Clinical Support [facility] [address] [facility], 2nd [place] [address] 10/07/2025 10:20 AM EST Appointment [facility] Rad[facility] [address] [place] [address] 10/10/2025 9:30 AM EST Office Visit [facility] [address] [facility], 2nd [place] [address] Vitor Honeycutt, VALVE AND REGULATOR REPAIRER [address] [facility] [address] [place] [address] documented as of this encounter Visit Diagnoses [...] documented as of this encounter Care Teams Feeder Tender Relationship Specialty Start Date End Date Alex Roque MD [address] [place] [address] [address] [place] [address] PCP - General 12/18/21 documented as of this encounter
--- OUTSIDE RECORDS SUMMARY | 2025-07-15 08:37 | XMS_ITS ---
Author Organization [facility] Address [address] 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
--- OUTSIDE RECORDS SUMMARY | 2025-07-15 08:38 | XMS_ITS | Clinical Summary ---
Author Organization Healthcare Address [address] [address] Care Team Providers Care Manager Floor Name Role Phone Alex Roque MD Primary Care Provider Allergies No known active allergies Medications gemfibrozil [...] 60 tablet 2 5 08/08/20 25 Active clopidogrel (Plavix) 75 MG tablet Take 1 tablet by mouth daily. 89 tablet 5 09/20/20 25 Active amoxicillin-clav ulanate (Augmentin) 875-125 MG tabletIndication s:Subacute sinusitis, unspecified location Take 1 tablet by mouth 2 times a day for 7 days. 14 tablet 5 06/22/20 25 Discontinu ed(Stop Taking at Discharge) Active Problems Problem Noted Date Diagnosed Date [...] Encounters Date Type Department Care Team Description 07/02/2025 Telephone [facility] Audiology [address] Wing [address] [phone] Codi Agarwal 06/22/2025 Travel 06/21/2025 3:20 PM EDT - 06/22/2025 3:54 PM EDT Hospital Encounter [facility] Inpatient [address] [place] [address] Frankie Basilio MD Gangadhara, Suhas, MD Occlusion of left vertebral artery (Primary Dx); Lightheadedness; Dizziness; Embolic occlusion of left vertebral artery; Overweight (BMI 25.0-29.9) Discharge Disposition: Home or Self Care 06/21/2025 Travel 06/20/2025 Orders Only External Location [address] [place] [address] Gosia Stevenson, PAEDIATRIC SURGEON 06/20/2025 Orders Only External Location [address] [place] [address] Gosai Stevenson, PAEDIATRIC SURGEON 06/11/2025 9:10 AM EDT Office Visit [facility] Otolaryngology [address], [address]rd [place] [address] Eric Espinoza MD History of head and neck cancer (Primary Dx); Pharyngoesophageal dysphagia 06/11/2025 8:30 AM EDT Office Visit [facility] Otolaryngology [address], [address] [address] Gus Mon MD Subacute sinusitis, unspecified location (Primary Dx); Deviated nasal septum 06/11/2025 Travel 06/05/2025 11:30 AM EDT Consult [facility] Otolaryngology [address], [address] [place] [phone] Norma Juan, BRAN Lightheadedness (Primary Dx); Productive cough; History of head and neck cancer; Rhinorrhea; Sensorineural hearing loss, bilateral; Asymmetrical sensorineural hearing loss; Bilateral impacted cerumen 06/05/2025 9:00 AM EDT Office Visit [facility] Audiology [address] [phone] Jenn Aguilar AuD Sensorineural hearing loss (SNHL) of both ears (Primary Dx) 06/05/2025 Orders Only [facility] [address] [facility] 2nd [address] [phone] Sintia Sosa RN Tonsillar cancer ([facility]) (Primary Dx); Squamous cell carcinoma of left tonsil; Hypothyroidism, unspecified type 06/05/2025 Travel 05/20/2025 10:41 AM EDT - 05/20/2025 11:59 PM EDT Hospital Encounter [facility] Vascular Lab [address] [facility] [address] [place] [address] Dizziness; Squamous cell carcinoma of left tonsil Discharge Disposition: Home or Self Care 05/20/2025 Travel 05/14/2025 1:15 PM EDT Office Visit [facility] [address] [phone] Jose Carson DMD, MD Dizziness (Primary Dx); Squamous cell carcinoma of left tonsil 05/14/2025 Travel 05/10/2025 Telephone [facility] optical sales associate Faculty Clinic [address] [place] [address] [address] [phone] Marilou Degroot, ALAINA 05/10/2025 Telephone [facility] senior paralegal Clinic [address] [phone] Richard Lema MD from Last 3 Months Family History Medical [...] drink first t alberto in the morning ([employer]ILER[employer] WELDER) to steady your nerves or to get [...] 12.8 oz) 06/22/2025 5:54 AM EDT Height 177.8 cm (5' 10 ) 06/21/2025 11:29 PM EDT Body Mass Index 27.52 06/21/2025 11:29 PM EDT Plan of Treatment Upcoming Encounters Date Type Department Care Team (Late st Contact Info) Description 07/31/2025 10:30 AM EST Office Visit [facility] [address], [address] [phone] Jarod Paula MD [address] [phone] 08/20/2025 9:00 AM EST Office Visit [facility] [address] [address] Andre Lion, PAEDIATRIC SURGEON [address] [facility] [address] [phone] 09/10/2025 8:30 AM EST Office Visit [facility] Otolaryngology [address] [address] Gus Mon MD [address] [facility] [address] [phone] 10/07/2025 9:15 AM EST Clinical Support [facility] [address] [facility], [address] [place] [phone] 10/07/2025 10:20 AM EST Appointment [facility] Radiology [address] [place] [phone] 10/10/2025 9:30 AM EST Office Visit [facility] [address] [phone] Vitor Honeycutt, PAEDIATRIC SURGEON [address] [phone] Health Maintenance Due Date Last Done Comments Dental Oral Exam 1957 Dental Prophylaxis 1957 Dental X-Ray: Bitewings 1957 Dental X-Ray: Full Mouth 1957 [facility]-Medicare Annual Wellness (AWV) 1957 [facility]-/Child/Adol SDOH Screenings 1957 [id number] Vaccine (#1) 1962 [facility]- SDOH Screenings 1975 [facility]-Adult SDOH Screenings 1975 [facility]-DTaP,Tdap,and Td Vaccines (1 - Tdap) 1976 [facility]-Pneumococcal Vaccine: 50+ Years (1 of 2 - PCV) 1976 [facility]-Zoster Vaccines (1 of 2) 1976 [facility]-RSV Vaccine: 60+ Years or (1 - Risk 60-74 years 1-dose series) 2017 [facility]-Influenza Vaccine (#1) 2025 [facility]-Depression Screening 11/06/2025 11/06/2024, 09/26 [facility]-Diabetes: Hemoglobin A1C 06/21/2026 06/21/2025 [facility]-Hepatitis C Screening Completed 2024, 02/23/2024, 02/17/2024, Additional history exists [facility]-Obesity Intervention Completed 025, 06/11/2025, 06/11/2025, Additional history exists HPV Vaccines Aged Out [...] PROFILE, PLASMA Routine 06/22/2025 4:32 AM EDT TSH Add-On 06/21/2025 3:18 PM EDT HEMOGLOBIN A1C Add-On 06/21/2025 3:18 PM EDT ED HIV 1/2 ANTIBODY/ANTIGEN SCREEN WITH REFLEX TO HIV I/II DIFFERENTIATION STAT 06/21/2025 3:18 PM EDT ED PROTOCOL HIV 1/2 ANTIBODY/ANTIGEN SCREEN W/REFLEX TO HIV 1/2 ANTIBODY DIFFERENTIATION STAT 06/21/2025 3:18 PM EDT HEPATITIS C ANTIBODY - ED W/REFLEX TO HCV QUANT PCR STAT 06/21/2025 3:18 PM EDT CBC WITH AUTO DIFFERENTIAL STAT 06/21/2025 3:18 PM EDT BASIC METABOLIC PANEL, PLASMA STAT 06/21/2025 3:18 PM EDT ECG ADULT STAT 06/21/2025 2:[address] NEURO OUTSIDE IMAGES 06/20/20 12:[address] NEURO OUTSIDE IMAGES 06/20/20 12:22 PM EDT VAS US CAROTID DUPLEX BILATERAL Routine 05/20/2025 11:15 AM EDT Dizziness Squamous cell carcinoma of left tonsil from Last 3 Months Results * MR Head wo IV Contrast [...] by Herminia Martin on 06/23/2025 12:13 AM Ta Leon MD IMG MRI PROCEDURES Final Res ult * (ABNORMAL) Comprehensive Urine Drug Screening, Qualitative Assay, >= 27 Drug Classes (54:37 AM EDT) Acetaminophen Negative Negative 06/24/2025 1:39 PM EDT [facility] Alprazolam Negative Negative 06/24/2025 1:39 PM EDT [facility] Amantadine Negative Negative 06/24/2025 1:39 PM EDT [facility] Amitriptyline Negative Negative 06/24/2025 1:39 PM EDT [facility] Amphetamine Negative Negative 06/24/2025 1:39 PM EDT [facility] Atenolol Negative Negative 06/24/2025 1:39 PM EDT [facility] Benzoylecgonine Negative Negative 1:39 PM EDT [facility] Bisoprolol Negative Negative 06/24/2025 1:39 PM EDT [facility] Bupropion Negative Negative 06/24/2025 1:39 PM EDT [facility] Butalbital Negative Negative 06/24/2025 1:39 PM EDT [facility] Carbamazepine Negative Negative 06/24/2025 1:39 PM EDT [facility] Carisoprodol Negative Negative 06/24/2025 1:39 PM EDT [facility] Chlorpheniramine Negative Negative 06/24/20 1:39 PM EDT [facility] Citalopram Negative Negative 06/24/2025 1:39 PM EDT [facility] Clindamycin Negative Negative 06/24/2025 1:39 PM EDT [facility] Clonidine Negative Negative 06/24/2025 1:39 PM EDT [facility] Clopidogrel / Ticlopidine Negative Negative 06/24/2025 1:39 PM EDT [facility] Cocaethylene Negative Negative 06/24/2025 1:39 PM EDT [facility] Cocaine Negative Negative 06/24/2025 1:39 PM EDT [facility] Codeine Negative Negative 06/24/2025 1:39 PM EDT [facility] Cyclobenzaprine Positive(A) Negative 06/24/20 1:39 PM EDT [facility] Desvenlafaxine Negative Negative 06/24/2025 1:39 PM EDT [facility] Dextromethorphan Negative Negative 06/24/20 1:39 PM EDT [facility] Diazepam Negative Negative 06/24/2025 1:39 PM EDT [facility] Diltiazem Negative Negative 06/24/2025 1:39 PM EDT [facility] Diphenhydramine Negative Negative 1:39 PM EDT [facility] Doxepine Negative Negative 06/24/2025 1:39 PM EDT [facility] Doxylamine Negative Negative 06/24/2025 1:39 PM EDT [facility] EDDP-Methadone metabolite Negative Negative 06/24/2025 1:39 PM EDT [facility] Fentanyl Negative Negative 06/24/2025 1:39 PM EDT [facility] Fluconazole Negative Negative 06/24/2025 1:39 PM EDT [facility] Fluoxetine Negative Negative 06/24/2025 1:39 PM EDT [facility] Guaifenesin Negative Negative 06/24/2025 1:39 PM EDT [facility] Haloperidol Negative Negative 06/24/2025 1:39 PM EDT [facility] Heroin/6-LUCI Negative Negative 06/24/2025 1:39 PM EDT [facility] Hydrocodone Negative Negative 06/24/2025 1:39 PM EDT [facility] Hydroxyzine / Cetirizine metabolite Negative Negative 06/24/2025 1:39 PM EDT [facility] Ibuprofen Negative Negative 06/24/2025 1:39 PM EDT [facility] Imipramine Negative Negative 06/24/2025 1:39 PM EDT [facility] Ketamine Negative Negative 06/24/2025 1:39 PM EDT [facility] Labetolol Negative Negative 06/24/2025 1:39 PM EDT [facility] Lamotrigine Negative Negative 06/24/2025 1:39 PM EDT [facility] Levetiracetam Negative Negative 06/24/2025 1:39 PM EDT [facility] Lidocaine Negative Negative 06/24/2025 1:39 PM EDT [facility] MDA Negative Negative 06/24/2025 1:39 PM EDT [facility] MDMA Negative Negative 06/24/2025 1:39 PM EDT [facility] Memantine Negative Negative 06/24/2025 1:39 PM EDT [facility] Meperidine Negative Negative 06/24/2025 1:39 PM EDT [facility] Meprobamate Negative Negative 06/24/2025 1:39 PM EDT [facility] Metaxalone Negative Negative 06/24/2025 1:39 PM EDT [facility] Methamphetamine Negative Negative 1:39 PM EDT [facility] Methocarbamol Negative Negative 06/24/2025 1:39 PM EDT [facility] Methylecgonine Negative Negative 06/24/2025 1:39 PM EDT [facility] Metoclopramide Negative Negative 06/24/2025 1:39 PM EDT [facility] Metoprolol Negative Negative 06/24/2025 1:39 PM EDT [facility] Metronidazole Negative Negative 06/24/2025 1:39 PM EDT [facility] Midazolam Negative Negative 06/24/2025 1:39 PM EDT [facility] Midazolam Metabolite Negative Negative 06/24/2025 1:39 PM EDT [facility] Mirtazapine Negative Negative 06/24/2025 1:39 PM EDT [facility] Misc Test Result Negative Negative 06/24/20 1:39 PM EDT [facility] Naproxen Negative Negative 06/24/2025 1:39 PM EDT [facility] Nefazodone Negative Negative 06/24/2025 1:39 PM EDT [facility] Norfentanyl Negative Negative 06/24/2025 1:39 PM EDT [facility] Nortriptyline Negative Negative 06/24/2025 1:39 PM EDT [facility] Ordanstron Negative Negative 06/24/2025 1:39 PM EDT [facility] Oxcarbazepine Negative Negative 06/24/2025 1:39 PM EDT [facility] Oxycodone Negative Negative 06/24/2025 1:39 PM EDT [facility] Paroxethine Negative Negative 06/24/2025 1:39 PM EDT [facility] Phenobarbital Negative Negative 06/24/2025 1:39 PM EDT [facility] Phentermine Negative Negative 06/24/2025 1:39 PM EDT [facility] Phenytoin Negative Negative 06/24/2025 1:39 PM EDT [facility] Primidone Negative Negative 06/24/2025 1:39 PM EDT [facility] Promethazine Negative Negative 06/24/2025 1:39 PM EDT [facility] Propofol Negative Negative 06/24/2025 1:39 PM EDT [facility] Propranolol Negative Negative 06/24/2025 1:39 PM EDT [facility] Quetiapine Negative Negative 06/24/2025 1:39 PM EDT [facility] Quinine Negative Negative 06/24/2025 1:39 PM EDT [facility] Rantidine Negative Negative 06/24/2025 1:39 PM EDT [facility] Sertraline Negative Negative 06/24/2025 1:39 PM EDT [facility] Spironolactone Negative Negative 06/24/2025 1:39 PM EDT [facility] Tizanidine Negative Negative 06/24/2025 1:39 PM EDT [facility] Topiramate Negative Negative 06/24/2025 1:39 PM EDT [facility] Tramadol Negative Negative 06/24/2025 1:39 PM EDT [facility] Trazadone/ Trazadone metabolite Negative Negative 06/24/2025 1:39 PM EDT [facility] Trimethoprim Negative Negative 06/24/2025 1:39 PM EDT [facility] Valproic Acid Negative Negative 06/24/2025 1:39 PM EDT [facility] Venlafaxine Negative Negative 06/24/2025 1:39 PM EDT [facility] Verapamil Negative Negative 06/24/2025 1:39 PM EDT [facility] Zolpidem Negative Negative 06/24/2025 1:39 PM EDT [facility] Xylazine Negative Negative 06/24/2025 1:39 PM EDT [facility] Urine Urine specimen obtained by clean catch procedure / Unknown Non-blood Collection / Unknown 06/22/2025 4:37 AM EDT 06/22/2025 4:43 AM EDT us Ta Leon MD LAB URINE ORDERABLES Final R esult [facility] [address] [place] [address] * (ABNORMAL) Lipid panel (06/22/2025 4:32 AM EDT) Cholesterol, Plasma 159 <200 mg/dL 06/22/2025 5:13 AM EDT [facility] Comment: Cholesterol Reference Range (age >17 years): Desirable <200 mg/dL Borderline 200 to 239 mg/dL Undesirable >239 mg/dL HDL 35(L) >=40 mg/dL 06/22/2025 5:13 AM EDT [facility] Comment: HDL Cholesterol Reference Ranges (age >17 years): Female, acceptable > or = 50 mg/dL Male, acceptable > or = 40 mg/dL Triglycerides, Plasma 112 <150 mg/dL 06/22/2025 5:13 AM EDT [facility] Comment: Triglyceride Reference Range (age >17 years): Desirable: <150 mg/dL Borderline high: 150 to 199 mg/dL High: 200 to 499 mg/dL Very high: >499 mg/dL Increased risk of pancreatitis: >1000 mg/dL Cholesterol/HDL Ratio 5 06/22/2025 5:13 AM EDT [facility] LDL, Calculated 103(H) <100 mg/dL 5:13 AM EDT [facility] Comment: LDL Cholesterol Reference Range (age [...] 12 hours? Yes 06/22/2025 5:13 AM EDT [facility] Blood Venous blood specimen / Unknown Venipuncture / Unknown 06/22/2025 4:32 AM EDT 06/22/2025 4:43 AM EDT us Ta Leon MD LAB BLOOD ORDERABLES Final R esult Performing Organization Address [facility] [place] [place] [address] * ED HIV 1/2 Antibody/Antigen Screen w/Reflex to HIV 1/2 Differentiation (06/21/2025 3:18 PM EDT) HIV 1 & 2 Antibody/Antigen Screen Non Reactive Non Reactive 06/21/2025 4:35 PM EDT [facility] Comment:Screening for HIV 1 & 2 antibodies, and P24 antigen is NONREACTIVE. No confirmatory testing is required. Blood Venous blood specimen / Unknown Venipuncture / Unknown 06/21/2025 3:18 PM EDT 06/21/2025 3:56 PM EDT us Adriano Lanza MD LAB BLOOD ORDERABLES Final Res ult Performing Organization Address City/[facility]/ZIP Co de Phone Number [facility] [address] [place] [address] * Hepatitis C Antibody - ED (06/21/2025 3:18 PM EDT) Hepatitis C Antibody Negative Negative 06/21/2025 4:35 PM EDT [facility] Blood Venous blood specimen / Unknown Venipuncture / Unknown 06/21/2025 3:18 PM EDT 06/21/2025 3:56 PM EDT us Adriano Lanza MD LAB BLOOD ORDERABLES Final Res ult [facility] [address] [place] [address] * (ABNORMAL) CBC w/diff (06/21/2025 3:18 PM EDT) WBC Count 8.59 3.70 - 10.30 10*3/uL LAB HEMATOLOGY METHOD 06/21/2025 3:24 PM EDT [facility] RBC Count 4.05(L) 4.60 - 6.10 10*6/uL LAB HEMATOLOGY METHOD 06/21/2025 3:24 PM EDT [facility] HGB 10.7(L) 13.7 - 17.5 g/dL LAB HEMATOLOGY METHOD 06/21/2025 3:24 PM EDT [facility] HCT 32.5(L) 40.0 - 51.0 % LAB HEMATOLOGY METHOD 06/21/2025 3:24 PM EDT [facility] Platelet Count 195 155 - 369 10*3/uL LAB HEMATOLOGY METHOD 06/21/2025 3:24 PM EDT [facility] MCV 80 79 - 98 fL LAB HEMATOLOGY METHOD 06/21/2025 3:24 PM EDT [facility] MCH 26.4 26.0 - 32.0 pg LAB HEMATOLOGY METHOD 06/21/2025 3:24 PM EDT [facility] MCHC 32.9 30.7 - 35.5 g/dL LAB HEMATOLOGY METHOD 06/21/2025 3:24 PM EDT [facility] RDW 14.6(H) 11.5 - 14.5 % LAB HEMATOLOGY METHOD 06/21/2025 3:24 PM EDT [facility] MPV 8.7(L) 8.8 - 12.5 fL LAB HEMATOLOGY METHOD 06/21/2025 3:24 PM EDT [facility] nRBC 0.0 <=0.0 per 100 WBCs LAB HEMATOLOGY METHOD 06/21/2025 3:24 PM EDT [facility] Differential Type Automated LAB HEMATOLOGY METHOD 06/21/2025 3:24 PM EDT [facility] Neutrophils % 77 % LAB HEMATOLOGY METHOD 06/21/2025 3:24 PM EDT [facility] Lymphocytes % 13 % LAB HEMATOLOGY METHOD 06/21/2025 3:24 PM EDT [facility] Monocytes % 6 % LAB HEMATOLOGY METHOD 06/21/2025 3:24 PM EDT [facility] Eosinophils % 4 % LAB HEMATOLOGY METHOD 06/21/2025 3:24 PM EDT [facility] Basophils % 0 % LAB HEMATOLOGY METHOD 06/21/2025 3:24 PM EDT [facility] Immature Granulocytes % 0 % LAB HEMATOLOGY METHOD 06/21/2025 3:24 PM EDT [facility] Neutrophils Absolute 6.66(H) 1.60 - 6.10 10*3/uL LAB HEMATOLOGY METHOD 06/21/2025 3:24 PM EDT [facility] Lymphocytes Absolute 1.10(L) 1.20 - 3.90 10*3/uL LAB HEMATOLOGY METHOD 06/21/2025 3:24 PM EDT [facility] Monocytes Absolute 0.49 0.30 - 0.90 10*3/uL LAB HEMATOLOGY METHOD 06/21/2025 3:24 PM EDT [facility] Eosinophils Absolute 0.30 0.00 - 0.50 10*3/uL LAB HEMATOLOGY METHOD 06/21/2025 3:24 PM EDT [facility] Basophils Absolute 0.01 0.00 - 0.10 10*3/uL LAB HEMATOLOGY METHOD 06/21/2025 3:24 PM EDT [facility] Immature Granulocytes Absolute 0.03 0.00 - 0.06 10*3/uL LAB HEMATOLOGY METHOD 06/21/2025 3:24 PM EDT [facility] Blood Venous blood specimen / Unknown Venipuncture / Unknown 06/21/2025 3:18 PM EDT 06/21/2025 3:22 PM EDT Narrative [facility] - 06/21/2025 3:24 PM EDT Therapeutic decision making should be based on absolute values, rather than percentages. us Adriano Lanza MD LAB BLOOD ORDERABLES Final Res ult [facility] [address] [place] [address] * TSH (06/21/2025 3:18 PM EDT) Thyroid Stimulating Hormone, Plasma 3.77 0.40 - 4.20 uIU/mL 06/21/2025 11:48 PM EDT [facility] Blood Venous blood specimen / Unknown Venipuncture / Unknown 06/21/2025 3:18 PM EDT 06/21/2025 3:22 PM EDT Result [facility] Ta Leon MD LAB BLOOD ORDERABLES Final R esult [facility] [address] [place] [address] * (ABNORMAL) Hemoglobin A1c (06/21/2025 3:18 PM EDT) Hemoglobin A1c 5.9(H) <5.7 % 06/22/2025 9:33 AM EDT [facility] Blood Venous blood specimen / Unknown Venipuncture / Unknown 06/21/2025 3:18 PM EDT 06/21/2025 3:22 PM EDT Narrative [facility] - 06/22/2025 9:33 AM EDT HA1C Interpretive Data: Diagnosis of Diabetes: Diabetic > or = 6.5% Pre-diabetic 5.7 to 6.4% Non-diabetic < or = 5.6% Glycemic Targets for Type I and Type II Diabetics: Non- Adults <7.0% Adults <6.0% Children and Adolescents <7.5% Source: [place] [employer]. Standards of medical care in diabetes,2017. Diabetes Care.2017:40 (suppl 1):S1-S135. Ta Leon MD LAB BLOOD ORDERABLES Final R esult Performing Organization Address City/[facility]/ZIP Co de Phone Number [facility] [address] [place] [address] * (ABNORMAL) BMP (06/21/2025 3:18 PM EDT) Glucose, Plasma 100(H) 74 - 99 mg/dL 06/21/2025 3:44 PM EDT [facility] BUN, Plasma 21 8 - 23 mg/dL 06/21/2025 3:44 PM EDT [facility] Creatinine, Plasma 1.14 0.70 - 1.20 mg/dL 06/21/2025 3:44 PM EDT [facility] BUN/Creatinine Ratio 18 06/21/2025 3:44 PM EDT [facility] Sodium, Plasma 139 136 - 145 mmol/L 06/21/2025 3:44 PM EDT [facility] Potassium, Plasma 4.4 3.6 - 4.9 mmol/L 06/21/2025 3:44 PM EDT [facility] Chloride, Plasma 106 97 - 107 mmol/L 06/21/2025 3:44 PM EDT [facility] CO2, Plasma 24 22 - 29 mmol/L 06/21/2025 3:44 PM EDT [facility] Anion Gap 9 6 - 16 mmol/L 06/21/2025 3:44 PM EDT [facility] Total Calcium, Plasma 9.1 8.9 - 10.2 mg/dL 06/21/2025 3:44 PM EDT [facility] eGFRcr 70.5 mL/min/1.7 3m*2 06/21/2025 3:44 PM EDT [facility] Comment:Reported eGFRcr in m L/min/1.73m2 is based the CKD-EPI 2020 equation that does not use a race coefficient. Blood Venous blood specimen / Unknown Venipuncture / Unknown 06/21/2025 3:18 PM EDT 06/21/2025 3:22 PM EDT us Adriano Lanza MD LAB BLOOD ORDERABLES Final Res ult [facility] [address] [place] [address] * EKG now - STAT (adult) (06/21/2025 2:36 PM EDT) EKG DIAGNOSIS CLASS Abnormal MUSE ECG Ventricular Rate 78 BPM MUSE ECG Atrial Rate 78 BPM MUSE ECG IA Interval 134 ms MUSE ECG QRSD Interval 108 ms MUSE ECG QT Interval 352 ms MUSE ECG QTC Interval 401 ms MUSE ECG P Buckner 78 degrees MUSE ECG R Buckner -4 degrees MUSE ECG T Wave Buckner 33 degrees MUSE ECG Diagnosis Sinus rhythm with occasional premature ventricular complexes MUSE ECG Diagnosis Poor R-wave progression ; consider anterior infarct, lead placement, or normal variant MUSE ECG Diagnosis Abnormal ECG MUSE ECG Diagnosis MUSE ECG Diagnosis Confirmed by Mariana Perez ([id number]) on 06/21/2025 10:34:48 PM MUSE ECG 06/21/2025 2:36 PM EDT 06/21/2025 10:34 PM EDT us Frankie Basilio MD ECG ORDERABLES Final Resu lt MUSE ECG * CT NEURO OUTSIDE IMAGES (06/20/2025 12:22 PM EDT) Only the most recent of2 resultswithin the time period is included. Anatomical Region Laterality Modality Computed Tomogra phy 06/20/2025 12:2 2 PM EDT Gosia Stevenson APRN IMG CT PROCEDURES Edited Result - Final * VAS US Carotid Duplex Bilateral (05/20/2025 [...] MD CV VASCULAR PROCEDURES Fi nal Result from Last 3 Months Insurance [employer] [place] [employer] Advance Directives * Full Code (Latest Code Status on File) Date Activated Date Inactivated Comments 06/21/2025 11:10 PM 06/22/2025 5:59 PM Question Answer Comments I have reviewed the capacity from the link above and, if needed, have updated to appropriate status: Yes * Full Code Date Activated Date Inactivated Comments 02/18/2024 7:59 AM 02/29/2024 5:32 PM Question Answer Comments Patient has decision-making capacity? Yes * Full Code Date Activated Date Inactivated Comments 09/05/2022 12:35 AM 09/16/2022 7:02 PM Question Answer Comments Patient has decision-making capacity? Yes Care Teams Manager Floor Relationship Specialty Start Date End Date Alex Roque MD [address] [place] [address] #1 #1 AUDRA Rsaheed [id number] PCP - General 12/18/21
--- NOTE | 2025-07-15 08:45 | CA_ITS ---
APPROVED REPORT EXAM: Comprehensive 2D, Doppler, and color-flow Echocardiogram Risk Management Analyst: Idania Cardenas RT(R) Ht: 5 ft 7 in Wt: 193lbs BSA: 1.99 BP: 149/74 mmHg Indications: chest pain, dizziness, hypertension 2D Dimensions LA Volume 32.80 mL LA Volume Index 16.48 mL/m2 (M/F) 16-34 EF AP4 59.10 % GL Strain -13.9 % M-Mode Dimensions RVDd 2.50 cm (0.9-2.6) LA Diam 4.12 cm (1.9-4.0) LVDd 6.52 cm (3.5-5.7) LVDs 5.20 cm (3.5-5.7) IVSd 0.68 cm (0.6-1.1) PWd 0.64 cm (0.6-1.1) EF (Teich) 40.50% FS 20.20% EDV (Teich) 217.50 mL ESV (Teich) 129.50 mL LV Diastology E Decel Time 210 (160-240 msec) E/A Ratio 1.1 Mitral Valve MV E Max Charli. 78.0 (40-130 cm/s) MV A Velocity 74.0 (40-130 cm/s) E/A Ratio 1.06 MV PHT 62.0 ms Left Ventricle The left ventricle is normal size. Left ventricular systolic function is normal. The left ventricular ejection fraction is within the normal range. There is normal left ventricular wall thickness. There is normal LV segmental wall motion. The left ventricular diastolic function is normal. LVEF is 60%. Right Ventricle The right ventricle is normal size. The right ventricular systolic function is normal. Atria The left atrium is mildly dilated. The right atrium size is normal. There is no color Doppler evidence of interatrial shunt. Aortic Valve The aortic valve opens well. There is no hemodynamically significant aortic valvular stenosis. Mild aortic regurgitation is present. Mitral Valve The mitral valve is normal in structure. No evidence of mitral valve stenosis. Mild mitral regurgitation is present. Tricuspid Valve The tricuspid valve leaflets are thin and pliable. Trace tricuspid regurgitation. There is insufficient TR jet to estimate RVSP. Pulmonic Valve The pulmonary valve is grossly normal in structure. Trace pulmonic valve regurgitation is present. Great Vessels The aortic root is normal in size. IVC is normal in size and collapses >50% with inspiration. Pericardium There is no pericardial effusion. Other Information Study Quality: Fair Conclusion Normal biventricular systolic function. Mild LA dilation. Mild AI, mild MR. Electronically signed by : Ashwini Quintero MD 07/18/2025 12:41:21
== END 2025-07-15 23:59 | disposition home or self-care (01) ==
LOC: RT 08:22
PROVIDERS: PCP Family Medicine; Visit Provider Nurse Practitioner
DX: I08.0 Rheumatic disorders of both mitral and aortic valves (principal); I11.9 Hypertensive heart disease without heart failure; R42 Dizziness and giddiness; E78.5 Hyperlipidemia, unspecified
CPT/HCPCS: 93306

== ENCOUNTER 2025-08-06 07:04 | Outpatient (CLI) | payer MEDICARE, SELFPAY ==
--- OUTSIDE RECORDS SUMMARY | 2025-06-11 07:30 | XMS_ITS | Encounter Summary ---
Author Organization Healthcare Address [address] [place] [address] Care Team Providers Care Valve Setter Name Role Phone Alex Roque MD Primary Care Provider [phone] Reason for Visit * Reason Comments Sinus Problem Patient states he is here because he has been having sinus issues for two months. * Consultation (Routine) - Closed Specialty Diagnoses / Procedures Referred By Neftali thayer Referred To Contact Otolaryngology Diagnoses Rhinorrhea Norma Juan, DIRECTOR RETIREMENT [address] [place] [address] Phone: tel: fax: [facility] Otolaryngology [address], 3rd [place] [address] Phone: tel: fax: Referral ID Status Reason Start Date Expiration Date V isits Requested Visits Authorized [id number] Closed Specialty Services Required 06/05/2025 12/05/2026 1 1 Encounter Details Date Type Department Care Team (Late st Contact Info) Description 06/11/2025 8:30 AM EDT Office Visit [facility] [address], 3rd [place] [address] Gus Mon MD [address] [facility] [address] [place] [address] Subacute sinusitis, unspecified location (Primary Dx); Deviated nasal septum Social History Tobacco Use Types Packs/Day Years [...] drink first t alberto in the morning (EYE-ASPHALT PAVING SUPERINTENDENT) to steady your nerves or to get [...] Sign Reading Time Taken Comments Blood Pressure 169/83 06/11/2025 7:50 AM EDT Pulse 76 06/11/2025 7:50 AM EDT Temperature - - Respiratory Rate - - Oxygen Saturation - - Inhaled Oxygen Concentration - - Weight 86.5 kg (190 lb 11.2 oz) 06/11/2025 7:50 AM EDT Height 171.5 cm (5' 7.5 ) 06/11/2025 7:50 AM EDT Body Mass Index 29.43 06/11/2025 7:50 AM EDT documented in this encounter Miscellaneous Notes * Progress Notes - Gus Mon MD - 06/11/2025 8:30 AM EDT Dear Norma Juan, BRAN I had the pleasure of evaluating your patient. My full evaluation is as follows. CC: thick nasal drainage HPI: This is a 69 y.o. male who presents for consultation of thick nasal drainage. He states that over maybe the last 2 months, he has had thick nasal drainage. It is yellowish in color. It comes down the back and he blows it out the front. He does not have nasal obstruction unless he is full of mucus. He does not have facial pain/pressure. He has no allergy history. He does not have asthma. He has no sensitivity to aspirin. He has no history of sinonasal surgery. He has not had antibiotics or steroids. He does not been on topical therapy. 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 He did not complete chemotherapy due to renal insufficiency. 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 He follows with Dr. Carson for this. Past Medical History: Reviewed Past Surgical History: Reviewed Medications: Reviewed Allergies: Reviewed Family History: Reviewed and noncontributory. Social History: Reviewed and noncontributory. ROS: A 14 point ROS was not pertinent aside from the above. Physical Exam: General: No acute distress, generally healthy appearing, and alert and oriented x3. Head/Face: Atraumatic and normocephalic. Sinuses are nontender to palpation. Eyes: Pupils are equal. Extraocular muscles are intact. Nose: Septum is midline. No inferior turbinate hypertrophy. No obvious masses or polyps. Oral Cavity/Oropharynx: Moist mucous membranes. No masses or lesions noted. Skin: No obvious rashes or lesions. Psychiatric: Normal mood. Normal affect. Judgment is appropriate. Respiratory: Breathing comfortably at a normal rate. No accessory muscle usage. Cardiac: Good turgor. Good cap refill. Procedure: Results: I personally reviewed his CT neck from March 2025. He had mild maxillary and ethmoid inflammation. The sinuses are incompletely visualized. There is a left septal spur. Assessment: This is a 69 y.o. male with subacute versus chronic sinusitis. Plan: It is unclear if this is a subacute or chronic issue. The symptoms have been ongoing for roughly 2 months to his estimation. Given that the condition is relatively new, I will give him a course of Augmentin. I will also have him start sinus rinses and fluticasone nasal sprays. I will see him back in 2-3 months to see how he has responded. Thank you for involving me in the care of your patient. Please don't hesitate to contact me if you have any questions or concerns. Gus Mon MD The patient has been counseled on tobacco cessation: Not Applicable documented in this encounter Plan of Treatment Upcoming Encounters Date Type Department Care Team (Late st Contact Info) Description 08/20/2025 9:00 AM EST Office Visit [facility] [address], 1st [place] [address] Andre Lion APRN [address] [facility] [address] [place] [address] 09/10/2025 8:30 AM EST Office Visit [facility] [address], [address] [place] [address] Gus Mon MD [address] [facility] [address] [place] [address] 10/07/2025 9:15 AM EST Clinical Support [facility] [address] , [address]nd [place] [address] 10/07/2025 10:20 AM EST Appointment [facility] [address] [place] [address] 10/10/2025 9:30 AM EST Office Visit [facility] [address] [facility], 2nd [place] [address] Vitor Honeycutt, DIRECTOR RETIREMENT [address] [facility] [address] [place] [address] documented as of this encounter Visit Diagnoses Diagnosis Subacute sinusitis, unspecified location- Primary Deviated nasal septum documented in this encounter Additional Health Concerns Assessment Noted Time PHQ-9 Depression Total Score: 0 10/08/19 25 7:43 AM EST A fall risk assessment has been complete d for the patient 05/14/2025 12:04 PM EDT A Body Mass Index follow-up plan has been documented for the patient 06/21/2025 10:58 PM EDT documented as of this encounter Care Teams Valve Setter Relationship Specialty Start Date End Date Alex Roque MD [address] [place] [address] [address] [place] [address] PCP - General 12/18/21 documented as of this encounter
--- OUTSIDE RECORDS SUMMARY | 2025-06-11 08:10 | XMS_ITS | Encounter Summary ---
Author Organization [facility] Address [address] [place] [address] Care Team Providers Care Shipping And Receiving Name Role Phone Alex Roque MD Primary Care Provider [phone] Reason for Visit * Consultation (Routine) - Closed Specialty Diagnoses / Procedures Referred By Neftali thayer Referred To Contact Otolaryngology Diagnoses Productive cough History of head and neck cancer Norma Juan, MEDICAL INSTRUCTOR [address] [address] Phone: tel: fax: [facility] Otolaryngology [address] [facility] [address] [place] [address] Phone: tel: fax: Referral ID Status Reason Start Date Expiration Date V isits Requested Visits Authorized [id number] Closed Specialty Services Required 06/05/2025 12/05/2026 1 1 Encounter Details Date Type Department Care Team (Late st Contact Info) Description 06/11/2025 9:10 AM EDT Office Visit [facility] Otolaryngology [address] [address] Eric Espinoza MD [id number] [place] [address] History of head and neck cancer (Primary Dx); Pharyngoesophageal dysphagia Social History Tobacco Use Types Packs/Day Years [...] drink first t alberto in the morning (EYE-CIVIL DRAFTSMAN) to steady your nerves or to get [...] Sign Reading Time Taken Comments Blood Pressure - - Pulse - - Temperature - - Respiratory Rate - - Oxygen Saturation - - Inhaled Oxygen Concentration - - Weight 86.2 kg (190 lb) 06/11/2025 8:49 AM EDT Height 171.5 cm (5' 7.5 ) 06/11/2025 8:49 AM EDT Body Mass Index 29.32 06/11/2025 8:49 AM EDT documented in this encounter Functional Status * Calculated C-SSRS Risk Score (Lifetime/Recent) Answer Date of Assessment Author No Risk Indicated 06/21/2025 3:40 PM EDT Katie Villalta, RN * Question Answer Date of Assessment Author 1. Wish to be (Past 1 Month) No 025 3:40 PM EDT Katie Villalta, RN 2. Non-Specific Active Suici leidy Thoughts (Past 1 Month) No 06/21/2025 3:40 PM EDT Wilner Villalta RN 6. Suicidal Behavior (Lifetime) No 3:40 PM EDT Katie Villalta RN documented as of this encounter Miscellaneous Notes * Progress Notes - Eric Espinoza MD - 06/11/2025 9:10 AM EDT No chief complaint on file. Dear Norma Juan , Thank you for requesting a consultation for your patient. My full consultation is as follows. I had the pleasure of seeing your patient today in clinic. Riccardo Earl is a 69 y.o. male that presents with problems with his swallowing. He has a history of tonsil SCC, and he underwent chemoXRT in 2018. He did not complete chemotherapy due to renal insufficiency. 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 He follows with Dr. Carson for this. Has been having some issues with swallowing more solid foods and dryer foods. Visit Vitals Ht 1.715 m (5' 7.5 ) Wt 86.2 kg (190 lb) BMI 29.32 kg/m?? Smoking Status Never BSA 2.03 m?? 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 Epidural abscess 09/05/2022 Hyperlipidemia 09/05/2022 Hypertension 09/05/2022 Hypothyroid 09/05/2022 Personal history of other malignant neoplasm of large intestine 09/05/2022 Neck pain 09/05/2022 Osteomyelitis 02/18/2024 Abscess in epidural space of cervical spine 07/19/2024 Adenocarcinoma of colon 07/19/2024 Hypokalemia 07/19/2024 Partial bowel obstruction (CMS/HCC) 07/19/2024 Pleural effusion 07/19/2024 Shortness of breath 07/19/2024 Tonsillar mass 07/19/2024 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 Social history as noted above Current Scheduled Medications[2] Current Continuous Medications[3] Current PRN Medications[4] entire 14 point ROS was negative with the exception of those listed in the HPI General: patient is awake, nontoxic appearing, and in no acute distress. Skin: No overtly ulcerated, cellulitic, or indurated lesions of the head or neck. Head: Normocephalic and atraumatic. Sinuses are nontender to palpation. Ears: The pinnas are well formed. External auditory canals are nonstenotic without cerumen impaction bilaterally. Tympanic membranes are intact bilaterally without evidence of effusion or active infection appreciated. Eyes: Extraocular muscles are intact. The sclera and conjunctiva are normal. Pupils are equal and reactive to light without evidence of afferent pupillary defect. No ptosis is appreciated. Nose: The nasal dorsum is without scar or deformity. No mucopurulence or polyps are appreciated. The nasal airways are patent bilaterally. Oral cavity: No mucosal masses or lesions are appreciated. Floor of mouth is soft and the tongue has full range of motion. There is appropriate incisor opening without trismus. There are no fasciculations of the tongue. Oropharynx: No mucosal masses or lesions are appreciated. Base of tongue is soft and the palate elevates symmetrically without draping. The uvula is midline. Neck: The neck is soft and supple. No crepitus, masses, or lymphadenopathy are appreciated. The trachea is in midline. Circulatory: regular rate and rhythm, pulses 2+ bilaterally Pulmonary: no wheezing, no stridor Neuro: CN II-XII intact, gait normal PROCEDURE NOTE: Transnasal Fiberoptic Laryngoscopy PREOPERATIVE DIAGNOSIS: _Dysphagia POSTOPERATIVE DIAGNOSIS: _same INDICATIONS: We were unable to obtain an adequate view with indirect laryngoscopy. PROCEDURE DESCRIPTION: Verbal consent was obtained and all questions regarding the procedure were answered. Under topical anesthesia (2% lidocaine and ephedrine), the flexible laryngoscope was introduced and the findings noted. Following this, the procedure was terminated. The patient tolerated theprocedure well without any apparent complications and was returned to ambulatory status to be followed as an outpatient. FINDINGS: The nasopharynx, oropharynx and hypopharynx were normal in appearance without suspicious masses or lesions. There is full mobility of bilateral true vocal folds without evidence of lesions or masses.The subglottis is widely patent. There is no pooling of secretions. A/P Would like to get him set up for a MBS to more fully appreciate what is going on with swallowing. Thank you very much for allowing me to participate in the care of this patient. If you have any questions, please do not hesitate to contact me. Sincerely, Eric Espinoza M.D. Branch Sales Manager [facility] Department of Otolaryngology - Head and Neck Surgery [1] No Known Allergies [2] [3] [4] documented in this encounter Plan of Treatment Upcoming Encounters Date Type Department Care Team (Late st Contact Info) Description 08/20/2025 9:00 AM EST Office Visit [facility] [address], [address]st [place] [address] Andre Lion, BRAN [address] [place] [address] 09/10/2025 8:30 AM EST Office Visit [facility] Otolaryngology [address], 3rd [place] [address] Gus Mon MD [address] [place] [address] 10/07/2025 9:15 AM EST Clinical Support [facility] [address] 2nd [place] [address] 10/07/2025 10:20 AM EST Appointment [facility] [address] [place] [address] 10/10/2025 9:30 AM EST Office Visit [facility] [address] [facility], 2nd [place] [address] Vitor Honeycutt, MEDICAL INSTRUCTOR [address] [place] [address] documented as of this encounter Visit Diagnoses Diagnosis History of head and neck cancer- Primary Pharyngoesophageal dysphagia Dysphagia, pharyngoesophageal phase documented in this encounter Additional Health Concerns Assessment Noted Time PHQ-9 Depression Total Score: 0 10/08/19 7:43 AM EST A fall risk assessment has been complete d for the patient 05/14/2025 12:04 PM EDT A Body Mass Index follow-up plan has been documented for the patient 06/21/2025 10:58 PM EDT documented as of this encounter Care Teams Shipping And Receiving Relationship Specialty Start Date End Date Alex Roque MD [address] [place] [address] [address] [place] [address] PCP - General 12/18/21 documented as of this encounter
--- OUTSIDE RECORDS SUMMARY | 2025-06-21 14:20 | XMS_ITS | Encounter Summary ---
Author Organization Healthcare Address [address] [id number] Care Team Providers Care Ultrasound Technologist Sonographer Name Role Phone Alex Roque MD Primary Care Provider [phone] Reason for Referral * Consultation (Routine) - Closed Specialty Diagnoses / Procedures Referred By Contac t Referred To Contact Neurosurgery Diagnoses Occlusion of left vertebral artery Jarod Paula MD [address] [place] [id number] Phone: tel: fax: [facility] [address] [facility] 1st [place] [address] Phone: tel: fax: Referral ID Status Reason Start Date Expiration Date V isits Requested Visits Authorized [id number] Closed Specialty Services Required 06/22/2025 12/22/2026 1 1 Scheduling Instructions Please schedule with Dr. Paula * Consultation (Routine) - Closed Specialty Diagnoses / Procedures Referred By Contac t Referred To Contact Neurosurgery Diagnoses Embolic occlusion of left vertebral artery Zachary Gutierres MD [address] [address] Phone: tel: fax: Referral ID Status Reason Start Date Expiration Date V isits Requested Visits Authorized [id number] Closed Specialty Services Required 06/22/2025 12/22/2026 1 1 * Consultation (Routine) - Authorized Specialty Diagnoses / Procedures Referred By Neftali thayer Referred To Contact Neurology Diagnoses Embolic occlusion of left vertebral artery Zachary Gutierres MD [address] [address] Phone: tel: fax: Referral ID Status Reason Start Date Expiration Date Visits Requested Visits Authorized [id number] Authorized Specialty Services Required 06/22/2025 12/22/2026 1 1 Scheduling Instructions Stroke clinic in 8-12 weeks Reason for Visit * Reason Comments Dizziness * Auth/Cert (Routine) Specialty Diagnoses / Procedures Referred By Neftali thayer Referred To Contact Diagnoses Dizziness Lightheadedness Embolic occlusion of left vertebral artery Zachary Gutierres MD [address] [address] Phone: tel: fax: [facility] [address] [place] [address] Phone: tel: Referral ID Status Reason Start Date Expiration Date Visits Re quested Visits Authorized [id number] 1 1 Encounter Details Date Type Department Care Team (Late st Contact Info) Description 06/21/2025 3:20 PM EDT - 06/22/2025 3:54 PM EDT Hospital Encounter [facility] [address] [place] [address] Long Arenas MD [address] [place] [address] Zachary Gutierres MD [address] [address] Occlusion of left vertebral artery (Primary Dx); Lightheadedness; Dizziness; Embolic occlusion of left vertebral artery; Overweight (BMI 25.0-29.9) Discharge Disposition: Home or Self Care Social [...] drink first t alberto in the morning (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) to steady your nerves or to get [...] Sign Reading Time Taken Comments Blood Pressure 171/93 06/22/2025 2:00 PM EDT Pulse 76 06/22/2025 3:00 PM EDT Temperature 36.7 C (98 F) 06/22/2025 7:35 AM EDT Respiratory Rate 13 06/22/2025 3:00 PM EDT Oxygen Saturation 92% 06/22/2025 3:00 PM EDT Inhaled Oxygen Concentration - - Weight 87 kg (191 lb 12.8 oz) 06/22/2025 5:54 AM EDT Height 172.7 cm (5' 8 ) 06/21/2025 2:29 PM EDT Body Mass Index 27.52 06/21/2025 11:29 PM EDT documented in this encounter Functional Status * Calculated C-SSRS Risk Score (Lifetime/Recent) Answer Date of Assessment Author No Risk Indicated 06/22/2025 8:00 AM EDT Amrita Funk, ALAINA * Question Answer Date of Assessment Author 1. Wish to be (Past 1 Month) No 025 8:00 AM EDT Amrita Funk, RN 2. Non-Specific Active Suici leidy Thoughts (Past 1 Month) No 06/22/2025 8:00 AM EDT Bronson Funk RN 6. Suicidal Behavior (Lifetime) No 8:00 AM EDT Amrita Funk, RN documented as of this encounter Medications at Time of Discharge amLODIPine (Norvasc) 10 MG tablet Take 1 tablet (10 mg) by mouth 1 (one) time each day. aspirin 81 MG EC tablet Take 1 tablet (81 mg) by mouth 1 (one) time each day. clopidogrel (Plavix) 75 MG tablet Take 1 tablet by mouth daily. 89 tablet 06/23/2025 09/20/2025 cyclobenzaprine (Flexeril) 10 MG tabletIndications :Neck pain [...] each day. documented as of this encounter Miscellaneous Notes * Amrita Rivas, RN - 06/22/2025 3:04 PM EDT Images from the original note were not included. [id number] Caring for Yourself After Stroke You have been diagnosed with a stroke, or with a TIA (transient ischemic attack). Or you have been identified as having a high risk for stroke. During a stroke, blood stops flowing to part of your brain. This can damage areas in the brain that control other parts of the body. Symptoms after a stroke depend on which part of the brain has been affected. Stroke risk factors Once you?ve had a stroke, you?re at greater risk for another one. Listed below are some other factors that can increase your risk for a stroke: ? High blood pressure ? High cholesterol ? Cigarette or cigar smoking, or exposure to second hand smoke ? Diabetes ? Carotid or other artery disease ? Atrial fibrillation, atrial flutter, or other heart disease ? Not being physically active ? Obesity ? Certain blood disorders (such as sickle cell anemia) ? Excessive alcohol use ? Abuse of street drugs ? Race ? Gender ? Family history of stroke ? Diet high in salty, fried, or greasy foods Changes in daily living Doing your regular tasks may be difficult after you?ve had a stroke, but you can learn new ways to manage your daily activities. In fact, doing daily activities may help you to regain muscle strengthand bring back function to affected limbs. Be patient, give yourself time to adjust, and appreciatethe progress you make. Daily activities You may be at risk of falling. Make changes to your home to help you walk more easily. A therapist will decide if you need an assistive device to walk safely. You may need to see an occupational therapist or physical therapist to learn new ways of doing things. For example, you may need to make adjustments when bathing or dressing: Tips for showering or bathing ? Test the water temperature with a hand or foot that was not affected by the stroke. ? Use grab bars, a shower seat, a hand-held showerhead, and a long-handled brush. Tips for getting dressed ? Dress while sitting, starting with the affected side or limb. ? Wear shirts that pull easily over your head. Wear pants or skirts with elastic waistbands. ? Use zippers with loops attached to the pull tabs. Lifestyle changes ? Take your medicines exactly as directed. Don?t skip doses. ? Begin an exercise program. Ask your provider how to get started. Also ask how much activity you should try to get on a daily or weekly basis. You can benefit from simple activities such as walking or gardening. ? Limit alcohol intake. Men should have no more than 2 alcoholic drinks a day. Women should limit themselves to 1 alcoholic drink per day. ? Know your cholesterol level. Follow your provider?s recommendations about how to keep cholesterolunder control. ? If you are a smoker, quit now. Join a stop-smoking program to improve your chances of success. Ask your provider about medicines or other methods to help you quit. ? Learn stress management techniques to help you deal with stress in your home and work life. Diet Your healthcare provider will give you information on dietary changes that you may need to make, based on your situation. Your provider may recommend that you see a registered dietitian for help withdiet changes. Changes may include: ? Reducing fat and cholesterol intake ? Reducing salt (sodium) intake, especially if you have high blood pressure ? Eating more fresh vegetables and fruits ? Eating more lean proteins, such as fish, poultry, and beans and peas (legumes) ? Eating less red meat and processed meats ? Using low-fat dairy products ? Limiting vegetable oils and nut oils ? Limiting sweets and processed foods such as chips, cookies, and baked goods Follow-up care ? Keep your medical appointments. Close follow-up is important to stroke rehabilitation and recovery. ? Some medicines require blood tests to check for progress or problems. Keep follow-up appointmentsfor any blood tests ordered by your providers. Call 911 Call 911 right away if you have any of the following symptoms of stroke: ? Weakness, tingling, or loss of feeling on one side of your face or body ? Sudden double vision or trouble seeing in one or both eyes ? Sudden trouble talking or slurred speech ? Trouble understanding others ? Sudden, severe headache ? Dizziness, loss of balance, or a sense of falling ? Blackouts or seizures BE FAST -- be sure to know these signs of a stroke: B alance ? Does the person have a sudden loss of balance or coordination? E yes ? Does the person have sudden trouble seeing or blurred vision in one or both eyes? F ruy ? Does one side of the face droop? ? Ask the person to smile. Does their smile seem normal? A jesenia ? Is one arm weak or numb? ? Ask the person to raise both arms. Does one arm drift downward? S peech ? Is speech slurred or garbled? ? Ask the person to repeat an easy sentence. T jennifer ? If the person shows any of these signs, call 911 right away! This is an emergency! Call [address] yourself to the hospital! Last Reviewed Date: 2015 00:00:00 * [facility] - Amrita Funk RN - 06/22/2025 3:03 PM EDT Images from the original note were not included. [id number] Understanding High Blood Pressure High blood pressure or hypertension is known as a silent killer. This is because it's a serious health problem, but often doesn?t cause symptoms. Many people don?t know they have it until it leads toother health problems. Normal blood pressure is less than 120/80 mmHg. If you?re above this level for several readings over time, you?ll be diagnosed with high blood pressure. Healthy changes can help you lower your blood pressure. But once you?re diagnosed, you'll need to manage it for the rest of your life. What is blood pressure? Your heart pumps blood into the blood vessels that carry it through your body. With each heartbeat the heart pushes blood through blood vessels called arteries. Blood pressure is a measure of how hard the blood pushes against the shell of the arteries as it flows. How high blood pressure harms your health In a healthy artery, the blood moves smoothly and puts normal pressure on its shell. High blood pressure means the blood is pushing too hard against artery shell. This damages the shell. The shell form scar tissue as they heal. But the scar tissue makes the arteries stiff and weak. Afatty substance called plaque sticks to the scar tissue. This makes arteries narrower and harder. High blood pressure: ? Causes your heart to work harder to get blood around your body ? Raises your risk for heart attack, heart failure, and stroke ? Can lead to kidney disease and blindness Check blood pressure It's important to know your blood pressure numbers. A blood pressure reading is given as 2 numbers,such as 120/70. The top number is the pressure of blood against the artery shell during a heartbeat. That's calledsystolic. The bottom number is the pressure of blood against artery shell between heartbeats. That's called diastolic. Blood pressure may be: ? Normal: systolic lower than 120 and diastolic lower than 80 ? Elevated: Systolic of 120-129 and diastolic less than 80 ? High, Stage 1: Systolic of 130-139 or diastolic of 80-89 ? High, Stage 2: Systolic of 140 or higher or diastolic of 90 and higher For most people with high blood pressure, keeping readings under 130/80 mmHg may help prevent health problems. Talk with your healthcare provider. Find out what your blood pressure goals should be. Tell them what concerns you have about your readings. Control high blood pressure If your blood pressure is high, work with your healthcare provider to lower it. Lifestyle changes and possibly medicines may help. Below are changes you can make to help lower your blood pressure: ? Choose heart-healthy foods. Ask your provider about the Dietary Approaches to Stop Hypertension (DASH) eating plan. DASH limits sodium (salt). It includes a lot of fruits and vegetables, low-fat ornonfat dairy foods, whole grains, and other foods high in fiber and low in fat. This plan also includes more dietary potassium. This can help lower blood pressure. ? Cut sodium. Eating less sodium reduces fluid retention. This is when your body holds on to too much water. Having too much salt increases blood volume and blood pressure. The [place] [employer] says the ideal limit is no more than 1,500 mg of sodium a day, especially if you have high blood pressure. But because people in the [place] eat so much salt, they say cutting back to even 2,300 mg a day can help. Having only 1,000 mg of sodium a day can help your blood pressure and heart. ? Stay at a healthy weight. Being overweight makes you more likely to have high blood pressure. Losing excess weight helps lower blood pressure. ? Exercise regularly. Daily exercise helps your heart and blood vessels work better and stay healthier. It can help lower your blood pressure. ? Don't smoke. Smoking raises blood pressure. And it damages blood vessels. ? Limit alcohol. Drinking too much alcohol can raise blood pressure. Men should have no more than 2drinks a day. Women should have no more than 1 a day. A drink is equal to 1 beer, a small glass of wine, or a shot of liquor. ? Control stress. Stress makes your heart work harder and beat faster. Managing stress in a healthyway helps you control your blood pressure. Facts about high blood pressure ? High blood pressure is often a lifelong problem. But it can be controlled with lifestyle changes and medicine. ? Blood pressure medicines need to be taken every day. Stopping suddenly may cause a dangerous increase in pressure. ? Medicine is only one part of controlling high blood pressure. You also need to manage your weight, get regular exercise, and change your eating habits. ? Hypertension isn't the same as stress. Stress may be a factor in high blood pressure, but it?s only one factor. ? Feeling OK doesn't mean your blood pressure is under control. And feeling bad doesn?t mean it?s out of control. The only way to know for sure is to check your pressure regularly. Last Reviewed Date: 2024 00:00:00 ?? [id number] [employer]. All rights reserved. This information is not intended as a substitute for professional medical care. Always follow your healthcare professional's instructions. * [facility] - Amrita Funk RN - 06/22/2025 3:03 PM EDT Images from the original note were not included. [id number] Discharge instructions for high blood pressure (hypertension) You have been diagnosed with high blood pressure. This is known as hypertension. It means the forceof blood against your artery shell is too strong. Your heart is working too hard to move blood. High blood pressure usually has no symptoms. But over time, it can cause serious health problems. High blood pressure raises your risk for these problems: ? Heart attack ? Stroke ? Heart disease ? Heart failure ? Kidney disease ? Vision loss With help from your healthcare provider, you can manage your blood pressure and protect your health. Blood pressure measurements are given as 2 numbers. Systolic blood pressure is the upper number. This is the pressure when the heart contracts or pumps. Diastolic blood pressure is the lower number. This is the pressure when the heart relaxes between beats. Blood pressure is grouped like this: ? Normal blood pressure. Systolic is less than 120 and diastolic is less than 80 at rest. ? Elevated blood pressure. Systolic is 120 to 129 and diastolic is less than 80 at rest. ? Stage 1 high blood pressure. Systolic is 130 to 139 or diastolic is between 80 to 89 at rest. ? Stage 2 high blood pressure. Systolic is 140 or higher or diastolic is 90 or higher at rest. Taking medicine ? Learn to measure your own blood pressure. Keep a record of your results. Ask your healthcare provider which numbers mean you need medical care. ? Take your blood pressure medicine exactly as directed. Don?t skip doses. Missing doses can cause your blood pressure to get out of control. ? Ask your healthcare provider what to do if you miss a dose. ? Don't take medicines that contain heart stimulants. This includes kwud-qzi-bliptwi medicines. Check for warnings about high blood pressure on the label. Ask the pharmacist before buying a medicine you haven't used before. ? Check with your healthcare provider before taking a decongestant. This includes medicines with pseudoephedrine or phenylephrine on the label. Ask the pharmacist if you are not sure. These can make high blood pressure worse. ? If you take medicine to have sex, talk to your healthcare provider. Taking these medicines with atype of blood pressure medicine called nitrates can be dangerous. Your blood pressure can drop too low. Lifestyle changes ? Keep a healthy weight. Get help to lose any extra pounds. Meeting with a dietitian can help you make diet changes to help with weight loss. ? Cut back on salt. To do this: o Limit canned, dried, packaged, and fast foods. o Don?t add salt to your food at the table. o Season foods with herbs instead of salt when you cook. o Ask for no added salt when you eat out. o Have no more than 1,500 mg a day of sodium. You can make a positive change by cutting back to even 2,300 mg of sodium a day. Read all food labels to see how much sodium they have. ? Follow the DASH eating plan. DASH stands for Dietary Approaches to Stop Hypertension. This plan advises a way to eat for healthy blood pressure. The diet includes vegetables, fruits, whole grains, and other healthy foods. ? Begin an exercise program. Talk with your healthcare provider before you get started. Work up to at least 150 minutes of moderate-intensity physical activity each week. It doesn't have to be done all at once. You can do 30-minute sessions, 5 days a week. This can help lower blood pressure. Even simple activities can help blood pressure. These include walking or gardening. ? If you smoke, work to stop. Enroll in a stop-smoking program. This will improve your chance of success. Ask your healthcare provider about programs and medicines to help you stop smoking. ? Never take stimulants such as amphetamines or cocaine. These drugs can be deadly for a person with high blood pressure. ? Work to lessen your stress. You can learn ways to manage stress. ? Get enough quality sleep. Most adults need 7 to 9 hours of sleep per day. ? Don't drink alcohol or limit how much you drink. This means no more than 1 drink a day for women and 2 drinks a day for men. Follow-up care Make a follow-up appointment as directed. When to call your healthcare provider Call your healthcare provider right away if you have any of these: ? Moderate headache ? Extreme drowsiness ? Pulsating or rushing sound in your ears ? Unexplained nosebleed ? Blood pressure measured at home that is 180/120 or higher without any other symptoms of target organ damage, or as directed by your healthcare provider. Call 911 Call 911 right away if you have any of these symptoms: ? Blood pressure measured at home that is higher than 180/120 and you are having other symptoms of target organ damage, such as those listed below, or as directed by your healthcare provider. ? Chest pain or shortness of breath ? Severe headache ? Severe back pain ? Weakness, tingling, or numbness of your face, arms, or legs (especially on 1 side of the body) ? Change in vision ? Confusion, trouble speaking, or trouble understanding speech ? Dizziness or fainting Last Reviewed Date: 2024 00:00:00 ?? [id number] The [employer]. All rights reserved. This information is not intended as a substitute for professional medical care. Always follow your healthcare professional's instructions. * [facility] - Amrita Funk RN - 06/22/2025 3:03 PM EDT Images from the original note were not included. [id number] Nifedipine WHY is this medicine prescribed? Nifedipine is used to treat high blood pressure and to control angina (chest pain). Nifedipine is in a class of medications called calcium-channel blockers. It lowers blood pressure by relaxing the blood vessels so the heart does not have to pump as hard. It controls chest pain by increasing the supply of blood and oxygen to the heart. High blood pressure is a common condition and when not treated, can cause damage to the brain, heart, blood vessels, kidneys and other parts of the body. Damage to these organs may cause heart disease, a heart attack, heart failure, stroke, kidney failure, loss of vision, and other problems. In addition to taking medication, making lifestyle changes will also help to control your blood pressure. These changes include eating a diet that is low in fat and salt, maintaining a healthy weight, exercising at least 30 minutes most days, not smoking, and using alcohol in moderation. HOW should this medicine be used? Nifedipine comes as a capsule and an extended-release (long-acting) tablet to take by mouth. The capsule is usually taken three or four times a day. The extended-release tablet should be taken once daily on an empty stomach, either 1 hour before or 2 hours after a meal. To help you remember to takenifedipine, take it at around the same time(s) every day. Follow the directions on your prescription label carefully, and ask your doctor or pharmacist to explain any part you do not understand. Takenifedipine exactly as directed. Do not take more or less of it or take it more often than prescribed by your doctor. Swallow the extended-release tablets whole; do not split, chew, or crush them. Your doctor will probably start you on a low dose of nifedipine and gradually increase your dose, generally once every 7 to 14 days. If taken regularly, nifedipine controls chest pain, but it does not stop chest pain once it starts.Your doctor may prescribe a different medication to take when you have chest pain. Nifedipine controls high blood pressure and chest pain (angina) but does not cure them. Continue totake nifedipine even if you feel well. Do not stop taking nifedipine without talking to your doctor. Your doctor will probably decrease your dose gradually. Are there OTHER USES for this medicine? Nifedipine is also used sometimes to treat labor and Raynaud's syndrome. Talk to your doctor about the possible risks of using this medication for your condition. This medication is sometimes prescribed for other uses; ask your doctor or pharmacist for more information. What SPECIAL PRECAUTIONS should I follow? Before taking nifedipine, ? tell your doctor and pharmacist if you are allergic to nifedipine, any other medications, or any of the ingredients in nifedipine. Ask your pharmacist for a list of the ingredients. ? some medications should not be taken with nifedipine. Other medications may cause dosing changes or extra monitoring when taken with nifedipine. Make sure you have discussed any medications you arecurrently taking or plan to take before starting nifedipine with your doctor and pharmacist. Beforestarting, stopping, or changing any medications while taking nifedipine, please get the advice of your doctor or pharmacist.. ? the following nonprescription or herbal products may interact with nifedipine: Accord's wort; cimetidine (Tagamet). Be sure to let your doctor and pharmacist know that you are taking these medications before you start taking nifedipine. Do not start any of these medications while taking nifedipine without discussing with your healthcare provider. ? tell your doctor if you have or have ever had a narrowing or blockage of your digestive system orany other condition that causes food to move through your digestive system more slowly; or heart, liver, or kidney disease. Also tell your doctor if you have had a myocardial infarction (NM) within the last 2 weeks. ? tell your doctor if you are , plan to become , or are breast- feeding. If you become while taking nifedipine, call your doctor. ? talk to your doctor about the safe use of nifedipine capsules if you are 65 years of age or older. Older adults should not usually take nifedipine capsules because they are not as safe as other medications that can be used to treat the same condition. ? if you are having surgery, including dental surgery, tell your doctor or dentist that you are taking nifedipine. ? ask your doctor about the safe use of alcoholic beverages while you are taking nifedipine. Alcohol can make the side effects from nifedipine worse. What SPECIAL DIETARY instructions should I follow? Do not drink grapefruit juice or eat grapefruit 3 days before and while taking nifedipine. If your doctor prescribes a low-salt or low-sodium diet, follow these directions carefully. What should I do IF I FORGET to take a dose? Take the missed dose as soon as you remember it. However, if it is almost time for the next dose, skip the missed dose and continue your regular dosing schedule. Do not take a double dose to make up for a missed one. What SIDE EFFECTS can this medicine cause? Some side effects can be serious. If you experience any of the following symptoms, call your doctorimmediately or get emergency medical treatment: ? swelling of the face, eyes, lips, tongue, hands, arms, feet, ankles, or lower legs ? difficulty breathing or swallowing ? fainting ? rash ? yellowing of the skin or eyes ? increase in frequency or severity of chest pain (angina) If you experience a serious side effect, you or your doctor may send a report to the Food and Drug Administration's (FDA) MedWatch Adverse Event Reporting program online (https://www.fda.gov/Safety/MedWatch) or by phone ( ). What should I know about STORAGE and DISPOSAL of this medication? Keep this medication in the container it came in, tightly closed, and out of reach of children. Store it at room temperature, away from light, and away from excess heat and moisture (not in the bathroom). Keep all medication out of sight and reach of children as many containers are not child-resistant. Always lock safety caps. Place the medication in a safe location - one that is up and away and out of their sight and reach. https://www.upandaway.org Dispose of unneeded medications in a way so that pets, children, and other people cannot take them.Do not flush this medication down the toilet. Use a medicine take-back program. Talk to your pharmacist about take-back programs in your community. Visit the FDA's Safe Disposal of Medicines website h ttps://goo.gl/c4Rm4p for more information. What should I do in case of OVERDOSE? In case of overdose, call the poison control helpline at . Information is also available online at https://www.poisonhelp.org/help. If the victim has collapsed, had a seizure, has trouble breathing, or can't be awakened, immediately call emergency services at 911. Symptoms of overdose may include: ? dizziness ? fast heartbeat ? flushing ? nervousness ? nausea ? vomiting ? swelling of the hands, feet, ankles, or lower legs ? blurred vision ? fainting What OTHER INFORMATION should I know? Keep all appointments with your doctor and the laboratory. Your blood pressure should be checked regularly to determine your response to nifedipine. If you are taking certain extended-release tablets (Afeditab CR, Procardia XL), you may notice something that looks like a tablet in your stool. This is just the empty tablet shell, and this does notmean that you did not get your complete dose of medication. Do not let anyone else take your medication. Ask your pharmacist any questions you have about refilling your prescription. Keep a written list of all of the prescription and nonprescription (qrjw-uoc-fpjphgl) medicines, vitamins, minerals, and dietary supplements you are taking. Bring this list with you each time you visit a doctor or if you are admitted to the hospital. You should carry the list with you in case of dayday rgencies. Brand Name(s): ? Adalat? Adalat?? CC ? Afeditab?? CR ? Nifedical?? XL ? Nifeditab?? CR?? ? Procardia? Procardia?? XL also available generically ?? This branded product is no longer on the market. Generic alternatives may be available. This report on medications is for your information only, and is not considered individual patient advice. Because of the changing nature of drug information, please consult your physician or pharmacist about specific clinical use. The [employer] represents that the information provided hereunder was formulated with a reasonable standard of care, and in conformity with professional standards in the field. [employer] makes no representations or warranties, express or implied, including, but not limited to, any implied warranty of merchantability and/or fitness for a particular purpose, with respect to such information and specifically disclaims all such warranties. Users are advised that decisions regarding drug therapy are complex medical decisions requiring the independent, informed decision of an appropriate health long term care pharmacist, and the information is provided for informational purposes only. The entire monograph for a drug should be reviewed for a thorough understanding of the drug's actions, uses and side effects. The [employer] does not endorse or recommend the use of any drug.The information is not a substitute for medical care. AHFS?? Patient Medication Information?. ?? Copyright, 2023. The [employer]??, [address], [address], [place], [place]. All Rights Reserved. Duplication for commercial use must be authorized by [facility]. Selected Revisions: July 10, 2017. AHFS?? Patient Medication Information?. ?? Copyright, 2024 * Jackie Luh - Amrita Funk RN - 06/22/2025 3:03 PM EDT Images from the original note were not included. [id number] Amlodipine WHY is this medicine prescribed? Amlodipine is used alone or in combination with other medications to treat high blood pressure in adults and children 6 years and older. It is also used to treat certain types of angina (chest pain) and coronary artery disease (narrowing of the blood vessels that supply blood to the heart). Amlodipine is in a class of medications called calcium channel blockers. It lowers blood pressure by relaxing the blood vessels so the heart does not have to pump as hard. It controls chest pain by increasing the supply of blood to the heart. If taken regularly, amlodipine controls chest pain, but it does not stop chest pain once it starts. Your doctor may prescribe a different medication to take when you have chest pain. High blood pressure is a common condition and when not treated, can cause damage to the brain, heart, blood vessels, kidneys and other parts of the body. Damage to these organs may cause heart disease, a heart attack, heart failure, stroke, kidney failure, loss of vision, and other problems. In addition to taking medication, making lifestyle changes will also help to control your blood pressure. These changes include eating a diet that is low in fat and salt, maintaining a healthy weight, exercising at least 30 minutes most days, not smoking, and using alcohol in moderation. HOW should this medicine be used? Amlodipine comes as a tablet, an oral solution (liquid), and a suspension (liquid) to take by mouth. It is usually taken once a day with or without food. Take amlodipine around the same time every day. Follow the directions on your prescription label carefully, and ask your doctor or pharmacist to explain any part you do not understand. Take amlodipine exactly as directed. Do not take more or less of it or take it more often than prescribed by your doctor. Shake the suspension well before each use to mix the medication evenly. Your doctor will probably start you on a low dose of amlodipine and gradually increase your dose. Amlodipine helps to control high blood pressure, angina, and coronary artery disease, but does not cure these conditions. Continue to take amlodipine even if you feel well. Do not stop taking amlodipine without talking to your doctor. Are there OTHER USES for this medicine? This medication may be prescribed for other uses; ask your doctor or pharmacist for more information. What SPECIAL PRECAUTIONS should I follow? Before taking amlodipine, ? tell your doctor and pharmacist if you are allergic to amlodipine, any other medications, or any ingredients in amlodipine tablets, oral solution, or suspension. Ask your pharmacist for a list of the ingredients. ? tell your doctor and pharmacist what prescription and nonprescription medications, vitamins, nutritional supplements, and herbal products you are taking or plan to take. Your doctor may need to change the doses of your medications or monitor you carefully for side effects. ? tell your doctor if you have or have ever had heart failure or heart or liver disease. ? tell your doctor if you are , plan to become , or are breast- feeding. If you become while taking amlodipine, call your doctor. What SPECIAL DIETARY instructions should I follow? If your doctor prescribes a low-salt or low-sodium diet, follow these directions carefully. What should I do IF I FORGET to take a dose? Take the missed dose as soon as you remember it. However, if it is less than 12 hours until your next scheduled dose, skip the missed dose and continue your regular dosing schedule. Do not take a double dose to make up for a missed one. What SIDE EFFECTS can this medicine cause? Some side effects can be serious. If you experience any of these symptoms, call your doctor immediately or get emergency medical treatment: ? more frequent or more severe chest pain ? rapid, pounding, or irregular heartbeat ? fainting If you experience a serious side effect, you or your doctor may send a report to the Food and Drug Administration's (FDA) MedWatch Adverse Event Reporting program online (https://www.fda.gov/Safety/MedWatch) or by phone ( ). What should I know about STORAGE and DISPOSAL of this medication? Keep this medication in the container it came in, tightly closed, and out of reach of children. Store the tablets and oral solution at room temperature and away from light, excess heat and moisture (not in the bathroom). Store the suspension in the refrigerator and avoid freezing; protect it from light. Keep all medication out of sight and reach of children as many containers are not child-resistant. Always lock safety caps. Place the medication in a safe location - one that is up and away and out of their sight and reach. https://www.[employer] Dispose of unneeded medications in a way so that pets, children, and other people cannot take them.Do not flush this medication down the toilet. Use a medicine take-back program. Talk to your pharmacist about take-back programs in your community. Visit the FDA's Safe Disposal of Medicines website h ttps://goo.gl/c4Rm4p for more information. What should I do in case of OVERDOSE? In case of overdose, call the poison control helpline at . Information is also available online at https://www.poisonhelp.org/help. If the victim has collapsed, had a seizure, has trouble breathing, or can't be awakened, immediately call emergency services at 281. Symptoms of overdose may include: ? dizziness ? fainting ? rapid heartbeat What OTHER INFORMATION should I know? Keep all appointments with your doctor. Your blood pressure should be checked regularly to determine your response to amlodipine. Do not let anyone else take your medication. Ask your pharmacist any questions you have about refilling your prescription. Keep a written list of all of the prescription and nonprescription (xnyv-qaj-ngcgbau) medicines, vitamins, minerals, and dietary supplements you are taking. Bring this list with you each time you visit a doctor or if you are admitted to the hospital. You should carry the list with you in case of dayday rgencies. Brand Name(s): ? Amvaz? Katerzia?? ? Norliqva?? ? Norvasc?? ? Marce?? (as a combination product containing Amlodipine, Olmesartan) ? Caduet?? (as a combination product containing Amlodipine, Atorvastatin) ? Consensi?? (as a combination product containing Amlodipine, Celecoxib)?? ? Exforge?? (as a combination product containing Amlodipine, Valsartan) ? Exforge?? HCT (as a combination product containing Amlodipine, Hydrochlorothiazide, Valsartan) ? Lotrel?? (as a combination product containing Amlodipine, Benazepril) ? Prestalia?? (as a combination product containing Amlodipine, Perindopril) ? Tribenzor?? (as a combination product containing Amlodipine, Hydrochlorothiazide, Olmesartan) ? Twynsta?? (as a combination product containing Amlodipine, Telmisartan)?? also available generically ?? This branded product is no longer on the market. Generic alternatives may be available. This report on medications is for your information only, and is not considered individual patient advice. Because of the changing nature of drug information, please consult your physician or pharmacist about specific clinical use. The [employer] represents that the information provided hereunder was formulated with a reasonable standard of care, and in conformity with professional standards in the field. [employer] makes no representations or warranties, express or implied, including, but not limited to, any implied warranty of merchantability and/or fitness for a particular purpose, with respect to such information and specifically disclaims all such warranties. Users are advised that decisions regarding drug therapy are complex medical decisions requiring the independent, informed decision of an appropriate health long term care pharmacist, and the information is provided for informational purposes only. The entire monograph for a drug should be reviewed for a thorough understanding of the drug's actions, uses and side effects. The [employer] does not endorse or recommend the use of any drug.The information is not a substitute for medical care. AHFS?? Patient Medication Information?. ?? Copyright, 2023. The [employer]??, [address], [address], [place], [place]. All Rights Reserved. Duplication for commercial use must be authorized by [facility]. Selected Revisions: May 15, 2024. AHFS?? Patient Medication Information?. ?? Copyright, 2024 * Amrita Rivas RN - 06/22/2025 3:03 PM EDT Images from the original note were not included. Norvasc - Video Learn how Norvasc helps your heart, the possible side effects to look for, and how to use and storethis medication safely. To view the video go to this web address: [email or web address] Or, scan this QR code with your smart phone ?? [facility] * Amrita Rivas RN - 06/22/2025 3:03 PM EDT Images from the original note were not included. [id number] Clopidogrel IMPORTANT WARNING: Clopidogrel must be changed to an active form in your body so that it can treat your condition. Some people do not change clopidogrel to its active form in the body as well as other people. Because the medication does not work as well in these people, they may be at a higher risk of having a heart attack or stroke. There are tests available to identify people who have trouble changing clopidogrelto an active form. Talk to your doctor about whether you should be tested. If you are found to havedifficulty converting clopidogrel to its active form, your doctor may change your dose of clopidogrel or tell you not to take clopidogrel. Your doctor or pharmacist will give you the fusing machine [employer]'s patient information sheet (Medication Guide) when you begin treatment with clopidogrel and each time you refill your prescription. Read the information carefully and ask your doctor or pharmacist if you have any questions. You can also visit the Food and Drug Administration (FDA) website (https://www.fda.gov/Drugs/DrugSafety/hbg259784.htm) or the fusing machine tender's website to obtain the Medication Guide. Talk to your doctor about the risks of taking clopidogrel. WHY is this medicine prescribed? Clopidogrel is used alone or with aspirin to prevent serious or life-threatening problems with the heart and blood vessels in people who have had a stroke, heart attack, or severe chest pain. This includes people who have percutaneous coronary intervention (PCI; angioplasty; a type of heart surgery) that may involve inserting coronary stents (metal tubes surgically placed in clogged blood vesselsto improve blood flow) or who have coronary artery bypass grafting (CABG; a type of heart surgery).Clopidogrel is also used to prevent serious or life-threatening problems with the heart and blood vessels in people who have peripheral arterial disease (poor circulation in the blood vessels that supply blood to the legs). Clopidogrel is in a class of medications called antiplatelet medications. It works by preventing platelets (a type of blood cell) from collecting and forming clots that may cause a heart attack or stroke. HOW should this medicine be used? Clopidogrel comes as a tablet to take by mouth. It is usually taken once a day with or without food. Take clopidogrel at around the same time every day. Follow the directions on your prescription label carefully, and ask your doctor or pharmacist to explain any part you do not understand. Take clopidogrel exactly as directed. Do not take more or less of it or take it more often than prescribed byyour doctor. Clopidogrel will help prevent serious problems with your heart and blood vessels only as long as you take the medication. Continue to take clopidogrel even if you feel well. Do not stop taking clopidogrel without talking to your doctor. If you stop taking clopidogrel, there is a higher risk that you may have a heart attack or stroke. If you have a stent, there is also a higher risk that you coulddevelop a blood clot in the stent if you stop taking clopidogrel too soon. Are there OTHER USES for this medicine? Clopidogrel is also sometimes used to prevent blood clots in people with atrial fibrillation (a condition in which the heart beats irregularly). Talk to your doctor about the possible risks of using this medication for your condition. This medication may be prescribed for other uses; ask your doctor or pharmacist for more information. What SPECIAL PRECAUTIONS should I follow? Before taking clopidogrel, ? tell your doctor and pharmacist if you are allergic to clopidogrel, prasugrel (Effient), ticlopidine, any other medications, or any ingredient in clopidogrel tablets. Ask your pharmacist or check the Medication Guide for a list of the ingredients. ? tell your doctor and pharmacist what other prescription and nonprescription medications, vitamins, nutritional supplements, and herbal products you are taking or plan to take while taking clopidogrel. Your doctor may need to change the doses of your medications or monitor you carefully for side effects. . ? The following nonprescription products may interact with clopidogrel: omeprazole (Prilosec, Prilosec OTC, Zegerid); esomeprazole (Nexium); aspirin and other nonsteroidal anti-inflammatory drugs (NSAIDs) such as ibuprofen (Advil, Motrin) and naproxen (Aleve, Naprosyn). Be sure to let your doctor and pharmacist know that you are taking these medications before you start taking clopidogrel. Do notstart any of these medications while taking clopidogrel without discussing with your healthcare provider. ? tell your doctor if you have bleeding ulcers (sores in the lining of the stomach or small intestine that are bleeding), bleeding in the brain, or any other condition that causes severe bleeding. Your doctor may tell you that you should not take clopidogrel. ? tell your doctor if you have recently been injured and if you have or have ever had liver or kidney disease or any condition that may cause bleeding, including stomach problems such as ulcers. ? tell your doctor if you are , plan to become , or are breast- feeding. If you become while taking clopidogrel, call your doctor. ? if you are having surgery, including dental surgery, tell the doctor or dentist that you are taking clopidogrel. Your doctor may tell you to stop taking clopidogrel at least 5 days prior to your surgery to avoid excessive bleeding during surgery. Your doctor will tell you when to start taking clopidogrel again after your surgery. ? you should know that you may bleed more easily or for a longer time than usual while you are taking clopidogrel. Be careful not to cut or hurt yourself while you are taking clopidogrel. What SPECIAL DIETARY instructions should I follow? Unless your doctor tells you otherwise, continue your normal diet. What should I do IF I FORGET to take a dose? Take the missed dose as soon as you remember it. However, if it is almost time for the next dose, skip the missed dose and continue your regular dosing schedule. Do not take a double dose to make up for a missed one. What SIDE EFFECTS can this medicine cause? Some side effects can be serious. If you experience any of the following symptoms, call your doctorimmediately: ? hives ? rash ? itching ? difficulty breathing or swallowing ? swelling of the face, throat, tongue, lips, eyes, hands, feet, ankles, or lower legs ? hoarseness ? black and tarry stools ? red blood in stools ? bloody vomit ? vomit that looks like coffee grounds ? unusual bleeding or bruising ? pink or brown urine ? slow or difficult speech ? weakness or numbness of an arm or a leg ? changes in vision ? fever ? shortness of breath ? fast heartbeat ? pale skin ? purple patches or bleeding under the skin ? confusion ? yellowing of the skin or eyes ? seizures Clopidogrel may cause other side effects. Call your doctor if you have any unusual problems while taking this medication. If you experience a serious side effect, you or your doctor may send a report to the Food and Drug Administration's (FDA) MedWatch Adverse Event Reporting program online (https://www.fda.gov/Safety/MedWatch) or by phone ( ). What should I know about STORAGE and DISPOSAL of this medication? Keep this medication in the container it came in, tightly closed, and out of reach of children. Store it at room temperature and away from excess heat and moisture (not in the bathroom). Dispose of unneeded medications in a way so that pets, children, and other people cannot take them.Do not flush this medication down the toilet. Use a medicine take-back program. Talk to your pharmacist about take-back programs in your community. Visit the FDA's Safe Disposal of Medicines website h ttps://goo.gl/c4Rm4p for more information. Keep all medication out of sight and reach of children as many containers are not child-resistant. Always lock safety caps. Place the medication in a safe location - one that is up and away and out of their sight and reach. https://www.upandaway.org What should I do in case of OVERDOSE? In case of overdose, call the poison control helpline at . Information is also available online at https://www.poisonhelp.org/help. If the victim has collapsed, had a seizure, has trouble breathing, or can't be awakened, immediately call emergency services at 911. Symptoms of overdose may include the following: ? unusual bruising or bleeding What OTHER INFORMATION should I know? Keep all appointments with your doctor. Do not let anyone else take your medication. Ask your pharmacist any questions you have about refilling your prescription. Keep a written list of all of the prescription and nonprescription (eeaz-acn-iltnfny) medicines, vitamins, minerals, and dietary supplements you are taking. Bring this list with you each time you visit a doctor or if you are admitted to the hospital. You should carry the list with you in case of dayday rgencies. Brand Name(s): ? Plavix?? also available generically This report on medications is for your information only, and is not considered individual patient advice. Because of the changing nature of drug information, please consult your physician or pharmacist about specific clinical use. The [employer] represents that the information provided hereunder was formulated with a reasonable standard of care, and in conformity with professional standards in the field. The [employer] makes no representations or warranties, express or implied, including, but not limited to, any implied warranty of merchantability and/or fitness for a particular purpose, with respect to such information and specifically disclaims all such warranties. Users are advised that decisions regarding drug therapy are complex medical decisions requiring the independent, informed decision of an appropriate health long term care pharmacist, and the information is provided for informational purposes only. The entire monograph for a drug should be reviewed for a thorough understanding of the drug's actions, uses and side effects. The [employer] does not endorse or recommend the use of any drug.The information is not a substitute for medical care. AHFS?? Patient Medication Information?. ?? Copyright, 2023. The [employer]??, [address], [address], [place], [place]. All Rights Reserved. Duplication for commercial use must be authorized by [facility]. Selected Revisions: March 15, 2024. AHFS?? Patient Medication Information?. ?? Copyright, 2024 * Care Plan - Amrita Funk RN - 06/22/2025 1:49 PM EDT Problem: Adult Inpatient Plan of Care Goal: Plan of Care Review Outcome: Ongoing, Progressing Flowsheets (Taken 06/22/2025 1349) Progress: no change Plan of Care Reviewed With: patient Goal: Patient-Specific Goal (Individualized) Outcome: Ongoing, Progressing Flowsheets (Taken 06/22/2025 0800) Patient/Family-Specific Goals (Include Timeframe): Patient will remain free from falls and injury this shift Individualized Care Needs: Safety Anxieties, Fears or Concerns: None verbalized Goal: Absence of Hospital-Acquired Illness or Injury Outcome: Ongoing, Progressing Intervention: Identify and Manage Fall Risk Flowsheets (Taken 06/22/2025 1349) Safety Promotion/Fall Prevention: activity supervised Goal: Optimal Comfort and Wellbeing Outcome: Ongoing, Progressing Intervention: Monitor Pain and Promote Comfort Flowsheets (Taken 06/22/2025 1349) Pain Management Interventions: rest Intervention: Provide Person-Centered Care Flowsheets (Taken 06/22/2025 1349) Trust Relationship/Rapport: care explained * Discharge Summary - Dinora De Paz MD - 06/22/2025 10:36 AM EDT Hospitalization Admit Date/Time: 06/21/2025 3:20 PM Admitting Attending: Zachary Gutierres Discharge Date: 06/22/25 Discharge Attending Physician: Zachary Gutierres MD PCP name and Address: Alex Roque MD [address] [place] [address] #1 #1 / [place] [id number] Referring provider name and address: No referring provider defined for this encounter. 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 He describes his episodes as only occurring when standing, but it could be either when first standing or after standing for a period of time. He denies feeling like the room is spinning or that he is spinning but rather just feels lightheaded. He presented after having imaging done at an outside hospital and was then referred to the ED for the findings. Imaging studies showed: CTH (outside hospital)- No acute intracranial hemorrhage or evidence of acute large cortical infarct CTA (outside hospital)- Left vertebral artery is occluded and severely stenotic at level of C3-C4. Multiple collaterals reconstitute the left veterbral artery along the left C1-2 articulation. MRH- Personally interpreted by attending. No signs of acute ischemic changes or infarct. Final readpending. Echo- Deferred IV Thrombolysis (TNK or TPA) was not administered due to no or minimal disabling deficits with low NIHSS score. Thrombectomy was not performed. The mechanism for this event is believed to be not a stroke. Concerns for possible Left vertebral artery dissection. Patient was evaluated with bedside swallow test prior to oral intake. DVT prophylaxis was started on the day of arrival. On day of discharge, patient's NIHSS is 0. He reports feeling at his baseline and denies any symptoms. Referral for Neuropsychology evaluation at 180-days after thrombectomy was not applicable due to nothrombectomy performed. Patient's modified jimi score at time of discharge is 1: No significant disability despite symptoms; able to carry out all usual duties and activities . Patient was evaluated by PT/OT team and is felt to be discharged to . Patient will be seen in Stroke clinic in 8-12 weeks . Other follow up includes [facility]. Follow up with PCP for management of all other comorbidities, including any vascular risk factors (blood pressure, lipids, blood sugar, tobacco use) that may apply. Stroke education on signs and symptoms, risk factors including HTN, tobacco use, 911, importance offollow up and medications is provided before discharge. The patient has been counseled on tobacco cessation: Not Applicable Other conditions managed during this admission: Hypertension - Restarted home Amlodipine 10mg Surgeries and Procedures None Medication List .. amLODIPine 10 MG tablet Commonly known as: Norvasc Take 1 tablet (10 mg) by mouth 1 (one) time each day. aspirin 81 MG EC tablet Take 1 tablet (81 mg) by mouth 1 (one) time each day. clopidogrel 75 MG tablet Commonly known as: Plavix Take 1 tablet by mouth daily. Start taking on: June 23, 2025 cyclobenzaprine 10 MG tablet Commonly known as: Flexeril Take 1 tablet by mouth 2 times a day as needed for muscle spasms. gemfibrozil 600 MG tablet Commonly known as: Lopid Take 1 tablet (600 mg) by mouth 2 (two) times a day. levothyroxine 25 MCG tablet Commonly known as: Synthroid, Levoxyl Take 1 tablet by mouth daily. meloxicam 15 MG tablet Commonly known as: Mobic Take 1 tablet by mouth daily. VITAMIN E PO Take 1 capsule by mouth 1 (one) time each day. Where to Get Your Medications These medications were sent to [facility] - [place], [place] - [address] [facility] [id number] clopidogrel 75 MG tablet Discharge Diagnosis Medical Problems Active and Resolved Hospital Problems Hospital * (Principal) Embolic occlusion of left vertebral artery Post Discharge Instructions New Medications: - Plavix 75mg for stroke prevention for 3 months Follow-Up: Please follow up with Neurosurgery. Please follow up for PCP in 1-2 weeks to discuss this hospitalization Follow up with Neurology stroke clinic in 8-12 weeks. Return Precautions: Also, If you experience sudden onset of any of the following symptoms, call 911 or go immediately to the emergency room. (Think of BE FAST ) B - sudden trouble with balance or walking E - sudden loss of vision in one or both eyes, or double vision F - sudden facial droop A - sudden weakness of the arm or weakness of one side of the body S - sudden slurred speech, trouble speaking or understanding what others are saying to you T - Time to call 911 Outpatient Follow-Up Future Appointments Date Time Provider Department Center 09/10/2025 8:30 AM Gus Mon MD [facility] 10/07/2025 9:15 AM JAKE Hardin 10/07/2025 10:[address] [facility] 10/10/2025 9:30 AM Vitor Honeycutt APRN [facility] Test Results Pending At Discharge Pending Labs Order Current Status Comprehensive Urine Drug Screening, Qualitative Assay, >= 27 Drug Classes In process Pertinent Physical Exam At Time of Discharge Constitutional: in no acute distress HENT: normocephalic, non-erythematous oropharynx, anicteric sclera Cardiovascular:Normal rate, appears well perfused Respiratory: symmetric chest expansion, non-labored breathing Gastrointestinal:abdomen is soft, not distended, non-tender Musculoskeletal:no appreciable joint swelling, no appreciable LE warmth or erythema Psychiatric: appropriate mood and affect, cooperative NEURO: Mental Status: A&O x3, interactive, able to follow commands Speech: Intact Articulation CN 2-12: II - PERRLA, VFs full to confrontation III, IV, - EOMI V - Facial sensation intact VII - Brow raise and smile symmetrical VIII - Auditory acuity intact IX, X - Palate elevation symmetric, uvula midline XI - SCM and Trapezius strength intact XII - Tongue protrudes midline Motor: RUE: 5/5 LUE: 5/5 RLE: 5/5 LLE: 5/5 Sensory: intact light touch, vibration, and pinprick/temperature throughout Coordination: no ataxia with [id number]-my-awlc and ugoc-hq-qhay testing Cortical: no extinction of visual or tactile sensation with double simultaneous stimulation Gait/Station: Deferred Discharge Disposition/Condition Disposition: Home Condition: Stable (s/sx potential problems absent or manageable) I spent >30 minutes of patient care and instruction time in preparation for this discharge. Dinora De Paz MD Psychiatry PGY-1 [facility] Cosigned by Zachary Gutierres MD at 06/22/2025 2:34 PM EDT Associated attestation - Zachary Gutierres MD - 06/22/2025 2:34 PM EDT I saw and evaluated the patient with the resident/fellow. I discussed the case with the resident/fellow and agree with the findings and plan as documented. * Progress Notes - Mode Lni MD - 06/22/2025 7:01 AM EDT Neurosurgery Consult Follow-up Note History, exam, and imaging review with attending and discussed on rounds this morning. Riccardo Earl is a 69 y.o. male with PMH left hamimandibulectomy w/ fibula flap to treat Osteoradionecrosis (radiation in 2019 per pt) secondary to L tonsillar T2N2M0 SCCa and previous cervical spine osteomyelitis who presents with some dizziness that does have a component to position for the past couple months. Interval: No acute events overnight. MRI Head ordered and pending Exam: GCS (EMV): 465 Awake, alert, oriented Follows commands appropriately Speech clear PERRL, EOMI BURKS symmetrically, no drift Strength 5/5 throughout Sensation intact -No acute neurosurgical intervention or indication for stenting at this time -Recommend stroke neurology admission and MRI head stroke protocol -Consider heparin drip while MRI pending -If MRI head negative for acute stroke, recommend DAPT with outpatient fu. Continue heparin drip ifstroke present -Rest per primary Mode Lin MD Resident Physician PGY-1 Department of Neurosurgery [facility] Cosigned by Jarod Paula MD at 06/22/2025 10:18 AM EDT Associated attestation - Jarod Paula MD - 06/22/2025 10:18 AM EDT Signature only. 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 He reports that he will feel lightheaded only when he stands up or after he stood up and walked for a few steps. It will last only a few seconds, but he will close his eyes and it will resolve. He denies having any falls or any vertigo. Neurology is consulted because head imaging was remarkable for a left vertebral artery occlusion, as well as a carotid ultrasound that was performed, which showed decreased flow through the left vertebral artery. The patient reports that he does not feel any symptoms of dizziness when he's sitting down with any head position, but when he stands up, it will feel worse when he tilts his head upwards. He denies a history of stroke or having any stroke-like symptoms. He does not take his blood pressure at home, so he's not aware of how it's been running, but in the ED it's been ranging from 170 to 190 systolic. He denies being dehydrated recently. ROS All 14 points systems have been reviewed and negative except stated in HPI Past Medical and Surgical History Past Medical History[1] Surgical History[2] Family History Family History[3] Social History: reports that he has never smoked. He has been exposed to tobacco smoke. He quit smokeless tobacco use about 6 years ago. His smokeless tobacco use included chew. He reports that he does not currently use alcohol. He reports that he does not use drugs. Allergies: Patient has no known allergies. Home Medications Current Outpatient Medications Medication Instructions amLODIPine (NORVASC) 10 mg, Daily aspirin 81 mg, Daily cyclobenzaprine (FLEXERIL) 10 mg, Oral, 2 times daily PRN gemfibrozil (LOPID) 600 mg, 2 times daily levothyroxine (SYNTHROID, LEVOXYL) 25 mcg, Oral, Daily meloxicam (MOBIC) 15 mg, Oral, Daily VITAMIN E PO 1 capsule, Daily Objective Visit Vitals BP (!) 181/88 Pulse 67 Temp 36.8 ??C (98.2 ??F) (Oral) SpO2 95% Physical exam Constitutional: in no acute distress HENT: normocephalic, non-erythematous oropharynx, anicteric sclera Cardiovascular: Normal rate, appears well perfused Respiratory: symmetric chest expansion, non-labored breathing Gastrointestinal: abdomen is soft, not distended, non-tender Musculoskeletal: no appreciable joint swelling, no appreciable LE warmth or erythema Psychiatric: appropriate mood and affect, cooperative NEURO: Mental Status: A&O x3, interactive, able to follow commands Speech: Intact Articulation CN 2-12: II - PERRLA, VFs full to confrontation III, IV, - EOMI V - Facial sensation intact VII - Brow raise and smile symmetrical VIII - Auditory acuity intact IX, X - Palate elevation symmetric, uvula midline XI - SCM and Trapezius strength intact XII - Tongue protrudes midline Motor: RUE: 5/5 LUE: 5/5 RLE: 5/5 LLE: 5/ Sensory: intact light touch, vibration, and pinprick/temperature throughout Coordination: no ataxia with nmbdwh-zu-ctdl and ptfb-up-kyem testing Cortical: no extinction of visual or tactile sensation with double simultaneous stimulation Gait/Station: Deferred Labs: Labs personally reviewed and summarized as anemia CBC: Results from last 7 days Lab Units 06/21/25 1518 WBC 10*3/uL 8.59 HEMOGLOBIN g/dL 10.7* HEMATOCRIT % 32.5* PLATELETS 10*3/uL 195 CMP/RFP: Results from last 7 days Lab Units 06/21/25 1518 SODIUM mmol/L 139 POTASSIUM mmol/L 4.4 CHLORIDE mmol/L 106 CO2 mmol/L 24 BUN mg/dL 21 CREATININE mg/dL 1.14 CALCIUM mg/dL 9.1 GLUCOSE mg/dL 100* Inflammation: CSF: Results from last 7 days Lab Units 06/21/25 1518 MONOS ABS AUTO 10*3/uL 0.49 Thyroid: Results from last 7 days Lab Units 06/21/25 1518 TSH uIU/mL 3.77 Urinalysis: Urine Microscopy: Microbiology/Abx: Results No results found for the last 48 hours. Imaging: I personally viewed the images of the CTH and CTA from admission, and they showed chronic R BG stroke, chronic L BG stroke, stenosis/occlusion of L distal V2 segment and decreased filling in L sigmoid sinus and no filling in the L jugular vein. Assessment/Plan The patient presents for 1 month of episodic postural lightheadedness upon standing. Found to have a left vertebral artery occlusion and decreased flow through the left vertebral artery on carotid ultrasound. Differential diagnosis includes orthostatic hypotension versus vertebrobasilar insufficiency 2/2 occlusion. Appearance on CTA shows abrupt refilling at the distal V2/V3 segment with a possible intimal flap which may be consistent with a vertebral artery dissection. There was also decreasedfilling within the L sigmoid sinus and no filling within the L internal jugular vein. Pt is not presenting with headaches or blurry vision, which decreases the concern for a CVST, but this finding would contribute to a picture of hypercoagulability. #Positional Presyncope (POA) #L V2 occlusion (POA) #Concern for L V3 dissection (POA) #Decreased filling in L sigmoid sinus and L internal jugular vein (POA) #Chronic R BG and L BG ischemic strokes (POA) - Risk factors: hypertension and smoking - Home use of antiplatelets/AC/statins: is using medication: Aspirin with last dose 06/21 - TNK was tPA: not administered due to no or minimal disabling deficits with low NIHSS score - Thrombectomy not performed due to low NIHSS score - Bedside dysphagia screen passed Plan: - Admit to stroke PCU - BP goals: Normal - Na goals: Normal - Stroke Labs: TSH, LDL, A1c - UA, UDS pending - MRH and MRV - Start therapeutic enoxaparin - Secondary stroke prophylaxis: Atorvastatin - PT/OT/COUNTY EXTENSION AGENT #Tonsilar SCC status post chemoradiation (POA) #History of Strep pyogenes bacteremia (recurrent), C1-C2 prevertebral abscess/OM, C5-C6 left facet septic arthritis (POA) Code status: Full Code Staffed with Stroke Attending - Dr. Gutierres. Thank you for the opportunity to participate in thecare of this patient. Please page the neurology service pager with quesitons. Kadie Arredondo MD, PGY-3, Neurology Secure Chat/Pager: [phone] :48 AM Dictation software disclaimer: Parts of this note was generated using voice dictation software. Although proofread, there may be spelling errors, changes in dictated words, and words inserted which may have been misinterpreted by voice dictation software. Meaning of words may require interpretationin the appropriate context of the sentence and clinical situation. NIH Stroke Scale Interval: Baseline Person Administering Scale: Kadie Arredondo MD Administer stroke scale items in the order listed. Record performance in each category after each subscale exam. Do not go back and change scores. Follow directions provided for each exam technique. Scores should reflect what the patient does, not what the clinician thinks the patient can do. The clinician should record answers while administering the exam and work quickly. Except where indicated, the patient should not be coached (i.e., repeated requests to patient to make a special effort). 1a Level of consciousness: 0=alert; keenly responsive 1b. LOC questions: 0=Performs both tasks correctly 1c. LOC commands: 0=Performs both tasks correctly 2. Best Gaze: 0=normal 3. Visual: 0=No visual loss 4. Facial Palsy: 0=Normal symmetric movement 5a. Motor left arm: 0=No drift, limb holds 90 (or 45) degrees for full 10 seconds 5b. Motor right arm: 0=No drift, limb holds 90 (or 45) degrees for full 10 seconds 6a. Motor left le=No drift, limb holds 90 (or 45) degrees for full 10 seconds 6b Motor right le=No drift, limb holds 90 (or 45) degrees for full 10 seconds 7. Limb Ataxia: 0=Absent 8. Sensory: 0=Normal; no sensory loss 9. Best Language: 0=No aphasia, normal 10. Dysarthria: 0=Normal 11. Extinction and Inattention: 0=No abnormality Total: 0 Pre-morbid mRS: 0 No symptoms at all [1] Past Medical History: Diagnosis Date Colon cancer (CMS/HCC) Hyperlipidemia Hypertension Hypothyroid Osteonecrosis of jaw (CMS/HCC) Personal history of other malignant neoplasm of large intestine History of malignant neoplasm of colon Streptococcal bacteremia 02/19/24 Tonsillar cancer (CMS/HCC) Trismus 10/05/20 [2] Past Surgical History: Procedure Laterality Date APPENDECTOMY CHOLECYSTECTOMY COLECTOMY MODIFIED RADICAL NECK DISSECTION TOE AMPUTATION [3] Family History Problem Relation Name Age of Onset Breast cancer Mother Cosigned by Zachary Gutierres MD at 06/22/2025 2:34 PM EDT Associated attestation - Zachary Gutierres MD - 06/22/2025 2:34 PM EDT I saw and evaluated the patient with the resident/fellow. I discussed the case with the resident/fellow and agree with the findings and plan as documented. Reviewed CT scans from 01/2024, noted the aberrant feeling of left sigmoid sinus and internal jugular vein. Does not appear to have changed since then. Will discontinue MR venogram. Additional diagnosis: Overweight: BMI 27.52, complicates care. * Consults - Larry Winkler MD - 06/21/2025 9:01 PM EDTAssociated Order(s): IP CONSULT TO NEUROSURGERY Reason For Consult L vert occlussion Requesting Service: ED Requested Date/Time: 06/21/2025 9:01 PM History Of Present Illness Riccardo Earl is a 69 y.o. male with PMH left hamimandibulectomy w/ fibula flap to treat Osteoradionecrosis (radiation in 2019 per pt) secondary to L tonsillar T2N2M0 SCCa and previous cervical spine osteomyelitis who presents with some dizziness for the past couple months. He was seen at OSH earlier today for these symptoms and found to have L vert occlussion for which he was transferred here. He feels like the dizziness mostly occurs on standing and denies any headache, tinnitus, vision changes, or new weakness or numbness. He states he takes a ASA daily for heart health. Past Medical History He has a past medical history of Colon cancer ([facility]), Hyperlipidemia, Hypertension, Hypothyroid,Osteonecrosis of jaw (CMS/HCC), Personal history of other malignant neoplasm of large intestine, Streptococcal bacteremia (02/19/24), Tonsillar cancer (CMS/HCC), and Trismus (10/05/20). He has no past medical history of Malignant hyperthermia, PONV (postoperative nausea and vomiting),or Pseudocholinesterase deficiency. Surgical History He has a past surgical history that includes Colectomy; Toe amputation; Modified radical neck dissection; Appendectomy; and Cholecystectomy. Family History Family History[1] Social History He reports that he has never smoked. He has been exposed to tobacco smoke. He quit smokeless tobacco use about 6 years ago. His smokeless tobacco use included chew. He reports that he does not currently use alcohol. He reports that he does not use drugs. Medications Current Medications[2] Allergies Patient has no known allergies. Review of Systems 14 point review of systems was performed and was negative except as noted per HPI. Physical Exam GEN: well developed, no acute distress HEENT: normocephalic, atraumatic, no scleral icterus, oropharynx clear PULM: no increased work of breathing, normal effort ABD: soft, non-tender, non-distended MSK: no joint swelling, normal range of motion SKIN: warm and dry, capillary refill <2 seconds PSYCHE: normal mood and affect Neuro Exam GCS (EMV): 465 Awake, alert, oriented Follows commands appropriately Speech clear CN 2-12 grossly intact No drift Strength 5/5 throughout Sensation intact throughout Last Recorded Vitals Visit Vitals BP (!) 178/95 Pulse 80 Temp 36.7 ??C (98 ??F) (Oral) Resp 14 Ht 1.727 m (5' 8 ) Wt 86.2 kg (190 lb) SpO2 96% BMI 28.89 kg/m?? Smoking Status Never BSA 2.03 m?? Labs Results from last 7 days Lab Units 06/21/25 1518 SODIUM mmol/L 139 POTASSIUM mmol/L 4.4 CHLORIDE mmol/L 106 CO2 mmol/L 24 BUN mg/dL 21 CREATININE mg/dL 1.14 EGFR mL/min/1.73m*2 70.5 GLUCOSE mg/dL 100* CALCIUM mg/dL 9.1 No lab exists for component: ALB Results from last 7 days Lab Units 06/21/25 1518 WBC 10*3/uL 8.59 HEMOGLOBIN g/dL 10.7* HEMATOCRIT % 32.5* PLATELETS 10*3/uL 195 Imaging I personally reviewed CTH/CTA demonstrating occlussion of L vert, with concern for possible acute occlusion Assessment and Plan Riccardo Earl is a 69 y.o. male with PMH left hamimandibulectomy w/ fibula flap to treat Osteoradionecrosis (radiation in 2019 per pt) secondary to L tonsillar T2N2M0 SCCa and previous cervical spine osteomyelitis who presents with some dizziness that does have a component to position for the past couple months. -No acute neurosurgical intervention or indication for stenting at this time -Recommend stroke neurology admission and MRI head stroke protocol -Consider heparin drip while MRI pending -If MRI head negative for acute stroke, recommend DAPT with outpatient fu. Continue heparin drip ifstroke present -Rest per primary Assessment/Plan Active Problems: There are no active Hospital Problems. Larry Winkler MD Resident Physician, PGY-2 Department of Neurosurgery [facility] [1] Family History Problem Relation Name Age of Onset Breast cancer Mother [2] No current facility-administered medications for this encounter. Current Outpatient Medications Medication Sig Dispense Refill amLODIPine (Norvasc) 10 MG tablet Take 1 tablet (10 mg) by mouth 1 (one) time each day. aspirin 81 MG EC tablet Take 1 tablet (81 mg) by mouth 1 (one) time each day. cyclobenzaprine (Flexeril) 10 MG tablet Take 1 tablet by mouth 2 times a day as needed for muscle spasms. 60 tablet 2 gemfibrozil (Lopid) 600 MG tablet Take 1 tablet (600 mg) by mouth 2 (two) times a day. levothyroxine (Synthroid, Levoxyl) 25 MCG tablet Take 1 tablet by mouth daily. 90 tablet 3 meloxicam (Mobic) 15 MG tablet Take 1 tablet by mouth daily. 30 tablet 2 VITAMIN E PO Take 1 capsule by mouth 1 (one) time each day. Cosigned by Jarod Paula MD at 06/22/2025 10:18 AM EDT Associated attestation - Jarod Paula MD - 06/22/2025 10:18 AM EDT I saw and evaluated the patient with the resident/fellow. I discussed the case with the resident/fellow and agree with the findings and plan as documented. * ED Provider Notes - Long Arenas MD - 06/21/2025 2:26 PM EDT Images from the original note were not included. - HPI Chief Complaint Patient presents with Dizziness Riccardo Earl is a 69 y.o. male who presents to the ED with dizziness. Pt c/o x4-5 dizzy spells per day for the past x1 month. Pt reports he was told that he has a blockage located in his neck after a CT scan at OSH yesterday. He denies blurred vision. Pt denies fever, chills, SOA, chest pain,N/V/D, headache, abdominal pain. Took over care for this patient, handed off by Georgi Daniels. 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 He is resting comfortably in bed. 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 used: No Patient History Past Medical History: Diagnosis Date Colon cancer (CMS/HCC) Hyperlipidemia Hypertension Hypothyroid Osteonecrosis of jaw (CMS/HCC) Personal history of other malignant neoplasm of large intestine History of malignant neoplasm of colon Streptococcal bacteremia 02/19/24 Tonsillar cancer (CMS/HCC) Trismus 10/05/20 Past Surgical History: Procedure Laterality Date APPENDECTOMY CHOLECYSTECTOMY COLECTOMY MODIFIED RADICAL NECK DISSECTION TOE AMPUTATION Family History Problem Relation Name Age of Onset Breast cancer Mother Tobacco Use Smoking status: Never Passive exposure: Past Smokeless tobacco: Former Types: Chew Quit date: 2018 Vaping Use Vaping status: Never Used Substance Use Topics Alcohol use: Not Currently Comment: quit drinking in 2019 prior to that was drinking 6-8 beers daily Drug use: Never Allergies: No Known Allergies Physical Exam ED Triage Vitals [06/21/25 1429] Temp Heart Rate Resp BP 36.7 ??C (98 ??F) 83 16 (!) 198/93 SpO2 Temp Source Heart Rate Source Patient Position 94 % Oral -- -- BP Location FiO2 (%) -- -- Physical Exam Constitutional: General: He is not in acute distress. HENT: Head: Normocephalic. Comments: No facial swelling Mouth/Throat: Mouth: Mucous membranes are moist. Pharynx: Oropharynx is clear. Cardiovascular: Rate and Rhythm: Normal rate. Pulmonary: Effort: Pulmonary effort is normal. No respiratory distress. Breath sounds: Normal air entry. Comments: Speaking full sentences. Symmetric chest rise Abdominal: General: There is no distension. Musculoskeletal: General: No deformity. Normal range of motion. Cervical back: Normal range of motion. Comments: Atraumatic, moves all extremities spontaneously Skin: General: Skin is warm and dry. Neurological: General: No focal deficit present. Mental Status: He is alert and oriented to person, place, and time. Mental status is at baseline. Cranial Nerves: No cranial nerve deficit. Sensory: No sensory deficit. Motor: No weakness. Comments: Awake Psychiatric: Behavior: Behavior normal. Nehemiah Coma Scale Score: 15 ED Course & MDM - Assessment: 69 y.o. male presents to ED with complaint of dizzy spells. 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 This complicates the clinical picture because it Comorbidities: may be exacerbating symptoms Patient was evaluated in the ED for complaints of dizzy spells over the last month. He denies loss of consciousness. He has been evaluated by ENT outpatient for vertigo. He had a CTA of his head at outside hospital that showed left vertebral artery occlusion. He was evaluated by Neurology and Neurosurgery and determined that he required head MRI to better characterize occlusion. He was admitted to stroke neurology for further imaging and anticoagulation. Differential Diagnosis: L vertebral artery occlusion, chronic stroke, TIA, BPPV, disequilibrium, vertigo In order to fully explore the differential diagnosis the following treatments and tests were ordered: All Other Orders Ordered Status Ordering Provider 06/21/252309 Vital Signs Every 8 hours Acknowledged KADIE ARREDONDO 06/21/252309 Check pulse oximetry Every 12 hours Acknowledged KADIE ARREDONDO 06/21/252309 Lipid panel Morning draw Comments: Stroke Acknowledged KADIE ARREDONDO 06/21/252309 Vital Signs Every 4 hours Acknowledged KADIE ARREDONDO 06/21/252309 Check pulse oximetry Every 4 hours Acknowledged KADIE ARREDONDO 06/21/252309 Intake and output Every 8 hours Acknowledged KADIE ARREDONDO 06/21/252309 Weigh patient Daily Comments: Weight patient on arrival and daily. Acknowledged KADIE ARREDONDO 06/21/252309 Reason for no VTE Prophylaxis - hospital admission - medications Once Completed KADIE ARREDONDO 06/21/252309 Do Not Give Nicotine Replacement Until discontinued Acknowledged KADIE ARREDONDO 06/21/252309 MR Head wo IV Contrast Once Acknowledged KADIE ARREDONDO 06/21/252309 MR Venogram Head wo IV Contrast Once Acknowledged KADIE ARREDONDO 06/21/252309 Mobility Orders Until discontinued Acknowledged KADIE ARREDONDO 06/21/252309 Notify physician (specify parameters) Until discontinued KADIE Gordon 06/21/252309 Neuro checks Until discontinued Comments: Including pupil checks, every 2 hours for 48 hours; then every 4 hours x 24 hrs. After initial 72 hrs, NIH should be assessed every 12 hours and with any acute neurological change until discharge. KADIE Gordon 06/21/252309 NIH Stroke Scale Until discontinued Comments: Every 2 hours for 48 hours; then every 4 hours x 24 hrs. After initial 72 hrs, NIH shouldbe assessed every 12 hours and with any acute neurological change until discharge. KADIE Gordon 06/21/252309 Dysphagia screen Once Comments: Prior to ANY PO intake (including medications, ice chips, food or fluids). Acknowledged KADIE ARREDONDO 06/21/252309 Telemetry Monitoring for Acute Stroke or Cerebrovascular Disease Until discontinued KADIE Gordon 06/21/252309 Insert peripheral IV Once Placed in And Linked Group KADIE Gordon 06/21/252309 Saline lock IV Once Placed in And Linked Group KADIE Gordon 06/21/252309 Patient education (specify) Other (enter comments) Once Comments: Stroke packet diagnosis specific and risk factor education. KADIE Gordon 06/21/252309 Hemoglobin A1c Once Comments: Stroke In process KADIE ARREDONDO 06/21/252309 TSH Once Comments: Stroke In process KADIE ARREDONDO 06/21/252309 Comprehensive Urine Drug Screening, Qualitative Assay, >= 27 Drug Classes Once Acknowledged KADIE ARREDONDO 06/21/252309 Admit to inpatient Once Acknowledged KADIE ARREDONDO 06/21/252309 Full code Continuous Acknowledged KADIE ARREDONDO 06/21/252309 Adult diet Diet texture: Regular Diet effective now Acknowledged KADIE ARREDONDO 06/21/252034 Consult to Neurosurgery Once Specialty: Neurosurgery Provider: (Not yet assigned) JEFFREY Adame 06/21/252005 Consult to Neurology Once Specialty: Neurology Provider: (Not yet assigned) Gertrude DANIELS JEFFREY M 06/21/252004 Orthostatic vitals Per unit protocol Acknowledged JEFFREY DANIELS 06/21/25 1452 Hepatitis C Antibody - ED Once Final result MAIKOL MARTINEZ 06/21/25 1452 ED Protocol - HIV 1/2 Antibody/Antigen Screen Once Final result MAIKOL MARTINEZ 06/21/25 1452 ED HIV 1/2 Antibody/Antigen Screen w/Reflex to HIV 1/2 Differentiation PROCEDURE ONCE Final result MAIKOL MARTINEZ 06/21/25 1452 BMP STAT Final result MAIKOL MARTINEZ 06/21/25 1452 CBC w/diff STAT Final result MAIKOL MARTINEZ 06/21/25 1452 Insert peripheral IV Once Acknowledged MAIKOL MARTINEZ 06/21/25 1432 EKG now - STAT (adult) Once Final result LONG ARENAS I Attending MDM: Prior records were reviewed from outside hospital. Prior imaging reviewed. Patient had neurovascular imaging of apparent occlusion of unknown age of the left vertebral artery. Labs show essentially normal CBC with mild anemia. Elevated hemoglobin A1c with normal serum glucose with otherwise normal chemistry MR of the brain was ordered by me and interpreted by Radiology. Those reads and images were reviewed. Please see radiologist's note for final interpretation. Sinus rhythm with occasional PVCs Interactive discussion was obtained with neurology consult service for stroke. Management was discussed. Patient will be admitted for further evaluation and management, optimization, further evaluation, and stroke services. ED Course as of 06/28/251938Jun 21, 2025 1753 Segment of L vertebral artery not visualized on OSH CTA [CC] ED Course User Index [CC] Jeffrey Daniels MD Clinical Impressions as of 06/28/251938 Lightheadedness Dizziness Social Determinates of Health Risks (including Economic Stability, Education and level of understanding, Healthcare access and quality and concerning social factors): None identified on this visit Ultimately, this patient was Was admitted (Admission) There were no encounter diagnoses.. Patient believed to require admission for the listed diagnoses. The Neurology service was consulted for admission and was agreeable to admit to Acute Floor (Med/Surg). ED Prescriptions None Disposition Admit Admitting/Attending Physician: ZACHARY GUTIERRES [[id number]] Provider Care Team: PORFIRIO STROKE NOEL [[id number]] Are they the primary team?: Yes [1] - Date/Time: 06/21/2025/2:49PM Entered by Tara Lord, acting as scribe for Maikol Martniez MD. Scribe Attestation: This note was dictated to me, Tara Lord, acting as a scribe for Maikol Martinez MD. Attending Attestation: The documentation was recorded by Tara Lord acting as scribe in my presence at the time of the encounter and accurately reflects the service I personally performed. Lidia Alfonso MD Resident 06/21/25 9921 Long Celestin MD, personally saw the patient, performed critical or sams portions of the service including being present and available at all procedures, and discussed the care with the Resident. I saw and evaluated the patient. I discussed the case with the resident and agree with the findingsand plan as documented. Long Arenas MD 06/28/25 194 * ED Triage Notes - Linda Hernandez RN - 06/21/2025 2:26 PM EDT Pt states he has had 4-5 dizzy spells per day for the past month. Pt states he had CT scans yesterday and was told to come to ED for A blockage in his neck. Pt denies any current symptoms in triage. documented in this encounter Plan of Treatment Upcoming Encounters Date Type Department Care Team (Late st Contact Info) Description 08/20/2025 9:00 AM EST Office Visit [place] [facility] [address] [place] [address] Andre Lion, [employer] [address] [place] [address] 09/10/2025 8:30 AM EST Office Visit [place] [facility] [address], [address] [place] [address] Gus Mon MD [address] [place] [phone] 10/07/2025 9:15 AM EST Clinical Support [facility] [address] [place] [phone] 10/07/2025 10:20 AM EST Appointment [facility] [address] [place] [phone] 10/10/2025 9:30 AM EST Office Visit [facility] [address] [place] [phone] Vitor Honeycutt, [employer] [address] [place] [phone] Scheduled Referrals Name Type Priority Associated Diagnoses Order Schedule Discharge Ambulatory referral to Neurology Outpatient Referral Routine 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 Occurrences starting 06/22/2025 until 12/24/2026 Ambulatory referral to Neurosurgery Outpatient Referral Routine 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 Occurrences starting 06/22/2025 until 12/24/2026 Discharge Ambulatory Referral to Neurosurgery Outpatient Referral Routine Occlusion of left vertebral artery Expected: 06/22/2025 (Approximate), Expires: 12/24/2026 documented as of this encounter Procedures Procedure Name Priority Date/Time Associated Diagnosis Comments MR HEAD WO IV CONTRAST Routine 12:04 PM EDT COMPREHENSIVE URINE DRUG SCREENING,QUALITATIVE ASSAY, >= 27 DRUG CLASSES Routine 06/22/2025 4:37 AM EDT LIPID PROFILE, PLASMA Routine 06/22/2025 4:32 AM EDT ED HIV 1/2 ANTIBODY/ANTIGEN SCREEN WITH REFLEX TO HIV I/II DIFFERENTIATION STAT 06/21/2025 3:18 PM EDT ED PROTOCOL HIV 1/2 ANTIBODY/ANTIGEN SCREEN W/REFLEX TO HIV 1/2 ANTIBODY DIFFERENTIATION STAT 06/21/2025 3:18 PM EDT HEPATITIS C ANTIBODY - ED W/REFLEX TO HCV QUANT PCR STAT 06/21/2025 3:18 PM EDT CBC WITH AUTO DIFFERENTIAL STAT 06/21/2025 3:18 PM EDT TSH Add-On 06/21/2025 3:18 PM EDT HEMOGLOBIN A1C Add-On 06/21/2025 3:18 PM EDT BASIC METABOLIC PANEL, PLASMA STAT 06/21/2025 3:18 PM EDT ECG ADULT STAT 06/21/2025 2:36 PM EDT documented in this encounter Results * MR Head wo IV Contrast (06/22/2025 12:04 PM EDT) Anatomical Region Laterality Modality Head Magnetic Resonan ce Impressions 06/23/2025 12:13 AM EDT No acute intracranial findings. CRITICAL RESULT: No. COMMUNICATION: Per this written report. Drafted by Herminia Martin on 06/23/2025 12:07 AM Final report signed by Herminia Martin on 06/23/2025 12:13 AM Narrative 06/23/2025 12:13 AM EDT CLINICAL INDICATION: Stroke, follow-up TECHNIQUE: Multiplanar multiecho sequences were performed through the brain utilizing T1 and T2 weighting, as well as either axial susceptibility weighted or gradient echo sequences, and axial diffusion weighted images. Imaging was performed without contrast administration. COMPARISON: CT head 02/20/2024 FINDINGS: Diagnostic Quality: Adequate. The ventricles and sulci are normal in size. There are no definite focal parenchymal lesions or masses. Mild chronic microvascular changes of the white matter. There is no abnormal parenchymal susceptibility artifact or restricted diffusion. Vascular Flow Voids: Normal. Paranasal Sinuses and Mastoid Air Cells: Mucosal disease within the paranasal sinuses with near complete opacification of the right frontal sinus, ethmoid air cells, and right maxillary sinus. Mastoid air cells are clear. Orbits: No definite masses within the limitations of the study. Extracranial Findings: None. Craniocervical Junction and Skull Base: No tonsillar ectopia or mass is present. Procedure Note Herminia Martin MD - 06/23/2025 CLINICAL INDICATION: Stroke, follow-up TECHNIQUE: Multiplanar multiecho sequences were performed through the brain utilizingT1 and T2 weighting, as well as either axial susceptibility weighted orgradient echo sequences, and axial diffusion weighted images. Imaging wasperformed without contrast administration. COMPARISON: CT head 02/20/2024 FINDINGS: Diagnostic Quality: Adequate. The ventricles and sulci are normal in size. There are no definite focal parenchymal lesions or masses. Mild chronicmicrovascular changes of the white matter. There is no abnormal parenchymal susceptibility artifact or restricteddiffusion. Vascular Flow Voids: Normal. Paranasal Sinuses and Mastoid Air Cells: Mucosal disease within theparanasal sinuses with near complete opacification of the right frontalsinus, ethmoid air cells, and right maxillary sinus. Mastoid air cells areclear. Orbits: No definite masses within the limitations of the study. Extracranial Findings: None. Craniocervical Junction and Skull Base: No tonsillar ectopia or mass ispresent. IMPRESSION: No acute intracranial findings. CRITICAL RESULT: No. COMMUNICATION: Per this written report. Drafted by Herminia Martin on 06/23/2025 12:07 AM Final report signed by Herminia Martin on 06/23/2025 12:13 AM Zachary Gutierres MD [facility] MRI PROCEDURES Final Res ult * (ABNORMAL) Comprehensive Urine Drug Screening, Qualitative Assay, >= 27 Drug Classes (54:37 AM EDT) Acetaminophen Negative Negative 06/24/2025 1:39 PM EDT [facility] Alprazolam Negative Negative 06/24/2025 1:39 PM EDT [facility] Amantadine Negative Negative 06/24/2025 1:39 PM EDT [facility] Amitriptyline Negative Negative 06/24/2025 1:39 PM EDT [facility] Amphetamine Negative Negative 06/24/2025 1:39 PM EDT [facility] Atenolol Negative Negative 06/24/2025 1:39 PM EDT [facility] Benzoylecgonine Negative Negative 1:39 PM EDT [facility] Bisoprolol Negative Negative 06/24/2025 1:39 PM EDT [facility] Bupropion Negative Negative 06/24/2025 1:39 PM EDT [facility] Butalbital Negative Negative 06/24/2025 1:39 PM EDT [facility] Carbamazepine Negative Negative 06/24/2025 1:39 PM EDT [facility] Carisoprodol Negative Negative 06/24/2025 1:39 PM EDT [facility] Chlorpheniramine Negative Negative 06/24/20 1:39 PM EDT [facility] Citalopram Negative Negative 06/24/2025 1:39 PM EDT [facility] Clindamycin Negative Negative 06/24/2025 1:39 PM EDT [facility] Clonidine Negative Negative 06/24/2025 1:39 PM EDT [facility] Clopidogrel / Ticlopidine Negative Negative 06/24/2025 1:39 PM EDT [facility] Cocaethylene Negative Negative 06/24/2025 1:39 PM EDT [facility] Cocaine Negative Negative 06/24/2025 1:39 PM EDT [facility] Codeine Negative Negative 06/24/2025 1:39 PM EDT [facility] Cyclobenzaprine Positive(A) Negative 06/24/20 1:39 PM EDT [facility] Desvenlafaxine Negative Negative 06/24/2025 1:39 PM EDT [facility] Dextromethorphan Negative Negative 06/24/20 1:39 PM EDT [facility] Diazepam Negative Negative 06/24/2025 1:39 PM EDT [facility] Diltiazem Negative Negative 06/24/2025 1:39 PM EDT [facility] Diphenhydramine Negative Negative 1:39 PM EDT [facility] Doxepine Negative Negative 06/24/2025 1:39 PM EDT [facility] Doxylamine Negative Negative 06/24/2025 1:39 PM EDT [facility] EDDP-Methadone metabolite Negative Negative 06/24/2025 1:39 PM EDT [facility] Fentanyl Negative Negative 06/24/2025 1:39 PM EDT [facility] Fluconazole Negative Negative 06/24/2025 1:39 PM EDT [facility] Fluoxetine Negative Negative 06/24/2025 1:39 PM EDT [facility] Guaifenesin Negative Negative 06/24/2025 1:39 PM EDT [facility] Haloperidol Negative Negative 06/24/2025 1:39 PM EDT [facility] Heroin/6-LUCI Negative Negative 06/24/2025 1:39 PM EDT [facility] Hydrocodone Negative Negative 06/24/2025 1:39 PM EDT [facility] Hydroxyzine / Cetirizine metabolite Negative Negative 06/24/2025 1:39 PM EDT [facility] Ibuprofen Negative Negative 06/24/2025 1:39 PM EDT [facility] Imipramine Negative Negative 06/24/2025 1:39 PM EDT [facility] Ketamine Negative Negative 06/24/2025 1:39 PM EDT [facility] Labetolol Negative Negative 06/24/2025 1:39 PM EDT [facility] Lamotrigine Negative Negative 06/24/2025 1:39 PM EDT [facility] Levetiracetam Negative Negative 06/24/2025 1:39 PM EDT [facility] Lidocaine Negative Negative 06/24/2025 1:39 PM EDT [facility] MDA Negative Negative 06/24/2025 1:39 PM EDT [facility] MDMA Negative Negative 06/24/2025 1:39 PM EDT [facility] Memantine Negative Negative 06/24/2025 1:39 PM EDT [facility] Meperidine Negative Negative 06/24/2025 1:39 PM EDT [facility] Meprobamate Negative Negative 06/24/2025 1:39 PM EDT [facility] Metaxalone Negative Negative 06/24/2025 1:39 PM EDT [facility] Methamphetamine Negative Negative 1:39 PM EDT [facility] Methocarbamol Negative Negative 06/24/2025 1:39 PM EDT [facility] Methylecgonine Negative Negative 06/24/2025 1:39 PM EDT [facility] Metoclopramide Negative Negative 06/24/2025 1:39 PM EDT [facility] Metoprolol Negative Negative 06/24/2025 1:39 PM EDT [facility] Metronidazole Negative Negative 06/24/2025 1:39 PM EDT [facility] Midazolam Negative Negative 06/24/2025 1:39 PM EDT [facility] Midazolam Metabolite Negative Negative 06/24/2025 1:39 PM EDT [facility] Mirtazapine Negative Negative 06/24/2025 1:39 PM EDT [facility] Misc Test Result Negative Negative 06/24/20 1:39 PM EDT [facility] Naproxen Negative Negative 06/24/2025 1:39 PM EDT [facility] Nefazodone Negative Negative 06/24/2025 1:39 PM EDT [facility] Norfentanyl Negative Negative 06/24/2025 1:39 PM EDT [facility] Nortriptyline Negative Negative 06/24/2025 1:39 PM EDT [facility] Ordanstron Negative Negative 06/24/2025 1:39 PM EDT [facility] Oxcarbazepine Negative Negative 06/24/2025 1:39 PM EDT [facility] Oxycodone Negative Negative 06/24/2025 1:39 PM EDT [facility] Paroxethine Negative Negative 06/24/2025 1:39 PM EDT [facility] Phenobarbital Negative Negative 06/24/2025 1:39 PM EDT [facility] Phentermine Negative Negative 06/24/2025 1:39 PM EDT [facility] Phenytoin Negative Negative 06/24/2025 1:39 PM EDT [facility] Primidone Negative Negative 06/24/2025 1:39 PM EDT [facility] Promethazine Negative Negative 06/24/2025 1:39 PM EDT [facility] Propofol Negative Negative 06/24/2025 1:39 PM EDT [facility] Propranolol Negative Negative 06/24/2025 1:39 PM EDT [facility] Quetiapine Negative Negative 06/24/2025 1:39 PM EDT [facility] Quinine Negative Negative 06/24/2025 1:39 PM EDT [facility] Rantidine Negative Negative 06/24/2025 1:39 PM EDT [facility] Sertraline Negative Negative 06/24/2025 1:39 PM EDT [facility] Spironolactone Negative Negative 06/24/2025 1:39 PM EDT [facility] Tizanidine Negative Negative 06/24/2025 1:39 PM EDT [facility] Topiramate Negative Negative 06/24/2025 1:39 PM EDT [facility] Tramadol Negative Negative 06/24/2025 1:39 PM EDT [facility] Trazadone/ Trazadone metabolite Negative Negative 06/24/2025 1:39 PM EDT [facility] [facility] Trimethoprim Negative Negative 06/24/2025 1:39 PM EDT [facility] Valproic Acid Negative Negative 06/24/2025 1:39 PM EDT [facility] Venlafaxine Negative Negative 06/24/2025 1:39 PM EDT [facility] Verapamil Negative Negative 06/24/2025 1:39 PM EDT [facility] Zolpidem Negative Negative 06/24/2025 1:39 PM EDT [facility] Xylazine Negative Negative 06/24/2025 1:39 PM EDT [facility] Urine Urine specimen obtained by clean catch procedure / Unknown Non-blood Collection / Unknown 06/22/2025 4:37 AM EDT 06/22/2025 4:43 AM EDT Zachary Gutierres MD LAB URINE ORDERABLES Final R esult [facility] [address] [place] [address] * (ABNORMAL) Lipid panel (06/22/2025 4:32 AM EDT) Cholesterol, Plasma 159 <200 mg/dL 06/22/2025 5:13 AM EDT [facility] Comment: Cholesterol Reference Range (age >17 years): Desirable <200 mg/dL Borderline 200 to 239 mg/dL Undesirable >239 mg/dL HDL 35(L) >=40 mg/dL 06/22/2025 5:13 AM EDT [facility] Comment: HDL Cholesterol Reference Ranges (age >17 years): Female, acceptable > or = 50 mg/dL Male, acceptable > or = 40 mg/dL Triglycerides, Plasma 112 <150 mg/dL 06/22/2025 5:13 AM EDT [facility] Comment: Triglyceride Reference Range (age >17 years): Desirable: <150 mg/dL Borderline high: 150 to 199 mg/dL High: 200 to 499 mg/dL Very high: >499 mg/dL Increased risk of pancreatitis: >1000 mg/dL Cholesterol/HDL Ratio 5 06/22/2025 5:13 AM EDT [facility] LDL, Calculated 103(H) <100 mg/dL 5:13 AM EDT [facility] Comment: LDL Cholesterol Reference Range (age >17 years): Optimal: <100 mg/dL Near or above optimal: 100 - 129 mg/dL Borderline high: 130 - 159 mg/dL High: 160 - 189 mg/dL Very high: >189 mg/dL LDL Cholesterol Reference Range (age <18 years): Desirable: <110 mg/dL Borderline: 110 - 129 mg/dL Undesirable: >130 mg/dL LDL Cholesterol is calculated using the Lazcano/NIH equation. Fasting greater than or equal to 12 hours? Yes 06/22/2025 5:13 AM EDT [facility] Blood Venous blood specimen / Unknown Venipuncture / Unknown 06/22/2025 4:32 AM EDT 06/22/2025 4:43 AM EDT Zachary Gutierres MD LAB BLOOD ORDERABLES Final R esult Performing Organization Address City/[facility]/ZIP Co de Phone Number [facility] [address] [place] [address] * TSH (06/21/2025 3:18 PM EDT) Thyroid Stimulating Hormone, Plasma 3.77 0.40 - 4.20 uIU/mL 06/21/2025 11:48 PM EDT [facility] Blood Venous blood specimen / Unknown Venipuncture / Unknown 06/21/2025 3:18 PM EDT 06/21/2025 3:22 PM EDT Zachary Gutierres MD LAB BLOOD ORDERABLES Final R esult Performing Organization Address [facility] Co de Phone Number [facility] [address] [place] [address] * (ABNORMAL) Hemoglobin A1c (06/21/2025 3:18 PM EDT) Hemoglobin A1c 5.9(H) <5.7 % 06/22/2025 9:33 AM EDT [facility] Blood Venous blood specimen / Unknown Venipuncture / Unknown 06/21/2025 3:18 PM EDT 06/21/2025 3:22 PM EDT Narrative [facility] - 06/22/2025 9:33 AM EDT HA1C Interpretive Data: Diagnosis of Diabetes: Diabetic > or = 6.5% Pre-diabetic 5.7 to 6.4% Non-diabetic < or = 5.6% Glycemic Targets for Type I and Type II Diabetics: Non- Adults <7.0% Adults <6.0% Children and Adolescents <7.5% Source: [place] [employer]. Standards of medical care in diabetes,2017. Diabetes Care.2017:40 (suppl 1):S1-S135. Zachary Gutierres MD LAB BLOOD ORDERABLES Final R esult Performing Organization Address [facility]/ZIP Co de Phone Number [facility] [address] [place] [address] * ED HIV 1/2 Antibody/Antigen Screen w/Reflex to HIV 1/2 Differentiation (06/21/2025 3:18 PM EDT) [facility] HIV 1 & 2 Antibody/Antigen Screen Non Reactive Non Reactive 06/21/2025 4:35 PM EDT [facility] Comment:Screening for HIV 1 & 2 antibodies, and P24 antigen is NONREACTIVE. No confirmatory testing is required. Blood Venous blood specimen / Unknown Venipuncture / Unknown 06/21/2025 3:18 PM EDT 06/21/2025 3:56 PM EDT Maikol Martinez MD LAB BLOOD ORDERABLES Final Res ult Performing Organization Address City/[facility]/ZIP Co de Phone Number [facility] [address] [place] [address] * Hepatitis C Antibody - ED (06/21/2025 3:18 PM EDT) [facility] Hepatitis C Antibody Negative Negative 06/21/2025 4:35 PM EDT [facility] Blood Venous blood specimen / Unknown Venipuncture / Unknown 06/21/2025 3:18 PM EDT 06/21/2025 3:56 PM EDT Maikol Matrinez MD LAB BLOOD ORDERABLES Final Res ult Performing Organization Address City/[facility]/ZIP Co de Phone Number [facility] [address] [place] [address] * (ABNORMAL) CBC w/diff (06/21/2025 3:18 PM EDT) [facility] WBC Count 8.59 3.70 - 10.30 10*3/uL LAB HEMATOLOGY METHOD 06/21/2025 3:24 PM EDT [facility] RBC Count 4.05(L) 4.60 - 6.10 10*6/uL LAB HEMATOLOGY METHOD 06/21/2025 3:24 PM EDT [facility] HGB 10.7(L) 13.7 - 17.5 g/dL LAB HEMATOLOGY METHOD 06/21/2025 3:24 PM EDT [facility] HCT 32.5(L) 40.0 - 51.0 % LAB HEMATOLOGY METHOD 06/21/2025 3:24 PM EDT [facility] Platelet Count 195 155 - 369 10*3/uL LAB HEMATOLOGY METHOD 06/21/2025 3:24 PM EDT [facility] MCV 80 79 - 98 fL LAB HEMATOLOGY METHOD 06/21/2025 3:24 PM EDT [facility] MCH 26.4 26.0 - 32.0 pg LAB HEMATOLOGY METHOD 06/21/2025 3:24 PM EDT [facility] MCHC 32.9 30.7 - 35.5 g/dL LAB HEMATOLOGY METHOD 06/21/2025 3:24 PM EDT [facility] RDW 14.6(H) 11.5 - 14.5 % LAB HEMATOLOGY METHOD 06/21/2025 3:24 PM EDT [facility] MPV 8.7(L) 8.8 - 12.5 fL LAB HEMATOLOGY METHOD 06/21/2025 3:24 PM EDT [facility] nRBC 0.0 <=0.0 per 100 WBCs LAB HEMATOLOGY METHOD 06/21/2025 3:24 PM EDT [facility] Differential Type Automated LAB HEMATOLOGY METHOD 06/21/2025 3:24 PM EDT [facility] Neutrophils % 77 % LAB HEMATOLOGY METHOD 06/21/2025 3:24 PM EDT [facility] Lymphocytes % 13 % LAB HEMATOLOGY METHOD 06/21/2025 3:24 PM EDT [facility] Monocytes % 6 % LAB HEMATOLOGY METHOD 06/21/2025 3:24 PM EDT [facility] Eosinophils % 4 % LAB HEMATOLOGY METHOD 06/21/2025 3:24 PM EDT [facility] Basophils % 0 % LAB HEMATOLOGY METHOD 06/21/2025 3:24 PM EDT [facility] Immature Granulocytes % 0 % LAB HEMATOLOGY METHOD 06/21/2025 3:24 PM EDT [facility] Neutrophils Absolute 6.66(H) 1.60 - 6.10 10*3/uL LAB HEMATOLOGY METHOD 06/21/2025 3:24 PM EDT [facility] Lymphocytes Absolute 1.10(L) 1.20 - 3.90 10*3/uL LAB HEMATOLOGY METHOD 06/21/2025 3:24 PM EDT [facility] Monocytes Absolute 0.49 0.30 - 0.90 10*3/uL LAB HEMATOLOGY METHOD 06/21/2025 3:24 PM EDT [facility] Eosinophils Absolute 0.30 0.00 - 0.50 10*3/uL LAB HEMATOLOGY METHOD 06/21/2025 3:24 PM EDT [facility] Basophils Absolute 0.01 0.00 - 0.10 10*3/uL LAB HEMATOLOGY METHOD 06/21/2025 3:24 PM EDT [facility] Immature Granulocytes Absolute 0.03 0.00 - 0.06 10*3/uL LAB HEMATOLOGY METHOD 06/21/2025 3:24 PM EDT [facility] Blood Venous blood specimen / Unknown Venipuncture / Unknown 06/21/2025 3:18 PM EDT 06/21/2025 3:22 PM EDT Narrative [facility] - 06/21/2025 3:24 PM EDT Therapeutic decision making should be based on absolute values, rather than percentages. us Maikol Martinez MD LAB BLOOD ORDERABLES Final Res ult [facility] [address] [place] [address] * (ABNORMAL) BMP (06/21/2025 3:18 PM EDT) Glucose, Plasma 100(H) 74 - 99 mg/dL 06/21/2025 3:44 PM EDT [facility] BUN, Plasma 21 8 - 23 mg/dL 06/21/2025 3:44 PM EDT [facility] Creatinine, Plasma 1.14 0.70 - 1.20 mg/dL 06/21/2025 3:44 PM EDT [facility] BUN/Creatinine Ratio 18 06/21/2025 3:44 PM EDT [facility] Sodium, Plasma 139 136 - 145 mmol/L 06/21/2025 3:44 PM EDT [facility] Potassium, Plasma 4.4 3.6 - 4.9 mmol/L 06/21/2025 3:44 PM EDT [facility] Chloride, Plasma 106 97 - 107 mmol/L 06/21/2025 3:44 PM EDT [facility] CO2, Plasma 24 22 - 29 mmol/L 06/21/2025 3:44 PM EDT [facility] Anion Gap 9 6 - 16 mmol/L 06/21/2025 3:44 PM EDT [facility] Total Calcium, Plasma 9.1 8.9 - 10.2 mg/dL 06/21/2025 3:44 PM EDT [facility] eGFRcr 70.5 mL/min/1.7 3m*2 06/21/2025 3:44 PM EDT [facility] Comment:Reported eGFRcr in m L/min/1.73m2 is based the CKD-EPI 2020 equation that does not use a race coefficient. Blood Venous blood specimen / Unknown Venipuncture / Unknown 06/21/2025 3:18 PM EDT 06/21/2025 3:22 PM EDT us Maikol Martinez MD LAB BLOOD ORDERABLES Final Res ult [facility] [address] [place] [address] * EKG now - STAT (adult) (06/21/2025 2:36 PM EDT) EKG DIAGNOSIS CLASS Abnormal MUSE ECG Ventricular Rate 78 BPM MUSE ECG Atrial Rate 78 BPM MUSE ECG MO Interval 134 ms MUSE ECG QRSD Interval 108 ms MUSE ECG QT Interval 352 ms MUSE ECG QTC Interval 401 ms MUSE ECG P [place] 78 degrees MUSE ECG R [place] -4 degrees MUSE ECG T Wave [place] 33 degrees MUSE ECG Diagnosis Sinus rhythm with occasional premature ventricular complexes MUSE ECG Diagnosis Poor R-wave progression ; consider anterior infarct, lead placement, or normal variant MUSE ECG Diagnosis Abnormal ECG MUSE ECG Diagnosis MUSE ECG Diagnosis Confirmed by Mariana Perez ([id number]) on 06/21/2025 10:34:48 PM MUSE ECG 06/21/2025 2:36 PM EDT 06/21/2025 10:34 PM EDT us Long Arenas MD ECG ORDERABLES Final Resu lt MUSE ECG documented in this encounter Visit Diagnoses Diagnosis 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 Lightheadedness Dizziness and giddiness Dizziness Dizziness and giddiness Occlusion of left 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 Overweight (BMI 25.0-29.9) Overweight documented in this encounter Admitting Diagnoses Diagnosis Embolic occlusion of left vertebral artery documented in this encounter Administered Medications Inactive Administered Medications - up to 3 most recent administrations Medication Order MAR Action Action Date Dose Rate Site amLODIPine (Norvasc) tablet 10 mg 10 mg, Oral, Daily, First dose on Tue06/22/25 at 1045, Until Discontinued Given 06/22/2025 11:28 AM EDT 10 mg enoxaparin (Lovenox) syringe 90 mg 90 mg (rounded from 86.2 mg = 1 mg/kg 86.2 kg), Subcutaneous, Every 12 hours, First dose on Tue06/21/25 at 2315, Until Discontinued, Routine Given 06/22/2025 11:27 AM EDT 90 mg Left Lower Abdomen Given 06/21/2025 11:37 PM EDT 90 mg L eft Lower Abdomen hydrALAZINE (Apresoline) injection 10 mg 10 mg, Intravenous, Every 1 hour PRN, Starting on Tue06/21/25 at 2309, Until 06/22/25 at 1754, Routine, high blood pressure, for non-TPA SBP > 220 & DBP > 110 and for tPA patient PRN SBP > 180 and DBP >105, Second-Line hydrALAZINE (Apresoline) injection 20 mg 20 mg, Intravenous, Every 1 hour PRN, Starting on Tue06/21/25 at 2309, Until 06/22/25 at 1754, Routine, high blood pressure, for non-TPA SBP > 220 & DBP > 110 and for tPA patient PRN SBP > 180 and DBP >105, Second-Line labetalol (Normodyne,Trandate) injection 10 mg 10 mg, Intravenous, Every 1 hour PRN, Starting on Tue06/21/25 at 2309, Until 06/22/25 at 1754, Routine, high blood pressure, for non-TPA SBP > 220 & DBP > 110 and for tPA patient PRN SBP > 180 and DBP >105, First-Line, HOLD for HR< 60 labetalol (Normodyne,Trandate) injection 20 mg 20 mg, Intravenous, Every 1 hour PRN, Starting on Tue06/21/25 at 2309, Until 06/22/25 at 1754, Routine, high blood pressure, for non-TPA SBP > 220 & DBP > 110 and for tPA patient PRN SBP > 180 and DBP >105, First-Line, HOLD for HR< 60 NIFEdipine XL (Procardia XL) 24 hr tablet 60 mg 60 mg, Oral, Once, 1 dose, On 06/22/25 at 1500, Routine Given 06/22/2025 2:36 PM EDT 60 mg sodium chloride 0.9 % flush 10 mL 10 mL, Intravenous, Every 12 hours, First dose on Tue06/21/25 at 2315, Until Discontinued, Routine Given 06/21/2025 11:36 PM EDT 10 mL sodium chloride 0.9 % flush 10 mL 10 mL, Intravenous, As needed, Starting on Tue06/21/25 at 2307, Until 06/22/25 at 1754, Routine, line care documented in this encounter Active and Recently Administered Medications Times are shown in EDT. Scheduled Medication Order 06/20/2025 06/21/2025 06/22/2025 amLODIPine (Norvasc) tablet 10 mg 10 mg, Oral, Daily, First dose on 06/22/25 at 1045, Until Discontinued 1128 (Given - Provid er: Amrita Funk RN) enoxaparin (Lovenox) syringe 90 mg 90 mg (rounded from 86.2 mg = 1 mg/kg 86.2 kg), Subcutaneous, Every 12 hours, First dose on Tue06/21/25 at 2315, Until Discontinued, Routine 2337 (Given - Provider: Matt Joyner) 1127 (Given - Provider: Amrita Funk RN) NIFEdipine XL (Procardia XL) 24 hr tablet 60 mg (COMPLETED) 60 mg, Oral, Once, 1 dose, On 06/22/25 at 1500, Routine 1436 (Given - Provid er: Amrita Funk RN) sodium chloride 0.9 % flush 10 mL(Linked Group 1) 10 mL, Intravenous, Every 12 hours, First dose on Tue06/21/25 at 2315, Until Discontinued, Routine 2336 (Given - Provider: Matt Joyner) 1140 (Not Given - Provider: Amrita Funk RN - Reason: Hold for condition: must add comment - Comment: PRN given earlier) PRN Medication Order 06/20/2025 06/21/2025 06/22/2025 hydrALAZINE (Apresoline) injection 10 mg(Linked Group 2) 10 mg, Intravenous, Every 1 hour PRN, Starting on Tue06/21/25 at 2309, Until 06/22/25 at 1754, Routine, high blood pressure, for non-TPA SBP > 220 & DBP > 110 and for tPA patient PRN SBP > 180 and DBP >105, Second-Line hydrALAZINE (Apresoline) injection 20 mg(Linked Group 2) 20 mg, Intravenous, Every 1 hour PRN, Starting on Tue06/21/25 at 2309, Until 06/22/25 at 1754, Routine, high blood pressure, for non-TPA SBP > 220 & DBP > 110 and for tPA patient PRN SBP > 180 and DBP >105, Second-Line labetalol (Normodyne,Trandate) injection 10 mg(Linked Group 3) 10 mg, Intravenous, Every 1 hour PRN, Starting on Tue06/21/25 at 2309, Until 06/22/25 at 1754, Routine, high blood pressure, for non-TPA SBP > 220 & DBP > 110 and for tPA patient PRN SBP > 180 and DBP >105, First-Line, HOLD for HR< 60 labetalol (Normodyne,Trandate) injection 20 mg(Linked Group 3) 20 mg, Intravenous, Every 1 hour PRN, Starting on Tue06/21/25 at 2309, Until 06/22/25 at 1754, Routine, high blood pressure, for non-TPA SBP > 220 & DBP > 110 and for tPA patient PRN SBP > 180 and DBP >105, First-Line, HOLD for HR< 60 sodium chloride 0.9 % flush 10 mL(Linked Group 1) 10 mL, Intravenous, As needed, Starting on Tue06/21/25 at 2307, Until 06/22/25 at 1754, Routine, line care Linked Groups Order Group 1: Insert peripheral IV (CANCELED) Once, On Tue06/21/25 at 2308, For 1 occurrence And Saline lock IV (CANCELED) Once, On Tue06/21/25 at 2308, For 1 occurrence And sodium chloride 0.9 % flush 10 mLJump to med 10 mL, Intravenous, Every 12 hours, First dose on Tue06/21/25 at 2315, Until Discontinued, Routine And sodium chloride 0.9 % flush 10 mLJump to med 10 mL, Intravenous, As needed, Starting on Tue06/21/25 at 2307, Until 06/22/25 at 1754, Routine, line care Group 2: hydrALAZINE (Apresoline) injection 10 mgJump to med 10 mg, Intravenous, Every 1 hour PRN, Starting on Tue06/21/25 at 2309, Until 06/22/25 at 1754, Routine, high blood pressure, for non-TPA SBP > 220 & DBP > 110 and for tPA patient PRN SBP > 180 and DBP >105, Second-Line Or hydrALAZINE (Apresoline) injection 20 mgJump to med 20 mg, Intravenous, Every 1 hour PRN, Starting on Tue06/21/25 at 2309, Until 06/22/25 at 1754, Routine, high blood pressure, for non-TPA SBP > 220 & DBP > 110 and for tPA patient PRN SBP > 180 and DBP >105, Second-Line Group 3: labetalol (Normodyne,Trandate) injection 10 mgJump to med 10 mg, Intravenous, Every 1 hour PRN, Starting on Tue06/21/25 at 2309, Until 06/22/25 at 1754, Routine, high blood pressure, for non-TPA SBP > 220 & DBP > 110 and for tPA patient PRN SBP > 180 and DBP >105, First-Line, HOLD for HR< 60 Or labetalol (Normodyne,Trandate) injection 20 mgJump to med 20 mg, Intravenous, Every 1 hour PRN, Starting on Tue06/21/25 at 2309, Until 06/22/25 at 1754, Routine, high blood pressure, for non-TPA SBP > 220 & DBP > 110 and for tPA patient PRN SBP > 180 and DBP >105, First-Line, HOLD for HR< 60 documented in this encounter Additional Health Concerns Assessment Noted Time PHQ-9 Depression Total Score: 0 10/08/19 25 7:43 AM EST A fall risk assessment has been complete d for the patient 05/14/2025 12:04 PM EDT A Body Mass Index follow-up plan has been documented for the patient 06/22/2025 3:05 PM EDT documented as of this encounter Care Teams Ultrasound Technologist Sonographer Relationship Specialty Start Date End Date Alex Roque MD [address] [place] [address] #1 #1 AUDRA Rasheed [id number] PCP - General 12/18/21 documented as of this encounter
--- OUTSIDE RECORDS SUMMARY | 2025-07-31 10:30 | XMS_ITS | Encounter Summary ---
Author Organization [facility] Address [address] [place] [address] Care Team Providers Care Therapy Director Name Role Phone Alex Roque MD Primary Care Provider [phone] Reason for Referral * Consultation (Routine) - Authorized Specialty Diagnoses / Procedures Referred By Neftali thayer Referred To Contact Neurology Diagnoses Dizziness Jarod Paula MD [address] [address] Phone: tel: fax: [address] [address] Phone: tel: fax: Referral ID Status Reason Start Date Expiration Date Visits Requested Visits Authorized [id number] Authorized Specialty Services Required 07/31/2025 01/30/2027 1 1 Scheduling Instructions Please schedule first available appt for eval and treatment of dizziness. Reason for Visit * Consultation (Routine) - Closed Specialty Diagnoses / Procedures Referred By Neftali thayer Referred To Contact Neurosurgery Diagnoses Occlusion of left vertebral artery Jarod Paula MD [address] [place] [address] Phone: tel: fax: [address] [place] [address] Phone: tel: fax: Referral ID Status Reason Start Date Expiration Date V isits Requested Visits Authorized [id number] Closed Specialty Services Required 06/22/2025 12/22/2026 1 1 Encounter Details Date Type Department Care Team (Late st Contact Info) Description 07/31/2025 10:30 AM EST Office Visit [place] [facility] [address], [address] [place] [address] Jarod Paula MD [address] [place] [address] Dizziness (Primary Dx) Social History [...] drink first t alberto in the morning (EYE-DIAGRAMMER) to steady your nerves or to get [...] 10:17 AM EST documented in this encounter Plan of Treatment Upcoming Encounters Date Type Department Care Team (Late st Contact Info) Description 08/20/2025 9:00 AM EST Office Visit [place] [facility] [address], [address]st [place] [address] Andre Lion APRN [address] [facility] [address] [place] [address] 09/10/2025 8:30 AM EST Office Visit [place] [facility] Otolaryngology [address], 3rd [place] [address] Gus Mon MD [address] [facility] [address] [place] [address] 10/07/2025 9:15 AM EST Clinical Support [facility] [address] , [address] [place] [address] 10/07/2025 10:20 AM EST Appointment [facility] [address] [place] [address] 10/10/2025 9:30 AM EST Office Visit [facility] Res[facility] [address] [facility], 2nd [place] [address] Vitor Honeycutt, INSURANCE ACCOUNT ASSISTANT [address] [facility] [address] [place] [address] Scheduled Referrals Name Type Priority Associated Diagnoses [...] documented as of this encounter Care Teams Therapy Director Relationship Specialty Start Date End Date Alex Roque MD [address] [place] [address] #1 #1 AUDR[place] Rasheed [address] PCP - General 12/18/21 documented as of this encounter
--- NOTE | 2025-08-06 | CA_ITS ---
APPROVED REPORT Exam: Pharmacologic Technologist: Gauri Montes Ht: 5 ft 7 in Wt: 191 lbs BSA: 1.98 m2 HR: 56 bpm BP: 162/71 mmHg Rhythm: Sinus rhythm Indications: dizziness, chest pain Medical History Cardiac Risk Factors: HTN, Hyperlipidemia Stress Test Details HR Resting HR: 56 bpm Max Heart Rate (APMHR): 153.326144 bpm Target HR (85% APMHR): 130.429407 bpm Recovery HR: 64 bpm BP Resting BP: 162.0/71.0 mmHg Recovery BP: 116.0/64.0 mmHg ECG Resting ECG: Sinus rhythm Stress ECG Conclusion During lexiscan pt experinced dizziness. PVCs noted. Less than 0.5mm upsloping ST segment changes. Nondiagnostic ECG/lexiscan. Electronically signed by : Ashwini Quintero MD 08/10/2025 02:15:16
--- OUTSIDE RECORDS SUMMARY | 2025-08-06 07:07 | XMS_ITS | Encounter Summary ---
Author Organization Healthcare Address [address] [place] [address] Care Team Providers Care Member Service Specialist Name Role Phone Alex Roque MD Primary Care Provider [phone] Encounter Details Date Type Department Care Team (Latest Contact Info) Description 07/31/2025 Travel Social History Tobacco Use Types Packs/Day [...] drink first t alberto in the morning (EYE-RAW STOCK MACHINE FEEDER) to steady your nerves or to get [...] Description 08/20/2025 9:00 AM EST Office Visit [place] [facility] [address], [address] [place] [address] Andre Lion, DECATING MACHINE OPERATOR [address] [facility] [address] [place] [address] 09/10/2025 8:30 AM EST Office Visit [place] [facility] [address], 3[address] [place] [address] Gus Mon MD [address] [facility] [address] [place] [address] 10/07/2025 9:15 AM EST Clinical Support [facility] [address] [facility], 2nd [place] [address] 10/07/2025 10:20 AM EST Appointment [facility] [address] [place] [address] 10/10/2025 9:30 AM EST Office Visit [facility] [address] [place] [address] Vitor Honeycutt, DECATING MACHINE OPERATOR [address] [place] [address] documented as of this encounter Visit Diagnoses [...] documented as of this encounter Care Teams Member Service Specialist Relationship Specialty Start Date End Date Alex Roque MD [address] [place] [address] #1 #1 AUDRA Rasheed [address] PCP - General 12/18/21 documented as of this encounter
--- OUTSIDE RECORDS SUMMARY | 2025-08-06 07:07 | XMS_ITS | Encounter Summary ---
Author Organization Healthcare Address [address] [place] [address] Care Team Providers Care Government Relations Analyst Name Role Phone Alex Roque MD Primary Care Provider [phone] Encounter Details Date Type Department Care Team ([facility] st Contact Info) Description 06/20/2025 Orders Only External Location [address] [place] [address] Gosia Stevenson, MUTUEL MACHINE OPERATOR [address] [place] [address] Social History Tobacco Use Types [...] drink first t alberto in the morning (EYE-BOATS RENTER) to steady your nerves or to get [...] Description 08/20/2025 9:00 AM EST Office Visit [place] [facility] [address], [address] [place] [address] Adnre Lion APRN [address] [place] [address] 09/10/2025 8:30 AM EST Office Visit [place] [facility] Ot[facility] [address], [address] [place] [address] Gus Mon MD [address] [facility] [address] [place] [address] 10/07/2025 9:15 AM EST Clinical Support [facility] [address] [place] [address] 10/07/2025 10:20 AM EST Appointment [facility] [address] [place] [address] 10/10/2025 9:30 AM EST Office Visit [facility] [address] , 2[address] [place] [address] Vitor Honeycutt, MUTUEL MACHINE OPERATOR [address] [place] [address] documented as of this encounter Procedures Procedure Name Priority Date/Time Associated Diagnosis Comments CT NEURO OUTSIDE IMAGES 06/20/2025 12:22 PM EDT documented in this encounter Results * CT NEURO OUTSIDE IMAGES (06/20/2025 12:22 PM EDT) Anatomical Region Laterality Modality Computed Tomogra phy 06/20/2025 12:2 2 PM EDT Gosia Stevenson APRN IMG CT PROCEDURES Edited Result - Final documented [...] documented as of this encounter Care Teams Government Relations Analyst Relationship Specialty Start Date End Date Alex Roque MD [address] [place] [address] [address]1 [address] [place] [address] PCP - General 12/18/21 documented as of this encounter
--- OUTSIDE RECORDS SUMMARY | 2025-08-06 07:07 | XMS_ITS | Encounter Summary ---
Author Organization Healthcare Address [address] [place] [address] Care Team Providers Care Scenario Writer Name Role Phone Alex Roque MD Primary Care Provider [phone] Encounter Details Date Type Department Care Team [...] drink first t alberto in the morning (EYE-COUNTY ATTORNEY) to steady your nerves or to get [...] Month) No 06/21/2025 3:40 PM EDT Wilner Villalta, RN 6. Suicidal Behavior (Lifetime) No 3:40 PM EDT Katie Villalta, RN documented as of this encounter Plan of Treatment Upcoming Encounters Date Type Department Care Team (Late st Contact Info) Description 08/20/2025 9:00 AM EST Office Visit [facility] [address], 1[address] [place] [address] Andre Lion APRN [address] [facility] [address] [place] [address] 09/10/2025 8:30 AM EST Office Visit [facility] Otolaryngology [address], [address] [place] [address] Gus Mon MD [address] [place] [address] 10/07/2025 9:15 AM EST Clinical Support Pav [facility] Res[facility] [address] [facility], 2nd [place] [address] 10/07/2025 10:20 AM EST Appointment [facility] [address] [place] [phone] 10/10/2025 9:30 AM EST Office Visit [facility] Respiratory [address] [facility], 2nd [place] [phone] Vitor Honeycutt, SAMPLE DISPLAY PREPARER [address] [facility] [address] [place] [phone] documented as of this encounter Visit Diagnoses [...] documented as of this encounter Care Teams Scenario Writer Relationship Specialty Start Date End Date Alex Roque MD [address] [place] [address] #1 #1 [place] Rasheed [address] PCP - General 12/18/21 documented as of this encounter
--- OUTSIDE RECORDS SUMMARY | 2025-08-06 07:07 | XMS_ITS | Encounter Summary ---
Author Organization Healthcare Address [address] [place] [address] Care Team Providers Care Personal Injury Paralegal Name Role Phone Alex Roque MD Primary Care Provider [phone] Encounter Details Date Type Department Care Team ([facility] st Contact Info) Description 06/20/2025 Orders Only External Location [address] [place] [address] Gosia Stevenson, DOOR CORE ASSEMBLER [address] [place] [address] Social History Tobacco Use Types [...] drink first t alberto in the morning (EYE-CUPOLA TENDER HELPER) to steady your nerves or to get [...] Description 08/20/2025 9:00 AM EST Office Visit [place] [facility] [address], [address] [place] [address] Andre Lion APRN [address] [place] [address] 09/10/2025 8:30 AM EST Office Visit [place] [facility] Ot[facility] [address], [address] [place] [address] Gus Mon MD [address] [facility] [address] [place] [address] 10/07/2025 9:15 AM EST Clinical Support [facility] Res[facility] [address] [place] [address] 10/07/2025 10:20 AM EST Appointment [facility] [address] [place] [address] 10/10/2025 9:30 AM EST Office Visit [facility] Res[facility] [address] [place] [address] Vitor Honeycutt, DOOR CORE ASSEMBLER [address] [place] [address] documented as of this encounter Procedures Procedure [...] documented as of this encounter Care Teams Personal Injury Paralegal Relationship Specialty Start Date End Date Alex Roque MD [address] [place] [address] #1 [address] [place] [address] PCP - General 12/18/21 documented as of this encounter
--- OUTSIDE RECORDS SUMMARY | 2025-08-06 07:08 | XMS_ITS | Encounter Summary ---
Author Organization Healthcare Address [address] [place] [address] Care Team Providers Care Oracle Fusion Developer Name Role Phone Gosia Stevenson APRN Primary Care Provider [phone] Alex Roque MD Primary Care Provider [phone] Encounter Details Date Type Department Care Team (Late st Contact Info) Description 02/27/2019 [facility] [address] [place] [address] Dental, Provider, DDS [address] [place] [id number] Social History Tobacco Use Types Packs/Day [...] Description 08/20/2025 9:00 AM EST Office Visit [facility] [address] [place] [address] Andre Lion APRN [address] [place] [address] 09/10/2025 8:30 AM EST Office Visit [facility] [address] [place] [address] Gus Mon MD [address] [place] [address] 10/07/2025 9:15 AM EST Clinical Support [facility] [address] [place] [address] 10/07/2025 10:20 AM EST Appointment [facility] [address] [place] [address] 10/10/2025 9:30 AM EST Office Visit [facility] [address] [place] [address] Vitor Honeycutt, BODY RECALL INSTRUCTOR [address] [place] [address] documented as of this encounter [...] documented as of this encounter Care Teams Oracle Fusion Developer Relationship Specialty Start Date End Date Gosia Stevenson, BODY RECALL INSTRUCTOR [address] [place] [address] PCP - General 02/06/21 12/17/21 Alex Roque MD [address] [facility] [address] [place] [id number] PCP - General 12/18/21 documented as of this encounter
--- OUTSIDE RECORDS SUMMARY | 2025-08-06 07:08 | XMS_ITS | Clinical Summary ---
Author Organization [facility] Address [address] [place] [address] Care Team Providers Care Fisher Reef Net Name Role Phone Alex Roque MD Primary Care Provider [phone] Allergies No known active allergies Medications gemfibrozil [...] by mouth daily. 90 tablet 3 04/10/2025 Active meloxicam (Mobic) 15 MG tabletIndication s:Neck pain Take 1 tablet by mouth daily. 30 tablet 2 05/10/2025 Active cyclobenzaprine (Flexeril) 10 MG tabletIndication s:Neck pain Take 1 tablet by mouth 2 times a day as needed for muscle spasms. 60 tablet 2 05/10/2025 08/08/20 25 Active clopidogrel (Plavix) 75 MG tablet Take 1 tablet by mouth daily. 89 tablet 06/23/2025 09/20/20 25 Active bisoprolol-hydro CHLOROthiazide (Ziac) 5-6.25 MG tablet Take 1 tablet by mouth daily. 07/02/2025 Active Active Problems Problem Noted Date Diagnosed Date [...] II(cT2, cN2, cM0, p16+) - Signed by Stayc Daly MD on 02/20/2021 Osteonecrosis of jaw Resolved Problems Problem Noted Date Diagnosed Date Resolved Date Streptococcal bacteremia 02/19/2024 Trismus 10/05/2020 06/16/2025 Dysphonia 06/06/2019 06/16/2025 Encounters Date Type Department Care Team Description 07/31/2025 10:30 AM EST Office Visit [facility] [address], [address] [place] [address] Jarod Paula MD Dizziness (Primary Dx) 07/31/2025 Travel 07/02/2025 Telephone [facility] Audiology [address] [facility], [address] [place] [address] StefanoCodi rivers Piotr 06/22/2025 Travel 06/21/2025 3:20 PM EDT - 06/22/2025 3:54 PM EDT Hospital Encounter [facility] Inpatient [address] [place] [address] Frankie Basilio MD Gangadhara, Suhas, MD Occlusion of left vertebral artery (Primary Dx); Lightheadedness; Dizziness; Embolic occlusion of left vertebral artery; Overweight (BMI 25.0-29.9) Discharge Disposition: Home or Self Care 06/21/2025 Travel 06/20/2025 Orders Only External Location [address] [place] [address] Gosia Stevenson, DOCTOR OF [facility]IC[facility] 06/20/2025 Orders Only External Location [address] [place] [address] Gosia Stevenson, DOCTOR OF [facility]IC[facility] 06/11/2025 9:10 AM EDT Office Visit [facility] Otolaryngology [address] [place] [address], [address] [place] [phone] Eric Espinoza MD History of head and neck cancer (Primary Dx); Pharyngoesophageal dysphagia 06/11/2025 8:30 AM EDT Office Visit [facility] Otolaryngology [address] [place] [address] 3rd [place] [address] Gus Mon MD Subacute sinusitis, unspecified location (Primary Dx); Deviated nasal septum 06/11/2025 Travel 06/05/2025 11:30 AM EDT Consult [facility] Otolaryngology [address], [address] [place] [address] Norma Juan APRN Lightheadedness (Primary Dx); Productive cough; History of head and neck cancer; Rhinorrhea; Sensorineural hearing loss, bilateral; Asymmetrical sensorineural hearing loss; Bilateral impacted cerumen 06/05/2025 9:00 AM EDT Office Visit [facility] Audiology [address], [address] [place] [address] Jenn Aguilar AuD Sensorineural hearing loss (SNHL) of both ears (Primary Dx) 06/05/2025 Orders Only [facility] [address] , [address] [place] [address] Sintia Sosa RN Tonsillar cancer ([facility]) (Primary Dx); Squamous cell carcinoma of left tonsil; Hypothyroidism, unspecified type 06/05/2025 Travel 05/20/2025 10:41 AM EDT - 05/20/2025 11:59 PM EDT Hospital Encounter [facility] Vascular Lab [address] [place] [address] Dizziness; Squamous cell carcinoma of left tonsil Discharge Disposition: Home or Self Care 05/20/2025 Travel 05/14/2025 1:15 PM EDT Office Visit [facility] [address] , [address] [place] [address] Jose Carson DMD, MD Dizziness (Primary Dx); Squamous cell carcinoma of left tonsil 05/14/2025 Travel 05/10/2025 Telephone [facility] [address] [place] [address] [address] [place] [address] Marilou Degroot RN 05/10/2025 Telephone [facility] car[facility] attendant Clinic [address] [place] [address] Richard Lema MD from Last 3 [...] drink first t alberto in the morning (EYE-ELECTROLESS PLATER) to steady your nerves or to get [...] Pulse 56 07/31/2025 10:17 AM EST Temperature 36.7 C (98 F) 06/22/2025 7:35 AM EDT Respiratory Rate 13 06/22/2025 3:00 PM EDT Oxygen Saturation 96% 07/31/2025 10:17 AM EST Inhaled Oxygen Concentration - - Weight 87.1 kg (192 lb) 07/31/2025 10:17 AM EST Height 177.8 cm (5' 10 ) 07/31/2025 10:17 AM EST Body Mass Index 27.55 07/31/2025 10:17 AM EST Plan of Treatment Upcoming Encounters Date Type Department Care Team (Late st Contact Info) Description 08/20/2025 9:00 AM EST [facility] Visit [facility] [address], [address] [place] [address] Andre Lion, DOCTOR OF [employer] [facility] [address] [place] [address] 09/10/2025 8:30 AM EST Office Visit [facility] Otolaryngology [address], [address] [place] [address] Gus Mon MD [address] [place] [address] 10/07/2025 9:15 AM EST Clinical Support [facility] [address] [facility], 2nd [place] [address] 10/07/2025 10:20 AM EST Appointment [facility] Radiology [address] [place] [address] 10/10/2025 9:30 AM EST Office Visit [facility] [address] [place] [address] Vitor Honeyuctt, DOCTOR OF [employer]IC[employer] [address] Nisreen Ta [facility] [address] [place] [address] Health Maintenance Due Date Last Done Comments Dental Oral Exam 1957 Dental Prophylaxis 1957 Dental X-Ray: Bitewings 1957 Dental X-Ray: Full Mouth 1957 [facility]-Medicare Annual Wellness (AWV) 1957 [facility]-Infant/Child/Adol SDOH Screenings 1957 [id number] Vaccine (#1) 1962 [facility]- SDOH Screenings 1975 [...] Additional history exists [facility]-Obesity Intervention Completed 025, 06/21/2025, 06/11/2025, Additional history exists HPV Vaccines Aged [...] or mass is present. Procedure Note Herminia Maritn MD - 06/23/2025 CLINICAL INDICATION: Stroke, follow-up [...] on 06/23/2025 12:13 AM Ta Leon MD IM MRI PROCEDURES Final Res ult * (ABNORMAL) Comprehensive Urine Drug Screening, Qualitative Assay, >= 27 Drug Classes (:37 AM EDT) Acetaminophen Negative Negative 06/24/2025 1:39 PM EDT [facility] Alprazolam Negative Negative 06/24/2025 1:39 PM EDT [facility] Amantadine Negative Negative 06/24/2025 1:39 PM EDT [facility] Amitriptyline Negative Negative 06/24/2025 1:39 PM EDT [facility] Amphetamine Negative Negative 06/24/2025 1:39 PM EDT [facility] Atenolol Negative Negative 06/24/2025 1:39 PM EDT [facility] Benzoylecgonine Negative Negative 1:39 PM EDT [facility] Bisoprolol Negative Negative 06/24/2025 1:39 PM EDT [facility] Bupropion Negative Negative 06/24/2025 1:39 PM EDT [facility] Butalbital Negative Negative 06/24/2025 1:39 PM EDT [facility] Carbamazepine Negative Negative 06/24/2025 1:39 PM EDT [facility] Carisoprodol Negative Negative 06/24/2025 1:39 PM EDT [facility] Chlorpheniramine Negative Negative 06/24/20 1:39 PM EDT [facility] Citalopram Negative Negative 06/24/2025 1:39 PM EDT [facility] Clindamycin Negative Negative 06/24/2025 1:39 PM EDT [facility] Clonidine Negative Negative 06/24/2025 1:39 PM EDT [facility] Clopidogrel / Ticlopidine Negative Negative 06/24/2025 1:39 PM EDT [facility] Cocaethylene Negative Negative 06/24/2025 1:39 PM EDT [facility] Cocaine Negative Negative 06/24/2025 1:39 PM EDT [facility] Codeine Negative Negative 06/24/2025 1:39 PM EDT [facility] Cyclobenzaprine Positive(A) Negative 06/24/20 1:39 PM EDT [facility] Desvenlafaxine Negative Negative 06/24/2025 1:39 PM EDT [facility] Dextromethorphan Negative Negative 06/24/20 1:39 PM EDT [facility] Diazepam Negative Negative 06/24/2025 1:39 PM EDT [facility] Diltiazem Negative Negative 06/24/2025 1:39 PM EDT [facility] Diphenhydramine Negative Negative 1:39 PM EDT [facility] Doxepine Negative Negative 06/24/2025 1:39 PM EDT [facility] Doxylamine Negative Negative 06/24/2025 1:39 PM EDT [facility] EDDP-Methadone metabolite Negative Negative 06/24/2025 1:39 PM EDT [facility] Fentanyl Negative Negative 06/24/2025 1:39 PM EDT [facility] Fluconazole Negative Negative 06/24/2025 1:39 PM EDT [facility] Fluoxetine Negative Negative 06/24/2025 1:39 PM EDT [facility] Guaifenesin Negative Negative 06/24/2025 1:39 PM EDT [facility] Haloperidol Negative Negative 06/24/2025 1:39 PM EDT [facility] Heroin/6-LUCI Negative Negative 06/24/2025 1:39 PM EDT [facility] Hydrocodone Negative Negative 06/24/2025 1:39 PM EDT [facility] Hydroxyzine / Cetirizine metabolite Negative Negative 06/24/2025 1:39 PM EDT [facility] Ibuprofen Negative Negative 06/24/2025 1:39 PM EDT [facility] Imipramine Negative Negative 06/24/2025 1:39 PM EDT [facility] Ketamine Negative Negative 06/24/2025 1:39 PM EDT [facility] Labetolol Negative Negative 06/24/2025 1:39 PM EDT [facility] Lamotrigine Negative Negative 06/24/2025 1:39 PM EDT [facility] Levetiracetam Negative Negative 06/24/2025 1:39 PM EDT [facility] Lidocaine Negative Negative 06/24/2025 1:39 PM EDT [facility] MDA Negative Negative 06/24/2025 1:39 PM EDT [facility] MDMA Negative Negative 06/24/2025 1:39 PM EDT [facility] Memantine Negative Negative 06/24/2025 1:39 PM EDT [facility] Meperidine Negative Negative 06/24/2025 1:39 PM EDT [facility] Meprobamate Negative Negative 06/24/2025 1:39 PM EDT [facility] Metaxalone Negative Negative 06/24/2025 1:39 PM EDT [facility] Methamphetamine Negative Negative 1:39 PM EDT [facility] Methocarbamol Negative Negative 06/24/2025 1:39 PM EDT [facility] Methylecgonine Negative Negative 06/24/2025 1:39 PM EDT [facility] Metoclopramide Negative Negative 06/24/2025 1:39 PM EDT [facility] Metoprolol Negative Negative 06/24/2025 1:39 PM EDT [facility] Metronidazole Negative Negative 06/24/2025 1:39 PM EDT [facility] Midazolam Negative Negative 06/24/2025 1:39 PM EDT [facility] Midazolam Metabolite Negative Negative 06/24/2025 1:39 PM EDT [facility] Mirtazapine Negative Negative 06/24/2025 1:39 PM EDT [facility] Misc Test Result Negative Negative 06/24/20 1:39 PM EDT [facility] Naproxen Negative Negative 06/24/2025 1:39 PM EDT [facility] Nefazodone Negative Negative 06/24/2025 1:39 PM EDT [facility] Norfentanyl Negative Negative 06/24/2025 1:39 PM EDT [facility] Nortriptyline Negative Negative 06/24/2025 1:39 PM EDT [facility] Ordanstron Negative Negative 06/24/2025 1:39 PM EDT [facility] Oxcarbazepine Negative Negative 06/24/2025 1:39 PM EDT [facility] Oxycodone Negative Negative 06/24/2025 1:39 PM EDT [facility] Paroxethine Negative Negative 06/24/2025 1:39 PM EDT [facility] Phenobarbital Negative Negative 06/24/2025 1:39 PM EDT [facility] Phentermine Negative Negative 06/24/2025 1:39 PM EDT [facility] Phenytoin Negative Negative 06/24/2025 1:39 PM EDT [facility] Primidone Negative Negative 06/24/2025 1:39 PM EDT [facility] Promethazine Negative Negative 06/24/2025 1:39 PM EDT [facility] Propofol Negative Negative 06/24/2025 1:39 PM EDT [facility] Propranolol Negative Negative 06/24/2025 1:39 PM EDT [facility] Quetiapine Negative Negative 06/24/2025 1:39 PM EDT [facility] Quinine Negative Negative 06/24/2025 1:39 PM EDT [facility] Rantidine Negative Negative 06/24/2025 1:39 PM EDT [facility] Sertraline Negative Negative 06/24/2025 1:39 PM EDT [facility] Spironolactone Negative Negative 06/24/2025 1:39 PM EDT [facility] Tizanidine Negative Negative 06/24/2025 1:39 PM EDT [facility] Topiramate Negative Negative 06/24/2025 1:39 PM EDT [facility] Tramadol Negative Negative 06/24/2025 1:39 PM EDT [facility] Trazadone/ Trazadone metabolite Negative Negative 06/24/2025 1:39 PM EDT [facility] Trimethoprim Negative Negative 06/24/2025 1:39 PM EDT [facility] Valproic Acid Negative Negative 06/24/2025 1:39 PM EDT [facility] Venlafaxine Negative Negative 06/24/2025 1:39 PM EDT [facility] Verapamil Negative Negative 06/24/2025 1:39 PM EDT [facility] Zolpidem Negative Negative 06/24/2025 1:39 PM EDT [facility] Xylazine Negative Negative 06/24/2025 1:39 PM EDT [facility] Urine Urine specimen obtained by clean catch procedure / Unknown Non-blood Collection / Unknown 06/22/2025 4:37 AM EDT 06/22/2025 4:43 AM EDT us Ta Leon MD LAB URINE ORDERABLES Final R esult [facility] [address] [place] [address] * (ABNORMAL) Lipid panel (06/22/2025 4:32 AM EDT) Cholesterol, Plasma 159 <200 mg/dL 06/22/2025 5:13 AM EDT [facility] Comment: Cholesterol Reference Range (age >17 years): Desirable <200 mg/dL Borderline 200 to 239 mg/dL Undesirable >239 mg/dL HDL 35(L) >=40 mg/dL 06/22/2025 5:13 AM EDT [facility] Comment: HDL Cholesterol Reference Ranges (age >17 years): Female, acceptable > or = 50 mg/dL Male, acceptable > or = 40 mg/dL Triglycerides, Plasma 112 <150 mg/dL 06/22/2025 5:13 AM EDT [facility] Comment: Triglyceride Reference Range (age >17 years): Desirable: <150 mg/dL Borderline high: 150 to 199 mg/dL High: 200 to 499 mg/dL Very high: >499 mg/dL Increased risk of pancreatitis: >1000 mg/dL Cholesterol/HDL Ratio 5 06/22/2025 5:13 AM EDT [facility] LDL, Calculated 103(H) <100 mg/dL 5:13 AM EDT [facility] Comment: LDL Cholesterol Reference [...] 12 hours? Yes 06/22/2025 5:13 AM EDT [facility] Blood Venous blood specimen / Unknown Venipuncture / Unknown 06/22/2025 4:32 AM EDT 06/22/2025 4:43 AM EDT Ta Leon MD LAB BLOOD ORDERABLES Final R esult Performing Organization Address [facility]/ZIP Co de Phone Number [facility] [address] [place] [address] * ED HIV 1/2 Antibody/Antigen Screen w/Reflex to HIV 1/2 Differentiation (06/21/2025 3:18 PM EDT) [facility] HIV 1 & 2 Antibody/Antigen Screen Non Reactive Non Reactive 06/21/2025 4:35 PM EDT [facility] Comment:Screening for HIV 1 & 2 antibodies, and P24 antigen is NONREACTIVE. No confirmatory testing is required. Blood Venous blood specimen / Unknown Venipuncture / Unknown 06/21/2025 3:18 PM EDT 06/21/2025 3:56 PM EDT Adriano Lanza MD LAB BLOOD ORDERABLES Final Res ult Performing Organization Address [facility] Co de Phone Number [facility] [address] [place] [address] * Hepatitis C Antibody - ED (06/21/2025 3:18 PM EDT) [facility] Hepatitis C Antibody Negative Negative 06/21/2025 4:35 PM EDT [facility] Blood Venous blood specimen / Unknown Venipuncture / Unknown 06/21/2025 3:18 PM EDT 06/21/2025 3:56 PM EDT Adriano Lanza MD LAB BLOOD ORDERABLES Final Res ult Performing Organization Address City/[facility]/ZIP Co de Phone Number [facility] [address] [place] [address] * (ABNORMAL) CBC w/diff (06/21/2025 3:18 PM EDT) [facility] Signature WBC Count 8.59 3.70 - 10.30 10*3/uL LAB HEMATOLOGY METHOD 06/21/2025 3:24 PM EDT [facility] RBC Count 4.05(L) 4.60 - 6.10 10*6/uL LAB HEMATOLOGY METHOD 06/21/2025 3:24 PM EDT [facility] HGB 10.7(L) 13.7 - 17.5 g/dL LAB HEMATOLOGY METHOD 06/21/2025 3:24 PM EDT [facility] HCT 32.5(L) 40.0 - 51.0 % LAB HEMATOLOGY METHOD 06/21/2025 3:24 PM EDT [facility] Platelet Count 195 155 - 369 10*3/uL LAB HEMATOLOGY METHOD 06/21/2025 3:24 PM EDT [facility] MCV 80 79 - 98 fL LAB HEMATOLOGY METHOD 06/21/2025 3:24 PM EDT [facility] MCH 26.4 26.0 - 32.0 pg LAB HEMATOLOGY METHOD 06/21/2025 3:24 PM EDT [facility] MCHC 32.9 30.7 - 35.5 g/dL LAB HEMATOLOGY METHOD 06/21/2025 3:24 PM EDT [facility] RDW 14.6(H) 11.5 - 14.5 % LAB HEMATOLOGY METHOD 06/21/2025 3:24 PM EDT [facility] MPV 8.7(L) 8.8 - 12.5 fL LAB HEMATOLOGY METHOD 06/21/2025 3:24 PM EDT [facility] nRBC 0.0 <=0.0 per 100 WBCs LAB HEMATOLOGY METHOD 06/21/2025 3:24 PM EDT [facility] Differential Type Automated LAB HEMATOLOGY METHOD 06/21/2025 3:24 PM EDT [facility] Neutrophils % 77 % LAB HEMATOLOGY METHOD 06/21/2025 3:24 PM EDT [facility] Lymphocytes % 13 % LAB HEMATOLOGY METHOD 06/21/2025 3:24 PM EDT [facility] Monocytes % 6 % LAB HEMATOLOGY METHOD 06/21/2025 3:24 PM EDT [facility] Eosinophils % 4 % LAB HEMATOLOGY METHOD 06/21/2025 3:24 PM EDT [facility] Basophils % 0 % LAB HEMATOLOGY METHOD 06/21/2025 3:24 PM EDT [facility] Immature Granulocytes % 0 % LAB HEMATOLOGY METHOD 06/21/2025 3:24 PM EDT [facility] Neutrophils Absolute 6.66(H) 1.60 - 6.10 10*3/uL LAB HEMATOLOGY METHOD 06/21/2025 3:24 PM EDT [facility] Lymphocytes Absolute 1.10(L) 1.20 - 3.90 10*3/uL LAB HEMATOLOGY METHOD 06/21/2025 3:24 PM EDT [facility] Monocytes Absolute 0.49 0.30 - 0.90 10*3/uL LAB HEMATOLOGY METHOD 06/21/2025 3:24 PM EDT [facility] Eosinophils Absolute 0.30 0.00 - 0.50 10*3/uL LAB HEMATOLOGY METHOD 06/21/2025 3:24 PM EDT [facility] Basophils Absolute 0.01 0.00 - 0.10 10*3/uL LAB HEMATOLOGY METHOD 06/21/2025 3:24 PM EDT [facility] Immature Granulocytes Absolute 0.03 0.00 - 0.06 10*3/uL LAB HEMATOLOGY METHOD 06/21/2025 3:24 PM EDT [facility] Blood Venous blood specimen / Unknown Venipuncture / Unknown 06/21/2025 3:18 PM EDT 06/21/2025 3:22 PM EDT Narrative [facility] - 06/21/2025 3:24 PM EDT Therapeutic decision making should be based on absolute values, rather than percentages. us Adriano Lanza MD LAB BLOOD ORDERABLES Final Res ult [facility] [address] [place] [address] * TSH (06/21/2025 3:18 PM EDT) Thyroid Stimulating Hormone, Plasma 3.77 0.40 - 4.20 uIU/mL 06/21/2025 11:48 PM EDT [facility] Blood Venous blood specimen / Unknown Venipuncture / Unknown 06/21/2025 3:18 PM EDT 06/21/2025 3:22 PM EDT Result [facility] Ta Leon MD LAB BLOOD ORDERABLES Final R esult Performing Organization Address [facility]/ZIP Co de Phone Number [facility] [address] [place] [address] * (ABNORMAL) Hemoglobin A1c (06/21/2025 3:18 PM EDT) Hemoglobin A1c 5.9(H) <5.7 % 06/22/2025 9:33 AM EDT [facility] Blood Venous blood specimen / Unknown Venipuncture / Unknown 06/21/2025 3:18 PM EDT 06/21/2025 3:22 PM EDT Narrative [facility] - 06/22/2025 9:33 AM EDT HA1C Interpretive Data: Diagnosis of Diabetes: Diabetic > or = 6.5% Pre-diabetic 5.7 to 6.4% Non-diabetic < or = 5.6% Glycemic Targets for Type I and Type II Diabetics: Non- Adults <7.0% Adults <6.0% Children and Adolescents <7.5% Source: [place] [employer]. Standards of medical care in diabetes,2017. Diabetes Care.2017:40 (suppl 1):S1-S135. Result [facility] Ta Leon MD LAB BLOOD ORDERABLES Final R esult Performing Organization Address City/[facility]/ZIP Co de Phone Number [facility] [address] [place] [address] * (ABNORMAL) BMP (06/21/2025 3:18 PM EDT) Glucose, Plasma 100(H) 74 - 99 mg/dL 06/21/2025 3:44 PM EDT [facility] BUN, Plasma 21 8 - 23 mg/dL 06/21/2025 3:44 PM EDT [facility] Creatinine, Plasma 1.14 0.70 - 1.20 mg/dL 06/21/2025 3:44 PM EDT [facility] BUN/Creatinine Ratio 18 06/21/2025 3:44 PM EDT [facility] Sodium, Plasma 139 136 - 145 mmol/L 06/21/2025 3:44 PM EDT [facility] Potassium, Plasma 4.4 3.6 - 4.9 mmol/L 06/21/2025 3:44 PM EDT [facility] Chloride, Plasma 106 97 - 107 mmol/L 06/21/2025 3:44 PM EDT [facility] CO2, Plasma 24 22 - 29 mmol/L 06/21/2025 3:44 PM EDT [facility] Anion Gap 9 6 - 16 mmol/L 06/21/2025 3:44 PM EDT [facility] Total Calcium, Plasma 9.1 8.9 - 10.2 mg/dL 06/21/2025 3:44 PM EDT [facility] eGFRcr 70.5 mL/min/1.7 3m*2 06/21/2025 3:44 PM EDT [facility] Comment:Reported eGFRcr in m L/min/1.73m2 is based the CKD-EPI 2020 equation that does not use a race coefficient. Blood Venous blood specimen / Unknown Venipuncture / Unknown 06/21/2025 3:18 PM EDT 06/21/2025 3:22 PM EDT us Adriano Lanza MD LAB BLOOD ORDERABLES Final Res ult [facility] [address] [place] [address] * EKG now - STAT (adult) (06/21/2025 2:36 PM EDT) EKG DIAGNOSIS CLASS Abnormal MUSE ECG Ventricular Rate 78 BPM MUSE ECG Atrial Rate 78 BPM MUSE ECG MA Interval 134 ms MUSE ECG QRSD Interval 108 ms MUSE ECG QT Interval 352 ms MUSE ECG QTC Interval 401 ms MUSE ECG P [place] 78 degrees MUSE ECG R Hammond -4 degrees MUSE ECG T Wave Hammond 33 degrees MUSE ECG Diagnosis Sinus rhythm with occasional premature ventricular complexes MUSE ECG Diagnosis Poor R-wave progression ; consider anterior infarct, lead placement, or normal variant MUSE ECG Diagnosis Abnormal ECG MUSE ECG Diagnosis MUSE ECG Diagnosis Confirmed by Mariana Perez ([id number]) on 06/21/2025 10:34:48 PM MUSE ECG 06/21/2025 2:36 PM EDT 06/21/2025 10:34 PM EDT Frankie Basilio MD ECG ORDERABLES Final Resu [...] signing this report, I, the attending physician, [email or web address] I have personally reviewed the images/data for the aboveexamination(s) and I agree with the final edited report. Drafted by LONNIE Shoemaker on 05/20/2025 11:23 AM Final report signed by Moises Shetty on 05/20/2025 12:44 PM [place] [facility] OCAMPO MD CV VASCULAR PROCEDURES Fi nal Result from Last 3 Months Insurance [employer]ICARE [employer] Advance Directives * Full Code [...] Patient has decision-making capacity? Yes Care Teams Fisher Reef Net Relationship Specialty Start Date End Date Alex Roque MD [address] [place] [address] [address]1 [address]1 KathyaAUDRA [id number] PCP - General 12/18/21
--- OUTSIDE RECORDS SUMMARY | 2025-08-06 07:08 | XMS_ITS | Encounter Summary ---
Author Organization Healthcare Address [address] [place] [address] Care Team Providers Care Project Controls Scheduler Name Role Phone Alex Roque MD Primary Care Provider [phone] Reason for Visit * Reason Comments Med Refill Encounter Details Date Type Department Care Team (Late Contact Info) Description 02/21/2022 Refill Pav [facility] Head, Neck & Respiratory [address] [facility], 2nd [place] [address] Dilia Garcia MD [address] [id number] Social History Tobacco Use Types Packs/Day Years [...] Department Care Team (Late Contact Info) Description 08/20/2025 9:00 AM EST Office Visit [place] [facility] [address] [facility], 1st [place] [address] Andre Lion, DIAL BRUSHER [address] [facility] [address] [place] [address] 09/10/2025 8:30 AM EST Office Visit [place] [facility] Otol[facility]ology [address], 3rd [place] [address] Gus Mon MD [address] [facility] [address] [place] [address] 10/07/2025 9:15 AM EST Clinical Support Pav [facility] Head, Neck & Respiratory [address] [facility], 2nd [place] [address] 10/07/2025 10:20 AM EST Appointment PAV G Radiology [address] [place] [address] 10/10/2025 9:30 AM EST Office Visit Pav [facility] Head, Neck & Respiratory [address] [facility], 2nd [place] [address] Vitor Honeycutt, DIAL BRUSHER [address] [place] [address] documented as of this encounter [...] documented as of this encounter Care Teams Project Controls Scheduler Relationship Specialty Start Date End Date Alex Roque MD [address] [place] [address] #1 #1 AUDRA Rasheed [id number] PCP - General 12/18/21 documented as of this encounter
--- OUTSIDE RECORDS SUMMARY | 2025-08-06 07:08 | XMS_ITS | Encounter Summary ---
Author Organization Healthcare Address [address] [place] [address] Care Team Providers Care Chemical Engineering Technologist Name Role Phone Alex Roque MD Primary Care Provider [phone] Encounter Details Date Type Department Care Team [...] first t alberto in the morning (EYE-SENIOR CHEMIST) to steady your nerves or to get [...] Visit [place] [facility] [address], [address] [place] [address] Andre Lion, CHILD WELFARE SPECIALIST [address] [facility] [address] [place] [address] 09/10/2025 8:30 AM EST Office Visit [place] [facility] Otol[facility]ology [address], 3rd [place] [address] Gus Mon MD [address] [facility] [address] [place] [address] 10/07/2025 9:15 AM EST Clinical Support Pav CC Head, Neck & Respiratory [address] [facility], 2nd [place] [address] 10/07/2025 10:20 AM EST Appointment [facility] G Radiology [address] [place] [address] 10/10/2025 9:30 AM EST Office Visit Pav [facility] Head, Neck & Respiratory [address] , 2nd [place] [address] Vitor Honeycutt, CHILD WELFARE SPECIALIST [address] [place] [address] documented as of this encounter Visit Diagnoses [...] documented as of this encounter Care Teams Chemical Engineering Technologist Relationship Specialty Start Date End Date Alex Roque MD [address] [place] [address] #1 #1 AUDRA Rasheed [id number] PCP - General 12/18/21 documented as of this encounter
--- OUTSIDE RECORDS SUMMARY | 2025-08-06 07:08 | XMS_ITS | Encounter Summary ---
Author Organization [facility] Address [address] [id number] Care Team Providers Care Gunsmith Apprentice Name Role Phone Alex Roque MD Primary Care Provider [phone] Encounter Details Date Type Department Care Team (Late st Contact Info) Description 07/02/2025 Telephone [facility] Audiology [address], 3rd [place] [phone] [place] [address] Social History Tobacco Use Types Packs/Day Years [...] drink first t alberto in the morning (EYE-TIME BUYER) to steady your nerves or to get [...] Description 08/20/2025 9:00 AM EST Office Visit [place] [facility] [address], 1st [place] [address] Andre Lion, MANUFACTURING SALES REPRESENTATIVE [address] [facility] [address] [place] [address] 09/10/2025 8:30 AM EST Office Visit [place] [facility] Otolaryngology [address], 3rd [place] [address] Gus Mon MD [address] [place] [address] 10/07/2025 9:15 AM EST Clinical Support Pav CC Head, Neck & Respiratory [address] [facility], [address] [place] [address] 10/07/2025 10:20 AM EST Appointment [facility] G Radiology [address] [place] [address] 10/10/2025 9:30 AM EST Office Visit Pav CC Head, Neck & Respiratory [address] [facility], [address] [place] [address] Vitor Honeycutt, MANUFACTURING SALES REPRESENTATIVE [address] [place] [address] documented as of this encounter Visit Diagnoses [...] documented as of this encounter Care Teams Gunsmith Apprentice Relationship Specialty Start Date End Date Alex Roque MD [address] [place] [address] #1 [address]1 [place] [address] PCP - General 12/18/21 documented as of this encounter
--- OUTSIDE RECORDS SUMMARY | 2025-08-06 07:08 | XMS_ITS | Encounter Summary ---
Author Organization Healthcare Address [address] [place] [address] Care Team Providers Care Stage Electrician Helper Name Role Phone Alex Roque MD Primary Care Provider [phone] Encounter Details Date Type Department Care Team [...] drink first t alberto in the morning (EYE-FABRIC PATTERN GRADER) to steady your nerves or to get [...] Description 08/20/2025 9:00 AM EST Office Visit [facility] [address], [address] [place] [address] Andre Lion, BRAN [address] [place] [address] 09/10/2025 8:30 AM EST Office Visit [facility] Otolaryngology [address], 3rd [place] [address] Gus Mon MD [address] [place] [address] 10/07/2025 9:15 AM EST Clinical Support Pav CC Head, Neck & Respiratory [address] [facility], 2nd [place] [address] 10/07/2025 10:20 AM EST Appointment P[facility] G Radiology [address] [place] [address] 10/10/2025 9:30 AM EST Office Visit Pav CC Head, Neck & Respiratory [address] [facility], 2nd [place] [address] Vitor Honeycutt, FIELD SUPERVISOR [address] [facility] [address] [place] [address] documented as of this encounter Visit Diagnoses [...] documented as of this encounter Care Teams Stage Electrician Helper Relationship Specialty Start Date End Date Alex Roque MD [address] [place] [address] #1 #1 [place] [address] PCP - General 12/18/21 documented as of this encounter
--- OUTSIDE RECORDS SUMMARY | 2025-08-06 07:08 | XMS_ITS ---
Author Organization [facility] Address [address] [place] [address] Care Team Providers Care Employee Relations Consultant Name Role Phone Alex Roque MD Primary Care Provider [phone] Active Problems Problem Noted Date Diagnosed Date [...]
--- NOTE | 2025-08-06 07:30 | NM_ITS ---
APPROVED REPORT Exam: Nuclear Stress Test Indication: Chest pain, SOB, HTN, High cholesterol Patient Location: Outpatient Stress Tech: Gauri PARKER Tech:Rajni Isidro, ARRT, RT (R)(N) Ht: 5 ft 8 in Wt: 190 lbs HR: 58 bpm BP: 162/71 mmHg BSA: 2.00 m2 TID: 1.09 BMI: 28.8 History: Chest pain, SOB, HTN, High cholesterol Procedure: Patient received 0.4 mg of intravenous Lexiscan, resting heart rate 58 bpm, resting blood pressure 162/71 mmHg, with Lexiscan maximum heart rate achieved was 74 bpm which is % of the maximum predicted heart rate and blood pressure was 133/65 mmHg. With Lexiscan, patient denied any complaint of chest pain. Cardiac Stress and Resting SPECT Images: Cardiac Stress and Resting SPECT images were obtained using technetium 99m Myoview 30.0 mCi stress and 10.71 mCi at rest. Resting and stress imaging in supine and prone positions demonstrate a medium sized, moderate, partially reversible perfusion defect in the inferior and inferolateral LV shell. Gated imaging demonstrates normal global LV systolic function. LVEF is calculated at 54%. Conclusion: Medium sized, moderate, partially reversible perfusion defect in the inferior and inferolateral LV shell. Findings are suggestive of partial reversible ischemia. Gated imaging demonstrates normal global LV systolic function. LVEF is calculated at 54%. Electronically signed by : Ashwini Quintero MD 08/06/2025 13:11:20
[2025-08-06 09:05] VITALS: BP 162/71; PULSE 56; RESP 16
[2025-08-06] MEDS: SODIUM CHLORIDE 0.9% 10ML SYR (RAD ONLY) 10 ML IV ×2 (09:15)
[2025-08-06] MEDS: ISOTOPE MYOVIEW (PER STUDY) 1 DOSE IV (09:16)
== END 2025-08-06 23:59 | disposition home or self-care (01) ==
LOC: RAD 07:05
PROVIDERS: PCP Family Medicine; Visit Provider Nurse Practitioner
DX: I49.3 Ventricular premature depolarization (principal); R94.39 Abnormal result of other cardiovascular function study; I10 Essential (primary) hypertension; E78.00 Pure hypercholesterolemia, unspecified; R94.31 Abnormal electrocardiogram [ECG] [EKG]; R42 Dizziness and giddiness
CPT/HCPCS: 78452; 93017; 93018; A9502; J2785

== ENCOUNTER 2025-09-05 07:41 | Day surgery (SDC) | payer MEDICARE, SELFPAY ==
[2025-09-05] VITALS (12 sets, daily range): BP systolic 146–168; BP diastolic 75–90; PULSE 59–69; RESP 18; TEMP 36.9; O2SAT 91–95; BMI 30.2
--- NOTE | 2025-09-05 07:06 | IR_ITS ---
APPROVED REPORT Patient Location: Outpatient PROCEDURES Left heart catheterization Left ventriculogram Selective coronary angiogram Drug-eluting stent deployment to the dominant right coronary artery's large posterior descending artery Drug-eluting stent deployment to the mid and distal LAD in a contiguous manner INDICATION Coronary artery disease, Angina pectoris, Abnormal Myoview Informed consent was obtained prior to the procedure. COMPLICATIONS NONE Estimated Blood Loss: LESS THAN 10 ML TECHNIQUE One percent lidocaine used to anesthetize the right anterior aspect of the wrist. The right radial artery was accessed via the Seldinger technique. A 6 Gabonese sheath was placed in the right radial artery. 2.5 mg of Verapamil, 800 mcg of nitroglycerin, 1mg Lidocaine and 5000 U Heparin were given through the arterial sheath. The JL3 catheter was also used to perform left heart catheterization, left ventriculogram and selective coronary angiogram. At the end of the diagnostic angiogram therapeutic heparin was administered giving a therapeutic ACT and the guide catheter was placed in the right coronary followed by Choice PT extra-support wire placed distally. A guide liner was advanced distally into the right coronary artery and the wire was then advanced beyond the lesion in the posterior descending artery. A 3 mm x 15 mm Joaquim frontier stent was deployed at 14 kehinde reducing the severe stenosis to 0%. NERISSA-3 flow was present before and after the procedure. Following this the apparatus was removed and placed in the left main artery followed by the same Choice PT extra-support wire placed distally in the LAD. The guide liner was advanced and a 2 mm x 15 mm compliant balloon was used to predilate the critical mid LAD stenosis. This was followed by a 2.5 x 15 mm noncompliant balloon deployed at 20 kehinde. Following this a 3 mm x 18 mm Ozark frontier stent was deployed at 18 kehinde reducing the stenosis to 0%. An additional 2 mm x 15 mm balloon was placed in the distal LAD and used to dilate a severe calcified stenosis. Following this a 2.5 x 38 mm Joaquim frontier stent was placed distal to the LAD stent yet still overlapping the stent and deployed at 16 kehinde. The balloon was brought back and deployed at 24 kehinde to match the 2 stents. NERISSA-3 flow was present before and after the procedure. After achieving excellent angiographic results the apparatus was removed the sheath was removed and hemostasis was achieved using TR banding patient was transferred to the postop holding area in stable condition ANGIOGRAPHIC RESULTS The left main artery Normal The left anterior descending artery Has proximal calcified 30% stenosis with severe calcified concentric 90% stenosis immediately distal to a large first diagonal artery. There was additional 60 and 70% calcified stenoses with an additional 80% and 90% calcified mid vessel distal stenosis. The LAD is large The circumflex artery Nondominant and gives rise to medium sized first obtuse marginal arteries widely patent. The second obtuse marginal artery is a large and ostially subtotally occluded and fills via left to left collaterals and right to left collaterals The right coronary artery Large dominant vessel tortuous and has diffuse 30 and 40% atheromatous plaque throughout its entire course. It gives rise to a large posterior descending artery which has a proximal concentric 70 to 80% stenosis. This posterior descending artery sends collaterals to the chronically occluded second obtuse marginal artery The GOULD ventriculogram reveals Normal 60% The left ventricular end-diastolic pressure 10 mmHg IMPRESSION Coronary disease as described above Successful stenting of the mid to distal LAD severe to critical disease reduced to 0% with 2 contiguous drug-eluting stents Chronically occluded second obtuse marginal artery which fills via left to left and right to left collaterals Severe disease in the distal dominant right coronary artery's posterior descending artery as described above with successful stenting reducing lesion to 0% with 1 drug-eluting stent Normal ejection fraction Normal LVEDP PLAN 1. Dual antiplatelet therapy 2. Avoidance of tobacco products 3. Risk factor modification 4. Cardiac rehabilitation 5. DL less than 55 to be achieved with high intensity statin Electronically signed by : Angel Berman MD 09/05/2025 13:21:35
[2025-09-05 08:18] LABS: Hematocrit 34.7 % (42.0-52.0); Hemoglobin 11.7 g/dL (14.1-18.0); Immature Granulocytes % 0.6 %; Mean Corpuscular HGB Conc 33.7 g/dL (31.8-35.4); Mean Corpuscular Hemoglobin 28.5 pg (27.0-31.2); Mean Corpuscular Volume 84.6 fl (80-94); Nucleated Red Blood Cells % 0 %; Platelet Count 189 K/mm3 (142-424); Red Blood Count 4.10 M/mm3 (4.60-6.20); Red Cell Distribution Width-SD 42.9 fL; White Blood Count 8.4 K/mm3 (4.8-10.8)
[2025-09-05 08:24] LABS: Chloride 107 mmol/L (98-107); Sodium 143 mmol/L (136-145)
[2025-09-05 08:25] LABS: Potassium 4.6 mmoL/L (3.5-5.1)
[2025-09-05 08:28] LABS: Anion Gap 18.6 mEq/L (5-15); Blood Urea Nitrogen 19 mg/dl (9-20); Calcium 9.1 mg/dl (8.4-10.2); Carbon Dioxide 22 mmol/L (22.0-30.0); Creatinine Clearance Estimated 80 mL/min (50-200); Creatinine,Serum 1.10 mg/dl (0.66-1.25); Estimated Glomerular Filt Rate 67 ml/min (>60); GFR (African American) 81 ML/MIN (>60); Glucose 112 mg/dl (74-100)
[2025-09-05] MEDS: FENTANYL 100MCG/2ML VIAL 50 MCG IV (11:46)
[2025-09-05] MEDS: HEPARIN 1,000 UNITS/500ML NS (CATH LAB) 3000 UNIT IV (11:46)
[2025-09-05] MEDS: NITROGLYCERIN 800MCG/8ML SYR (CATH LAB) 800 MCG IA (11:46)
[2025-09-05] MEDS: MIDAZOLAM HCL 1MG/ML 5ML VIAL 1 MG IV (11:46)
[2025-09-05] MEDS: LIDOCAINE 1% 10ML MDV 10 ML IJ (11:46)
[2025-09-05] MEDS: 0.9 % SODIUM CHLORIDE 500 ML 25 ML IV (11:47)
[2025-09-05] MEDS: HEPARIN 1,000 UNITS/ML 10ML VIAL (CATH LAB) 5000 UNIT IV (11:47)
[2025-09-05] MEDS: VERAPAMIL 2.5MG/ML 2ML VIAL 2.5 MG IV (11:47)
[2025-09-05] MEDS: ASPIRIN 81MG CHEWABLE TABLET 81 MG PO (13:16)
[2025-09-05] MEDS: CLOPIDOGREL 75MG TAB 75 MG PO (13:16)
[2025-09-05 14:46] LABS: CATHL Activated Clotting Time 244 SEC (74-125)
--- NOTE | 2025-09-09 14:32 | PC.NURSE ---
09/09/2025 pt is not interested in rehab at this time
== END 2025-09-05 16:16 | disposition home or self-care (01) ==
PROVIDERS: PCP Family Medicine; Visit Provider Internal Medicine
PROC: 4A023N7 Measurement of Cardiac Sampling and Pressure, Left Heart, Percutaneous Approach (ICD-10-PCS; CPT 93452; principal; 2025-09-05 11:00)
DX: I25.118 Atherosclerotic heart disease of native coronary artery with other forms of angina pectoris (principal); R94.39 Abnormal result of other cardiovascular function study; I65.09 Occlusion and stenosis of unspecified vertebral artery; I10 Essential (primary) hypertension; R94.31 Abnormal electrocardiogram [ECG] [EKG]; C18.9 Malignant neoplasm of colon, unspecified; E78.49 Other hyperlipidemia; E03.9 Hypothyroidism, unspecified; Z79.82 Long term (current) use of aspirin; Z79.02 Long term (current) use of antithrombotics/antiplatelets; Z79.890 Hormone replacement therapy; Z79.899 Other long term (current) drug therapy
CPT/HCPCS: 80048; 85025; 85347; 92928; 93458; 99152; 99153; C1725; C1769; C1874; C1887; C9600; J1200; J1644; J2003; J3010; J7040; Q9967

== ENCOUNTER 2025-09-07 09:55 | Outpatient (CLI) | payer MEDICARE, SELFPAY ==
--- OUTSIDE RECORDS SUMMARY | 2025-07-31 10:30 | XMS_ITS | Encounter Summary ---
Author Organization [facility] Address [address] [place] [address] Care Team Providers Care Filleter Name Role Phone Alex Roque MD Primary Care Provider [phone] Reason for Referral * Consultation (Routine) - Authorized Specialty Diagnoses / Procedures Referred By Neftali thayer Referred To Contact Neurology Diagnoses Dizziness Jarod Paula MD [address] [address] Phone: tel: fax: [address] [address] Phone: tel: fax: Referral ID Status Reason Start Date Expiration Date Visits Requested Visits Authorized [id number] Authorized Specialty Services Required 07/31/2025 01/30/2027 1 1 Scheduling Instructions Please schedule first available appt for eval and treatment of dizziness. Reason for Visit * Consultation (Routine) - Closed Specialty Diagnoses / Procedures Referred By Neftali thayer Referred To Contact Neurosurgery Diagnoses Occlusion of left vertebral artery Jarod Paula MD [address] [place] [address] Phone: tel: fax: [address] [place] [address] Phone: tel: fax: Referral ID Status Reason Start Date Expiration Date V isits Requested Visits Authorized [id number] Closed Specialty Services Required 06/22/2025 12/22/2026 1 1 Encounter Details Date Type Department Care Team (Late st Contact Info) Description 07/31/2025 10:30 AM EST Office Visit [place] [facility] [address], [address] [place] [address] Jarod Paula MD [address] [place] [address] Dizziness (Primary Dx) Social History Tobacco Use Types [...] drink first t alberto in the morning (EYE-WOOD TREATING INSPECTOR) to steady your nerves or to get [...] Sign Reading Time Taken Comments Blood Pressure 118/64 07/31/2025 10:17 AM EST Pulse 56 07/31/2025 10:17 AM EST Temperature - - Respiratory Rate - - Oxygen Saturation 96% 07/31/2025 10:17 AM EST Inhaled Oxygen Concentration - - Weight 87.1 kg (192 lb) 07/31/2025 10:17 AM EST Height 177.8 cm (5' 10 ) 07/31/2025 10:17 AM EST Body Mass Index 27.55 07/31/2025 10:17 AM EST documented in this encounter Miscellaneous Notes * Progress Notes - Whitney Crain PA - 07/31/2025 10:30 AM EST Dear Alex Roque MD, We had the pleasure of seeing your patient in our neurosurgical clinic today. HISTORY OF PRESENT ILLNESS: Riccardo Earl is a 69 y.o. year old male presenting for hospital follow-up after recent inpatient stay at from 06/21/25-06/22/25 when he presented with one month of episodic dizziness upon standing and OSH imaging during work-up demonstrated left vertebral artery occlusion. 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 He was ultimately discharged withoutpatient follow-up after MRI Head was negative for acute stroke. Currently taking Plavix and 81 mg asa since discharge. Today he presents doing well, he continues to have episodes of light headedness when going from sitting to standing. Denies similar sensation when turning his head. Describes the sensation as the room spinning but that he is going to pass out and foggy in the head. Denies syncopal episodes and stroke-like symptoms. Dizziness is relieved with sitting or just standing in place for a couple seconds.Denies tinnitus. Family History[1] There is no immunization history on file for this patient. Allergies[2] Medications Ordered Prior to Encounter[3] ROS: A 14 point review of systems was completed and reviewed. Negative other than indicated above in the history of present illness. Last Recorded Vitals Visit Vitals BP 118/64 Pulse 56 Ht 1.778 m (5' 10 ) Wt 87.1 kg (192 lb) SpO2 96% BMI 27.55 kg/m?? Smoking Status Never BSA 2.07 m?? PHYSICAL EXAM: -Constitutional: Well developed, well nourished. No acute distress. Alert and oriented to person, place, and time. -Head, Eyes, Nose, Throat: Normocephalic, atraumatic. Pupils are equally round and reactive to light. Extra-ocular movements are intact without nystagmus. Oral mucosa is pink and moist. -Musculoskeletal: Moves all 4 extremities equally. Gait is steady and independent without spasticity. -Extremities: There is no clubbing, cyanosis, or edema. There is no pronator drift. -Neurologic: Awake, alert, following commands briskly, speech intact CN 2-12 intact Face symmetric Motor RUE 5/5 RLE 5/5 LUE 5/5 LLE 5/5 Sensation intact to light touch IMAGING: I personally reviewed and independently interpreted the following: CTA Head performed on 06/20/25 demonstrates: Left vertebral artery occlusion with multiple collateral vessels and reconstitution at the C1-2 level. Patent right vertebral artery with no evidence of stenosis. ASSESSMENT AND PLAN: Riccardo Earl is a 69 y.o. 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 Low suspicion that his symptoms are being caused by this occlusion given the right vertebral artery is patent and providingadequate blood flow to the posterior circulation. PRN, no further neurosurgical intervention and follow-up necessary. Follow-up with stroke neurology as scheduled on 08/20/25 for medication management. 2. HTN, chronic, stable BP Readings from Last 3 Encounters: 07/31/25 118/64 06/22/25 (!) 171/93 06/11/25 (!) 169/83 Thank you. If there are any questions or concerns please feel free to contact us: [facility] Department of Neurosurgery [address] [place] [address] [place] [address] ; [1] Family History Problem Relation Name Age of Onset Breast cancer Mother [2] No Known Allergies [3] Current Outpatient Medications on File Prior to Visit Medication Sig Dispense Refill amLODIPine (Norvasc) 10 MG tablet Take 1 tablet (10 mg) by mouth 1 (one) time each day. aspirin 81 MG EC tablet Take 1 tablet (81 mg) by mouth 1 (one) time each day. bisoprolol-hydroCHLOROthiazide (Ziac) 5-6.25 MG tablet Take 1 tablet by mouth daily. clopidogrel (Plavix) 75 MG tablet Take 1 tablet by mouth daily. 89 tablet 0 cyclobenzaprine (Flexeril) 10 MG tablet Take 1 [...] by mouth 1 (one) time each day. No current facility-administered medications on file prior to visit. Cosigned by Jarod Paula MD at 08/06/2025 4:09 PM EST Associated attestation - Jarod Paula MD - 08/06/2025 4:09 PM EST The patient was seen by both myself and the Advanced Practice Provider (ANTWAN) with the ANTWAN providingthe majority of time spent with patient. Care was reviewed with me. documented in this encounter Plan of Treatment Upcoming Encounters Date Type Department Care Team (Late st Contact Info) Description 09/10/2025 8:30 AM EST Office Visit [place] [facility] [address], [address]rd [place] [address] Gus Mon MD [address] [place] [address] 10/07/2025 9:15 AM EST Clinical Support [facility] [address] , [address]nd [place] [address] 10/07/2025 10:20 AM EST Appointment [facility] Radiology [address] [place] [address] 10/10/2025 9:30 AM EST Office Visit [facility] [address] , [address]nd [place] [address] Vitor Honeycutt, COAT OPERATOR INSULATOR [address] [place] [address] Scheduled Referrals Name Type Priority Associated Diagnoses Order Schedule Ambulatory referral to Neurology Outpatient Referral Routine Dizziness Expected: 08/30/2025, Expires: 02/01/2027 documented as of this encounter Visit Diagnoses Diagnosis Dizziness- Primary Dizziness and giddiness documented in this encounter Additional Health Concerns Assessment Noted Time PHQ-9 Depression Total Score: 0 10/08/19 7:43 AM EST A fall risk assessment has been complete d for the patient 05/14/2025 12:04 PM EDT A Body Mass Index follow-up plan has been documented for the patient 08/05/2025 8:43 PM EST documented as of this encounter Care Teams Filleter Relationship Specialty Start Date End Date Alex Roque MD [address] [facility] [address]1 [address] [place] [address] PCP - General 12/18/21 documented as of this encounter
--- OUTSIDE RECORDS SUMMARY | 2025-08-20 09:00 | XMS_ITS | Encounter Summary ---
Author Organization Healthcare Address [address] [place] [address] Care Team Providers Care Envelope Machine Adjuster Name Role Phone Alex Roque MD Primary Care Provider [phone] Reason for Visit * Consultation (Routine) - Closed Specialty Diagnoses / Procedures Referred By Neftali thayer Referred To Contact Neurology Diagnoses Embolic occlusion of left vertebral artery Ta Leon MD [address] [facility] [address] [place] [address] Phone: tel: fax: Referral ID Status Reason Start Date Expiration Date V isits Requested Visits Authorized [id number] Closed Specialty Services Required 06/22/2025 12/22/2026 1 1 Encounter Details Date Type Department Care Team (Late st Contact Info) Description 08/20/2025 9:00 AM EST Office Visit [place] [facility] [address], [address] [place] [address] Andre Lion, BRAN [address] [facility] [address] [place] [address] Dizziness (Primary Dx); Primary hypertension Social History Tobacco Use Types Packs/Day Years [...] drink first t alberto in the morning (EYE-FINANCIAL ACCOUNTING MANAGER) to steady your nerves or to [...] Sign Reading Time Taken Comments Blood Pressure 122/64 08/20/2025 8:50 AM EST Pulse 57 08/20/2025 8:50 AM EST Temperature - - Respiratory Rate - - Oxygen Saturation 94% 08/20/2025 8:50 AM EST Inhaled Oxygen Concentration - - Weight 83.7 kg (184 lb 8.4 oz) 08/20/2025 8:50 A M EST Height 177.8 cm (5' 10 ) 08/20/2025 8:50 AM EST Body Mass Index 26.48 08/20/2025 8:50 AM EST documented in this encounter Miscellaneous Notes * Patient Instructions - Andre Lion APRN - 08/20/2025 9:00 AM EST F/U appointment is PRN. 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 CC The patient presented for stroke care follow up. HPI From H&P on 21JUN2025, Discharge on 22JUN2025 and NS progress Note on 31JUL2025: H&P: The patient is a 69-year-old male with [...] 190 systolic. He denies being dehydrated recently. Discharge: Imaging studies showed: CTH (outside hospital)- No [...] is felt to be discharged to . NS Progress Note: CTA Head performed on 06/20/25 demonstrates: Left [...] 118/64 06/22/25 (!) 171/93 06/11/25 (!) 169/83 At visit today: History of Present Illness He has been experiencing transient dizzy spells for several months, which occur both during ambulation and upon standing. These episodes, lasting approximately 5 to 10 seconds, have not resulted in any falls or syncope. He reports feeling lightheaded during these episodes, prompting him to stop moving. He experiences these episodes multiple times daily, even when seated or moving his head in various directions. He has been experiencing neck tightness, which he attributes to radiation therapy for his squamous cell cancer. He has been monitoring his blood pressure at home, which has been fluctuating, with systolic readings ranging from 140 to 150 and diastolic readings between 64 and 79. He recalls an instance where his systolic blood pressure was 200, accompanied by a pounding headache, necessitating a hospital visit. He reports no recent injuries, illnesses, hospitalizations, or medication changes since his last neurosurgery visit. He continues to drive and resides with his nephew, with his son living nearby. He has been experiencing tingling in his head during his dizzy spells, which he believes is related to radiation therapy affecting the back of his head. He has not reported this symptom to his neurosurgery. He has been taking clopidogrel and baby aspirin. He underwent a chemical stress test at [facility] approximately 2 weeks ago, which revealed abnormal results suggestive of blockage. A heart catheterization is scheduled for the upcoming week. Verbal consent was obtained to use ambient listening technology to assist in the documentation of the encounter: yes Pt has transitory spell of dizziness lasting for 5-10 seconds which occur on standing and ambulation but denies any falls. Pt states he has been having dizzy spells for a couple of months. Pt had a chemical stress test at [facility] and per Pt was found to be abnormal. Pt is now recommended for a heart cath that is to be scheduled. Pt is currently having a sinus infection that has lasted for 3-4 months. Left Neck surgery and radiation in 2019 for squamous CA. Left Lower mandible replacement on 2020. Pt takes meloxicam and cyclobenzaprine for neck pain and stiffness. Bisoprolol was prescribed by PCP. How often do you check your B/P? infrequently What is the range of your B/P? 140-150's/60-70's How often do you check your blood sugar? Not diabetic How much do you smoke or vape? Denies How much ETOH do you consume? Denies Do you use any illegal drugs? Denies Any recent falls? Denies How are you sleeping? Gets 8 hours sleep, denies snoring or daytime drowsiness. The patient has had no recent sudden onset weakness, speech difficulty, vision loss, but has had sensory changes consisting of tingling in his head during some dizzy spells, concerning for new strokesince the last clinic visit. The patient denied any recent injuries, illnesses, hospitalizations, or medication changes since being seen by NS. The patient has had no issues with secondary stroke prophylaxis medications: aspirin 81 mg daily and clopidogrel 75 mg daily. Plavix is scheduled to end on 20SEP2025 The patient manages eating, bathing, and dressing independently. The patient can toilet independently. The patient does drive. The patient lives with family. Medications Ordered Prior to Encounter[1] Objective Vitals: 08/20/25 0850 BP: 122/64 Pulse: 57 SpO2: 94% Physical Exam Constitutional: Patient in no acute distress. Patient appears stated age. Speech is spontaneous, logical, well paced and well articulated. Comprehension appears intact. Oriented to person, place, time and situation. Pt Recalls three out of three items after three minutes. Eyes: Anicteric sclera. No appreciable conjunctival injection. Psychiatric: Appropriate mood and affect. Patient is cooperative. Patient appears to have insight. CN: II - Pupils equal, round and reactive to light, VF full III, IV, - EOMI. Convergence is intact. V - Facial sensation intact VII - Brow raise symmetrical and smile asymmetrical on left VIII - Auditory acuity is diminished IX, X - Uvula not visualized. Palate elevation symmetric. XI - SCM and Trapezius strength intact XII - Tongue protrudes deviates to the left Motor: Normal bulk and tone RUE: NUMBERS; 1-5 (OUT OF 5): 5/5 strength, LUE: NUMBERS; 1-5 (OUT OF 5): 5/5 strength RLE: NUMBERS; 1-5 (OUT OF 5): 5/5 strength, LLE: NUMBERS; 1-5 (OUT OF 5): 5/5 strength R Loan Inspector: NUMBERS; 1-5 (OUT OF 5): 5/5 strength, L Loan Inspector: NUMBERS; 1-5 (OUT OF 5): 5/5 strength Sensory: Sensation to EXAM - SENSATION: Touch is SENSATION: normal in all extremities. Reflexes: Right Brachioradial 1/5, Left Brachioradial 1/5 Right Bicep Brachial 1/5, Left Bicep Brachial 1/5 Right Patellar 2/5, Left Patellar 2/5 Coordination: No limb ataxia with [id number] . No pronator drift. Cortical: No Extinction Gait: GAIT: normal Imaging/Study Summary: MR HEAD WO IV CONTRAST [id number] IMPRESSION: No acute intracranial findings. Assessment/Plan: Diagnosis Plan 1. Dizziness 2. Primary hypertension Stroke Labs: A1c: 5.9 , TSH: 3.77 , LDL: 103 Patient to continue to follow regularly with primary care for optimization of non-neurological comorbid conditions. Reviewed B/P parameters and LDL parameters. Advised Pt to return PRN. Pt will be having a heart cath in the near future. If the dizzy spells continue after the heart cath he may request another appointment for evaluation of his dizziness with a referral to Movement Neurology. Stroke signs and symptoms reviewed in detail and patient to call 911/seek emergent medical attention if these develop. Based upon the presumed mechanism is believed to be not a stroke contributing to the dizziness event, the plan is as follows: - Continue secondary prevention of stroke with aspirin and plavix - Recommend BP control with goal < 130/90 and not less than 90/50 - Recommend lipid management with goal LDL <70 and TG <150 - Recommend glycemic control with goal of euglycemia - Stroke signs and symptoms reviewed and to call 911 if these develop - [facility] Ambulatory Stroke Clinic F/U PRN - F/U w/ PCP Modified [place] Scale Score: 0. Counseling Documentation: The patient was counseled regarding diagnostic results, prognosis, risks and benefit of treatment options, risk factor reductions, instructions for management, patient and family education, medication changes, impressions, and importance of compliance with treatment. Education provided was written i nstructions and verbal counseling. I spent 60 minutes on the day of the encounter providing care including reviewing prior records, reviewing prior labs/studies, obtaining history from the patient/family, discussing the management plan with the patient/family, counseling the patient/family, entering orders, and documentation of the e ncounter. [1] Current Outpatient Medications on File Prior to [...] facility-administered medications on file prior to visit. documented in this encounter Plan of Treatment Upcoming Encounters Date Type Department Care Team (Late st Contact Info) Description 09/10/2025 8:30 AM EST Office Visit [place] [facility] Otol[facility]ology [address], [address]rd [place] [address] Gus Mon MD [address] [facility] [address] [place] [address] 10/07/2025 9:15 AM EST Clinical Support Pav CC Head, Neck & Respiratory [address] [facility], 2nd [place] [address] 10/07/2025 10:20 AM EST Appointment [facility] G Radiology [address] [place] [address] 10/10/2025 9:30 AM EST Office Visit Pav CC Head, Neck & Respiratory [address] [facility], 2nd [place] [address] Vitor Honeycutt APRN [address] [facility] [address] [place] [address] documented as of this encounter Visit Diagnoses Diagnosis Dizziness- Primary Dizziness and giddiness Primary hypertension Unspecified essential hypertension documented in this encounter Additional Health Concerns Assessment Noted Time PHQ-9 Depression Total Score: 0 10/08/19 7:43 AM EST A fall risk assessment has been complete d for the patient 08/20/2025 8:50 AM EST A Body Mass Index follow-up plan has been documented for the patient 08/20/2025 10:35 AM EST documented as of this encounter Care Teams Envelope Machine Adjuster Relationship Specialty Start Date End Date Alex Roque MD [address] [place] [address] #1 #1 AUDRA Rasheed [id number] PCP - General 12/18/21 documented as of this encounter
--- OUTSIDE RECORDS SUMMARY | 2025-09-07 09:58 | XMS_ITS | Encounter Summary ---
Author Organization Healthcare Address [address] [place] [place] [address] Care Team Providers Care Cycle Touring Guide Name Role Phone Alex Roque MD Primary Care Provider [phone] Encounter Details Date Type Department Care Team (Latest Contact Info) Description 08/20/2025 Travel Social History Tobacco Use Types Packs/Day [...] drink first t alberto in the morning (EYE-LUNCHROOM OPERATOR) to steady your nerves or to [...] Description 09/10/2025 8:30 AM EST Office Visit [facility] [address], [address]rd [place] [address] Gus Mon MD [address] [facility] [address] [place] [address] 10/07/2025 9:15 AM EST Clinical Support [facility] [address] [facility], 2nd [place] [address] 10/07/2025 10:20 AM EST Appointment [facility] [address] [place] [address] 10/10/2025 9:30 AM EST Office Visit [facility] [address] , [address] [place] [address] Vitor Honeycutt, PURCHASE PRICE ANALYST [address] [facility] [address] [place] [address] documented as of this encounter Visit Diagnoses [...] documented as of this encounter Care Teams Cycle Touring Guide Relationship Specialty Start Date End Date Alex Roque MD [address] [place] [address] #1 #1 [place] [id number] PCP - General 12/18/21 documented as of this encounter
--- OUTSIDE RECORDS SUMMARY | 2025-09-07 09:58 | XMS_ITS | Encounter Summary ---
Author Organization Healthcare Address [address] [place] [address] Care Team Providers Care Bottom Hoop Driver Name Role Phone Alex Roque MD Primary Care Provider [phone] Encounter Details Date Type Department Care Team [...] drink first t alberto in the morning (EYE-CARDIOVASCULAR LAB DIRECTOR) to steady your nerves or to get [...] Description 09/10/2025 8:30 AM EST Office Visit [facility] [address], [address]rd [place] [address] Gus Mon MD [address] [facility] [address] [place] [address] 10/07/2025 9:15 AM EST Clinical Support [facility] [address] [facility], 2nd [place] [address] 10/07/2025 10:20 AM EST Appointment [facility] [address] [place] [address] 10/10/2025 9:30 AM EST Office Visit [facility] [address] , [address] [place] [address] Vitor Honeycutt, PRIVATE BRANCH EXCHANGE REPAIRER [address] [facility] [address] [place] [address] documented as of this encounter Visit Diagnoses [...] documented as of this encounter Care Teams Bottom Hoop Driver Relationship Specialty Start Date End Date Alex Roque MD [address] [place] [address] #1 [address]1 [place] [id number] PCP - General 12/18/21 documented as of this encounter
--- OUTSIDE RECORDS SUMMARY | 2025-09-07 09:58 | XMS_ITS | Encounter Summary ---
Author Organization Healthcare Address [address] [place] [address] Care Team Providers Care Spark Tester Name Role Phone Alex Roque MD Primary Care Provider [phone] Reason for Visit * Reason Comments Med Refill Encounter Details Date Type Department Care Team (Late Contact Info) Description 02/21/2022 Refill [facility] [address] [facility], 2nd [place] [address] Dilia Garcia MD [address] [id number] Social History Tobacco Use Types Packs/Day Years [...] Description 09/10/2025 8:30 AM EST Office Visit [place] [facility] [address] [facility], 3rd [place] [address] Gus Mon MD [address] [facility] [address] [place] [address] 10/07/2025 9:15 AM EST Clinical Support [facility] [address] , [address] [place] [address] 10/07/2025 10:20 AM EST Appointment [facility] [address] [place] [address] 10/10/2025 9:30 AM EST Office Visit [facility] [address] , [address] [place] [address] Vitor Honeycutt, WASHER ASSEMBLER [address] [place] [address] documented as of this encounter Visit Diagnoses [...] documented as of this encounter Care Teams Spark Tester Relationship Specialty Start Date End Date Alex Roque MD [address] [facility] #1 #1 [place] [address] PCP - General 12/18/21 documented as of this encounter
--- OUTSIDE RECORDS SUMMARY | 2025-09-07 09:58 | XMS_ITS | Encounter Summary ---
Author Organization Healthcare Address [address] [place] [address] Care Team Providers Care Dance Historian Name Role Phone Gosia Stevenson APRN Primary Care Provider [phone] Alex Roque MD Primary Care Provider [phone] Encounter Details Date Type Department Care Team (Late st Contact Info) Description 02/27/2019 Abstract [facility] [address] [place] [address] Dental, Provider, DDS [address] [place] [address] Social History Tobacco Use Types Packs/Day [...] Description 09/10/2025 8:30 AM EST Office Visit [place] [facility] [address], [address]rd [place] [address] Gus Mon MD [address] [place] [address] 10/07/2025 9:15 AM EST Clinical Support [facility] [address] , [address]nd [place] [address] 10/07/2025 10:20 AM EST Appointment [facility] [address] [place] [address] 10/10/2025 9:30 AM EST Office Visit [facility] [address] , [address]nd [place] [address] Vitor Honeycutt, DYNAMITE RECLAIMER [address] [place] [address] documented as of this encounter Visit Diagnoses [...] documented as of this encounter Care Teams Dance Historian Relationship Specialty Start Date End Date Gosia Stevenson APRN [facility] [place] [address] PCP - General 02/06/21 12/17/21 Alex Roque MD [address] [place] [address] #1 [address]1 [place] [address] PCP - General 12/18/21 documented as of this encounter
--- OUTSIDE RECORDS SUMMARY | 2025-09-07 09:58 | XMS_ITS ---
Author Organization [facility] Address [address] [place] [address] Care Team Providers Care Technology Teacher Name Role Phone Alex Roque MD Primary Care Provider [phone] Active Problems Problem Noted Date Diagnosed Date [...]
--- OUTSIDE RECORDS SUMMARY | 2025-09-07 09:58 | XMS_ITS | Encounter Summary ---
Author Organization Healthcare Address [address] [place] [address] Care Team Providers Care Senior Bioinformatics Specialist Name Role Phone Alex Roque MD Primary Care Provider [phone] Encounter Details Date Type Department Care Team ([facility] st Contact Info) Description 08/13/2025 Orders Only [facility] [address] , [address] [place] [address] Jose Carson DMD, MD [address] [place] [address] [place] [address] Neck pain Social History Tobacco Use Types Packs/Day Years [...] drink first t alberto in the morning (EYE-RETREAD SUPERVISOR) to steady your nerves or to [...] Office Visit [facility] [address], [address]rd [place] [address] Gus Mon MD [address] [facility] [address] [place] [address] 10/07/2025 9:15 AM EST Clinical Support [facility] [address] [facility], 2nd [place] [address] 10/07/2025 10:20 AM EST Appointment [facility] Rad[facility] [address] [place] [address] 10/10/2025 9:30 AM EST Office Visit [facility] [address] [facility], 2nd [place] [address] Vitor Honeycutt, REHABILITATION ASSISTANT [address] [facility] [address] [place] [address] documented as of this encounter Visit Diagnoses [...] documented as of this encounter Care Teams Senior Bioinformatics Specialist Relationship Specialty Start Date End Date Alex Roque MD [address] [place] [address] #1 #1 [place] [id number] PCP - General 12/18/21 documented as of this encounter
--- OUTSIDE RECORDS SUMMARY | 2025-09-07 09:58 | XMS_ITS | Encounter Summary ---
Author Organization Healthcare Address [address] [id number] Care Team Providers Care Rn Immunology Name Role Phone Alex Roque MD Primary Care Provider [phone] Reason for Visit * Reason Comments Med Refill Encounter Details Date Type Department Care Team (Late st Contact Info) Description 08/12/2025 Refill [facility] [address] [place] [address] Richard Lema MD [address] [place] [address] Neck pain Social History Tobacco Use Types [...] drink first t alberto in the morning (EYE-BIOASSAYIST) to steady your nerves or to get [...] Description 09/10/2025 8:30 AM EST Office Visit [place] [facility] [address], [address] [place] [address] Gus Mon MD [address] [facility] [address] [place] [address] 10/07/2025 9:15 AM EST Clinical Support [facility] [address] [facility], 2nd [place] [address] 10/07/2025 10:20 AM EST Appointment [facility] [address] [place] [address] 10/10/2025 9:30 AM EST Office Visit [facility] [address] [facility], 2nd [place] [address] Vitor Honeycutt, MAGNETO ELECTRICIAN [address] [facility] [address] [place] [address] documented as of this encounter Visit Diagnoses [...] documented as of this encounter Care Teams Rn Immunology Relationship Specialty Start Date End Date Alex Roque MD [address] [place] [address] #1 #1 [place] [id number] PCP - General 12/18/21 documented as of this encounter
--- OUTSIDE RECORDS SUMMARY | 2025-09-07 09:59 | XMS_ITS | Clinical Summary ---
Author Organization [facility] Address [address] [place] [address] Care Team Providers Care Ornament Stapler Name Role Phone Alex Roque MD Primary [...] mouth daily. 90 tablet 3 5 Active clopidogrel (Plavix) 75 MG tablet Take 1 tablet by mouth daily. 89 tablet 5 09/20/20 25 Active bisoprolol-hydro CHLOROthiazide (Ziac) 5-6.25 MG tablet Take 1 tablet by mouth daily. 5 Active cyclobenzaprine (Flexeril) 10 MG tabletIndication s:Neck pain Take 1 tablet by mouth 2 times a day as needed for muscle spasms. 60 tablet 2 5 11/11/19 26 Active meloxicam (Mobic) 15 MG tabletIndication s:Neck pain Take 1 tablet by mouth daily. 30 tablet 2 5 Active meloxicam (Mobic) 15 MG tabletIndication s:Neck pain Take 1 tablet by mouth daily. 30 tablet 2 5 08/13/20 Discontinu ed(Reorder ) cyclobenzaprine (Flexeril) 10 MG tabletIndication s:Neck pain Take 1 tablet by mouth 2 times a day as needed for muscle spasms. 60 tablet 2 5 08/13/20 25 Discontinu ed(Reorder ) Active Problems Problem Noted Date Diagnosed Date [...] Encounters Date Type Department Care Team Description 08/20/2025 9:00 AM EST Office Visit [facility] [address], [address]st [place] [phone] Andre Lion APRN Dizziness (Primary Dx); Primary hypertension 08/20/2025 Travel 08/13/2025 Orders Only [facility] Head, Neck & Respiratory [address] [facility], 2nd [place] [address] Jose Carson DMD, MD Neck pain 08/12/2025 Refill [facility] [address] [phone] Richard Lema MD Neck pain 07/31/2025 10:30 AM EST Office Visit [facility] [address], [address] [place] [phone] Jarod Paula MD Dizziness (Primary Dx) 07/31/2025 Travel 07/02/[address] [facility] Audiology [address], [address] [place] [address] Codi Agarwal 06/22/2025 Travel 06/21/2025 3:20 PM EDT - 06/22/2025 3:54 PM EDT Hospital Encounter [facility] Inpatient [address] [place] [phone] Frankie Basilio MD Gangadhara, Suhas, MD Occlusion of left vertebral artery (Primary Dx); Lightheadedness; Dizziness; Embolic occlusion of left vertebral artery; Overweight (BMI 25.0-29.9) Discharge Disposition: Home or Self Care 06/21/2025 Travel 06/20/2025 Orders Only External Location [address] [place] [address] Gosia Stevenson, CLINICAL EDUCATION CONSULTANT 06/20/2025 Orders Only External Location [address] [place] [address] Gosia Stevenson, CLINICAL EDUCATION CONSULTANT 06/11/2025 9:10 AM EDT [facility] [address], [address]rd [place] [address] Eric Espinoza MD History of head and neck cancer (Primary Dx); Pharyngoesophageal dysphagia 06/11/2025 8:30 AM EDT Office Visit [facility] Otolaryngology [address], [address] [place] [address] Gus Mon MD Subacute sinusitis, unspecified location (Primary Dx); Deviated nasal septum 06/11/2025 Travel from Last 3 Months Family History [...] drink first t alberto in the morning (EYE-EMT/DISPATCHER) to steady your nerves or to get [...] Pulse 57 08/20/2025 8:50 AM EST Temperature 36.7 C (98 F) 06/22/2025 7:35 AM EDT Respiratory Rate 13 06/22/2025 3:00 PM EDT Oxygen Saturation 94% 08/20/2025 8:50 AM EST Inhaled Oxygen Concentration - - Weight 83.7 kg (184 lb 8.4 oz) 08/20/2025 8:50 A M EST Height 177.8 cm (5' 10 ) 08/20/2025 8:50 AM EST Body Mass Index 26.48 08/20/2025 8:50 AM EST Plan of Treatment Upcoming Encounters Date Type Department Care Team (Late st Contact Info) Description 09/10/2025 8:30 AM EST [facility] [address], [address] [place] [address] Gus Mon MD [address] [place] [address] 10/07/2025 9:15 AM EST Clinical Support [facility] Head[facility] Neck & Respiratory [address] [place] [address] 10/07/2025 10:20 AM EST Appointment [facility] Radiology [address] [place] [phone] 10/10/2025 9:30 AM EST Office Visit [facility] [address], [address] [place] [phone] Vitor Honeycutt, CLINICAL EDUCATION CONSULTANT [address] [place] [address] Health Maintenance Due Date Last Done Comments Dental Oral Exam 1957 Dental Prophylaxis 1957 Dental X-Ray: Bitewings 1957 Dental X-Ray: Full Mouth 1957 [facility]-Medicare Annual Wellness (AWV) 1957 [facility]-Infant/Child/Adol SDOH Screenings 1957 [id number] Vaccine (#1) 1962 [facility]- SDOH Screenings 1975 [...] Additional history exists [facility]-Obesity Intervention Completed 025, 07/31/2025, 06/21/2025, Additional history exists HPV Vaccines Aged Out [...] NEURO OUTSIDE IMAGES 06/20/20 12:22 PM EDT from Last 3 Months Results * MR [...] Acetaminophen Negative Negative 06/24/2025 1:39 PM EDT [facility] Alprazolam Negative Negative 06/24/2025 1:39 PM EDT [facility] Amantadine Negative Negative 06/24/2025 1:39 PM EDT [facility] Amitriptyline Negative Negative 06/24/2025 1:39 PM EDT [facility] Amphetamine Negative Negative 06/24/2025 1:39 PM EDT [facility] Atenolol Negative Negative 06/24/2025 1:39 PM EDT [facility] Benzoylecgonine Negative Negative 1:39 PM EDT [facility] Bisoprolol Negative Negative 06/24/2025 1:39 PM EDT [facility] Bupropion Negative Negative 06/24/2025 1:39 PM EDT [facility] Butalbital Negative Negative 06/24/2025 1:39 PM EDT [facility] Carbamazepine Negative Negative 06/24/2025 1:39 PM EDT [facility] Carisoprodol Negative Negative 06/24/2025 1:39 PM EDT [facility] Chlorpheniramine Negative Negative 06/24/20 1:39 PM EDT [facility] Citalopram Negative Negative 06/24/2025 1:39 PM EDT [facility] Clindamycin Negative Negative 06/24/2025 1:39 PM EDT [facility] Clonidine Negative Negative 06/24/2025 1:39 PM EDT [facility] Clopidogrel / Ticlopidine Negative Negative 06/24/2025 1:39 PM EDT [facility] Cocaethylene Negative Negative 06/24/2025 1:39 PM EDT [facility] Cocaine Negative Negative 06/24/2025 1:39 PM EDT [facility] Codeine Negative Negative 06/24/2025 1:39 PM EDT [facility] Cyclobenzaprine Positive(A) Negative 06/24/20 1:39 PM EDT [facility] Desvenlafaxine Negative Negative 06/24/2025 1:39 PM EDT [facility] Dextromethorphan Negative Negative 06/24/20 1:39 PM EDT [facility] Diazepam Negative Negative 06/24/2025 1:39 PM EDT [facility] Diltiazem Negative Negative 06/24/2025 1:39 PM EDT [facility] Diphenhydramine Negative Negative 1:39 PM EDT [facility] Doxepine Negative Negative 06/24/2025 1:39 PM EDT [facility] Doxylamine Negative Negative 06/24/2025 1:39 PM EDT [facility] EDDP-Methadone metabolite Negative Negative 06/24/2025 1:39 PM EDT [facility] Fentanyl Negative Negative 06/24/2025 1:39 PM EDT [facility] Fluconazole Negative Negative 06/24/2025 1:39 PM EDT [facility] Fluoxetine Negative Negative 06/24/2025 1:39 PM EDT [facility] Guaifenesin Negative Negative 06/24/2025 1:39 PM EDT [facility] Haloperidol Negative Negative 06/24/2025 1:39 PM EDT [facility] Heroin/6-LUCI Negative Negative 06/24/2025 1:39 PM EDT [facility] Hydrocodone Negative Negative 06/24/2025 1:39 PM EDT [facility] Hydroxyzine / Cetirizine metabolite Negative Negative 06/24/2025 1:39 PM EDT [facility] Ibuprofen Negative Negative 06/24/2025 1:39 PM EDT [facility] Imipramine Negative Negative 06/24/2025 1:39 PM EDT [facility] Ketamine Negative Negative 06/24/2025 1:39 PM EDT [facility] Labetolol Negative Negative 06/24/2025 1:39 PM EDT [facility] Lamotrigine Negative Negative 06/24/2025 1:39 PM EDT [facility] Levetiracetam Negative Negative 06/24/2025 1:39 PM EDT [facility] Lidocaine Negative Negative 06/24/2025 1:39 PM EDT [facility] MDA Negative Negative 06/24/2025 1:39 PM EDT [facility] MDMA Negative Negative 06/24/2025 1:39 PM EDT [facility] Memantine Negative Negative 06/24/2025 1:39 PM EDT [facility] Meperidine Negative Negative 06/24/2025 1:39 PM EDT [facility] Meprobamate Negative Negative 06/24/2025 1:39 PM EDT [facility] Metaxalone Negative Negative 06/24/2025 1:39 PM EDT [facility] Methamphetamine Negative Negative 1:39 PM EDT [facility] Methocarbamol Negative Negative 06/24/2025 1:39 PM EDT [facility] Methylecgonine Negative Negative 06/24/2025 1:39 PM EDT [facility] Metoclopramide Negative Negative 06/24/2025 1:39 PM EDT [facility] Metoprolol Negative Negative 06/24/2025 1:39 PM EDT [facility] Metronidazole Negative Negative 06/24/2025 1:39 PM EDT [facility] Midazolam Negative Negative 06/24/2025 1:39 PM EDT [facility] Midazolam Metabolite Negative Negative 06/24/2025 1:39 PM EDT [facility] Mirtazapine Negative Negative 06/24/2025 1:39 PM EDT [facility] Misc Test Result Negative Negative 06/24/20 1:39 PM EDT [facility] Naproxen Negative Negative 06/24/2025 1:39 PM EDT [facility] Nefazodone Negative Negative 06/24/2025 1:39 PM EDT [facility] Norfentanyl Negative Negative 06/24/2025 1:39 PM EDT [facility] Nortriptyline Negative Negative 06/24/2025 1:39 PM EDT [facility] Ordanstron Negative Negative 06/24/2025 1:39 PM EDT [facility] Oxcarbazepine Negative Negative 06/24/2025 1:39 PM EDT [facility] Oxycodone Negative Negative 06/24/2025 1:39 PM EDT [facility] Paroxethine Negative Negative 06/24/2025 1:39 PM EDT [facility] Phenobarbital Negative Negative 06/24/2025 1:39 PM EDT [facility] Phentermine Negative Negative 06/24/2025 1:39 PM EDT [facility] Phenytoin Negative Negative 06/24/2025 1:39 PM EDT [facility] Primidone Negative Negative 06/24/2025 1:39 PM EDT [facility] Promethazine Negative Negative 06/24/2025 1:39 PM EDT [facility] Propofol Negative Negative 06/24/2025 1:39 PM EDT [facility] Propranolol Negative Negative 06/24/2025 1:39 PM EDT [facility] Quetiapine Negative Negative 06/24/2025 1:39 PM EDT [facility] Quinine Negative Negative 06/24/2025 1:39 PM EDT [facility] Rantidine Negative Negative 06/24/2025 1:39 PM EDT [facility] Sertraline Negative Negative 06/24/2025 1:39 PM EDT [facility] Spironolactone Negative Negative 06/24/2025 1:39 PM EDT [facility] Tizanidine Negative Negative 06/24/2025 1:39 PM EDT [facility] Topiramate Negative Negative 06/24/2025 1:39 PM EDT [facility] Tramadol Negative Negative 06/24/2025 1:39 PM EDT [facility] Trazadone/ Trazadone metabolite Negative Negative 06/24/2025 1:39 PM EDT [facility] Trimethoprim Negative Negative 06/24/2025 1:39 PM EDT [facility] Valproic Acid Negative Negative 06/24/2025 1:39 PM EDT [facility] Venlafaxine Negative Negative 06/24/2025 1:39 PM EDT [facility] Verapamil Negative Negative 06/24/2025 1:39 PM EDT [facility] Zolpidem Negative Negative 06/24/2025 1:39 PM EDT [facility] Xylazine Negative Negative 06/24/2025 1:39 PM EDT [facility] Urine Urine specimen obtained by clean catch procedure / Unknown Non-blood Collection / Unknown 06/22/2025 4:37 AM EDT 06/22/2025 4:43 AM EDT Ta Leon MD LAB URINE ORDERABLES Final R esult [facility] [address] [place] [address] * (ABNORMAL) Lipid panel (06/22/2025 4:32 AM EDT) Cholesterol, Plasma 159 <200 mg/dL 06/22/2025 5:13 AM EDT [facility] Comment: Cholesterol Reference Range (age >17 years): Desirable <200 mg/dL Borderline 200 to 239 mg/dL Undesirable >239 mg/dL HDL 35(L) >=40 mg/dL 06/22/2025 5:13 AM EDT [facility] Comment: HDL Cholesterol Reference Ranges (age >17 years): Female, acceptable > or = 50 mg/dL Male, acceptable > or = 40 mg/dL Triglycerides, Plasma 112 <150 mg/dL 06/22/2025 5:13 AM EDT [facility] Comment: Triglyceride Reference Range (age >17 years): Desirable: <150 mg/dL Borderline high: 150 to 199 mg/dL High: 200 to 499 mg/dL Very high: >499 mg/dL Increased risk of pancreatitis: >1000 mg/dL Cholesterol/HDL Ratio 5 06/22/2025 5:13 AM EDT [facility] LDL, Calculated 103(H) <100 mg/dL 5:13 AM EDT [facility] Comment: LDL Cholesterol Reference Range [...] 12 hours? Yes 06/22/2025 5:13 AM EDT [facility] Blood Venous blood specimen / Unknown Venipuncture / Unknown 06/22/2025 4:32 AM EDT 06/22/2025 4:43 AM EDT aT Leon MD LAB BLOOD ORDERABLES Final R esult [facility] [address] [place] [address] * ED HIV 1/2 Antibody/Antigen Screen w/Reflex to HIV 1/2 Differentiation (06/21/2025 3:18 PM EDT) [facility] HIV 1 & 2 Antibody/Antigen Screen Non Reactive Non Reactive 06/21/2025 4:35 PM EDT [facility] Comment:Screening for HIV 1 & 2 antibodies, and P24 antigen is NONREACTIVE. No confirmatory testing is required. Blood Venous blood specimen / Unknown Venipuncture / Unknown 06/21/2025 3:18 PM EDT 06/21/2025 3:56 PM EDT Adriano Lanza MD LAB BLOOD ORDERABLES Final Res ult [facility] [address] [place] [address] * Hepatitis C Antibody - ED (06/21/2025 3:18 PM EDT) [facility] Hepatitis C Antibody Negative Negative 06/21/2025 4:35 PM EDT [facility] Blood Venous blood specimen / Unknown Venipuncture / Unknown 06/21/2025 3:18 PM EDT 06/21/2025 3:56 PM EDT us Adriano Lanza MD LAB BLOOD ORDERABLES Final Res ult [facility] [address] [place] [address] * (ABNORMAL) CBC w/diff (06/21/2025 3:18 PM EDT) [facility] WBC Count 8.59 3.70 - 10.30 10*3/uL LAB HEMATOLOGY METHOD 06/21/2025 3:24 PM EDT [facility] RBC Count 4.05(L) 4.60 - 6.10 10*6/uL LAB HEMATOLOGY METHOD 06/21/2025 3:24 PM EDT [facility] HGB 10.7(L) 13.7 - 17.5 g/dL LAB HEMATOLOGY METHOD 06/21/2025 3:24 PM EDT [facility] HCT 32.5(L) 40.0 - 51.0 % LAB HEMATOLOGY METHOD 06/21/2025 3:24 PM EDT [facility] Platelet Count 195 155 - 369 10*3/uL LAB HEMATOLOGY METHOD 06/21/2025 3:24 PM EDT [facility] MCV 80 79 - 98 fL LAB HEMATOLOGY METHOD 06/21/2025 3:24 PM EDT [facility] MCH 26.4 26.0 - 32.0 pg LAB HEMATOLOGY METHOD 06/21/2025 3:24 PM EDT [facility] MCHC 32.9 30.7 - 35.5 g/dL LAB HEMATOLOGY METHOD 06/21/2025 3:24 PM EDT [facility] RDW 14.6(H) 11.5 - 14.5 % LAB HEMATOLOGY METHOD 06/21/2025 3:24 PM EDT [facility] MPV 8.7(L) 8.8 - 12.5 fL LAB HEMATOLOGY METHOD 06/21/2025 3:24 PM EDT [facility] nRBC 0.0 <=0.0 per 100 WBCs LAB HEMATOLOGY METHOD 06/21/2025 3:24 PM EDT [facility] Differential Type Automated LAB HEMATOLOGY METHOD 06/21/2025 3:24 PM EDT [facility] Neutrophils % 77 % LAB HEMATOLOGY METHOD 06/21/2025 3:24 PM EDT [facility] Lymphocytes % 13 % LAB HEMATOLOGY METHOD 06/21/2025 3:24 PM EDT [facility] Monocytes % 6 % LAB HEMATOLOGY METHOD 06/21/2025 3:24 PM EDT [facility] Eosinophils % 4 % LAB HEMATOLOGY METHOD 06/21/2025 3:24 PM EDT [facility] Basophils % 0 % LAB HEMATOLOGY METHOD 06/21/2025 3:24 PM EDT [facility] Immature Granulocytes % 0 % LAB HEMATOLOGY METHOD 06/21/2025 3:24 PM EDT [facility] Neutrophils Absolute 6.66(H) 1.60 - 6.10 10*3/uL LAB HEMATOLOGY METHOD 06/21/2025 3:24 PM EDT [facility] Lymphocytes Absolute 1.10(L) 1.20 - 3.90 10*3/uL LAB HEMATOLOGY METHOD 06/21/2025 3:24 PM EDT [facility] Monocytes Absolute 0.49 0.30 - 0.90 10*3/uL LAB HEMATOLOGY METHOD 06/21/2025 3:24 PM EDT [facility] Eosinophils Absolute 0.30 0.00 - 0.50 10*3/uL LAB HEMATOLOGY METHOD 06/21/2025 3:24 PM EDT [facility] Basophils Absolute 0.01 0.00 - 0.10 10*3/uL LAB HEMATOLOGY METHOD 06/21/2025 3:24 PM EDT [facility] Immature Granulocytes Absolute 0.03 0.00 - 0.06 10*3/uL LAB HEMATOLOGY METHOD 06/21/2025 3:24 PM EDT [facility] Blood Venous blood specimen / Unknown Venipuncture / Unknown 06/21/2025 3:18 PM EDT 06/21/2025 3:22 PM EDT Narrative [facility] - 06/21/2025 3:24 PM EDT Therapeutic decision making should be based on absolute values, rather than percentages. us Adriano Lanza MD LAB BLOOD ORDERABLES Final Res ult Performing Organization Address City/[facility]/ZIP Co de Phone Number [facility] [address] [place] [address] * TSH (06/21/2025 3:18 PM EDT) Thyroid Stimulating Hormone, Plasma 3.77 0.40 - 4.20 uIU/mL 06/21/2025 11:48 PM EDT [facility] Blood Venous blood specimen / Unknown Venipuncture / Unknown 06/21/2025 3:18 PM EDT 06/21/2025 3:22 PM EDT Ta Leon MD LAB BLOOD ORDERABLES Final R esult Performing Organization Address [facility] Co de Phone Number [facility] [address] [place] [address] * (ABNORMAL) Hemoglobin A1c (06/21/2025 3:18 PM EDT) Hemoglobin A1c 5.9(H) <5.7 % 06/22/2025 9:33 AM EDT [facility] Blood Venous blood specimen / Unknown Venipuncture / Unknown 06/21/2025 3:18 PM EDT 06/21/2025 3:22 PM EDT Narrative [facility] - 06/22/2025 9:33 AM EDT HA1C Interpretive Data: Diagnosis of Diabetes: Diabetic > or = 6.5% Pre-diabetic 5.7 to 6.4% Non-diabetic < or = 5.6% Glycemic Targets for Type I and Type II Diabetics: Non- Adults <7.0% Adults <6.0% Children and Adolescents <7.5% Source: [place] [employer]. Standards of medical care in diabetes,2017. Diabetes Care.2017:40 (suppl 1):S1-S135. Ta Leon MD LAB BLOOD ORDERABLES Final R esult Performing Organization Address City/[facility]/ZIP Co de Phone Number [facility] [address] [place] [address] * (ABNORMAL) BMP (06/21/2025 3:18 PM EDT) Glucose, Plasma 100(H) 74 - 99 mg/dL 06/21/2025 3:44 PM EDT [facility] BUN, Plasma 21 8 - 23 mg/dL 06/21/2025 3:44 PM EDT [facility] Creatinine, Plasma 1.14 0.70 - 1.20 mg/dL 06/21/2025 3:44 PM EDT [facility] BUN/Creatinine Ratio 18 06/21/2025 3:44 PM EDT [facility] Sodium, Plasma 139 136 - 145 mmol/L 06/21/2025 3:44 PM EDT [facility] Potassium, Plasma 4.4 3.6 - 4.9 mmol/L 06/21/2025 3:44 PM EDT [facility] Chloride, Plasma 106 97 - 107 mmol/L 06/21/2025 3:44 PM EDT [facility] CO2, Plasma 24 22 - 29 mmol/L 06/21/2025 3:44 PM EDT [facility] Anion Gap 9 6 - 16 mmol/L 06/21/2025 3:44 PM EDT [facility] Total Calcium, Plasma 9.1 8.9 - 10.2 mg/dL 06/21/2025 3:44 PM EDT [facility] eGFRcr 70.5 mL/min/1.7 3m*2 06/21/2025 3:44 PM EDT [facility] Comment:Reported eGFRcr in m L/min/1.73m2 is based the CKD-EPI 2020 equation that does not use a race coefficient. Blood Venous blood specimen / Unknown Venipuncture / Unknown 06/21/2025 3:18 PM EDT 06/21/2025 3:22 PM EDT us Adriano Lanza MD LAB BLOOD ORDERABLES Final Res ult Performing Organization Address City/[facility]/ZIP Co de Phone Number [facility] [address] [place] [address] * EKG now - STAT (adult) (06/21/2025 2:36 PM EDT) EKG DIAGNOSIS CLASS Abnormal MUSE ECG Ventricular Rate 78 BPM MUSE ECG Atrial Rate 78 BPM MUSE ECG DE Interval 134 ms MUSE ECG QRSD Interval 108 ms MUSE ECG QT Interval 352 ms MUSE ECG QTC Interval 401 ms MUSE ECG P [place] 78 degrees MUSE ECG R [place] -4 degrees MUSE ECG T Wave [place] 33 degrees MUSE ECG Diagnosis Sinus rhythm [...] Tomogra phy 06/20/2025 12:2 2 PM EDT us Gosia Stevenson APRN IMG CT PROCEDURES Edited Result - Final from Last 3 Months Insurance [facility] MEDIC[facility] [employer] Advance Directives * Full Code [...] Patient has decision-making capacity? Yes Care Teams Ornament Stapler Relationship Specialty Start Date End Date Alex Roque MD [address] [place] [address] #1 #1 AUDRA Rasheed [id number] PCP - General 12/18/21
[2025-09-07 10:11] LABS: Hematocrit 35.8 % (42.0-52.0); Hemoglobin 11.4 g/dL (14.1-18.0); Immature Granulocytes % 0.3 %; Mean Corpuscular HGB Conc 31.8 g/dL (31.8-35.4); Mean Corpuscular Hemoglobin 28.6 pg (27.0-31.2); Mean Corpuscular Volume 89.9 fl (80-94); Nucleated Red Blood Cells % 0 %; Platelet Count 185 K/mm3 (142-424); Red Blood Count 3.98 M/mm3 (4.60-6.20); Red Cell Distribution Width-SD 45.4 fL; White Blood Count 8.7 K/mm3 (4.8-10.8)
[2025-09-07 14:42] LABS: Chloride 105 mmol/L (98-107)
[2025-09-07 14:43] LABS: Potassium 4.5 mmoL/L (3.5-5.1); Sodium 140 mmol/L (136-145)
[2025-09-07 14:45] LABS: Blood Urea Nitrogen 22 mg/dl (9-20); Creatinine,Serum 1.20 mg/dl (0.66-1.25); Estimated Glomerular Filt Rate 60 ml/min (>60); GFR (African American) 73 ML/MIN (>60)
[2025-09-07 14:46] LABS: Anion Gap 15.5 mEq/L (5-15); Calcium 8.8 mg/dl (8.4-10.2); Carbon Dioxide 24 mmol/L (22.0-30.0); Glucose 127 mg/dl (74-100)
== END 2025-09-07 23:59 | disposition home or self-care (01) ==
LOC: LAB 09:56
PROVIDERS: PCP Family Medicine; Visit Provider Internal Medicine
DX: I25.10 Atherosclerotic heart disease of native coronary artery without angina pectoris (principal)
CPT/HCPCS: 36415; 80048; 85025